=== PATIENT | female | born 1960 | race Caucasian/White ===

== ENCOUNTER 2023-07-18 10:29 | Outpatient (OUT) | payer OTHER, SELFPAY ==
[2023-07-18 11:09] LABS: Basophils Absolute Auto 0.1 10^3/uL (0.0-0.1); Basophils Percent Auto 0.7 % (0.2-2.0); Eosinophils Absolute Auto 0.3 10^3/uL (0.0-0.7); Eosinophils Percent Auto 3.3 % (0.9-7.0); Hematocrit 35.3 % (36.0-48.0); Hemoglobin 11.2 g/dL (12.0-16.0); Immature Granulocytes Abs Auto 0.03 10^3/uL (0.00-0.03); Immature Granulocytes Pct Auto 0.4 % (0.0-0.5); Lymphocytes Absolute Auto 1.5 10^3/uL (1.2-3.8); Lymphocytes Percent Auto 19.7 % (20.5-60.0); Mean Corpuscular HGB Conc 31.7 g/dL (29.9-35.2); Mean Corpuscular Hemoglobin 25.6 pg (26.7-34.0); Mean Corpuscular Volume 80.8 fL (81.0-99.0); Monocytes Absolute Auto 0.5 10^3/uL (0.3-0.8); Monocytes Percent Auto 6.3 % (1.7-12.0); Neutrophils Absolute Auto 5.2 10^3/uL (1.4-6.5); Neutrophils Percent Auto 69.6 % (43.0-75.0); Platelet Count 290 10^3/uL (150-450); Red Blood Count 4.37 10^6/uL (4.20-5.40); Red Cell Distribution Width 14.9 % (11.0-15.0); White Blood Count 7.5 10^3/uL (4.0-11.0)
[2023-07-18 12:08] LABS: Estimated Average Glucose 120 mg/dL; Glycohemoglobin A1C 5.8 % (4.5-6.2)
[2023-07-18 12:16] LABS: Alanine Aminotransferase 21 U/L (14-59); Albumin Globulin Ratio 0.9; Albumin Level 3.8 g/dL (3.4-5.0); Alkaline Phosphatase 93 U/L (46-116); Aspartate Amino Transferase 13 U/L (15-37); Bilirubin Direct 0.1 mg/dL (0.0-0.2); Bilirubin Total 0.2 mg/dL (0.2-1.0); Cholesterol 131 mg/dL (<=200); Globulin 4.3 g/dL; Glucose Fasting 110 mg/dL (74-106); HDL Cholesterol 66 mg/dL (40-60); Thyroid Stimulating Hormone 2.202 uIU/mL (0.358-3.740); Total Protein 8.1 g/dL (6.4-8.2); Triglycerides 62 mg/dL (<=150); VLDL CHOLESTEROL 12.4 mg/dL
[2023-07-19 06:08] LABS: Carbamazepine(Tegretol),S 10.7 ug/mL (4.0-12.0)
== END 2023-07-18 10:30 | disposition home or self-care (01) ==
PROVIDERS: PCP Nurse Practitioner; Visit Provider Psychiatry & Neurology Psychiatry
DX: Z79.899 Other long term (current) drug therapy (principal); F31.9 Bipolar disorder, unspecified
CPT/HCPCS: 36415; 80061; 80076; 80156; 82947; 83036; 84443; 85025

== ENCOUNTER 2023-07-21 09:01 | Emergency (ER) | payer OTHER, SELFPAY ==
[2023-07-21 09:08] VITALS: BP 138/84; PULSE 74; RESP 18; O2SAT 99; BMI 30.1
--- NOTE | 2023-07-21 09:23 | CT_ITS ---
The [address] [address] Patient Name: ALBERTA COURTNEY MRN: [id number] date: 1960 Sex: F Assigned Patient Location: ER Current Patient Location: [facility] Accession/Order Number: [id number] Exam Date: 07/21/2023 09:52 Report Date: 07/21/2023 10:16 At the request of: ELIS TEAGUE Procedure: CT head/brain wo con CT head/brain wo con, 07/21/2023 9:52 AM EDT, [place]001 INDICATION: dizziness COMPARISON: None. TECHNIQUE: CT images of the brain from skull base to vertex, including portions of the face and sinuses, were obtained without contrast. Supplemental 2D reformatted images were generated and reviewed as needed. Dose reduction techniques were achieved by using automated exposure control and/or adjustment of mA and/or kV according to patient size and/or use of iterative reconstruction technique. FINDINGS: The ventricles and sulci are within normal limits for the patient's age. No significant white matter disease or acute ischemia. No mass effect, acute hemorrhage, midline shift, hydrocephalus or exta-axial fluid collection. The basal cisterns are patent. The calvarium appears intact. The visualized paranasal sinuses are clear. The mastoids are clear. CT/CT head/brain wo con IMPRESSION: No CT evidence of acute intracranial abnormality. Electronically authenticated by: ELOISE RICO Date: 07/21/2023 10:16
--- NOTE | 2023-07-21 09:23 | ECG_ITS ---
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
[2023-07-21 09:25] VITALS: TEMP 37.1
--- NOTE | 2023-07-21 09:25 | ED.DIZZY1 ---
HPI - Dizziness General Chief Complaint: Dizziness Stated Complaint: DIZZINESS Time Seen by Provider: 07/21/23 09:09 Source: patient Mode of arrival: walk-in History of Present Illness HPI Narrative: sudden onset of dizziness one day ago without provocation - described as spinning or movement at rest, worse with standing, having difficulty walking due tot he symptom. no nausea or vomiting, No headache or ringing in the ears. Thought her vision was off yesterday but OK today. No fever, chills, recent illness, recent trauma, GI or symptoms. No prior history of vertigo. Related Data Home Medications Medication Instructions Recorded Confirmed alendronate 35 mg tablet 35 mg PO DAILY 07/21/23 07/21/23 alprazolam 1 mg tablet mg 07/21/23 aripiprazole 30 mg tablet (Abilify) 30 mg PO DAILY 07/21/23 07/21/23 aspirin 81 mg tablet,delayed 81 mg PO DAILY 07/21/23 07/21/23 release atorvastatin 40 mg tablet 40 mg PO DAILY 07/21/23 07/21/23 bupropion HCl 150 mg 24 hr tablet, 150 mg PO DAILY 07/21/23 07/21/23 extended release bupropion HCl 300 mg 24 hr tablet, 300 mg PO DAILY 07/21/23 07/21/23 extended release buspirone 30 mg tablet 30 mg PO BID 07/21/23 07/21/23 carbamazepine 200 mg tablet 200 mg PO BID 07/21/23 07/21/23 (Tegretol) carvedilol 6.25 mg tablet 6.25 mg PO BID 07/21/23 07/21/23 citalopram 40 mg tablet (Celexa) 40 mg PO DAILY 07/21/23 07/21/23 hydrochlorothiazide 12.5 mg tablet 12.5 mg PO DAILY 07/21/23 07/21/23 loratadine 10 mg tablet 10 mg PO DAILY 07/21/23 07/21/23 meloxicam 7.5 mg tablet 7.5 mg PO DAILY 07/21/23 07/21/23 Previous Rx's Medication Instructions Recorded meclizine 25 mg tablet 25 mg PO TID PRN dizziness #30 tabs 07/21/23 Allergies Allergy/AdvReac Type Severity Reaction Status Date / Time No Known Drug Allergies Allergy Verified 07/21/23 09:08 Exam Narrative Exam Narrative: Nurses notes and vital signs reviewed and patient is not hypoxic. afebrile General: Well-appearing and in no apparent distress. Skin: Warm, dry, no pallor noted. No rash. Head: Normocephalic, atraumatic. Neck: Supple, non-tender. Eye: Pupils are equal, round and EOMI. No scleral icterus. Ears, Nose, Mouth, and Throat: TM are clear, no nasal mucosal hypertrophy. Oral mucosa is moist, no posterior oropharynx erythema, uvula is mid-line Cardiovascular: Regular Rate and Rhythm without murmur, gallop or rub. Respiratory: No accessory muscle use or respiratory distress. Lungs are clear to auscultation, no wheezing, rales or rhonchi Chest Wall: no tenderness Back: No midline thoracic or lumbar vertebral tenderness. No CVA tenderness Musculoskeletal: normal ROM, no calf or popliteal tenderness, no lower extremity edema/swelling GI: Abdomen is soft, non-distended. Normal bowel sounds. No masses appreciated. No tenderness to palpation. No rebound, guarding, or rigidity noted. Neurological: A&O x4. No cranial nerve dysfunction observed. No truncal ataxia. Moves all extremities. Sensation intact. Psychiatric: Cooperative and interactive. Normal mood and affect. Constitutional Vital Signs, click to edit/add: Last Vital Signs Temp 98.7 F 07/21/23 09:25 Pulse 74 07/21/23 10:40 Resp 16 07/21/23 10:40 BP 128/84 07/21/23 10:40 Pulse Ox 97 07/21/23 10:40 O2 Del Method Room Air 07/21/23 10:40 Course Vital Signs Vital signs: Vital Signs Pulse Rate 74 07/21/23 09:08 Respiratory Rate 18 07/21/23 09:08 Blood Pressure 138/84 07/21/23 09:08 Pulse Oximetry 99 07/21/23 09:08 Temperature 98.7 F 07/21/23 09:25 Pulse Rate 74 07/21/23 10:40 Respiratory Rate 16 07/21/23 10:40 Blood Pressure 128/84 07/21/23 10:40 Pulse Oximetry 97 07/21/23 10:40 Oxygen Delivery Method Room Air 07/21/23 10:40 MDM - Dizziness MDM Narrative Medical decision making narrative: Patient was placed on property assessment monitor and EKG obtained. Blood drawn and sent for evaluation. orthostatics were negative. Patient was ordered to receive normal saline IV fluid bolus, IV Zofran, IV Solu-Medrol and oral meclizine. She was ordered to undergo noncontrast CT scanning of the brain. EKG normal. Head CT negative per radiologist. CBC normal. metabolic profile normal On recheck at 1030 the patient had almost complete resolution of her symptoms and is without exacerbation with movement of the head or change in body position. Patient informed of results and discharged home. Prescribed Meclizine. PCP follow up recommended. Lab Data Attestation: I reviewed the patient's lab results. Labs: Lab Results 07/21/23 Range/Units 09:34 WBC 7.1 (4.0-11.0) 10^3/uL RBC 4.38 (4.20-5.40) 10^6/uL Hgb 11.2 L (12.0-16.0) g/dL Hct 35.5 L (36.0-48.0) % MCV 81.1 (81.0-99.0) fL MCH 25.6 L (26.7-34.0) pg MCHC 31.5 (29.9-35.2) g/dL RDW 14.8 (11.0-15.0) % Plt Count 228 (150-450) 10^3/uL MPV 10.3 (9.5-13.5) fL Neut % (Auto) 70.7 (43.0-75.0) % Lymph % (Auto) 18.1 L (20.5-60.0) % [place] % (Auto) 6.9 (1.7-12.0) % Eos % (Auto) 3.3 (0.9-7.0) % Baso % (Auto) 0.7 (0.2-2.0) % Neut # (Auto) 5.0 (1.4-6.5) 10^3/uL Lymph # (Auto) 1.3 (1.2-3.8) 10^3/uL [place] # (Auto) 0.5 (0.3-0.8) 10^3/uL Eos # (Auto) 0.2 (0.0-0.7) 10^3/uL Baso # (Auto) 0.1 (0.0-0.1) 10^3/uL Abs Immat Gran (auto) 0.02 (0.00-0.03) 10^3/uL Imm/Tot Granulo (auto) 0.3 (0.0-0.5) % Sodium 135 L (136-145) mmol/L Potassium 3.9 (3.5-5.1) mmol/L Chloride 100 (98-107) mmol/L Carbon Dioxide 27.3 (21.0-32.0) mmol/L Anion Gap 11.6 BUN 10.0 (7.0-18.0) mg/dL Creatinine 0.78 (0.55-1.02) mg/dL Est GFR ( Amer) >60 (>=60) Est GFR (Non-Af Amer) >60 (>=60) BUN/Creatinine Ratio 12.8 Glucose 124 H (74-106) mg/dL Calcium 8.7 (8.5-10.1) mg/dL Total Bilirubin 0.2 (0.2-1.0) mg/dL AST 18 (15-37) U/L ALT 20 (14-59) U/L Alkaline Phosphatase 90 (46-116) U/L Total Protein 8.0 (6.4-8.2) g/dL Albumin 3.8 (3.4-5.0) g/dL Globulin 4.2 g/dL Albumin/Globulin Ratio 0.[address] scan - head: Radiologist's impression: Patient Name: ALBERTA COURTNEY MRN: [facility]:[id number] date: 1960 Sex: F Assigned Patient Location: ER Current Patient Location: ED.MAIN Accession/Order Number: [id number] Exam Date: 07/21/2023 09:52 Report Date: 07/21/2023 10:16 At the request of: ELIS TEAGUE Procedure: CT head/brain wo con CT head/brain wo con, 07/21/2023 9:52 AM EDT, [place]001 INDICATION: dizziness COMPARISON: None. TECHNIQUE: CT images of the brain from skull base to vertex, including portions of the face and sinuses, were obtained without contrast. Supplemental 2D reformatted images were generated and reviewed as needed. Dose reduction techniques were achieved by using automated exposure control and/or adjustment of mA and/or kV according to patient size and/or use of iterative reconstruction technique. FINDINGS: The ventricles and sulci are within normal limits for the patient's age. No significant white matter disease or acute ischemia. No mass effect, acute hemorrhage, midline shift, hydrocephalus or exta-axial fluid collection. The basal cisterns are patent. The calvarium appears intact. The visualized paranasal sinuses are clear. The mastoids are clear. IMPRESSION: No CT evidence of acute intracranial abnormality. Electronically authenticated by: ELOISE RICO Date: 07/21/2023 10:16 ECG Data Interpretation: EKG interpretation: Emergency Department physician interpretation. Normal sinus rhythm at 71bpm. Normal axis, normal intervals and no ST segment elevation or depression. Normal EKG. Discharge Plan Discharge Chief Complaint: Dizziness Clinical Impression: Benign paroxysmal positional vertigo Patient Disposition: Home, Self-Care Time of Disposition Decision: 10:34 Prescriptions / Home Meds: New meclizine 25 mg tablet 25 mg PO TID PRN (Reason: dizziness) Qty: 30 0RF No Action alendronate 35 mg tablet 35 mg PO DAILY aspirin 81 mg tablet,delayed release (DR/EC) 81 mg PO DAILY atorvastatin 40 mg tablet 40 mg PO DAILY buspirone 30 mg tablet 30 mg PO BID bupropion HCl 300 mg tablet extended release 24 hr 300 mg PO DAILY bupropion HCl 150 mg tablet extended release 24 hr 150 mg PO DAILY carvedilol 6.25 mg tablet 6.25 mg PO BID meloxicam 7.5 mg tablet 7.5 mg PO DAILY loratadine 10 mg tablet 10 mg PO DAILY hydrochlorothiazide 12.5 mg tablet 12.5 mg PO DAILY carbamazepine [Tegretol] 200 mg tablet 200 mg PO BID aripiprazole [Abilify] 30 mg tablet 30 mg PO DAILY citalopram [Celexa] 40 mg tablet 40 mg PO DAILY alprazolam 1 mg tablet Instructions: Benign Paroxysmal Positional Vertigo (ED) Stand Alone Forms: Portal Instructions Referrals: Julianne Lord [Primary Care Provider] - 1 week
[2023-07-21 09:26] VITALS: BP 130/82; BP 132/80; BP 138/84; PULSE 74; PULSE 79
[2023-07-21 09:37] VITALS: O2SAT 98
[2023-07-21] MEDS: METHYLPREDNISOLONE SOD SUCC PF 125 MG/2 ML VIAL IVP (09:44)
[2023-07-21] MEDS: ONDANSETRON PF 4 MG/2 ML VIAL IV (09:44)
[2023-07-21] MEDS: MECLIZINE HCL 12.5 MG TABLET 25 MG PO (09:44)
[2023-07-21] MEDS: 0.9 % SODIUM CHLORIDE 1,000 ML 999 ML IV (09:45)
[2023-07-21 10:13] LABS: Basophils Absolute Auto 0.1 10^3/uL (0.0-0.1); Basophils Percent Auto 0.7 % (0.2-2.0); Eosinophils Absolute Auto 0.2 10^3/uL (0.0-0.7); Eosinophils Percent Auto 3.3 % (0.9-7.0); Hematocrit 35.5 % (36.0-48.0); Hemoglobin 11.2 g/dL (12.0-16.0); Immature Granulocytes Abs Auto 0.02 10^3/uL (0.00-0.03); Immature Granulocytes Pct Auto 0.3 % (0.0-0.5); Lymphocytes Absolute Auto 1.3 10^3/uL (1.2-3.8); Lymphocytes Percent Auto 18.1 % (20.5-60.0); Mean Corpuscular HGB Conc 31.5 g/dL (29.9-35.2); Mean Corpuscular Hemoglobin 25.6 pg (26.7-34.0); Mean Corpuscular Volume 81.1 fL (81.0-99.0); Mean Platelet Volume 10.3 fL (9.5-13.5); Monocytes Absolute Auto 0.5 10^3/uL (0.3-0.8); Monocytes Percent Auto 6.9 % (1.7-12.0); Neutrophils Percent Auto 70.7 % (43.0-75.0); Platelet Count 228 10^3/uL (150-450); Red Blood Count 4.38 10^6/uL (4.20-5.40); Red Cell Distribution Width 14.8 % (11.0-15.0); White Blood Count 7.1 10^3/uL (4.0-11.0)
[2023-07-21 10:40] VITALS: BP 128/84; PULSE 74; RESP 16; O2SAT 97
[2023-07-21 10:46] LABS: Alanine Aminotransferase 20 U/L (14-59); Albumin Globulin Ratio 0.9; Albumin Level 3.8 g/dL (3.4-5.0); Alkaline Phosphatase 90 U/L (46-116); Anion Gap 11.6; Aspartate Amino Transferase 18 U/L (15-37); BUN Creatinine Ratio 12.8; Bilirubin Total 0.2 mg/dL (0.2-1.0); Calcium 8.7 mg/dL (8.5-10.1); Carbon Dioxide 27.3 mmol/L (21.0-32.0); Chloride 100 mmol/L (98-107); Estimated GFR (African America >60 (>=60); Estimated GFR (Non-African Ame >60 (>=60); Globulin 4.2 g/dL; Glucose 124 mg/dL (74-106); Potassium 3.9 mmol/L (3.5-5.1); Sodium 135 mmol/L (136-145)
== END 2023-07-21 11:13 | disposition home or self-care (01) ==
PROVIDERS: Emergency Provider Emergency Medicine; PCP Nurse Practitioner
DX: H81.10 Benign paroxysmal vertigo, unspecified ear (principal); Z79.82 Long term (current) use of aspirin; Z79.899 Other long term (current) drug therapy
CPT/HCPCS: 36415; 70450; 80053; 85025; 93005; 96374; 96375; 99285; J2930

== ENCOUNTER 2023-09-21 08:10 | Outpatient (OUT) | payer OTHER, SELFPAY | END 2023-09-21 08:11 | disposition home or self-care (01) | LOC: LAB 08:11 | PROVIDERS: PCP Nurse Practitioner; Visit Provider Nurse Practitioner | DX: R42 Dizziness and giddiness (principal) | CPT/HCPCS: 36415; 82607; 83735; 85652; 86140 ==

== ENCOUNTER 2023-09-21 08:29 | Outpatient (OUT) | payer OTHER, SELFPAY ==
[2023-09-21 08:36] LABS: Erythrocyte Sedimentation Rate 32 mm/hr (<=30)
[2023-09-21 08:59] LABS: C Reactive Protein <0.2 mg/dL (<=1.0)
--- NOTE | 2023-09-21 09:28 | CA_ITS ---
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1960 Requested By: YAKOV AGUIRRE Order Number: [id number] Reading MD: TAO ASHTON Interpretive Statements Predominant rhythm is sinus with average rate of 87 bpm Tachycardia - max rate of 109 bpm - longest episode of 23min 19sec with rates between 103-109 bpm Bradycardia - none Ventricular ectopy - 2 total - 2 PVC Patient triggered events: 1 - associated with dizziness w/ a rate of 98 bpm Impression: Predominant rhythm is sinus with average rate of 87 bpm Fastest rate of 109 and slowest rate of 69 bpm 2 PVC No atrial fib, blocks or pauses Electronically Signed On 10-06-2023 7:17:48 EST by TAO ASHTON
== END 2023-09-21 08:30 | disposition home or self-care (01) ==
LOC: MRI 08:30
PROVIDERS: PCP Nurse Practitioner; Visit Provider Nurse Practitioner
DX: R42 Dizziness and giddiness (principal)
CPT/HCPCS: 36415; 82607; 83735; 85652; 86140; 93242

== ENCOUNTER 2023-12-27 08:35 | Emergency (ER) | payer OTHER, SELFPAY ==
[2023-12-27] VITALS (15 sets, daily range): BP systolic 128–190; BP diastolic 75–112; PULSE 74–91; RESP 11–27; TEMP 36.7; O2SAT 96–98; BMI 30.5
--- OUTSIDE RECORDS SUMMARY | 2023-12-27 08:50 | XMS_ITS | CCD ---
Author Name Unknown Address [address] [place] [address] Organization [facility] Care Team Providers Care Supervisor Testing Name Role Phone PATRICK PEDRO Admitting Unavailable WILLIS, PATRICK Attending Unavailable AICHHOLZ, MATIAS YAKOV Primary Care Unavailable WILLIS, PATRICK Consulting Unavailable WILLIS, PATRICK Admitting Unavailable WILLIS, PATRICK Attending Unavailable AICHHOLZ, MATIAS YAKOV Primary Care Unavailable WILLIS, PATRICK Consulting Unavailable AICHHOLZ, MATIAS YAKOV Admitting Unavailable AICHHOLZ, MATIAS YAKOV Attending Unavailable AICHHOLZ, MATIAS YAKOV Primary Care Unavailable Chris Caruso Attending Unavailab le Chris Caruso Admitting Unavailab le NO FAMILY, PHYSICIAN Primary Care Unavailable Problems Problem Classification Problem Date Documented Da te Episodic/Chronic Mood disorders (4 sources) Bipolar disorder, unspecified; Translations: [BIPOLAR DISORDER UNSPECIFIED] Onset: 07-15-2022 Chronic Other aftercare (1 source) 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 Anish Johnson Basophils/100 WBC (Bld) 1.1 % Normal 0.2-2.0 [facility] Comment on above: Performed By: #### C BC #### [facility] [address], [place] [address] Dr. Anish Johnson EO # 0.3 103/ul Normal 0.0-0.7 [facility] Comment on above: Performed By: #### C BC #### [facility] [address] [place] [address] Dr. Anish Johnson Eosinophils/100 WBC (Bld) 4.1 % Normal 0.9-7.0 [facility] Comment on above: Performed By: #### C BC #### [facility] [address] [place] [address] Dr. Anish Johnson Erythrocyte distribution width (RBC) [Ratio] 15.1 % Critically high 11.0-15.0 [facility] Comment on above: Performed By: #### C BC #### [facility] [address] [place] [address] Dr. Anish Johnson Hematocrit (Bld) [Volume fraction] 40.6 % Normal 36.0-48.0 [facility] Comment on above: Performed By: #### C BC #### [facility] [address] [place] [address] Dr. Anish Johnson Hemoglobin (Bld) [Mass/Vol] 12.4 g/dL Normal 12.0-16.0 [facility] Comment on above: Performed By: #### C BC #### [facility] [address] [place] [address] Dr. Anish Johnson IG # 0.02 10e3/ul Normal 0.00-0.03 [facility] Comment on above: Performed By: #### C BC #### [facility] [address] [place] [address] Dr. Anish Johnson IG % 0.3 % Normal 0.0-0.5 [facility] Comment on above: Performed By: #### C BC #### [facility] [address] [place] [address] Dr. Anish Johnson LYMPH # 1.3 103/ul Normal 1.2-3.8 [facility] Comment on above: Performed By: #### C BC #### [facility] [address] [place] [address] Dr. Anish Johnson Lymphocytes/100 WBC (Bld) 19.7 % Critically low 20.5-60.0 [facility] Comment on above: Performed By: #### C BC #### [facility] [address] [place] [address] Dr. Anish Johnson MANUAL DIFF REQ NO Normal [facility] Comment on above: Performed By: #### C BC #### [facility] [address] [place] [address] Dr. Anish Johnson MCH (RBC) [Entitic mass] 25.5 pg Critically low 26.7-34.0 [facility] Comment on above: Performed By: #### C BC #### [facility] [address] [place] [address] Dr. Anish Johnson MCHC (RBC) [Mass/Vol] 30.5 g/dL Normal 29.9-35.2 [facility] Comment on above: Performed By: #### C BC #### [facility] [address] [place] [address] Dr. Anish Johnson MCV (RBC) [Entitic vol] 83.4 fL Normal 81.0-99.0 [facility] Comment on above: Performed By: #### C BC #### [facility] [address] [place] [address] Dr. Anish Johnson MONO # 0.5 103/ul Normal 0.3-0.8 [facility] Comment on above: Performed By: #### C BC #### [facility] [address] [place] [address] Dr. Anish Johnson Monocytes/100 WBC (Bld) 7.0 % Normal 1.7-12.0 [facility] Comment on above: Performed By: #### C BC #### [facility] [address] [place] [address] Dr. Anish Johnson NEUT # 4.5 103/ul Normal 1.4-6.5 [facility] Comment on above: Performed By: #### C BC #### [facility] [address] [place] [address] Dr. Anish Johnson Neutrophils/100 WBC (Bld) 67.8 % Normal 43.0-75.0 [facility] Comment on above: Performed By: #### C BC #### [facility] [address] [place] [address] Dr. Anish Johnson Platelet mean volume (Bld) [Entitic vol] 10.5 fL Normal 9.5-13.5 [facility] Comment on above: Performed By: #### C BC #### [facility] [address] [place] [address] Dr. Anish Johnson PLT 297 103/ul Normal 150-450 [facility] Comment on above: Performed By: #### C BC #### [facility] [address] [place] [address] Dr. Anish Johnson RBC 4.87 106/ul Normal 4.20-5.40 [facility] Comment on above: Performed By: #### C BC #### [facility] [address] [place] [address] Dr. Anish Johnson WBC 6.6 103/ul Normal 4.0-11.0 [facility] Comment on above: Performed By: #### C BC #### [facility] [address] [place] [address] Dr. Anish Johnson CARBAMAZEPINEon 07-16-2022 Carbamezapine 5.4 ug/mL Normal 4.0-12.0 [facility] [place] Comment on above: Result Comment: In c onjunction with other antiepileptic drugs Therapeutic 4.0 - 8.0 Toxicity 9.0 - 12.0 . Carbamazepine alone Therapeutic 8.0 - 12.0 . Detection Limit = 2.0 <2.0 indicated None Detected Performed By: #### C ARBLC #### [facility] [address] [place] [address] Dr. Anish Johnson CBC AUTO DIFFon 07-15-2022 BASO # 0.0 103/ul Normal 0.0-0.1 [facility] Comment on above: Performed By: #### C BC #### [facility] [address] [place] [address] Dr. Anish Johnson Basophils/100 WBC (Bld) 0.5 % Normal 0.2-2.0 [facility] Comment on above: Performed By: #### C BC #### [facility] [address] [place] [address] Dr. Anish Johnson EO # 0.2 103/ul Normal 0.0-0.7 [facility] Comment on above: Performed By: #### C BC #### [facility] [address] [place] [address] Dr. Anihs Johnson Eosinophils/100 WBC (Bld) 2.9 % Normal 0.9-7.0 [facility] Comment on above: Performed By: #### C BC #### [facility] [address] [place] [address] Dr. Anish Johnson Erythrocyte distribution width (RBC) [Ratio] 15.7 % Critically high 11.0-15.0 [facility] Comment on above: Performed By: #### C BC #### [facility] [address] [place] [address] Dr. Anish Johnson Hematocrit (Bld) [Volume fraction] 40.2 % Normal 36.0-48.0 [facility] Comment on above: Performed By: #### C BC #### [facility] [address] [place] [address] Dr. Anish Johnson Hemoglobin (Bld) [Mass/Vol] 12.5 g/dL Normal 12.0-16.0 [facility] Comment on above: Performed By: #### C BC #### [facility] [address] [place] [address] Dr. Anish Johnson IG # 0.02 10e3/ul Normal 0.00-0.03 [facility] Comment on above: Performed By: #### C BC #### [facility] [address] [place] [address] Dr. Anish Johnson IG % 0.3 % Normal 0.0-0.5 [facility] Comment on above: Performed By: #### C BC #### [facility] [address] [place] [address] Dr. Anish Johnson LYMPH # 1.5 103/ul Normal 1.2-3.8 [facility] Comment on above: Performed By: #### C BC #### [facility] [address] [place] [address] Dr. Anish Johnson Lymphocytes/100 WBC (Bld) 18.7 % Critically low 20.5-60.0 [facility] Comment on above: Performed By: #### C BC #### [facility] [address] [place] [address] Dr. Anish Johnson MANUAL DIFF REQ NO Normal [facility] Comment on above: Performed By: #### C BC #### [facility] [address] [place] [address] Dr. Anish Johnson MCH (RBC) [Entitic mass] 25.4 pg Critically low 26.7-34.0 [facility] Comment on above: Performed By: #### C BC #### [facility] [address] [place] [address] Dr. Anish Johnson MCHC (RBC) [Mass/Vol] 31.1 g/dL Normal 29.9-35.2 [facility] Comment on above: Performed By: #### C BC #### [facility] [address] [place] [address] Dr. Anish Johnson MCV (RBC) [Entitic vol] 81.7 fL Normal 81.0-99.0 [facility] Comment on above: Performed By: #### C BC #### [facility] [address] [place] [address] Dr. Anish Johnson MONO # 0.7 103/ul Normal 0.3-0.8 [facility] Comment on above: Performed By: #### C BC #### [facility] [address] [place] [address] Dr. Anish Johnson Monocytes/100 WBC (Bld) 8.3 % Normal 1.7-12.0 [facility] Comment on above: Performed By: #### C BC #### [facility] [address] [place] [address] Dr. Anish Johnson NEUT # 5.4 103/ul Normal 1.4-6.5 [facility] Comment on above: Performed By: #### C BC #### [facility] [address] [place] [address] Dr. Anish Johnson Neutrophils/100 WBC (Bld) 69.3 % Normal 43.0-75.0 [facility] Comment on above: Performed By: #### C BC #### [facility] [address] [place] [address] Dr. Anish Johnson Platelet mean volume (Bld) [Entitic vol] 10.6 fL Normal 9.5-13.5 [facility] Comment on above: Performed By: #### C BC #### [facility] [address] [place] [address] Dr. Anish Johnson PLT 297 103/ul Normal 150-450 [facility] Comment on above: Performed By: #### C BC #### [facility] [address] [place] [address] Dr. Anish Johnson RBC 4.92 106/ul Normal 4.20-5.40 [facility] Comment on above: Performed By: #### C BC #### [facility] [address] [place] [address] Dr. Anish Johnson WBC 7.8 103/ul Normal 4.0-11.0 [facility] Comment on above: Performed By: #### C BC #### [facility] [address] [place] [address] Dr. Anish Johnson GLUCOSE BLOODon 07-15-2022 Glucose [Mass/Vol] 133 mg/dL Critically high 74-106 [facility] Comment on above: Performed By: #### L IVER, GLUC, TSH, LIPID #### [facility] [address] [place] [address] Dr. Anish Johnson LIPID PROFILEon 07-15-2022 CHOL-HDL RATIO NORM SEE BELOW Normal [facility] Comment on above: Result Comment: 3.3 - 4.4 LOW RISK 4.4 - 7.1 AVERAGE RISK 7.1 - 11.0 MODERATE RISK >11.0 HIGH RISK Performed By: #### L IVER, GLUC, TSH, LIPID #### [facility] [address] [place] [address] Dr. Anish Johnson Cholesterol [Mass/Vol] 135 mg/dL Normal <=200 [facility] Comment on above: Performed By: #### L IVER, GLUC, TSH, LIPID #### [facility] [address] [address] [address] Anish Johnson Cholesterol in HDL [Mass/Vol] 58 mg/dL Normal 40-60 [facility] Comment on above: Performed By: #### L IVER, GLUC, TSH, LIPID #### [facility] [address] [address] [address] Anish Johnson Cholesterol in LDL [Mass/Vol] 54.2 mg/dL Normal [facility] Comment on above: Performed By: #### L IVER, GLUC, TSH, LIPID #### [facility] [address] [address] [address] Anish Johnson Cholesterol.total/Cho lesterol in HDL [Mass ratio] 2.3 {ratio} Normal [facility] Comment on above: Performed By: #### L IVER, GLUC, TSH, LIPID #### [facility] [address] [address] [address] Anish Johnson HDL NORMAL > or = 60 mg/dl - LOW CARDIOVASCULAR RISK <40 mg/dl - HIGH CARDIOVASCULAR RISK Normal [facility] Comment on above: Performed By: #### L IVER, GLUC, TSH, LIPID #### [facility] [address] [address] [address] Anish Johnson LDL CALC NORMAL SEE BELOW Normal [facility] Comment on above: Result Comment: <100 mg/dl OPTIMAL 100 - 129 mg/dl NEAR OR ABOVE OPTIMAL 130 - 159 mg/dl BORDERLINE HIGH 160 - 189 mg/dl HIGH >190 mg/dl VERY HIGH Performed By: #### L IVER, GLUC, TSH, LIPID #### [facility] [address] [address] [address] Anish Johnson Triglyceride [Mass/Vol] 114 mg/dL Normal <=150 [facility] Comment on above: Performed By: #### L IVER, GLUC, TSH, LIPID #### [facility] [address] [address] [address] Anish Johnson VLDL CALC 22.8 mg/dL Normal [facility] Comment on above: Performed By: #### L IVER, GLUC, TSH, LIPID #### [facility] [address] [place] [address] Dr. Anish Johnson LIVER PROFILEon 07-15-2022 Albumin [Mass/Vol] 4.3 g/dL Normal 3.4-5.0 [facility] Comment on above: Performed By: #### L IVER, GLUC, TSH, LIPID #### [facility] [address] [place] [address] Dr. Anish Johnson Albumin/Globulin [Mass ratio] 1.0 {ratio} Normal [facility] Comment on above: Performed By: #### L IVER, GLUC, TSH, LIPID #### [facility] [address] [place] [address] Dr. Anish Johnson ALP [Catalytic activity/Vol] 108 U/L Normal 46-116 [facility] Comment on above: Performed By: #### L IVER, GLUC, TSH, LIPID #### [facility] [address] [place] [address] Dr. Anish Johnson ALT [Catalytic activity/Vol] 26 U/L Normal 14-59 [facility] Comment on above: Performed By: #### L IVER, GLUC, TSH, LIPID #### [facility] [address] [place] [address] Dr. Anish Johnson AST [Catalytic activity/Vol] 21 U/L Normal 15-37 [facility] Comment on above: Performed By: #### L IVER, GLUC, TSH, LIPID #### [facility] [address] [place] [address] Dr. Anish Johnson BILI, CONJUGATED 0.1 mg/dL Normal 0.0-0.2 [facility] Comment on above: Performed By: #### L IVER, GLUC, TSH, LIPID #### [facility] [address] [place] [address] Dr. Anish Johnson Bilirubin [Mass/Vol] 0.5 mg/dL Normal 0.2-1.0 [facility] Comment on above: Performed By: #### L IVER, GLUC, TSH, LIPID #### [facility] [address], [place] [address] Dr. Anish Johnson Globulin (S) [Mass/Vol] 4.3 g/dL Normal [facility] Comment on above: Performed By: #### L IVER, GLUC, TSH, LIPID #### [facility] [address], [place] [address] Dr. Anish Johnson Protein [Mass/Vol] 8.6 g/dL Critically high 6.4-8.2 [facility] Comment on above: Performed By: #### L IVER, GLUC, TSH, LIPID #### [facility] [address], [place] [address] Dr. Anish Johnson TSHon 07-15-2022 TSH 1.692 uIU/mL Normal 0.358-3.740 [facility] [place] Comment on above: Performed By: #### L IVER, GLUC, TSH, LIPID #### [facility] [address], [place] [address] Dr. Anish Johnson Encounters Encounter Date Encounter Type Care Provider Facility Start: 10-11-2023 ambulatory Chris Chapa acility:[facility] Start: 09-08-2022 End: 09-09-2022 ambulatory PATRICK PEDRO Facility:[facility] Start: 07-15-2022 End: 07-16-2022 ambulatory PATRICK PEDRO Facility:[facility] Start: 09-09-2021 ambulatory MATIAS Marin ity:[facility] Payers Date Payer Category Payer Self-pay 1960 Unknown [id number] 1960 Unknown [id number] 1960 Unknown [id number] 1960 Unknown [id number] [id number] Summary Purpose Family History No Family History Records FoundNo Family History Records Found Advance Directives No Advanced Directives Records FoundNo Advanced Directives Records Found Additional Source Comments INFORMATION SOURCE (unrecogn ized section and content) DATE CREATED AUTHOR 09/09/2022 [facility] DATE CREATED AUTHOR AUTHOR'S EVIN GILBERTJUDE 12/26/2023 [facility] FOR RECORDS PERTAINING TO PATIENTS WHO ARE OR HAVE BEEN ENROLLED IN A CHEMICAL DEPENDENCY/SUBSTANCEABUSE PROGRAM, SOME INFORMATION MAY BE OMITTED. This clinical summary was aggregated from multiple sources. Caution should be exercised in using it in the provision of clinical care. This summary normalizes information from multiple sources, and as a consequence, information in this document may materially change the coding, format and clinical context of patient data. In addition, data may be omitted in some cases. CLINICAL DECISIONS SHOULD BE BASED ON THE PRIMARY CLINICAL RECORDS. [employer] provides no warranty or guarantee of the accuracy or completeness of information in this document.
--- NOTE | 2023-12-27 08:52 | ECG_ITS ---
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
[2023-12-27] MEDS: LABETALOL HCL 20 MG/4 ML SYRINGE IVP (09:07)
[2023-12-27] MEDS: ENALAPRILAT DIHYDRATE 1.25 MG/ML VIAL IV (09:08)
--- NOTE | 2023-12-27 09:19 | ED_ITS ---
HPI - General Adult General Chief complaint: Chest Pain Stated complaint: HIGH BLOOD PRESSURE Time Seen by Provider: 12/27/23 08:47 Source: patient Mode of arrival: walk-in Limitations: no limitations History of Present Illness HPI narrative: Patient sent over from her psychiatrist's office when they found her BP to be elevated. She told me that she has been taking her meds as prescribed and no recent change in her doses of BP meds. She is without any symptoms. no headache, dizziness or other complaints. Related Data Home Medications Medication Instructions Recorded Confirmed alendronate 35 mg tablet 35 mg PO DAILY 07/21/23 07/21/23 alprazolam 1 mg tablet mg 07/21/23 aripiprazole 30 mg tablet (Abilify) 30 mg PO DAILY 07/21/23 07/21/23 aspirin 81 mg tablet,delayed 81 mg PO DAILY 07/21/23 07/21/23 release atorvastatin 40 mg tablet 40 mg PO DAILY 07/21/23 07/21/23 bupropion HCl 150 mg 24 hr tablet, 150 mg PO DAILY 07/21/23 07/21/23 extended release bupropion HCl 300 mg 24 hr tablet, 300 mg PO DAILY 07/21/23 07/21/23 extended release buspirone 30 mg tablet 30 mg PO BID 07/21/23 07/21/23 carbamazepine 200 mg tablet 200 mg PO BID 07/21/23 07/21/23 (Tegretol) carvedilol 6.25 mg tablet 6.25 mg PO BID 07/21/23 07/21/23 citalopram 40 mg tablet (Celexa) 40 mg PO DAILY 07/21/23 07/21/23 hydrochlorothiazide 12.5 mg tablet 12.5 mg PO DAILY 07/21/23 07/21/23 loratadine 10 mg tablet 10 mg PO DAILY 07/21/23 07/21/23 meloxicam 7.5 mg tablet 7.5 mg PO DAILY 07/21/23 07/21/23 Previous Rx's Medication Instructions Recorded meclizine 25 mg tablet 25 mg PO TID PRN dizziness #30 tabs 07/21/23 Allergies Allergy/AdvReac Type Severity Reaction Status Date / Time No Known Drug Allergies Allergy Verified 07/21/23 09:08 PFSH PFSH Social History Smoking status: Former smoker Exam Narrative Exam Narrative: Nurses notes and vital signs reviewed and patient is not hypoxic. afebrile General: Well-appearing and in no apparent distress. Skin: Warm, dry, no pallor noted. Head: Normocephalic, atraumatic. Eye: Pupils are equal, round and EOMI. No scleral icterus. Cardiovascular: Regular Rate and Rhythm without murmur, gallop or rub. Respiratory: No accessory muscle use or respiratory distress. Lungs are clear to auscultation, no wheezing, rales or rhonchi Musculoskeletal: normal ROM, no calf or popliteal tenderness, no lower extremity edema/swelling Neurological: A&O x4. No cranial nerve dysfunction observed. No truncal ataxia. Moves all extremities. Sensation intact. Psychiatric: Cooperative and interactive. Normal mood and affect. Constitutional Vital Signs, click to edit/add: Last Vital Signs Temp 98.0 F 12/27/23 08:38 Pulse 76 12/27/23 09:24 Resp 17 12/27/23 09:24 BP 128/84 12/27/23 09:24 Pulse Ox 97 12/27/23 09:24 O2 Del Method Room Air 12/27/23 08:38 Course Vital Signs Vital signs: Vital Signs Temperature 98.0 F 12/27/23 08:38 Pulse Rate 88 12/27/23 08:38 Respiratory Rate 18 12/27/23 08:38 Blood Pressure 190/110 H 12/27/23 08:38 Pulse Oximetry 98 12/27/23 08:38 Oxygen Delivery Method Room Air 12/27/23 08:38 Temperature 98.0 F 12/27/23 08:38 Pulse Rate 76 12/27/23 09:24 Respiratory Rate 17 12/27/23 09:24 Blood Pressure 128/84 12/27/23 09:24 Pulse Oximetry 97 12/27/23 09:24 Oxygen Delivery Method Room Air 12/27/23 08:38 Medical Decision Making MDM Narrative Medical decision making narrative: Patient was placed on primary care sales representative and EKG obtained. Blood drawn and sent for evaluation. She was given IV Vasotec and IV Labetalol and her BP improved. Normal EKG. She was discharged home and instructed to see her PCP, Julianne Lord, in the office for follow up. Lab Data Lab results reviewed: Yes I reviewed the patient's lab results Labs: Lab Results 12/27/23 Range/Units 09:05 Sodium 137 (136-145) mmol/L Potassium 4.2 (3.5-5.1) mmol/L Chloride 103 (98-107) mmol/L Carbon Dioxide 26.2 (21.0-32.0) mmol/L Anion Gap 12.0 BUN 12.0 (7.0-18.0) mg/dL Creatinine 0.88 (0.55-1.02) mg/dL Est GFR ( Amer) >60 (>=60) Est GFR (Non-Af Amer) >60 (>=60) BUN/Creatinine Ratio 13.6 Glucose 116 H (74-106) mg/dL Calcium 8.9 (8.5-10.1) mg/dL ECG Data Attestation: I personally reviewed and interpreted this ECG as follows: Interpretation: EKG interpretation: Emergency Department physician interpretation. Normal sinus rhythm at 88bpm. Normal axis, normal intervals and no ST segment elevation or depression. Normal EKG. Discharge Plan Discharge Chief Complaint: Chest Pain Clinical Impression: Hypertension Patient Disposition: Home, Self-Care Time of Disposition Decision: 09:22 Prescriptions / Home Meds: No Action alendronate 35 mg tablet 35 mg PO DAILY aspirin 81 mg tablet,delayed release (DR/EC) 81 mg PO DAILY atorvastatin 40 mg tablet 40 mg PO DAILY buspirone 30 mg tablet 30 mg PO BID bupropion HCl 300 mg tablet extended release 24 hr 300 mg PO DAILY bupropion HCl 150 mg tablet extended release 24 hr 150 mg PO DAILY carvedilol 6.25 mg tablet 6.25 mg PO BID meloxicam 7.5 mg tablet 7.5 mg PO DAILY loratadine 10 mg tablet 10 mg PO DAILY hydrochlorothiazide 12.5 mg tablet 12.5 mg PO DAILY carbamazepine [Tegretol] 200 mg tablet 200 mg PO BID aripiprazole [Abilify] 30 mg tablet 30 mg PO DAILY citalopram [Celexa] 40 mg tablet 40 mg PO DAILY alprazolam 1 mg tablet meclizine 25 mg tablet 25 mg PO TID PRN (Reason: dizziness) Qty: 30 0RF Instructions: Hypertension (ED) Stand Alone Forms: Portal Instructions Referrals: Julianne Lord NP [Primary Care Provider] - 1 week
[2023-12-27 09:29] LABS: BUN Creatinine Ratio 13.6; Calcium 8.9 mg/dL (8.5-10.1); Carbon Dioxide 26.2 mmol/L (21.0-32.0); Chloride 103 mmol/L (98-107); Estimated GFR (African America >60 (>=60); Estimated GFR (Non-African Ame >60 (>=60); Glucose 116 mg/dL (74-106); Potassium 4.2 mmol/L (3.5-5.1); Sodium 137 mmol/L (136-145)
== END 2023-12-27 09:52 | disposition home or self-care (01) ==
PROVIDERS: Emergency Provider Emergency Medicine; PCP Nurse Practitioner
DX: I10 Essential (primary) hypertension (principal); Z79.899 Other long term (current) drug therapy; Z79.82 Long term (current) use of aspirin; Z87.891 Personal history of nicotine dependence
CPT/HCPCS: 36415; 80048; 93005; 96374; 96375; 99284; J1290

== ENCOUNTER 2024-01-20 07:48 | Emergency (ER) | payer OTHER, SELFPAY ==
[2024-01-20] VITALS (22 sets, daily range): BP systolic 105–194; BP diastolic 68–124; PULSE 73–94; RESP 11–19; TEMP 36.6; O2SAT 89–98; BMI 29.5
--- OUTSIDE RECORDS SUMMARY | 2024-01-20 07:56 | XMS_ITS | CCD ---
Author Name Unknown Address [address] [place] [address] Organization [facility] Care Team Providers Care Insole Rasper Name Role Phone PATRICK DAO Admitting Unavailable WILLIS, PATRICK Attending Unavailable AICHHOLZ, MATIAS JULIANNE Primary Care Unavailable KACIET, PATRICK Consulting Unavailable WILLIS, PATRICK Admitting Unavailable WILLIS, PATRICK Attending Unavailable JENNIFERHYESSY, MATIAS NAGY Primary Care Unavailable WILLIS, PATRICK Consulting Unavailable AICHHOLZ, MATIAS NAGY Admitting Unavailable AICHHOLTarsha, MATIAS NAGY Attending Unavailable POP, MATIAS NAGY Primary Care Unavailable Chris Caruso Attending Unavailab le Chris Caruso Admitting Unavailab le NO FAMILY, PHYSICIAN Primary Care Unavailable JULIANNE LORD Attending Unavailable Pop TAX TECHNICIAN, Julianne Unavailable Zhen Christiansen MD Primary Care Provider [phone] Medications Current Medications Medication Drug Class(es) Dates Sig (Normalized) Sig (Original) alendronic acid 35 mg oral tablet (3 sources) Bisphosphonate Start: 11-16-2023 alendronate (Fosamax) 35 MG tablet Take 1 tablet by mouth every 7 (seven) days 0 11/16/2023 Active ALPRAZolam 1 mg oral tablet (3 sources) Benzodiazepine Start: 11-19-2023 take 1 tablet by mouth twice daily as needed ALPRAZolam (Xanax) 1 MG tablet Take 1 tablet by mouth 2 (two) times a day as needed 0 11/19/2023 Active atorvastatin 40 mg oral tablet (3 sources) HMG-CoA Reductase Inhibitor Start: 11-16-2023 take 1 tablet by mouth in the morning atorvastatin (Lipitor) 40 MG tablet Take 1 tablet by mouth in the morning. 0 11/16/2023 Active 24 hr buPROPion hydrochloride 300 mg extended release oral tablet (8 sources) Aminoketone Start: 11-16-2023 take 1 tablet by mouth every twenty-four hours in the morning buPROPion XL (Wellbutrin XL) 300 MG 24 hr tablet Take 1 tablet by mouth in the morning. 0 11/16/2023 Active Start: 11-16-2023 End: 01-03-2024 take 1 tablet by mouth every twenty-four hours in the morning buPROPion XL (Wellbutrin XL) 150 MG 24 hr tablet Take 1 tablet by mouth in the morning and 1 tablet before bedtime. 0 11/16/2023 01/03/2024 Discontinued busPIRone hydrochloride 30 mg oral tablet (3 sources) Start: 11-16-2023 take 1 tablet by mouth in the morning busPIRone (Buspar) 30 MG tablet Take 1 tablet by mouth in the morning and 1 tablet before bedtime. 0 11/16/2023 Active carBAMazepine 200 mg oral tablet (3 sources) Mood Stabilizer Start: 11-16-2023 carBAMazepine (TEGretol) 200 MG tablet Take 1 tablet by mouth in the morning and 1 tablet before bedtime. 1 tablet in the am, and 2 tablets at night. 0 11/16/2023 Active carvedilol 6.25 mg oral tablet (3 sources) alpha-Adrenergic Howard, beta-Adrenergic Howard Start: 11-16-2023 take 1 tablet by mouth in the morning carvedilol (Coreg) 6.25 MG tablet Take 1 tablet by mouth in the morning and 1 tablet in the evening. Take with meals. 0 11/16/2023 Active hydroCHLOROthiazide 12.5 mg oral tablet (3 sources) Thiazide Diuretic Start: 11-19-2023 take 1 tablet by mouth in the morning hydroCHLOROthiazide (HYDRODiuril) 12.5 MG tablet Take 1 tablet by mouth in the morning. 0 11/19/2023 Active loratadine 10 mg oral tablet (3 sources) Start: 11-19-2023 take 1 tablet by mouth in the morning Allergy Relief 10 MG tablet Take 1 tablet by mouth in the morning. 0 11/19/2023 Active lumateperone 42 mg oral capsule (3 sources) take 1 capsule by mouth in the morning Lumateperone Tosylate (Caplyta) 42 MG capsule Indications: Depressive Phase Bipolar Mood Disorder Take 1 capsule by mouth in the morning. 0 Active meclizine hydrochloride 25 mg oral tablet (3 sources) Antiemetic Start: 10-18-2023 take 1 tablet by mouth three times daily as needed Travel-Ease 25 MG tablet Take 1 tablet by mouth 3 (three) times a day as needed 0 10/18/2023 Active meloxicam 7.5 mg oral tablet (3 sources) Nonsteroidal Anti-inflammator y Drug Start: 11-16-2023 take 1 tablet by mouth in the morning meloxicam (Mobic) 7.5 MG tablet Take 1 tablet by mouth in the morning. 0 11/16/2023 Active Completed/Discontinued Medications Medication Drug Class(es) Dates Sig (Normalized) Sig (Original) ARIPiprazole 30 mg oral tablet (5 sources) Atypical Antipsychotic Start: 05-21-2023 End: 01-03-2024 take 1 tablet by mouth in the morning ARIPiprazole (Abilify) 30 MG tablet Take 1 tablet by mouth in the morning. 0 05/21/2023 01/03/2024 Discontinued (Therapy completed) take 1 tablet by mouth in the mo rning ARIPiprazole (Abilify) 15 MG tablet Indications: Mixed Bipolar Affective Disorder Take 15 mg by mouth in the morning. 0 Active Problems Problem Classification Problem Date Documented Da te Episodic/Chronic Anxiety disorders (5 sources) Anxiety; Translations: [Anxiety disorder, unspecified] Onset: 01-03-2024 01-03-2024 Chronic Conditions associated with dizziness or vertigo (5 sources) Vertigo; Translations: [Dizziness and giddiness] Onset: 01-03-2024 01-03-2024 Episodic Essential hypertension (5 sources) Essential hypertension; Translations: [Essential (primary) hypertension] Onset: 11-16-2023 01-03-2024 Chronic Mood disorders (9 sources) Bipolar disorder, unspecified; Translations: [Bipolar disorder] Onset: 07-15-2022 Chronic Other aftercare (1 source) Other fdc (current) drug therapy; Translations: [OTH JAIL CURRENT DRUG THERAPY] Onset: 07-16-2022 Episodic Other nutritional; endocrine; and metabolic disorders (5 sources) Body mass index 30+ - obesity; Translations: [Body mass index (BMI) 34.0-34.9, adult] Onset: 01-03-2024 01-03-2024 Chronic Residual codes; unclassified (5 sources) Tobacco user; Translations: [Tobacco use] Onset: 01-03-2024 01-03-2024 Episodic Results Test Name Value Interpretation Reference Range Facil ity CBC AUTO DIFFon 09-08-2022 BASO # 0.1 103/ul Normal 0.0-0.1 [facility] Comment on above: Performed By: #### C BC #### [facility] [address] [address] [address] Anish Johnson Basophils/100 WBC (Bld) 1.1 % Normal 0.2-2.0 [facility] Comment on above: Performed By: #### C BC #### [facility] [address] [address] [address] Anish Johnson EO # 0.3 103/ul Normal 0.0-0.7 [facility] Comment on above: Performed By: #### C BC #### [facility] [address] [address] [address] Anish Johnson Eosinophils/100 WBC (Bld) 4.1 % Normal 0.9-7.0 [facility] Comment on above: Performed By: #### C BC #### [facility] [address] [address] [address] Anish Johnson Erythrocyte distribution width (RBC) [Ratio] 15.1 % Critically high 11.0-15.0 [facility] Comment on above: Performed By: #### C BC #### [facility] [address] [address] [address] Anish Johnson Hematocrit (Bld) [Volume fraction] 40.6 % Normal 36.0-48.0 [facility] Comment on above: Performed By: #### C BC #### [facility] [address] [address] [address] Anish Johnson Hemoglobin (Bld) [Mass/Vol] 12.4 g/dL Normal 12.0-16.0 [facility] Comment on above: Performed By: #### C BC #### [facility] [address] [place] [address] Dr. Anish Johnson IG # 0.02 10e3/ul Normal 0.00-0.03 [facility] Comment on above: Performed By: #### C BC #### [facility] [address] [place] [address] Dr. Anish Johnson IG % 0.3 % Normal 0.0-0.5 [facility] Comment on above: Performed By: #### C BC #### [facility] [address] [place] [address] Dr. Anish Johnson LYMPH # 1.3 103/ul Normal 1.2-3.8 [facility] Comment on above: Performed By: #### C BC #### [facility] [address] [place] [address] Dr. Anish Johnson Lymphocytes/100 WBC (Bld) 19.7 % Critically low 20.5-60.0 [facility] Comment on above: Performed By: #### C BC #### [facility] [address] [place] [address] Dr. Anish Johnson MANUAL DIFF REQ NO Normal [facility] Comment on above: Performed By: #### C BC #### [facility] [address] [place] [address] Dr. Anish Johnson MCH (RBC) [Entitic mass] 25.5 pg Critically low 26.7-34.0 [facility] Comment on above: Performed By: #### C BC #### [facility] [address] [place] [address] Dr. Anish Johnson MCHC (RBC) [Mass/Vol] 30.5 g/dL Normal 29.9-35.2 [facility] Comment on above: Performed By: #### C BC #### [facility] [address] [place] [address] Dr. Anish Johnson MCV (RBC) [Entitic vol] 83.4 fL Normal 81.0-99.0 [facility] Comment on above: Performed By: #### C BC #### [facility] [address] [place] [address] Dr. Anish Johnson MONO # 0.5 103/ul Normal 0.3-0.8 [facility] Comment on above: Performed By: #### C BC #### [facility] [address] [place] [address] Dr. Anish Johnson Monocytes/100 WBC (Bld) 7.0 % Normal 1.7-12.0 [facility] Comment on above: Performed By: #### C BC #### [facility] [address] [place] [address] Dr. Anish Johnson NEUT # 4.5 103/ul Normal 1.4-6.5 [facility] Comment on above: Performed By: #### C BC #### [facility] [address] [place] [address] Dr. Anish Johnson Neutrophils/100 WBC (Bld) 67.8 % Normal 43.0-75.0 [facility] Comment on above: Performed By: #### C BC #### [facility] [address] [place] [address] Dr. Anish Johnson Platelet mean volume (Bld) [Entitic vol] 10.5 fL Normal 9.5-13.5 [facility] Comment on above: Performed By: #### C BC #### [facility] [address] [place] [address] Dr. Anish Johnson PLT 297 103/ul Normal 150-450 [facility] Comment on above: Performed By: #### C BC #### [facility] [address] [place] [address] Dr. Anish Johnson RBC 4.87 106/ul Normal 4.20-5.40 [facility] Comment on above: Performed By: #### C BC #### [facility] [address] [place] [address] Dr. Anish Johnson WBC 6.6 103/ul Normal 4.0-11.0 [facility] Comment on above: Performed By: #### C BC #### [facility] [address] [place] [address] Dr. Anish Johnson CARBAMAZEPINEon 07-16-2022 Carbamezapine 5.4 ug/mL Normal 4.0-12.0 [facility] Comment on above: Result Comment: In c onjunction with other antiepileptic drugs Therapeutic 4.0 - 8.0 Toxicity 9.0 - 12.0 . Carbamazepine alone Therapeutic 8.0 - 12.0 . Detection Limit = 2.0 <2.0 indicated None Detected Performed By: #### C ARBLC #### [facility] [address] [place] [address] Dr. Anish Johnson CBC AUTO DIFFon 07-15-2022 BASO # 0.0 103/ul Normal 0.0-0.1 [facility] Comment on above: Performed By: #### C BC #### [facility] [address] [place] [address] Dr. Anish Johnson Basophils/100 WBC (Bld) 0.5 % Normal 0.2-2.0 [facility] Comment on above: Performed By: #### C BC #### [facility] [address] [place] [address] Dr. Anish Johnson EO # 0.2 103/ul Normal 0.0-0.7 [facility] Comment on above: Performed By: #### C BC #### [facility] [address] [place] [address] Dr. Anish Johnson Eosinophils/100 WBC (Bld) 2.9 % Normal 0.9-7.0 [facility] Comment on above: Performed By: #### C BC #### [facility] [address] [place] [address] Dr. Anish Johnson Erythrocyte distribution width (RBC) [Ratio] 15.7 % Critically high 11.0-15.0 [facility] Comment on above: Performed By: #### C BC #### [facility] [address] [place] [address] Dr. Anish Johnson Hematocrit (Bld) [Volume fraction] 40.2 % Normal 36.0-48.0 [facility] Comment on above: Performed By: #### C BC #### [facility] [address] [place] [address] Dr. Anish Johnson Hemoglobin (Bld) [Mass/Vol] 12.5 g/dL Normal 12.0-16.0 [facility] Comment on above: Performed By: #### C BC #### [facility] [address] [place] [address] Dr. Anish Johnson IG # 0.02 10e3/ul Normal 0.00-0.03 [facility] Comment on above: Performed By: #### C BC #### [facility] [address] [place] [address] Dr. Anish Johnson IG % 0.3 % Normal 0.0-0.5 [facility] Comment on above: Performed By: #### C BC #### [facility] [address] [place] [address] Dr. Anish Johnson LYMPH # 1.5 103/ul Normal 1.2-3.8 [facility] Comment on above: Performed By: #### C BC #### [facility] [address] [place] [address] Dr. Anish Johnson Lymphocytes/100 WBC (Bld) 18.7 % Critically low 20.5-60.0 [facility] Comment on above: Performed By: #### C BC #### [facility] [address] [place] [address] Dr. Anish Johnson MANUAL DIFF REQ NO Normal [facility] Comment on above: Performed By: #### C BC #### [facility] [address] [place] [address] Dr. Anish Johnson MCH (RBC) [Entitic mass] 25.4 pg Critically low 26.7-34.0 [facility] Comment on above: Performed By: #### C BC #### [facility] [address] [place] [address] Dr. Anish Johnson MCHC (RBC) [Mass/Vol] 31.1 g/dL Normal 29.9-35.2 [facility] Comment on above: Performed By: #### C BC #### [facility] [address] [place] [address] Dr. Anish Johnson MCV (RBC) [Entitic vol] 81.7 fL Normal 81.0-99.0 [facility] Comment on above: Performed By: #### C BC #### [facility] [address] [address] [address] Anish Johnson MONO # 0.7 103/ul Normal 0.3-0.8 [facility] Comment on above: Performed By: #### C BC #### [facility] [address] [address] [address] Anish Johnson Monocytes/100 WBC (Bld) 8.3 % Normal 1.7-12.0 [facility] Comment on above: Performed By: #### C BC #### [facility] [address] [place] [address] Dr. Anish Johnson NEUT # 5.4 103/ul Normal 1.4-6.5 [facility] Comment on above: Performed By: #### C BC #### [facility] [address] [place] [address] Dr. Anish Johnson Neutrophils/100 WBC (Bld) 69.3 % Normal 43.0-75.0 [facility] Comment on above: Performed By: #### C BC #### [facility] [address] [place] [address] Dr. Anish Johnson Platelet mean volume (Bld) [Entitic vol] 10.6 fL Normal 9.5-13.5 [facility] Comment on above: Performed By: #### C BC #### [facility] [address] [place] [address] Dr. Anish Johnson PLT 297 103/ul Normal 150-450 [facility] Comment on above: Performed By: #### C BC #### [facility] [address] [place] [address] Dr. Anish Johnson RBC 4.92 106/ul Normal 4.20-5.40 [facility] Comment on above: Performed By: #### C BC #### [facility] [address] [place] [address] Dr. Anish Johnson WBC 7.8 103/ul Normal 4.0-11.0 [facility] Comment on above: Performed By: #### C BC #### [facility] [address] [address] [address] Anish Johnson GLUCOSE BLOODon 07-15-2022 Glucose [Mass/Vol] 133 mg/dL Critically high 74-106 T [facility] Comment on above: Performed By: #### L IVER, GLUC, TSH, LIPID #### [facility] [address] [address] [address] Anish Johnson LIPID PROFILEon 07-15-2022 CHOL-HDL RATIO NORM SEE BELOW Normal [facility] Comment on above: Result Comment: 3.3 - 4.4 LOW RISK 4.4 - 7.1 AVERAGE RISK 7.1 - 11.0 MODERATE RISK >11.0 HIGH RISK Performed By: #### L IVER, GLUC, TSH, LIPID #### [facility] [address] [address] [address] Anish Johnson Cholesterol [Mass/Vol] 135 mg/dL Normal <=200 [facility] Comment on above: Performed By: #### L IVER, GLUC, TSH, LIPID #### [facility] [address] [address] [address] Anish Johnson Cholesterol in HDL [Mass/Vol] 58 mg/dL Normal 40-60 [facility] Comment on above: Performed By: #### L IVER, GLUC, TSH, LIPID #### [facility] [address] [address] [address] Anish Johnson Cholesterol in LDL [Mass/Vol] 54.2 mg/dL Normal [facility] Comment on above: Performed By: #### L IVER, GLUC, TSH, LIPID #### [facility] [address] [address] [address] Anish Johnson Cholesterol.total/Cho lesterol in HDL [Mass ratio] 2.3 {ratio} Normal [facility] Comment on above: Performed By: #### L IVER, GLUC, TSH, LIPID #### [facility] [address] [address] [address] Anish Johnson HDL NORMAL > or = 60 mg/dl - LOW CARDIOVASCULAR RISK <40 mg/dl - HIGH CARDIOVASCULAR RISK Normal [facility] Comment on above: Performed By: #### L IVER, GLUC, TSH, LIPID #### [facility] [address] [address] [address] Anish Johnson LDL CALC NORMAL SEE BELOW Normal [facility] Comment on above: Result Comment: <100 mg/dl OPTIMAL 100 - 129 mg/dl NEAR OR ABOVE OPTIMAL 130 - 159 mg/dl BORDERLINE HIGH 160 - 189 mg/dl HIGH >190 mg/dl VERY HIGH Performed By: #### L IVER, GLUC, TSH, LIPID #### [facility] [address] [address] [address] Anish Johnson Triglyceride [Mass/Vol] 114 mg/dL Normal <=150 [facility] Comment on above: Performed By: #### L IVER, GLUC, TSH, LIPID #### [facility] [address] [address] [address] Anish Johnson VLDL CALC 22.8 mg/dL Normal [facility] Comment on above: Performed By: #### L IVER, GLUC, TSH, LIPID #### [facility] [address] [address] [address] Ainsh Johnson LIVER PROFILEon 07-15-2022 Albumin [Mass/Vol] 4.3 g/dL Normal 3.4-5.0 [facility] Comment on above: Performed By: #### L IVER, GLUC, TSH, LIPID #### [facility] [address] [address] [address] Anish Johnson Albumin/Globulin [Mass ratio] 1.0 {ratio} Normal [facility] Comment on above: Performed By: #### L IVER, GLUC, TSH, LIPID #### [facility] [address] [address] [address] Anish Johnson ALP [Catalytic activity/Vol] 108 U/L Normal 46-116 [facility] Comment on above: Performed By: #### L IVER, GLUC, TSH, LIPID #### [facility] [address] [address] [address] Anish Johnson ALT [Catalytic activity/Vol] 26 U/L Normal 14-59 [facility] Comment on above: Performed By: #### L IVER, GLUC, TSH, LIPID #### [facility] [address] [place] [address] Dr. Anish Johnson AST [Catalytic activity/Vol] 21 U/L Normal 15-37 [facility] Comment on above: Performed By: #### L IVER, GLUC, TSH, LIPID #### [facility] [address] [place] [address] Dr. Anish Johnson BILI, CONJUGATED 0.1 mg/dL Normal 0.0-0.2 [facility] Comment on above: Performed By: #### L IVER, GLUC, TSH, LIPID #### [facility] [address] [place] [address] Dr. Anish Johnson Bilirubin [Mass/Vol] 0.5 mg/dL Normal 0.2-1.0 [facility] Comment on above: Performed By: #### L IVER, GLUC, TSH, LIPID #### [facility] [address] [place] [address] Dr. Anish Johnson Globulin (S) [Mass/Vol] 4.3 g/dL Normal [facility] Comment on above: Performed By: #### L IVER, GLUC, TSH, LIPID #### [facility] [address] [place] [address] Dr. Anish Johnson Protein [Mass/Vol] 8.6 g/dL Critically high 6.4-8.2 [facility] Comment on above: Performed By: #### L IVER, GLUC, TSH, LIPID #### [facility] [address] [place] [address] Dr. Anish Johnson TSHon 07-15-2022 TSH 1.692 uIU/mL Normal 0.358-3.740 [facility] Comment on above: Performed By: #### L IVER, GLUC, TSH, LIPID #### [facility] [address] [place] [address] Dr. Anish Johnson Vital Signs Date Time Vital Sign Value Performing Clinician April cheng 01-03-2024 15:19-0500 Body height 157.5 cm Julianne Lord NP Work Phone: [facility] 01-03-2024 15:19-0500 Body mass index (BMI) [Ratio] 34.02 kg/m2 Ujliannejulio c Steinyessy TAX TECHNICIAN Work Phone: [facility] 01-03-2024 15:19-0500 Body temperature 97.5 [degF] Julianne Emilmanuelz TAX TECHNICIAN Work Phone: [facility] 01-03-2024 15:19-0500 Body weight 84.37 kg Julianne Emilmanuelz TAX TECHNICIAN Work Phone: [facility] 01-03-2024 15:19-0500 Diastolic blood pressure 82 mm[Hg] Julianne Jenniferjose juanmanuelz TAX TECHNICIAN Work Phone: [facility] 01-03-2024 15:19-0500 Heart rate 87 /min Julianne Katz TAX TECHNICIAN Work Phone: [facility] 01-03-2024 15:19-0500 Respiratory rate 17 /min Julianne Emilmanuelz TAX TECHNICIAN Work Phone: [facility] 01-03-2024 15:19-0500 SaO2% (BldA) [Mass fraction] 97 % Julianne Emilmanuelz TAX TECHNICIAN Work Phone: [facility] 01-03-2024 15:19-0500 Systolic blood pressure 128 mm[Hg] Julianne Emilmanuelz TAX TECHNICIAN Work Phone: [facility] Healthcare Encounters Encounter Date Encounter Type Care Provider Facility Start: 01-10-2024 Refill Julianne Katz TAX TECHNICIAN Work Phone: [facility] Start: 01-03-2024 End: 01-03-2024 ambulatory JULIANNE JENNIFERHHOLZ Not Available Start: 01-03-2024 End: 01-03-2024 Office outpatient visit 25 minutes Julianne Pop TAX TECHNICIAN Work Phone: [facility] Comment on above: Essential (primary) hypertension (CMS/HCC) (Primary Dx); BMI 34.0-34.9,adult; Bipolar affective disorder, remission status unspecified (CMS/HCC); Tobacco user; Vertigo; Anxiety Start: 10-11-2023 ambulatory Chris Shady Sammi acility:[facility] Start: 09-08-2022 End: 09-09-2022 ambulatory PATRICK DAO Facility:[facility] Start: 07-15-2022 End: 07-16-2022 ambulatory PATRICK DAO Facility:[facility] Start: 09-09-2021 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 Comment on above: Postponed from 10/05 (Patient Refused) Start: 01-24-2024 End: 01-24-2024 Patient encounter procedure 01/24/2024 9:00 AM EST Office Visit [facility] [address] [place] [address] Julianne Lord, JUANITA [address] [place] [id number] [facility] Start: 1989 Screening for malign ant neoplasm of cervix HPV/Cotest [facility] Start: 1980 Screening for malign ant neoplasm of cervix Pap Smear [facility] Start: 1960 Screening for malign ant neoplasm of colon [facility] Payers Date Payer Category Payer Medicaid [id number] 2023 Medicaid [facility] [employer] [place] [id number] 2023-Present [address] [place] [address] [id number] 2023 Self-pay 1960 Unknown [id number] 1960 Unknown [id number] 1959 Unknown [id number] 1959 Unknown [id number] 1959 Unknown [id number] Social History Date Type Detail Facility Start: 12-28-2023 Tobacco smoking status [facility] Smokes t obacco daily [facility] History of tobacco use Cigarette Smoker [facility] Start: 12-28-2023 End: 01-03-2024 Cigarettes smoked current (pack per day) - Reported 1 [facility] Start: 01-03-2024 Tobacco use panel [facility] Start: 1960 Sex Assigned At Not on file [facility] History of Present illness Narrative 01-03-2024 Julianne Lord NP - 01/03/2024 3:59 PM Emma Lord, JUANITA - 01/03/2024 3:59 PM Emma Lord, JUANITA - 01/03/2024 3:58 PM Emma Lord, JUANITA - 01/03/2024 3:57 PM EST Note Date & Type Note Facility 01-03-2024 History of Presen t illness Narrative Associated Problem(s): Bipolar disorder ([facility]) Continue with psych Associated Problem(s): Anxiety Continue with dr dao, recommend she talk with her about counseling As this may be part of her elevated blood pressure Associated Problem(s): Vertigo Has resolved No need for antivert Associated Problem(s): Essential (primary) hypertension (CMS/HCC) No changes in meds at this time Script for blood pressure cuff Fu in 3 weeks record BP twice a day Suppose to be on meclizine 25mg per hospital paper but does not have it and is not in our system pt is not sure if that is prescribed by you or dr dao Images from the original note were not included. Sahra Taveras is a 63 y.o. female presents with chief complaint of No chief complaint on file. HPI: Was sent from Psych office last week to ER for elevated blood pressure and here today for fu Is compliant with meds, cont to smoke, asymptomatic w elevation Also of stressors with son who is an alcoholic as well suicidal ideation and does not want to get help She is very stressed about this Hypertension This is a chronic problem. The current episode started more than 1 year ago. The problem has been waxing and waning since onset. The problem is uncontrolled. Pertinent negatives include no chest pain, headaches, palpitations, peripheral edema, PND or shortness of breath. There are no associated agents to hypertension. Risk factors for coronary artery disease include dyslipidemia, obesity, smoking/tobacco exposure and sedentary lifestyle. Past treatments include beta blockers. The current treatment provides moderate improvement. SUBJECTIVE: MEDICATIONS: Current Outpatient Medications Medication Instructions alendronate (Fosamax) 35 MG tablet 1 tablet, Oral, Every 7 days Allergy Relief 10 MG tablet 1 tablet, Oral, Daily ALPRAZolam (Xanax) 1 MG tablet 1 tablet, Oral, 2 times daily PRN ARIPiprazole (Abilify) 30 MG tablet 1 tablet, Oral, Daily atorvastatin (Lipitor) 40 MG tablet 1 tablet, Oral, Daily buPROPion XL (Wellbutrin XL) 150 MG 24 hr tablet 1 tablet, Oral, 2 times daily buPROPion XL (Wellbutrin XL) 300 MG 24 hr tablet 1 tablet, Oral, Every morning busPIRone (Buspar) 30 MG tablet 1 tablet, Oral, 2 times daily carBAMazepine (TEGretol) 200 MG tablet 1 tablet, Oral, 2 times daily carvedilol (Coreg) 6.25 MG tablet 1 tablet, Oral, 2 times daily with meals hydroCHLOROthiazide (HYDRODiuril) 12.5 MG tablet 1 tablet, Oral, Daily meloxicam (Mobic) 7.5 MG tablet 1 tablet, Oral, Daily Travel-Ease 25 MG tablet 1 tablet, Oral, 3 times daily PRN ALLERGIES: No Known Allergies REVIEW OF SYMPTOMS: Review of Systems Constitutional: Negative for appetite change, chills and fever. HENT: Negative for congestion, ear pain and sore throat. Eyes: Negative for pain, discharge, redness and visual disturbance. Respiratory: Negative for cough, shortness of breath and wheezing. Cardiovascular: Negative for chest pain, palpitations, leg swelling and PND. Gastrointestinal: Negative for abdominal pain, blood in stool, constipation, diarrhea, nausea and vomiting. Genitourinary: Negative for difficulty urinating, dysuria and frequency. Musculoskeletal: Negative for arthralgias, back pain, joint swelling and myalgias. Skin: Negative for rash and wound. Neurological: Negative for dizziness, tremors, seizures, syncope and headaches. Psychiatric/Behavioral: Positive for behavioral problems. Negative for self-injury and suicidal ideas. The patient is nervous/anxious. Hematological: Does not bruise/bleed easily. Endocrine: Negative for polydipsia, polyphagia and polyuria. Allergic/Immunologic: Negative for environmental allergies and food allergies. PAST MEDICAL HISTORY Past Medical History: Diagnosis Date Abdominal bloating Abnormal stress test Anemia At moderate risk for fall Bilateral knee pain Bipolar depression (CMS/HCC) Bipolar disorder (CMS/HCC) [place] hemangioma Chest pain Cholelithiasis without obstruction Depression (CMS/HCC) Elevated serum glucose Frequent falls History of nicotine dependence HLD (hyperlipidemia) (CMS/HCC) Hypertension, essential (CMS/HCC) Left groin pain Osteopenia Pedal edema Post-menopausal RUQ pain Seasonal allergies Tobacco user Tricuspid regurgitation mild Weakness Weight loss Past Surgical History: Procedure Laterality Date SECTION, LOW TRANSVERSE x 1 HYSTERECTOMY Partial - not due to cancer family history includes Alcohol abuse in her father; Breast cancer in an other family member. OBJECTIVE: Visit Vitals BP 128/82 (BP Location: Left arm, Patient Position: Sitting, BP Cuff Size: Large adult) Pulse 87 Temp 97.5 F (Temporal) Resp 17 Ht 5' 2 Wt 186 lb SpO2 97% BMI 34.02 kg/m Smoking Status Every Day BSA 1.92 m Physical Exam Vitals reviewed. Constitutional: General: She is not in acute distress. Appearance: Normal appearance. HENT: Head: Normocephalic and atraumatic. Right Ear: External ear normal. Left Ear: External ear normal. Nose: Nose normal. Mouth/Throat: Mouth: Mucous membranes are moist. Eyes: Extraocular Movements: Extraocular movements intact. Conjunctiva/sclera: Conjunctivae normal. Neck: Vascular: No carotid bruit. Cardiovascular: Rate and Rhythm: Normal rate and regular rhythm. Pulses: Normal pulses. Heart sounds: Normal heart sounds. Pulmonary: Effort: Pulmonary effort is normal. Breath sounds: Normal breath sounds. Abdominal: General: Bowel sounds are normal. There is no distension. Palpations: Abdomen is soft. There is no mass. Tenderness: There is no abdominal tenderness. Musculoskeletal: General: Normal range of motion. Cervical back: Normal range of motion and neck supple. Skin: General: Skin is warm and dry. Capillary Refill: Capillary refill takes 2 to 3 seconds. Findings: No rash. Neurological: General: No focal deficit present. Mental Status: She is alert and oriented to person, place, and time. Psychiatric: Mood and Affect: Mood normal. Behavior: Behavior normal. Thought Content: Thought content normal. Judgment: Judgment normal. ASSESSMENT AND PLAN: No follow-ups on file. Problem List Items Addressed This Visit Essential (primary) hypertension (CMS/HCC) - Primary No changes in meds at this time Script for blood pressure cuff Fu in 3 weeks record BP twice a day BMI 34.0-34.9,adult Bipolar disorder (CMS/HCC) Continue with psych Tobacco user Vertigo Has resolved No need for antivert Anxiety Continue with dr dao, recommend she talk with her about counseling As this may be part of her elevated blood pressure documented in this encounter [facility] Evaluation note Note Date & Type Note Facility Evaluation note Diagnosis Essential (primary) hypertension (CMS/HCC)- Primary Unspecified essential hypertension BMI 34.0-34.9,adult Bipolar affective disorder, remission status unspecified (CMS/HCC) Tobacco user Tobacco use disorder Vertigo Dizziness and giddiness Anxiety Anxiety state, unspecified documented in this encounter [facility] Summary Purpose Family History No Family History Records FoundNo Family History Records FoundNo Family History Records Found Advance Directives No Advanced Directives Records FoundNo Advanced Directives Records FoundNo Advanced Directives Records Found Additional Source Comments INFORMATION SOURCE (unrecogn ized section and content) DATE CREATED AUTHOR 09/09/2022 [facility] DATE CREATED AUTHOR AUTHOR'S ORGANIZ ATION 12/26/2023 [facility] DATE CREATED AUTHOR AUTHOR'S ORGANIZ ATION 01/04/2024 [facility] EPIC Care Teams (unrecognized sec tion and content) Insole Rasper Relationship Specialty Start Date End Date Zhen Christiansen MD [address] [place] [phone] PCP - General Family Medicine 12/27/23 Julianne Lord NP [address] [place] [phone] Nurse Practitioner Family Medicine 11/28/22 Insole Rasper Relationship Specialty Start Date End Date Zhen Christiansen MD [address] [place] [id number] PCP - General Family Medicine 12/27/23 Julianne Lord NP [address] [place] [phone] Nurse Practitioner Family Medicine 11/28/22 FOR RECORDS PERTAINING TO PATIENTS WHO ARE [...] BE BASED ON THE PRIMARY CLINICAL RECORDS. [facility] provides no warranty or guarantee of the accuracy or completeness of information in this document.
--- NOTE | 2024-01-20 08:12 | ECG_ITS ---
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
--- NOTE | 2024-01-20 08:13 | XR_ITS ---
The [address] [address] Patient Name: ALBERTA COURTNEY MRN: [id number] date: 1960 Sex: F Assigned Patient Location: ER Current Patient Location: ER Accession/Order Number: [id number] Exam Date: 01/20/2024 09:02 Report Date: 01/20/2024 09:21 At the request of: EVELIA HOLDER Procedure: XR chest 2V EXAMINATION: XR chest 2V HISTORY: cp , hypertension, dizziness COMPARISON: No relevant comparison available. FINDINGS: LUNGS: Mild opacity within left lung base suspected to be a prominent pericardial fat pad. No convincing infiltrates. VASCULATURE: No increased pulmonary vasculature. PLEURA: No pneumothorax, effusion, or pleural thickening. CARDIAC: No cardiomegaly or cardiac silhouette abnormality. MEDIASTINUM: No visible mass or adenopathy. BONES: No fracture or visible bone lesion. OTHER: Negative. XR/XR chest 2V IMPRESSION: 1. Slightly hyperexpanded lungs. 2. No convincing acute cardiopulmonary process. Electronically authenticated by: ALESIA EL Date: 01/20/2024 09:21
--- NOTE | 2024-01-20 08:16 | ED.GENADUL1 ---
HPI - General Adult General Chief complaint: Dizziness Stated complaint: DIZZINESS Time Seen by Provider: 01/20/24 08:01 Source: patient Mode of arrival: walk-in Limitations: no limitations History of Present Illness HPI narrative: Patient is a 63-year-old female who is presenting to the ER today with chief complaint lightheaded, dizziness, and hypertension. Patient has longstanding history of hypertension. Patient was seen here in the ER on December 27 for similar symptoms. Patient has no headache, no chest pain, no shortness of breath. Patient has a appointment at her nurse practitioner's office on Tuesday, Julianne Cole. Patient has had no blood pressure medication changes since her visit December 27. Patient had her landlord help her use her blood pressure cuff this morning, her blood pressure was elevated, her landlord told her that she was in the stroke range and she should go to the ER. Patient is admittedly anxious secondary to her landlord telling that her blood pressure is in stroke range. Otherwise she has no new symptoms. Patient does stay lightheaded and dizzy, no vertigo. All systems are negative except as noted/marked. All systems reviewed and otherwise negative. Nurses note and vital signs reviewed and patient is not hypoxic. General: The patient appears well and in no apparent distress. Patient is resting comfortably on cart. Patient is not toxic, lethargic, or listless Skin: Warm, dry, no pallor noted. There is no rash noted. No petechiae, purpura. Head: Normocephalic, atraumatic Eye: Normal conjunctiva, no drainage, EOMI. PERRL Ears, Nose, Mouth, and Throat: oral mucosa is moist. Nares patent. Mouth without vesicles. Cardiovascular: Regular Rate and Rhythm, no murmur, gallop, rub Respiratory: Patient is in no distress, no accessory muscle use, lungs are clear to auscultation, no wheezing, rales or rhonchi Back: non-tender, no CVA tenderness bilaterally to percussion. No CT LS midline pain GI: no tenderness to palpation, no masses appreciated. No rebound, guarding, or rigidity noted. No distention Musculoskeletal: Patient has full range of motion of all of the extremities, no motor, sensory, or focal neurological deficits Neurological: A&O x4, normal speech Psychiatric: Cooperative Related Data Home Medications Medication Instructions Recorded Confirmed alendronate 35 mg tablet 35 mg PO DAILY 07/21/23 07/21/23 alprazolam 1 mg tablet mg 07/21/23 aripiprazole 30 mg tablet (Abilify) 30 mg PO DAILY 07/21/23 07/21/23 aspirin 81 mg tablet,delayed 81 mg PO DAILY 07/21/23 07/21/23 release atorvastatin 40 mg tablet 40 mg PO DAILY 07/21/23 07/21/23 bupropion HCl 150 mg 24 hr tablet, 150 mg PO DAILY 07/21/23 07/21/23 extended release bupropion HCl 300 mg 24 hr tablet, 300 mg PO DAILY 07/21/23 07/21/23 extended release buspirone 30 mg tablet 30 mg PO BID 07/21/23 07/21/23 carbamazepine 200 mg tablet 200 mg PO BID 07/21/23 07/21/23 (Tegretol) carvedilol 6.25 mg tablet 6.25 mg PO BID 07/21/23 07/21/23 citalopram 40 mg tablet (Celexa) 40 mg PO DAILY 07/21/23 07/21/23 hydrochlorothiazide 12.5 mg tablet 12.5 mg PO DAILY 07/21/23 07/21/23 loratadine 10 mg tablet 10 mg PO DAILY 07/21/23 07/21/23 meloxicam 7.5 mg tablet 7.5 mg PO DAILY 07/21/23 07/21/23 Previous Rx's Medication Instructions Recorded meclizine 25 mg tablet 25 mg PO TID PRN dizziness #30 tabs 07/21/23 Allergies Allergy/AdvReac Type Severity Reaction Status Date / Time No Known Drug Allergies Allergy Verified 07/21/23 09:08 [facility] Social History Smoking status: Former smoker Exam Constitutional Vital Signs, click to edit/add: Last Vital Signs Temp 97.8 F 01/20/24 07:52 Pulse 80 01/20/24 10:10 Resp 13 01/20/24 10:10 BP 118/88 01/20/24 10:00 Pulse Ox 98 01/20/24 10:10 O2 Del Method Room Air 01/20/24 07:52 Course Vital Signs Vital signs: Vital Signs Temperature 97.8 F 01/20/24 07:52 Pulse Rate 94 H 01/20/24 07:52 Respiratory Rate 18 01/20/24 07:52 Blood Pressure 184/120 H 01/20/24 07:52 Pulse Oximetry 98 01/20/24 07:52 Oxygen Delivery Method Room Air 01/20/24 07:52 Temperature 97.8 F 01/20/24 07:52 Pulse Rate 80 01/20/24 10:10 Respiratory Rate 13 01/20/24 10:10 Blood Pressure 118/88 01/20/24 10:00 Pulse Oximetry 98 01/20/24 10:10 Oxygen Delivery Method Room Air 01/20/24 07:52 Medical Decision Making MDM Narrative Medical decision making narrative: Patient was given IV labetalol 20 mg, IV Vasotec 0.625 mg. Patient's blood pressure has improved slightly. Patient's chest x-ray, EKG, lab work showed no significant changes. 1010 I did speak to Julianne Cole about patient's ER visits on December 27, today, and the recommendation was to increase patient's Coreg from 6.25 mg twice a day to 12.5 mg twice a day. She will see the patient in the office on Tuesday. Patient was educated on taking her blood pressure cuff to the doctor's appointment next Tuesday, recording a blood pressure twice each day and recording them and show her blood pressure readings to Julianne. Patient feels better with her lightheaded and dizziness since her blood pressure has decreased, no questions at discharge Lab Data Labs: Lab Results 01/20/24 Range/Units 08:10 WBC 9.1 (4.0-11.0) 10^3/uL RBC 4.60 (4.20-5.40) 10^6/uL Hgb 12.2 (12.0-16.0) g/dL Hct 37.4 (36.0-48.0) % MCV 81.3 (81.0-99.0) fL MCH 26.5 L (26.7-34.0) pg MCHC 32.6 (29.9-35.2) g/dL RDW 14.9 (11.0-15.0) % Plt Count 255 (150-450) 10^3/uL MPV 9.8 (9.5-13.5) fL Neut % (Auto) 72.2 (43.0-75.0) % Lymph % (Auto) 17.6 L (20.5-60.0) % Cole % (Auto) 8.0 (1.7-12.0) % Eos % (Auto) 1.6 (0.9-7.0) % Baso % (Auto) 0.4 (0.2-2.0) % Neut # (Auto) 6.6 H (1.4-6.5) 10^3/uL Lymph # (Auto) 1.6 (1.2-3.8) 10^3/uL Cole # (Auto) 0.7 (0.3-0.8) 10^3/uL Eos # (Auto) 0.2 (0.0-0.7) 10^3/uL Baso # (Auto) 0.0 (0.0-0.1) 10^3/uL Abs Immat Gran (auto) 0.02 (0.00-0.03) 10^3/uL Imm/Tot Granulo (auto) 0.2 (0.0-0.5) % Sodium 135 L (136-145) mmol/L Potassium 3.6 (3.5-5.1) mmol/L Chloride 96 L (98-107) mmol/L Carbon Dioxide 26.3 (21.0-32.0) mmol/L Anion Gap 16.3 BUN 12.0 (7.0-18.0) mg/dL Creatinine 0.95 (0.55-1.02) mg/dL Est GFR ( Amer) >60 (>=60) Est GFR (Non-Af Amer) 59 L (>=60) BUN/Creatinine Ratio 12.6 Glucose 116 H (74-106) mg/dL Calcium 9.0 (8.5-10.1) mg/dL Magnesium 1.9 (1.8-2.4) mg/dL Total Bilirubin 0.5 (0.2-1.0) mg/dL AST 16 (15-37) U/L ALT 20 (14-59) U/L Alkaline Phosphatase 105 (46-116) U/L Troponin I High Sens 5.1 (4.0-51.3) pg/mL NT-Pro-B Natriuret Pep 124.0 (<=900.0) pg/mL Total Protein 8.3 H (6.4-8.2) g/dL Albumin 3.7 (3.4-5.0) g/dL Globulin 4.6 g/dL Albumin/Globulin Ratio 0.8 TSH 1.941 (0.358-3.740) uIU/mL ECG Data Attestation: I personally reviewed and interpreted this ECG as follows: (The interpretation. Normal sinus rhythm at 92 beats a minute. Normal axis deviation. No acute ST elevation, no acute ectopy. QTc 396. ) Discharge Plan Discharge Chief Complaint: Dizziness Clinical Impression: Hypertension Patient Disposition: Home, Self-Care Time of Disposition Decision: 10:08 Condition: Good Prescriptions / Home Meds: No Action alendronate 35 mg tablet 35 mg PO DAILY aspirin 81 mg tablet,delayed release (DR/EC) 81 mg PO DAILY atorvastatin 40 mg tablet 40 mg PO DAILY buspirone 30 mg tablet 30 mg PO BID bupropion HCl 300 mg tablet extended release 24 hr 300 mg PO DAILY bupropion HCl 150 mg tablet extended release 24 hr 150 mg PO DAILY carvedilol 6.25 mg tablet 6.25 mg PO BID meloxicam 7.5 mg tablet 7.5 mg PO DAILY loratadine 10 mg tablet 10 mg PO DAILY hydrochlorothiazide 12.5 mg tablet 12.5 mg PO DAILY carbamazepine [Tegretol] 200 mg tablet 200 mg PO BID aripiprazole [Abilify] 30 mg tablet 30 mg PO DAILY citalopram [Celexa] 40 mg tablet 40 mg PO DAILY alprazolam 1 mg tablet meclizine 25 mg tablet 25 mg PO TID PRN (Reason: dizziness) Qty: 30 0RF Instructions: Hypertension (ED) Additional Instructions: Increase your carvedilol to 12.5 mg twice a day; instead of 6.25 mg twice a day. See Julianne at your appointment on Tuesday. Record your blood pressure twice a day, record your blood pressures, and show your blood pressures to least on Tuesday. Take your blood pressure cuff to your appointment on Tuesday to check your blood pressure cuff, education on your blood pressure cuff, and make sure that your cuff is working appropriately compared to the office blood pressure readings. Stand Alone Forms: Portal Instructions Referrals: Julianne Lord NP [Primary Care Provider] - 1 week
[2024-01-20] MEDS: LABETALOL HCL 20 MG/4 ML SYRINGE IVP (08:26)
[2024-01-20] MEDS: ENALAPRILAT DIHYDRATE 1.25 MG/ML VIAL 0.625 MG IV (08:26)
[2024-01-20 08:37] LABS: Basophils Percent Auto 0.4 % (0.2-2.0); Eosinophils Absolute Auto 0.2 10^3/uL (0.0-0.7); Eosinophils Percent Auto 1.6 % (0.9-7.0); Hematocrit 37.4 % (36.0-48.0); Hemoglobin 12.2 g/dL (12.0-16.0); Immature Granulocytes Abs Auto 0.02 10^3/uL (0.00-0.03); Immature Granulocytes Pct Auto 0.2 % (0.0-0.5); Lymphocytes Absolute Auto 1.6 10^3/uL (1.2-3.8); Lymphocytes Percent Auto 17.6 % (20.5-60.0); Mean Corpuscular HGB Conc 32.6 g/dL (29.9-35.2); Mean Corpuscular Hemoglobin 26.5 pg (26.7-34.0); Mean Corpuscular Volume 81.3 fL (81.0-99.0); Mean Platelet Volume 9.8 fL (9.5-13.5); Monocytes Absolute Auto 0.7 10^3/uL (0.3-0.8); Neutrophils Absolute Auto 6.6 10^3/uL (1.4-6.5); Neutrophils Percent Auto 72.2 % (43.0-75.0); Platelet Count 255 10^3/uL (150-450); Red Cell Distribution Width 14.9 % (11.0-15.0); White Blood Count 9.1 10^3/uL (4.0-11.0)
[2024-01-20 08:43] LABS: Alanine Aminotransferase 20 U/L (14-59); Albumin Globulin Ratio 0.8; Albumin Level 3.7 g/dL (3.4-5.0); Alkaline Phosphatase 105 U/L (46-116); Anion Gap 16.3; Aspartate Amino Transferase 16 U/L (15-37); BUN Creatinine Ratio 12.6; Bilirubin Total 0.5 mg/dL (0.2-1.0); Carbon Dioxide 26.3 mmol/L (21.0-32.0); Chloride 96 mmol/L (98-107); Estimated GFR (African America >60 (>=60); Estimated GFR (Non-African Ame 59 (>=60); Globulin 4.6 g/dL; Glucose 116 mg/dL (74-106); Potassium 3.6 mmol/L (3.5-5.1); Sodium 135 mmol/L (136-145); Total Protein 8.3 g/dL (6.4-8.2)
[2024-01-20 08:52] LABS: Magnesium 1.9 mg/dL (1.8-2.4); Thyroid Stimulating Hormone 1.941 uIU/mL (0.358-3.740); Troponin I High Sensitivity 5.1 pg/mL (4.0-51.3)
== END 2024-01-20 10:19 | disposition home or self-care (01) ==
PROVIDERS: Emergency Provider Emergency Medicine; PCP Nurse Practitioner
DX: I10 Essential (primary) hypertension (principal); R42 Dizziness and giddiness; Z79.82 Long term (current) use of aspirin; Z79.899 Other long term (current) drug therapy; Z87.891 Personal history of nicotine dependence
CPT/HCPCS: 36415; 71046; 80053; 83735; 83880; 84443; 84484; 85025; 93005; 96374; 96375; 99285; J1290

== ENCOUNTER 2024-02-20 08:36 | Outpatient (OUT) | payer OTHER, SELFPAY ==
--- OUTSIDE RECORDS SUMMARY | 2024-02-20 08:57 | XMS_ITS | CCD ---
Author Organization [facility] Care Team Providers Care Oil Treater Name Role Phone PATRICK DAO Admitting Unavailable WILLIS, PATRICK Attending Unavailable AICHHOLZ, MATIAS JULIANNE Primary Care Unavailable WILLIS, PATRICK Consulting Unavailable WILLIS, PATRICK Admitting Unavailable WILLIS, PATRICK Attending Unavailable AICHHOLZ, FREELANCE DESIGNER JULIANNE Primary Care Unavailable WILLIS, PATRICK Consulting Unavailable AICHHOLZ, MATIAS JULIANNE Admitting Unavailable AICHHOLZ, FREELANCE DESIGNER JULIANNE Attending Unavailable AICHHOLZ, FREELANCE DESIGNER JULIANNE Primary Care Unavailable AICHHOLZ, JULIANNE Attending Unavailable Aichholz BOOK PACKER, Julianne Unavailable Zhen Christiansen MD Primary Care Provider [phone] Chris Caruso Admitting Unavailab Chris Felton Attending Unavailab dread [facility] FAMILY, PHYSICIAN Primary Care Unavailable Medications Current Medications Medication Drug Class(es) Dates [...] 07-15-2022 Chronic Other aftercare (1 source) 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 Anish Johnson Basophils/100 WBC (Bld) 1.1 % Normal 0.2-2.0 [facility] Comment on above: Performed By: #### C BC #### [facility] [address] [address] [address] Anish Johnson EO # 0.3 103/ul Normal 0.0-0.7 [facility] Comment on above: Performed By: #### C BC #### [facility] [address] [place] [address] Dr. Anish Johnson Eosinophils/100 WBC (Bld) 4.1 % Normal 0.9-7.0 [facility] Comment on above: Performed By: #### C BC #### [facility] [address] [place] [address] Dr. Anish Johnson Erythrocyte distribution width (RBC) [Ratio] 15.1 % Critically high 11.0-15.0 [facility] Comment on above: Performed By: #### C BC #### [facility] [address] [place] [address] Dr. Anish Johnson Hematocrit (Bld) [Volume fraction] 40.6 % Normal 36.0-48.0 [facility] Comment on above: Performed By: #### C BC #### [facility] [address] [address] [address] Anish Johnson Hemoglobin (Bld) [Mass/Vol] 12.4 g/dL Normal 12.0-16.0 [facility] Comment on above: Performed By: #### C BC #### [facility] [address] [place] [address] Dr. Anish Johnson IG # 0.02 10e3/ul Normal 0.00-0.03 [facility] Comment on above: Performed By: #### C BC #### [facility] [address] [place] [address] Dr. Anish Johnson IG % 0.3 % Normal 0.0-0.5 [facility] Comment on above: Performed By: #### C BC #### [facility] [address] [place] [address] Dr. Anish Johnson LYMPH # 1.3 103/ul Normal 1.2-3.8 [facility] Comment on above: Performed By: #### C BC #### [facility] [address] [place] [address] Dr. Anish Johnson Lymphocytes/100 WBC (Bld) 19.7 % Critically low 20.5-60.0 [facility] Comment on above: Performed By: #### C BC #### [facility] [address] [place] [address] Dr. Anish Johnson MANUAL DIFF REQ NO Normal [facility] Comment on above: Performed By: #### C BC #### [facility] [address] [place] [address] Dr. Anish Johnson MCH (RBC) [Entitic mass] 25.5 pg Critically low 26.7-34.0 [facility] Comment on above: Performed By: #### C BC #### [facility] [address] [place] [address] Dr. Anish Johnson MCHC (RBC) [Mass/Vol] 30.5 g/dL Normal 29.9-35.2 [facility] Comment on above: Performed By: #### C BC #### [facility] [address] [place] [address] Dr. Anish Johnson MCV (RBC) [Entitic vol] 83.4 fL Normal 81.0-99.0 [facility] Comment on above: Performed By: #### C BC #### [facility] [address] [place] [address] Dr. Anish Johnson MONO # 0.5 103/ul Normal 0.3-0.8 [facility] Comment on above: Performed By: #### C BC #### [facility] [address] [address] [address] Anish Johnson Monocytes/100 WBC (Bld) 7.0 % Normal 1.7-12.0 [facility] Comment on above: Performed By: #### C BC #### [facility] [address] [address] [address] Anish Johnson NEUT # 4.5 103/ul Normal 1.4-6.5 [facility] Comment on above: Performed By: #### C BC #### [facility] [address] [address] [address] Anish Johnson Neutrophils/100 WBC (Bld) 67.8 % Normal 43.0-75.0 [facility] Comment on above: Performed By: #### C BC #### [facility] [address] [place] [address] Dr. Anish Johnson Platelet mean volume (Bld) [Entitic vol] 10.5 fL Normal 9.5-13.5 [facility] Comment on above: Performed By: #### C BC #### [facility] [address] [place] [address] Dr. Anish Johnson PLT 297 103/ul Normal 150-450 [facility] Comment on above: Performed By: #### C BC #### [facility] [address] [place] [address] Dr. Anish Johnson RBC 4.87 106/ul Normal 4.20-5.40 [facility] Comment on above: Performed By: #### C BC #### [facility] [address] [place] [address] Dr. Anish Johnson WBC 6.6 103/ul Normal 4.0-11.0 [facility] Comment on above: Performed By: #### C BC #### [facility] [address] [place] [address] Dr. Anish Johnson CARBAMAZEPINEon 07-16-2022 Carbamezapine 5.4 ug/mL Normal 4.0-12.0 [facility] Comment on above: Result Comment: In c onjunction with other antiepileptic drugs Therapeutic 4.0 - 8.0 Toxicity 9.0 - 12.0 . Carbamazepine alone Therapeutic 8.0 - 12.0 . Detection Limit = 2.0 <2.0 indicated None Detected Performed By: #### C ARBLC #### [facility] [address] [place] [address] Dr. Anish Johnson CBC AUTO DIFFon 07-15-2022 BASO # 0.0 103/ul Normal 0.0-0.1 [facility] Comment on above: Performed By: #### C BC #### [facility] [address] [place] [address] Dr. Anish Johnson Basophils/100 WBC (Bld) 0.5 % Normal 0.2-2.0 [facility] Comment on above: Performed By: #### C BC #### [facility] [address] [place] [address] Dr. Anish Johnson EO # 0.2 103/ul Normal 0.0-0.7 [facility] Comment on above: Performed By: #### C BC #### [facility] [address] [place] [address] Dr. Anish Johnson Eosinophils/100 WBC (Bld) 2.9 % Normal 0.9-7.0 [facility] Comment on above: Performed By: #### C BC #### [facility] [address] [place] [address] Dr. Anish Johnson Erythrocyte distribution width (RBC) [Ratio] 15.7 % Critically high 11.0-15.0 [facility] Comment on above: Performed By: #### C BC #### [facility] [address] [place] [address] Dr. Anish Johnson Hematocrit (Bld) [Volume fraction] 40.2 % Normal 36.0-48.0 [facility] Comment on above: Performed By: #### C BC #### [facility] [address] [place] [address] Dr. Anish Johnson Hemoglobin (Bld) [Mass/Vol] 12.5 g/dL Normal 12.0-16.0 [facility] Comment on above: Performed By: #### C BC #### [facility] [address] [place] [address] Dr. Anish Johnson IG # 0.02 10e3/ul Normal 0.00-0.03 [facility] Comment on above: Performed By: #### C BC #### [facility] [address] [place] [address] Dr. Anish Johnson IG % 0.3 % Normal 0.0-0.5 [facility] Comment on above: Performed By: #### C BC #### [facility] [address] [place] [address] Dr. Anish Johnson LYMPH # 1.5 103/ul Normal 1.2-3.8 [facility] Comment on above: Performed By: #### C BC #### [facility] [address] [place] [address] Dr. Anish Johnson Lymphocytes/100 WBC (Bld) 18.7 % Critically low 20.5-60.0 [facility] Comment on above: Performed By: #### C BC #### [facility] [address] [place] [address] Dr. Anish Johnson MANUAL DIFF REQ NO Normal [facility] Comment on above: Performed By: #### C BC #### [facility] [address] [place] [address] Dr. Anish Johnson MCH (RBC) [Entitic mass] 25.4 pg Critically low 26.7-34.0 [facility] Comment on above: Performed By: #### C BC #### [facility] [address] [place] [address] Dr. Anish Johnson MCHC (RBC) [Mass/Vol] 31.1 g/dL Normal 29.9-35.2 [facility] Comment on above: Performed By: #### C BC #### [facility] [address] [place] [address] Dr. Anish Johnson MCV (RBC) [Entitic vol] 81.7 fL Normal 81.0-99.0 [facility] Comment on above: Performed By: #### C BC #### [facility] [address] [place] [address] Dr. Anish Johnson MONO # 0.7 103/ul Normal 0.3-0.8 [facility] Comment on above: Performed By: #### C BC #### [facility] [address] [place] [address] Dr. Anish Johnson Monocytes/100 WBC (Bld) 8.3 % Normal 1.7-12.0 [facility] Comment on above: Performed By: #### C BC #### [facility] [address] [place] [address] Dr. Anish Johnson NEUT # 5.4 103/ul Normal 1.4-6.5 [facility] Comment on above: Performed By: #### C BC #### [facility] [address] [place] [address] Dr. Anish Johnson Neutrophils/100 WBC (Bld) 69.3 % Normal 43.0-75.0 [facility] Comment on above: Performed By: #### C BC #### [facility] [address] [place] [address] Dr. Anish Johnson Platelet mean volume (Bld) [Entitic vol] 10.6 fL Normal 9.5-13.5 [facility] Comment on above: Performed By: #### C BC #### [facility] [address] [place] [address] Dr. Anish Johnson PLT 297 103/ul Normal 150-450 [facility] Comment on above: Performed By: #### C BC #### [facility] [address] [place] [address] Dr. Anish Johnson RBC 4.92 106/ul Normal 4.20-5.40 [facility] Comment on above: Performed By: #### C BC #### [facility] [address] [place] [address] Dr. Anish Johnson WBC 7.8 103/ul Normal 4.0-11.0 [facility] Comment on above: Performed By: #### C BC #### [facility] [address] [place] [address] Dr. Anish Johnson GLUCOSE BLOODon 07-15-2022 Glucose [Mass/Vol] 133 mg/dL Critically high 74-106 [facility] Comment on above: Performed By: #### L IVER, GLUC, TSH, LIPID #### [facility] [address] [place] [address] Dr. Anish Johnson LIPID PROFILEon 07-15-2022 CHOL-HDL RATIO NORM SEE BELOW Normal [facility] Comment on above: Result Comment: 3.3 - 4.4 LOW RISK 4.4 - 7.1 AVERAGE RISK 7.1 - 11.0 MODERATE RISK >11.0 HIGH RISK Performed By: #### L IVER, GLUC, TSH, LIPID #### [facility] [address] [address] [address] Anish Johnson Cholesterol [Mass/Vol] 135 mg/dL Normal <=200 [facility] Comment on above: Performed By: #### L IVER, GLUC, TSH, LIPID #### [facility] [address] [place] [address] Dr. Anish Johnson Cholesterol in HDL [Mass/Vol] 58 mg/dL Normal 40-60 [facility] Comment on above: Performed By: #### L IVER, GLUC, TSH, LIPID #### [facility] [address] [place] [address] Dr. Anish Johnson Cholesterol in LDL [Mass/Vol] 54.2 mg/dL Normal [facility] Comment on above: Performed By: #### L IVER, GLUC, TSH, LIPID #### [facility] [address] [address] [address] Anish Johnson Cholesterol.total/Cho lesterol in HDL [Mass ratio] 2.3 {ratio} Normal [facility] Comment on above: Performed By: #### L IVER, GLUC, TSH, LIPID #### [facility] [address] [place] [address] Dr. Anish Johnson HDL NORMAL > or = 60 mg/dl - LOW CARDIOVASCULAR RISK <40 mg/dl - HIGH CARDIOVASCULAR RISK Normal [facility] Comment on above: Performed By: #### L IVER, GLUC, TSH, LIPID #### [facility] [address] [address] [address] Anish Johnson LDL CALC NORMAL SEE BELOW Normal [facility] Comment on above: Result Comment: <100 mg/dl OPTIMAL 100 - 129 mg/dl NEAR OR ABOVE OPTIMAL 130 - 159 mg/dl BORDERLINE HIGH 160 - 189 mg/dl HIGH >190 mg/dl VERY HIGH Performed By: #### L IVER, GLUC, TSH, LIPID #### [facility] [address] [address] [address] Anish Johnson Triglyceride [Mass/Vol] 114 mg/dL Normal <=150 [facility] Comment on above: Performed By: #### L IVER, GLUC, TSH, LIPID #### [facility] [address] [address] [address] Anish Johnson VLDL CALC 22.8 mg/dL Normal [facility] Comment on above: Performed By: #### L IVER, GLUC, TSH, LIPID #### [facility] [address] [address] [address] Anish Johnson LIVER PROFILEon 07-15-2022 Albumin [Mass/Vol] 4.3 g/dL Normal 3.4-5.0 [facility] Comment on above: Performed By: #### L IVER, GLUC, TSH, LIPID #### [facility] [address] [address] [address] Anish Johnson Albumin/Globulin [Mass ratio] 1.0 {ratio} Normal [facility] Comment on above: Performed By: #### L IVER, GLUC, TSH, LIPID #### [facility] [address] [address] [address] Anish Johnson ALP [Catalytic activity/Vol] 108 U/L Normal 46-116 [facility] Comment on above: Performed By: #### L IVER, GLUC, TSH, LIPID #### [facility] [address] [address] [address] Anish Johnson ALT [Catalytic activity/Vol] 26 U/L Normal 14-59 [facility] Comment on above: Performed By: #### L IVER, GLUC, TSH, LIPID #### [facility] [address] [address] [address] Anish Johnson AST [Catalytic activity/Vol] 21 U/L Normal 15-37 [facility] Comment on above: Performed By: #### L IVER, GLUC, TSH, LIPID #### [facility] [address] [place] [address] Dr. Anish Johnson BILI, CONJUGATED 0.1 mg/dL Normal 0.0-0.2 [facility] Comment on above: Performed By: #### L IVER, GLUC, TSH, LIPID #### [facility] [address] [place] [address] Dr. Anish Johnson Bilirubin [Mass/Vol] 0.5 mg/dL Normal 0.2-1.0 [facility] Comment on above: Performed By: #### L IVER, GLUC, TSH, LIPID #### [facility] [address] [place] [address] Dr. Anish Johnson Globulin (S) [Mass/Vol] 4.3 g/dL Normal [facility] Comment on above: Performed By: #### L IVER, GLUC, TSH, LIPID #### [facility] [address] [place] [address] Dr. Anish Johnson Protein [Mass/Vol] 8.6 g/dL Critically high 6.4-8.2 [facility] Comment on above: Performed By: #### L IVER, GLUC, TSH, LIPID #### [facility] [address] [place] [address] Dr. Anish Johnson TSHon 07-15-2022 TSH 1.692 uIU/mL Normal 0.358-3.740 [facility] Comment on above: Performed By: #### L IVER, GLUC, TSH, LIPID #### [facility] [address] [place] [address] Dr. Anish Johnson Vital Signs Date Time Vital Sign Value Performing Clinician April cheng 01-03-2024 15:19-0500 Body height 157.5 cm Julianne Lord BOOK PACKER Work Phone: [facility] 01-03-2024 15:19-0500 Body mass index (BMI) [Ratio] 34.02 kg/m2 Julianne Aichholz BOOK PACKER Work Phone: [facility] 01-03-2024 15:19-0500 Body temperature 97.5 [degF] Julianne Aichholz BOOK PACKER Work Phone: [facility] 01-03-2024 15:19-0500 Body weight 84.37 kg Julianne Aichholz BOOK PACKER Work Phone: [facility] 01-03-2024 15:19-0500 Diastolic blood pressure 82 mm[Hg] Julianne Aichholz BOOK PACKER Work Phone: [facility] 01-03-2024 15:19-0500 Heart rate 87 /min Julianne Aichholz BOOK PACKER Work Phone: [facility] 01-03-2024 15:19-0500 Respiratory rate 17 /min Julianne Aichholz BOOK PACKER Work Phone: [facility] 01-03-2024 15:19-0500 SaO2% (BldA) [Mass fraction] 97 % Julianne Aichholz BOOK PACKER Work Phone: [facility] 01-03-2024 15:19-0500 Systolic blood pressure 128 mm[Hg] Julianne Aichholz BOOK PACKER Work Phone: [facility] Encounters Encounter Date Encounter Type Care Provider Facility Start: 01-10-2024 Refill Julianne Aichholz BOOK PACKER Work Phone: [facility] Start: 01-03-2024 End: 01-03-2024 ambulatory JULIANNE AICHHOLZ Not Available Start: 01-03-2024 End: 01-03-2024 Office outpatient visit 25 minutes Julianne Aichholz BOOK PACKER Work Phone: [facility] Comment on above: Essential (primary) hypertension (CMS/HCC) (Primary Dx); BMI 34.0-34.9,adult; Bipolar affective disorder, remission status unspecified (CMS/HCC); Tobacco user; Vertigo; Anxiety Start: 11-08-2023 ambulatory Chris stafford:[facility] Start: 09-08-2022 End: 09-09-2022 ambulatory PATRICK DAO Facility:[facility] Start: 07-15-2022 End: 07-16-2022 ambulatory PATRICK DAO Facility:[facility] Start: 09-09-2021 ambulatory FREELANCE DESIGNER JULIANNE TIMOTHY [place] ity:[facility] Procedures Date Procedure Procedure Detail Performing Clinician Start: 01-03-2024 Mammography Julianne quintana BOOK PACKER Work Phone: Plan of Treatment Date Care Activity Detail Author Start: 01-03-2025 Screening for malign ant neoplasm of breast Mammogram [facility] Start: 01-03-2025 Screening for malign ant neoplasm of colon Colorectal Cancer Screening [facility] Comment on above: Postponed from 10/05 (Patient Refused) Start: 01-24-2024 End: 01-24-2024 Patient encounter procedure 01/24/2024 9:00 AM EST Office Visit [facility] [address] [place] [id number] Julianne Lord, JUANITA [address] [place] [address] [facility] Start: 1989 Screening for malign ant neoplasm of cervix HPV/Cotest [facility] Start: 1980 Screening for malign ant neoplasm of cervix Pap Smear [facility] Start: 1959 Screening for malign ant neoplasm of colon [facility] Payers Date Payer Category Payer Medicaid [id number] 2023 Medicaid [employer] [place] [id number] 2023-Present [address] [place] [address] [id number] 2023 Self-pay 1959 Unknown [id number] 1959 Unknown [id number] 1959 Unknown [id number] 1959 Unknown [id number] 1959 Unknown [id number] Social History Date Type Detail Facility Start: [...] Lord NP - 01/03/2024 3:59 PM Emma Lord NP - 01/03/2024 3:59 PM Emma Lord, JUANITA - 01/03/2024 3:58 PM Emma Lord, JUANITA - 01/03/2024 3:57 PM EST Note Date & Type Note Facility 01-03-2024 History of Presen t illness Narrative Associated Problem(s): Bipolar disorder (CMS/HCC) Continue with psych Associated Problem(s): Anxiety Continue [...] content) DATE CREATED AUTHOR 09/09/2022 [facility] DATE CREATED AUTHOR AUTHOR'S ORGANIZ ATION 01/04/2024 [facility] EPIC DATE CREATED AUTHOR AUTHOR'S ORGANIZ ATION 02/11/2024 [facility] Care Teams (unrecognized sec tion and content) Oil Treater Relationship Specialty Start Date End Date Zhen Christiansen MD [address] [place] [phone] PCP - General Family Medicine 12/27/23 Julianne Lord NP [address] [place] [phone] Nurse Practitioner Family Medicine 11/28/22 Oil Treater Relationship Specialty Start Date End Date Zhen Christiansen MD [address] [place] [id number] PCP - General Family Medicine 12/27/23 Julianne Lord NP [address] [place] [id number] Nurse Practitioner Family Medicine 11/28/22 FOR RECORDS [...] BE BASED ON THE PRIMARY CLINICAL RECORDS. [facility]. provides no warranty or guarantee of the accuracy or completeness of information in this document.
[2024-02-20 09:05] LABS: Basophils Absolute Auto 0.1 10^3/uL (0.0-0.1); Basophils Percent Auto 0.7 % (0.2-2.0); Eosinophils Absolute Auto 0.2 10^3/uL (0.0-0.7); Eosinophils Percent Auto 3.1 % (0.9-7.0); Hematocrit 37.7 % (36.0-48.0); Hemoglobin 11.8 g/dL (12.0-16.0); Immature Granulocytes Abs Auto 0.01 10^3/uL (0.00-0.03); Immature Granulocytes Pct Auto 0.1 % (0.0-0.5); Lymphocytes Absolute Auto 1.4 10^3/uL (1.2-3.8); Lymphocytes Percent Auto 21.1 % (20.5-60.0); Mean Corpuscular HGB Conc 31.3 g/dL (29.9-35.2); Mean Corpuscular Volume 83.2 fL (81.0-99.0); Mean Platelet Volume 9.5 fL (9.5-13.5); Monocytes Absolute Auto 0.5 10^3/uL (0.3-0.8); Monocytes Percent Auto 7.4 % (1.7-12.0); Neutrophils Absolute Auto 4.6 10^3/uL (1.4-6.5); Neutrophils Percent Auto 67.6 % (43.0-75.0); Platelet Count 256 10^3/uL (150-450); Red Blood Count 4.53 10^6/uL (4.20-5.40); Red Cell Distribution Width 14.6 % (11.0-15.0); White Blood Count 6.8 10^3/uL (4.0-11.0)
[2024-02-20 10:22] LABS: Alanine Aminotransferase 19 U/L (14-59); Albumin Globulin Ratio 0.9; Albumin Level 3.6 g/dL (3.4-5.0); Alkaline Phosphatase 102 U/L (46-116); Aspartate Amino Transferase 10 U/L (15-37); Bilirubin Direct 0.1 mg/dL (0.0-0.2); Bilirubin Total 0.4 mg/dL (0.2-1.0); Chol HDL Ratio 2.1; Cholesterol 132 mg/dL (<=200); Globulin 4.2 g/dL; Glucose 124 mg/dL (74-106); HDL Cholesterol 63 mg/dL (40-60); Total Protein 7.8 g/dL (6.4-8.2); Triglycerides 103 mg/dL (<=150); VLDL CHOLESTEROL 20.6 mg/dL
== END 2024-02-20 08:37 | disposition home or self-care (01) ==
LOC: LAB 08:37
PROVIDERS: PCP Nurse Practitioner; Visit Provider Psychiatry & Neurology Psychiatry
DX: Z79.899 Other long term (current) drug therapy (principal); F31.9 Bipolar disorder, unspecified
CPT/HCPCS: 36415; 80061; 80076; 80156; 82947; 84443; 85025

== ENCOUNTER 2024-02-28 09:13 | Outpatient (OUT) | payer OTHER, SELFPAY ==
--- OUTSIDE RECORDS SUMMARY | 2024-02-28 09:39 | XMS_ITS | CCD ---
Author Organization [facility] Care Team Providers Care Dispatcher Bus And Trolley Name Role Phone PATRCIK DAO Admitting Unavailable WILLIS, PATRICK Attending Unavailable AICHHOLZ, MATIAS JULIANNE Primary Care Unavailable WILLIS, PATRICK Consulting Unavailable WILLIS, PATRICK Admitting Unavailable WILLIS, PATRICK Attending Unavailable AICHHOLZ, REMELT SUGAR BOILER JULIANNE Primary Care Unavailable WILLIS, PATRICK Consulting Unavailable AICHHOLZ, MATIAS JULIANNE Admitting Unavailable AICHHOLZ, MATIAS JULIANNE Attending Unavailable AICHHOLZ, MATIAS JULIANNE Primary Care Unavailable Aichholz DESIZING MACHINE OFFBEARER, Julianne Unavailable Zhen Christiansen MD Primary Care Provider Chris Caruso Attending Unavailab Chris Felton Admitting Unavailab dread [facility], PHYSICIAN Primary Care Unavailable AICHHOLTarsha JULIANNE Attending Unavailable AICHHOLZ, JULIANNE Attending Unavailable AICHANA JULIANNE Attending Unavailable Medications Current Medications Medication Drug Class(es) [...] 07-15-2022 Chronic Other aftercare (1 source) Other snf (current) drug therapy; Translations: [OTH [facility] CURRENT DRUG THERAPY] Onset: 07-16-2022 Episodic Other [...] 09-08-2022 BASO # 0.1 103/ul Normal 0.0-0.1 [facility] Comment on above: Performed By: #### C BC #### [facility] [address] [address] [address] Anish Johnson Basophils/100 WBC (Bld) 1.1 % Normal 0.2-2.0 [facility] Comment on above: Performed By: #### C BC #### [facility] [address] [place] [address] Dr. Anish Johnson EO # 0.3 103/ul Normal 0.0-0.7 [facility] Comment on above: Performed By: #### C BC #### [facility] [address] [address] [address] Anish Johnson Eosinophils/100 WBC (Bld) 4.1 % Normal 0.9-7.0 [facility] Comment on above: Performed By: #### C BC #### [facility] [address] [address] [address] Anish Johnson Erythrocyte distribution width (RBC) [Ratio] 15.1 % Critically high 11.0-15.0 [facility] Comment on above: Performed By: #### C BC #### [facility] [address] [place] [address] Dr. Anish Johnson Hematocrit (Bld) [Volume fraction] 40.6 % Normal 36.0-48.0 [facility] Comment on above: Performed By: #### C BC #### [facility] [address] [address] [address] Anish Johnson Hemoglobin (Bld) [Mass/Vol] 12.4 g/dL Normal 12.0-16.0 [facility] Comment on above: Performed By: #### C BC #### [facility] [address] [place] [address] Dr. Anish Johnson IG # 0.02 10e3/ul Normal 0.00-0.03 [facility] Comment on above: Performed By: #### C BC #### [facility] [address] [place] [address] Dr. Anish Johnson IG % 0.3 % Normal 0.0-0.5 [facility] Comment on above: Performed By: #### C BC #### [facility] [address] [place] [address] Dr. Anish Johnson LYMPH # 1.3 103/ul Normal 1.2-3.8 [facility] Comment on above: Performed By: #### C BC #### [facility] [address] [place] [address] Dr. Anish Johnson Lymphocytes/100 WBC (Bld) 19.7 % Critically low 20.5-60.0 [facility] Comment on above: Performed By: #### C BC #### [facility] [address] [place] [address] Dr. Anish Johnson MANUAL DIFF REQ NO Normal [facility] Comment on above: Performed By: #### C BC #### [facility] [address] [place] [address] Dr. Anish Johnson MCH (RBC) [Entitic mass] 25.5 pg Critically low 26.7-34.0 [facility] Comment on above: Performed By: #### C BC #### [facility] [address] [place] [address] Dr. Anish Johnson MCHC (RBC) [Mass/Vol] 30.5 g/dL Normal 29.9-35.2 [facility] Comment on above: Performed By: #### C BC #### [facility] [address] [place] [address] Dr. Anish Johnson MCV (RBC) [Entitic vol] 83.4 fL Normal 81.0-99.0 [facility] Comment on above: Performed By: #### C BC #### [facility] [address] [place] [address] Dr. Anish Johnson MONO # 0.5 103/ul Normal 0.3-0.8 [facility] Comment on above: Performed By: #### C BC #### [facility] [address] [place] [address] Dr. Anish Johnson Monocytes/100 WBC (Bld) 7.0 % Normal 1.7-12.0 [facility] Comment on above: Performed By: #### C BC #### [facility] [address] [place] [address] Dr. Anish Johnson NEUT # 4.5 103/ul Normal 1.4-6.5 [facility] Comment on above: Performed By: #### C BC #### [facility] [address] [place] [address] Dr. Anish Johnson Neutrophils/100 WBC (Bld) 67.8 % Normal 43.0-75.0 [facility] Comment on above: Performed By: #### C BC #### [facility] [address] [place] [address] Dr. Anish Johnson Platelet mean volume (Bld) [Entitic vol] 10.5 fL Normal 9.5-13.5 [facility] Comment on above: Performed By: #### C BC #### [facility] [address] [place] [address] Dr. Anish Johnson PLT 297 103/ul Normal 150-450 [facility] Comment on above: Performed By: #### C BC #### [facility] [address] [place] [address] Dr. Anish Johnson RBC 4.87 106/ul Normal 4.20-5.40 [facility] Comment on above: Performed By: #### C BC #### [facility] [address] [place] [address] Dr. Anish Johnson WBC 6.6 103/ul Normal 4.0-11.0 [facility] Comment on above: Performed By: #### C BC #### [facility] [address] [place] [address] Dr. Anish Johnson CARBAMAZEPINEon 07-16-2022 Carbamezapine 5.4 ug/mL Normal 4.0-12.0 [facility] Comment on above: Result Comment: In c onjunction with other antiepileptic drugs Therapeutic 4.0 - 8.0 Toxicity 9.0 - 12.0 . Carbamazepine alone Therapeutic 8.0 - 12.0 . Detection Limit = 2.0 <2.0 indicated None Detected Performed By: #### C ARBLC #### [facility] [address] [place] [address] Dr. Anish Johnson CBC AUTO DIFFon 07-15-2022 BASO # 0.0 103/ul Normal 0.0-0.1 [facility] Comment on above: Performed By: #### C BC #### [facility] [address] [place] [address] Dr. Anish Johnson Basophils/100 WBC (Bld) 0.5 % Normal 0.2-2.0 [facility] Comment on above: Performed By: #### C BC #### [facility] [address] [place] [address] Dr. Anish Johnson EO # 0.2 103/ul Normal 0.0-0.7 [facility] Comment on above: Performed By: #### C BC #### [facility] [address] [place] [address] Dr. Anish Johnson Eosinophils/100 WBC (Bld) 2.9 % Normal 0.9-7.0 [facility] Comment on above: Performed By: #### C BC #### [facility] [address] [place] [address] Dr. Anish Johnson Erythrocyte distribution width (RBC) [Ratio] 15.7 % Critically high 11.0-15.0 [facility] Comment on above: Performed By: #### C BC #### [facility] [address] [place] [address] Dr. Anish Johnson Hematocrit (Bld) [Volume fraction] 40.2 % Normal 36.0-48.0 [facility] Comment on above: Performed By: #### C BC #### [facility] [address] [place] [address] Dr. Anish Johnson Hemoglobin (Bld) [Mass/Vol] 12.5 g/dL Normal 12.0-16.0 [facility] Comment on above: Performed By: #### C BC #### [facility] [address] [place] [address] Dr. Anish Johnson IG # 0.02 10e3/ul Normal 0.00-0.03 [facility] Comment on above: Performed By: #### C BC #### [facility] [address] [place] [address] Dr. Anish Johnson IG % 0.3 % Normal 0.0-0.5 [facility] Comment on above: Performed By: #### C BC #### [facility] [address] [place] [address] Dr. Anish Johnson LYMPH # 1.5 103/ul Normal 1.2-3.8 [facility] Comment on above: Performed By: #### C BC #### [facility] [address] [place] [address] Dr. Anish Johnson Lymphocytes/100 WBC (Bld) 18.7 % Critically low 20.5-60.0 [facility] Comment on above: Performed By: #### C BC #### [facility] [address] [place] [address] Dr. Anish Johnson MANUAL DIFF REQ NO Normal [facility] Comment on above: Performed By: #### C BC #### [facility] [address] [place] [address] Dr. Anish Johnson MCH (RBC) [Entitic mass] 25.4 pg Critically low 26.7-34.0 [facility] Comment on above: Performed By: #### C BC #### [facility] [address] [place] [address] Dr. Anish Johnson MCHC (RBC) [Mass/Vol] 31.1 g/dL Normal 29.9-35.2 [facility] Comment on above: Performed By: #### C BC #### [facility] [address] [place] [address] Dr. Anish Johnson MCV (RBC) [Entitic vol] 81.7 fL Normal 81.0-99.0 [facility] Comment on above: Performed By: #### C BC #### [facility] [address] [address] [address] Anish Johnson MONO # 0.7 103/ul Normal 0.3-0.8 [facility] Comment on above: Performed By: #### C BC #### [facility] [address] [address] [address] Anish Johnson Monocytes/100 WBC (Bld) 8.3 % Normal 1.7-12.0 [facility] Comment on above: Performed By: #### C BC #### [facility] [address] [address] [address] Anish Johnson NEUT # 5.4 103/ul Normal 1.4-6.5 [facility] Comment on above: Performed By: #### C BC #### [facility] [address] [place] [address] Dr. Anish Johnson Neutrophils/100 WBC (Bld) 69.3 % Normal 43.0-75.0 [facility] Comment on above: Performed By: #### C BC #### [facility] [address] [address] [address] Anish Johnson Platelet mean volume (Bld) [Entitic vol] 10.6 fL Normal 9.5-13.5 [facility] Comment on above: Performed By: #### C BC #### [facility] [address] [address] [address] Anish Johnson PLT 297 103/ul Normal 150-450 [facility] Comment on above: Performed By: #### C BC #### [facility] [address] [address] [address] Anish Johnson RBC 4.92 106/ul Normal 4.20-5.40 [facility] Comment on above: Performed By: #### C BC #### [facility] [address] [address] [address] Anish Johnson WBC 7.8 103/ul Normal 4.0-11.0 [facility] Comment on above: Performed By: #### C BC #### [facility] [address] [address] [address] Anish Johnson GLUCOSE BLOODon 07-15-2022 Glucose [Mass/Vol] 133 mg/dL Critically high 74-106 T [facility] Comment on above: Performed By: #### L IVER, GLUC, TSH, LIPID #### [facility] [address] [address] [address] Anish Johnson LIPID PROFILEon 07-15-2022 CHOL-HDL RATIO NORM SEE BELOW Normal [facility] Comment on above: Result Comment: 3.3 - 4.4 LOW RISK 4.4 - 7.1 AVERAGE RISK 7.1 - 11.0 MODERATE RISK >11.0 HIGH RISK Performed By: #### L IVER, GLUC, TSH, LIPID #### [facility] [address] [address] [address] Anish Johnson Cholesterol [Mass/Vol] 135 mg/dL Normal <=200 [facility] Comment on above: Performed By: #### L IVER, GLUC, TSH, LIPID #### [facility] [address] [address] [address] Anish Johnson Cholesterol in HDL [Mass/Vol] 58 mg/dL Normal 40-60 [facility] Comment on above: Performed By: #### L IVER, GLUC, TSH, LIPID #### [facility] [address] [address] [address] Anish Johnson Cholesterol in LDL [Mass/Vol] 54.2 mg/dL Normal [facility] Comment on above: Performed By: #### L IVER, GLUC, TSH, LIPID #### [facility] [address] [address] [address] Anish Johnson Cholesterol.total/Cho lesterol in HDL [Mass ratio] 2.3 {ratio} Normal [facility] Comment on above: Performed By: #### L IVER, GLUC, TSH, LIPID #### [facility] [address] [address] [address] Anish Johnson HDL NORMAL > or = 60 mg/dl - LOW CARDIOVASCULAR RISK <40 mg/dl - HIGH CARDIOVASCULAR RISK Normal [facility] Comment on above: Performed By: #### L IVER, GLUC, TSH, LIPID #### [facility] [address] [address] [address] Anish Johnson LDL CALC NORMAL SEE BELOW Normal [facility] Comment on above: Result Comment: <100 mg/dl OPTIMAL 100 - 129 mg/dl NEAR OR ABOVE OPTIMAL 130 - 159 mg/dl BORDERLINE HIGH 160 - 189 mg/dl HIGH >190 mg/dl VERY HIGH Performed By: #### L IVER, GLUC, TSH, LIPID #### [facility] [address] [address] [address] Anish Johnson Triglyceride [Mass/Vol] 114 mg/dL Normal <=150 [facility] Comment on above: Performed By: #### L IVER, GLUC, TSH, LIPID #### [facility] [address] [address] [address] Anish Johnson VLDL CALC 22.8 mg/dL Normal [facility] Comment on above: Performed By: #### L IVER, GLUC, TSH, LIPID #### [facility] [address] [address] [address] Anish Johnson LIVER PROFILEon 07-15-2022 Albumin [Mass/Vol] 4.3 g/dL Normal 3.4-5.[address] [facility] Comment on above: Performed By: #### L IVER, GLUC, TSH, LIPID #### [facility] [address] [address] [address] Anish Jonhson Albumin/Globulin [Mass ratio] 1.0 {ratio} Normal [facility] Comment on above: Performed By: #### L IVER, GLUC, TSH, LIPID #### [facility] [address] [address] [address] Anish Johnson ALP [Catalytic activity/Vol] 108 U/L Normal 46-116 [facility] Comment on above: Performed By: #### L IVER, GLUC, TSH, LIPID #### [facility] [address] [address] [address] Anish Johnson ALT [Catalytic activity/Vol] 26 U/L Normal 14-59 [facility] Comment on above: Performed By: #### L IVER, GLUC, TSH, LIPID #### [facility] [address] [place] [address] Dr. Anish Johnson AST [Catalytic activity/Vol] 21 U/L Normal 15-37 [facility] Comment on above: Performed By: #### L IVER, GLUC, TSH, LIPID #### [facility] [address] [place] [address] Dr. Anish Johnson BILI, CONJUGATED 0.1 mg/dL Normal 0.0-0.2 [facility] Comment on above: Performed By: #### L IVER, GLUC, TSH, LIPID #### [facility] [address] [place] [address] Dr. Anish Johnson Bilirubin [Mass/Vol] 0.5 mg/dL Normal 0.2-1.0 [facility] Comment on above: Performed By: #### L IVER, GLUC, TSH, LIPID #### [facility] [address] [place] [address] Dr. Anish Johnson Globulin (S) [Mass/Vol] 4.3 g/dL Normal [facility] Comment on above: Performed By: #### L IVER, GLUC, TSH, LIPID #### [facility] [address] [place] [address] Dr. Anish Johnson Protein [Mass/Vol] 8.6 g/dL Critically high 6.4-8.2 [facility] Comment on above: Performed By: #### L IVER, GLUC, TSH, LIPID #### [facility] [address] [place] [address] Dr. Anish Johnson TSHon 07-15-2022 TSH 1.692 uIU/mL Normal 0.358-3.740 [facility] Comment on above: Performed By: #### L IVER, GLUC, TSH, LIPID #### [facility] [address] [place] [address] Dr. Anish Johnson Vital Signs Date Time Vital Sign Value Performing Clinician April cheng 01-03-2024 15:19-0500 Body height 157.5 cm Julianne Lord NP Work Phone: [facility] 01-03-2024 15:19-0500 Body mass index (BMI) [Ratio] 34.02 kg/m2 Julianne Emilholz DESIZING MACHINE OFFBEARER Work Phone: [facility] 01-03-2024 15:19-0500 Body temperature 97.5 [degF] Julianne Aichholz DESIZING MACHINE OFFBEARER Work Phone: [facility] 01-03-2024 15:19-0500 Body weight 84.37 kg Julianne Aichholz DESIZING MACHINE OFFBEARER Work Phone: [facility] 01-03-2024 15:19-0500 Diastolic blood pressure 82 mm[Hg] Julianne Aichholz DESIZING MACHINE OFFBEARER Work Phone: [facility] 01-03-2024 15:19-0500 Heart rate 87 /min Julianne Aichholz DESIZING MACHINE OFFBEARER Work Phone: [facility] 01-03-2024 15:19-0500 Respiratory rate 17 /min Julianne Aichholz DESIZING MACHINE OFFBEARER Work Phone: [facility] 01-03-2024 15:19-0500 SaO2% (BldA) [Mass fraction] 97 % Julianne Jenniferhholz DESIZING MACHINE OFFBEARER Work Phone: [facility] 01-03-2024 15:19-0500 Systolic blood pressure 128 mm[Hg] Julianne Aichholz DESIZING MACHINE OFFBEARER Work Phone: [facility] Healthcare Encounters Encounter Date Encounter Type Care Provider Facility Start: 02-22-2024 End: 02-22-2024 ambulatory JULIANNE AICHHOLZ Not Available Start: 01-24-2024 End: 01-24-2024 ambulatory JULIANNE AICHHOLZ Not Available Start: 01-10-2024 Refill Julianne Aichholz DESIZING MACHINE OFFBEARER Work Phone: [facility] Start: 01-03-2024 End: 01-03-2024 ambulatory JULIANNE AICHHOLZ Not Available Start: 01-03-2024 End: 01-03-2024 Office outpatient visit 25 minutes Julianne Emilholz DESIZING MACHINE OFFBEARER Work Phone: [facility] Comment on above: Essential (primary) hypertension (CMS/HCC) (Primary Dx); BMI 34.0-34.9,adult; Bipolar affective disorder, remission status unspecified (CMS/HCC); Tobacco user; Vertigo; Anxiety Start: 12-27-2023 ambulatory Chris Shady Sammi acility:[facility] Start: 09-08-2022 End: 09-09-2022 ambulatory PATRICK DAO Facility:[facility] Start: 07-15-2022 End: 07-16-2022 ambulatory PATRICK DAO Facility:[facility] Start: 09-09-2021 ambulatory REMELT SUGAR BOILER JULIANNE TIMOTHY Facil ity:[facility] Procedures Date Procedure Procedure Detail Performing Clinician Start: 01-03-2024 Mammography Julianne quintana NP Work Phone: Plan of Treatment Date Care Activity Detail Author Start: 01-03-2025 Screening for malign ant neoplasm of breast Mammogram [facility] Start: 01-03-2025 Screening for malign ant neoplasm of colon Colorectal Cancer Screening [facility] Comment on above: Postponed from 10/05 (Patient Refused) Start: 01-24-2024 End: 01-24-2024 Patient encounter procedure 01/24/2024 9:00 AM EST Office Visit [facility] [address] [place] [id number] Julianne Lord NP [address] [place] [id number] [facility] Start: 1989 Screening for malign ant neoplasm of cervix HPV/Cotest [facility] Start: 1980 Screening for malign ant neoplasm of cervix Pap Smear [facility] Start: 1959 Screening for malign ant neoplasm of colon [facility] Payers Date Payer Category Payer Medicaid [employer] [facility] [place] [id number] 2023-Present [address] [place] [address] [id number] 2023 Self-pay 2013 Medicaid [id number] 1959 Unknown [id number] 1959 Unknown [id number] 1959 Unknown [id number] 1959 Unknown [id number] 1959 Unknown [id number] 1959 Unknown [id number] 1959 Unknown [id number] Social History Date Type Detail Facility Start: 12-28-2023 Tobacco smoking status [facility] Smokes t obacco daily [facility] History [...] 3:59 PM Emma Lord NP - 01/03/2024 3:58 PM Emma Lord NP - 01/03/2024 3:57 PM EST Note Date & Type Note Facility 01-03-2024 History of Presen t illness Narrative Associated Problem(s): Bipolar disorder ([facility]) Continue with psych Associated Problem(s): Anxiety Continue [...] the original note were not included. Sahra Courtney is a 63 y.o. female presents with [...] pital DATE CREATED AUTHOR AUTHOR'S ORGANIZ ATION 02/23/2024 [facility] DATE CREATED AUTHOR AUTHOR'S ORGANIZ ATION 02/23/[address] [facility] Care Teams (unrecognized sec tion and content) Dispatcher Bus And Trol[employer] Relationship Specialty Start Date End Date Zhen Christiansen MD [address] [place] [address] PCP - General Family Medicine 12/27/23 Julianne Lord NP [address] [place] [address] Nurse Practitioner Family Medicine 11/28/22 Dispatcher Bus [employer]rol[employer] Relationship Specialty Start Date End Date Zhen Christiansen MD [address] [place] [address] PCP - General Family Medicine 12/27/23 Julianne Lord NP [address] [place] [id number] Nurse Practitioner Family Medicine 11/28/22 FOR RECORDS [...] BE BASED ON THE PRIMARY CLINICAL RECORDS. [employer] [facility]. provides no warranty or guarantee of the accuracy or completeness of information in this document.
[2024-02-28 11:43] LABS: Estimated Average Glucose 123 mg/dL; Glycohemoglobin A1C 5.9 % (4.5-6.2)
== END 2024-02-28 09:14 | disposition home or self-care (01) ==
LOC: LAB 09:15
PROVIDERS: PCP Nurse Practitioner; Visit Provider Nurse Practitioner
DX: R73.09 Other abnormal glucose (principal)
CPT/HCPCS: 36415; 83036

== ENCOUNTER 2024-04-05 10:11 | Emergency (ER) | payer OTHER, SELFPAY ==
--- NOTE | 2024-04-05 10:34 | PC.NURSE ---
Attempted to call patient to a room twice for triage without response. Patient told registration that patient needed to run to car and would come back in. Patient never returned.
--- OUTSIDE RECORDS SUMMARY | 2024-04-05 11:11 | XMS_ITS | CCD ---
Author Organization [facility] Care Team Providers Care Proof Technician Helper Name Role Phone PATRICK DAO Admitting Unavailable WILLIS, PATRICK Attending Unavailable AICHHOLZ, MATIAS JULIANNE Primary Care Unavailable WILLIS, PATRICK Consulting Unavailable SPROUT, PATRICK Admitting Unavailable WILLIS, PATRICK Attending Unavailable AICHHOLZ, MATIAS JULIANNE Primary Care Unavailable WILLIS, PATRICK Consulting Unavailable AICHHOLZ, MATIAS JULIANNE Admitting Unavailable AICHHOLZ, MATIAS JULIANNE Attending Unavailable AICHHOLZ, MATIAS JULIANNE Primary Care Unavailable Aichholz SENIOR CLINICAL RESEARCH SCIENTIST, Julianne Unavailable Zhen Christiansen MD Primary Care Provider [phone] JULIANNE LORD Attending Unavailable AICHHOLTarsha, JULIANNE Attending Unavailable TIMOTHY, JULIANNE Attending Unavailable Chris Caruso Attending Unavailab Chris Felton Admitting [...] 07-15-2022 Chronic Other aftercare (1 source) Other care home (current) drug therapy; Translations: [OTH SHELTER CURRENT DRUG THERAPY] Onset: 07-16-2022 Episodic Other [...] 09-08-2022 BASO # 0.1 103/ul Normal 0.0-0.1 [facility] Comment on above: Performed By: #### C BC #### [facility] [address] [address] [address] Anish Johnson Basophils/100 WBC (Bld) 1.1 % Normal 0.2-2.0 [facility] Comment on above: Performed By: #### C BC #### [facility] [address] [place] [address] Dr. Anish Johnson EO # 0.3 103/ul Normal 0.0-0.7 [facility] Comment on above: Performed By: #### C BC #### [facility] [address] [address] [address] Anish Johnson Eosinophils/100 WBC (Bld) 4.1 % Normal 0.9-7.0 [facility] Comment on above: Performed By: #### C BC #### [facility] [address] [address] [address] Anish Johnson Erythrocyte distribution width (RBC) [Ratio] 15.1 % Critically high 11.0-15.0 [facility] Comment on above: Performed By: #### C BC #### [facility] [address] [place] [address] Dr. Anish Johnson Hematocrit (Bld) [Volume fraction] 40.6 % Normal 36.0-48.0 [facility] Comment on above: Performed By: #### C BC #### [facility] [address] [address] [address] Anish Johnson Hemoglobin (Bld) [Mass/Vol] 12.4 g/dL Normal 12.0-16.0 [facility] Comment on above: Performed By: #### C BC #### [facility] [address] [place] [address] Dr. Anish Johnson IG # 0.02 10e3/ul Normal 0.00-0.03 [facility] Comment on above: Performed By: #### C BC #### [facility] [address] [place] [address] Dr. Anish Johnson IG % 0.3 % Normal 0.0-0.5 [facility] Comment on above: Performed By: #### C BC #### [facility] [address] [place] [address] Dr. Anish Johnson LYMPH # 1.3 103/ul Normal 1.2-3.8 [facility] Comment on above: Performed By: #### C BC #### [facility] [address] [place] [address] Dr. Anish Johnson Lymphocytes/100 WBC (Bld) 19.7 % Critically low 20.5-60.0 [facility] Comment on above: Performed By: #### C BC #### [facility] [address] [place] [address] Dr. Anish Johnson MANUAL DIFF REQ NO Normal [facility] Comment on above: Performed By: #### C BC #### [facility] [address] [place] [address] Dr. Anish Johnsno MCH (RBC) [Entitic mass] 25.5 pg Critically low 26.7-34.0 [facility] Comment on above: Performed By: #### C BC #### [facility] [address] [place] [address] Dr. Anish Johnson MCHC (RBC) [Mass/Vol] 30.5 g/dL Normal 29.9-35.2 [facility] Comment on above: Performed By: #### C BC #### [facility] [address] [place] [address] Dr. Anish Johnson MCV (RBC) [Entitic vol] 83.4 fL Normal 81.0-99.0 [facility] Comment on above: Performed By: #### C BC #### [facility] [address] [place] [address] Dr. Anish Johnson MONO # 0.5 103/ul Normal 0.3-0.8 [facility] Comment on above: Performed By: #### C BC #### [facility] [address] [place] [address] Dr. Anish Johnson Monocytes/100 WBC (Bld) 7.0 % Normal 1.7-12.0 [facility] Comment on above: Performed By: #### C BC #### [facility] [address] [place] [address] Dr. Anish Johnson NEUT # 4.5 103/ul Normal 1.4-6.5 [facility] Comment on above: Performed By: #### C BC #### [facility] [address] [place] [address] Dr. Anish Johnson Neutrophils/100 WBC (Bld) 67.8 % Normal 43.0-75.0 [facility] Comment on above: Performed By: #### C BC #### [facility] [address] [place] [address] Dr. Anish Johnson Platelet mean volume (Bld) [Entitic vol] 10.5 fL Normal 9.5-13.5 [facility] Comment on above: Performed By: #### C BC #### [facility] [address] [place] [address] Dr. Anish Johnson PLT 297 103/ul Normal 150-450 [facility] Comment on above: Performed By: #### C BC #### [facility] [address] [place] [address] Dr. Anish Johnson RBC 4.87 106/ul Normal 4.20-5.40 [facility] Comment on above: Performed By: #### C BC #### [facility] [address] [place] [address] Dr. Anish Johnson WBC 6.6 103/ul Normal 4.0-11.0 [facility] Comment on above: Performed By: #### C BC #### [facility] [address] [place] [address] Dr. Anish Johnson CARBAMAZEPINEon 07-16-2022 Carbamezapine 5.4 ug/mL Normal 4.0-12.0 [facility] Comment on above: Result Comment: In c onjunction with other antiepileptic drugs Therapeutic 4.0 - 8.0 Toxicity 9.0 - 12.0 . Carbamazepine alone Therapeutic 8.0 - 12.0 . Detection Limit = 2.0 <2.0 indicated None Detected Performed By: #### C ARBLC #### [facility] [address] [place] [address] Dr. Anish Johnson CBC AUTO DIFFon 07-15-2022 BASO # 0.0 103/ul Normal 0.0-0.1 [facility] Comment on above: Performed By: #### C BC #### [facility] [address] [place] [address] Dr. Anish Johnson Basophils/100 WBC (Bld) 0.5 % Normal 0.2-2.0 [facility] Comment on above: Performed By: #### C BC #### [facility] [address] [place] [address] Dr. Anish Johnson EO # 0.2 103/ul Normal 0.0-0.7 [facility] Comment on above: Performed By: #### C BC #### [facility] [address] [place] [address] Dr. Anish Johnson Eosinophils/100 WBC (Bld) 2.9 % Normal 0.9-7.0 [facility] Comment on above: Performed By: #### C BC #### [facility] [address] [place] [address] Dr. Anish Johnson Erythrocyte distribution width (RBC) [Ratio] 15.7 % Critically high 11.0-15.0 [facility] Comment on above: Performed By: #### C BC #### [facility] [address] [place] [address] Dr. Anish Johnson Hematocrit (Bld) [Volume fraction] 40.2 % Normal 36.0-48.0 [facility] Comment on above: Performed By: #### C BC #### [facility] [address] [place] [address] Dr. Anish Johnson Hemoglobin (Bld) [Mass/Vol] 12.5 g/dL Normal 12.0-16.0 [facility] Comment on above: Performed By: #### C BC #### [facility] [address] [place] [address] Dr. Anish Johnson IG # 0.02 10e3/ul Normal 0.00-0.03 [facility] Comment on above: Performed By: #### C BC #### [facility] [address] [place] [address] Dr. Anish Johnson IG % 0.3 % Normal 0.0-0.5 [facility] Comment on above: Performed By: #### C BC #### [facility] [address] [place] [address] Dr. Anish Johnson LYMPH # 1.5 103/ul Normal 1.2-3.8 [facility] Comment on above: Performed By: #### C BC #### [facility] [address] [place] [address] Dr. Anish Johnson Lymphocytes/100 WBC (Bld) 18.7 % Critically low 20.5-60.0 [facility] Comment on above: Performed By: #### C BC #### [facility] [address] [place] [address] Dr. Anish Johnson MANUAL DIFF REQ NO Normal [facility] Comment on above: Performed By: #### C BC #### [facility] [address] [place] [address] Dr. Anish Johnson MCH (RBC) [Entitic mass] 25.4 pg Critically low 26.7-34.0 [facility] Comment on above: Performed By: #### C BC #### [facility] [address] [place] [address] Dr. Anish Johnson MCHC (RBC) [Mass/Vol] 31.1 g/dL Normal 29.9-35.2 [facility] Comment on above: Performed By: #### C BC #### [facility] [address] [place] [address] Dr. Anish Johnson MCV (RBC) [Entitic vol] 81.7 fL Normal 81.0-99.0 [facility] Comment on above: Performed By: #### C BC #### [facility] [address] [address] [address] Anish Johnson MONO # 0.7 103/ul Normal 0.3-0.8 [facility] Comment on above: Performed By: #### C BC #### [facility] [address] [address] [address] Anish Johnson Monocytes/100 WBC (Bld) 8.3 % Normal 1.7-12.0 [facility] Comment on above: Performed By: #### C BC #### [facility] [address] [address] [address] Anish Johnson NEUT # 5.4 103/ul Normal 1.4-6.5 [facility] Comment on above: Performed By: #### C BC #### [facility] [address] [place] [address] Dr. Anish Johnson Neutrophils/100 WBC (Bld) 69.3 % Normal 43.0-75.0 [facility] Comment on above: Performed By: #### C BC #### [facility] [address] [address] [address] Anish Johnson Platelet mean volume (Bld) [Entitic vol] 10.6 fL Normal 9.5-13.5 [facility] Comment on above: Performed By: #### C BC #### [facility] [address] [address] [address] Anish Johnson PLT 297 103/ul Normal 150-450 [facility] Comment on above: Performed By: #### C BC #### [facility] [address] [address] [address] Anish Johnson RBC 4.92 106/ul Normal 4.20-5.40 [facility] Comment on above: Performed By: #### C BC #### [facility] [address] [address] [address] Anish Johnson WBC 7.8 103/ul Normal 4.0-11.0 [facility] Comment on above: Performed By: #### C BC #### [facility] [address] [address] [address] Anish Johnson GLUCOSE BLOODon 07-15-2022 Glucose [Mass/Vol] 133 mg/dL Critically high 74-106 [facility] Comment on above: Performed By: #### L IVER, GLUC, TSH, LIPID #### [facility] [address] [address] [address] Anish Johnson LIPID PROFILEon 07-15-2022 CHOL-HDL RATIO NORM SEE BELOW Normal [facility] Comment on above: Result Comment: 3.3 - 4.4 LOW RISK 4.4 - 7.1 AVERAGE RISK 7.1 - 11.0 MODERATE RISK >11.0 HIGH RISK Performed By: #### L IVER, GLUC, TSH, LIPID #### [facility] [address] [address] [address] Anish Johnson Cholesterol [Mass/Vol] 135 mg/dL Normal <=200 [facility] Comment on above: Performed By: #### L IVER, GLUC, TSH, LIPID #### [facility] [address] [address] [address] Anish Johnson Cholesterol in HDL [Mass/Vol] 58 mg/dL Normal 40-60 [facility] Comment on above: Performed By: #### L IVER, GLUC, TSH, LIPID #### [facility] [address] [address] [address] Anish Johnson Cholesterol in LDL [Mass/Vol] 54.2 mg/dL Normal [facility] Comment on above: Performed By: #### L IVER, GLUC, TSH, LIPID #### [facility] [address] [address] [address] Anish Johnson Cholesterol.total/Cho lesterol in HDL [Mass ratio] 2.3 {ratio} Normal [facility] Comment on above: Performed By: #### L IVER, GLUC, TSH, LIPID #### [facility] [address] [address] [address] Anish Johnson HDL NORMAL > or = 60 mg/dl - LOW CARDIOVASCULAR RISK <40 mg/dl - HIGH CARDIOVASCULAR RISK Normal [facility] Comment on above: Performed By: #### L IVER, GLUC, TSH, LIPID #### [facility] [address] [address] [address] Anish Johnson LDL CALC NORMAL SEE BELOW Normal [facility] Comment on above: Result Comment: <100 mg/dl OPTIMAL 100 - 129 mg/dl NEAR OR ABOVE OPTIMAL 130 - 159 mg/dl BORDERLINE HIGH 160 - 189 mg/dl HIGH >190 mg/dl VERY HIGH Performed By: #### L IVER, GLUC, TSH, LIPID #### [facility] [address] [address] [address] Anish Johnson Triglyceride [Mass/Vol] 114 mg/dL Normal <=150 [facility] Comment on above: Performed By: #### L IVER, GLUC, TSH, LIPID #### [facility] [address] [address] [address] Anish Johnson VLDL CALC 22.8 mg/dL Normal [facility] Comment on above: Performed By: #### L IVER, GLUC, TSH, LIPID #### [facility] [address] [address] [address] Anish Johnson LIVER PROFILEon 07-15-2022 Albumin [Mass/Vol] 4.3 g/dL Normal 3.4-5.0 [facility] Comment on above: Performed By: #### L IVER, GLUC, TSH, LIPID #### [facility] [address] [address] [address] Anish Johnson Albumin/Globulin [Mass ratio] 1.0 {ratio} Normal [facility] Comment on above: Performed By: #### L IVER, GLUC, TSH, LIPID #### [facility] [address] [address] [address] Anish Johnson ALP [Catalytic activity/Vol] 108 U/L Normal 46-116 [facility] Comment on above: Performed By: #### L IVER, GLUC, TSH, LIPID #### [facility] [address] [address] [address] Anish Johnson ALT [Catalytic activity/Vol] 26 U/L Normal 14-59 [facility] Comment on above: Performed By: #### L IVER, GLUC, TSH, LIPID #### [facility] [address] [place] [address] Dr. Anish Johnson AST [Catalytic activity/Vol] 21 U/L Normal 15-37 [facility] Comment on above: Performed By: #### L IVER, GLUC, TSH, LIPID #### [facility] [address] [place] [address] Dr. Anish Johnson BILI, CONJUGATED 0.1 mg/dL Normal 0.0-0.2 [facility] Comment on above: Performed By: #### L IVER, GLUC, TSH, LIPID #### [facility] [address] [place] [address] Dr. Anish Johnson Bilirubin [Mass/Vol] 0.5 mg/dL Normal 0.2-1.0 [facility] Comment on above: Performed By: #### L IVER, GLUC, TSH, LIPID #### [facility] [address] [place] [address] Dr. Anish Johnson Globulin (S) [Mass/Vol] 4.3 g/dL Normal [facility] Comment on above: Performed By: #### L IVER, GLUC, TSH, LIPID #### [facility] [address] [place] [address] Dr. Anish Johnson Protein [Mass/Vol] 8.6 g/dL Critically high 6.4-8.2 [facility] Comment on above: Performed By: #### L IVER, GLUC, TSH, LIPID #### [facility] [address] [place] [address] Dr. Anish Johnson TSHon 07-15-2022 TSH 1.692 uIU/mL Normal 0.358-3.740 [facility] Comment on above: Performed By: #### L IVER, GLUC, TSH, LIPID #### [facility] [address] [place] [address] Dr. Anish Johnson Vital Signs Date Time Vital Sign Value Performing Clinician April cheng 01-03-2024 15:19-0500 Body height 157.5 cm Julianne Lord NP Work Phone: [facility] 01-03-2024 15:19-0500 Body mass index (BMI) [Ratio] 34.02 kg/m2 Julianne Aichholz SENIOR CLINICAL RESEARCH SCIENTIST Work Phone: [facility] 01-03-2024 15:19-0500 Body temperature 97.5 [degF] Julianne Aichholz SENIOR CLINICAL RESEARCH SCIENTIST Work Phone: [facility] 01-03-2024 15:19-0500 Body weight 84.37 kg Julianne Aichholz SENIOR CLINICAL RESEARCH SCIENTIST Work Phone: [facility] 01-03-2024 15:19-0500 Diastolic blood pressure 82 mm[Hg] Julianne Aichholz SENIOR CLINICAL RESEARCH SCIENTIST Work Phone: [facility] 01-03-2024 15:19-0500 Heart rate 87 /min Julianne Aichholz SENIOR CLINICAL RESEARCH SCIENTIST Work Phone: [facility] 01-03-2024 15:19-0500 Respiratory rate 17 /min Julianne Aichholz SENIOR CLINICAL RESEARCH SCIENTIST Work Phone: [facility] 01-03-2024 15:19-0500 SaO2% (BldA) [Mass fraction] 97 % Julianne Aichholz SENIOR CLINICAL RESEARCH SCIENTIST Work Phone: [facility] 01-03-2024 15:19-0500 Systolic blood pressure 128 mm[Hg] Julianne Aichholz SENIOR CLINICAL RESEARCH SCIENTIST Work Phone: [facility] Encounters Encounter Date Encounter Type Care Provider Facility Start: 02-22-2024 End: 02-22-2024 ambulatory JULIANNE AICHHOLZ Not Available Start: 02-21-2024 ambulatory Chris Chapa acility:[facility] Start: 01-24-2024 End: 01-24-2024 ambulatory JULIANNE AICHHOLZ Not Available Start: 01-10-2024 Refill Julianne Aichholz SENIOR CLINICAL RESEARCH SCIENTIST Work Phone: [facility] Start: 01-03-2024 End: 01-03-2024 ambulatory JULIANNE AICHHOLZ Not Available Start: 01-03-2024 End: 01-03-2024 Office outpatient visit 25 minutes Julianne Lord NP Work Phone: [facility] Comment on above: Essential (primary) hypertension (CMS/HCC) (Primary Dx); BMI 34.0-34.9,adult; Bipolar affective disorder, remission status unspecified (CMS/HCC); Tobacco user; Vertigo; Anxiety Start: 09-08-2022 End: 09-09-2022 ambulatory PATRICK DAO Facility:[facility] Start: 07-15-2022 End: 07-16-2022 ambulatory PATRICK DAO Facility:[facility] Start: 09-09-2021 ambulatory [facility] JULIANNE LORD Facil ity:[facility] Procedures Date Procedure Procedure Detail Performing Clinician Start: 01-03-2024 Mammography Julianne quintana NP Work Phone: Plan of Treatment Date Care Activity Detail Author Start: 01-03-2025 Screening for malign ant neoplasm of breast Mammogram [facility] Start: 01-03-2025 Screening for malign ant neoplasm of colon Colorectal Cancer Screening [facility] Comment on above: Postponed from 10/05 (Patient Refused) Start: 01-24-2024 End: 01-24-2024 Patient encounter procedure 01/24/2024 9:00 AM EST Office Visit [facility] [address] [place] [id number] Julainne Lord NP [address] [place] [id number] [facility] Start: 1989 Screening for malign ant neoplasm of cervix HPV/Cotest [facility] Start: 1980 Screening for malign ant neoplasm of cervix Pap Smear [facility] Start: 1959 Screening for malign ant neoplasm of colon [facility] Payers Date Payer Category Payer Medicaid [facility] [employer] [place] [id number] 2023-Present [address] [place] [address] [id number] 2023 Self-pay 2013 Medicaid [id number] 1959 Unknown [id number] 1959 Unknown [id number] 1959 Unknown [id number] 1959 Unknown [id number] 1959 Unknown [id number] 1959 Unknown [id number] 1959 Unknown [id number] Social History Date Type Detail Facility Start: 12-28-2023 Tobacco smoking status WAIS Smokes t obacco daily [facility] History [...] t illness Narrative Associated Problem(s): Bipolar disorder ([facility]) Continue with psych Associated Problem(s): Anxiety [...] DATE CREATED AUTHOR AUTHOR'S ORGANIZ ATION 02/23/2024 [facility] EPIC DATE CREATED AUTHOR AUTHOR'S ORGANIZ ATION 04/04/2024 [facility] Care Teams (unrecognized sec tion and content) Proof Technician Helper Relationship Specialty Start Date End Date Zhen Christiansen MD [address] [place] [address] PCP - General Family Medicine 12/27/23 Julianne Lord NP [address] [place] [address] Nurse Practitioner Family Medicine 11/28/22 Proof Technician Helper Relationship Specialty Start Date End Date Zhen Christiansen MD [address] [place] [address] PCP - General Family Medicine 12/27/23 Julianne Lord NP [address] [place] [phone] Nurse Practitioner Family Medicine 11/28/22 FOR RECORDS [...] BE BASED ON THE PRIMARY CLINICAL RECORDS. [employer] [facility]. provides no warranty or guarantee of the accuracy or completeness of information in this document.
--- NOTE | 2024-04-05 12:09 | ED.GENADUL1 ---
HPI HPI - General Adult General Stated complaint: HIGH BLOOD PRESSURE READING, CLINIC REFERRAL Time Seen by Provider: 04/05/24 10:21 History of Present Illness HPI narrative: The patient had presented to the emergency department but left before she was triaged. I did not see the patient Related Data Home Medications ?Medication ?Instructions ?Recorded ?Confirmed alendronate 35 mg tablet 35 mg PO DAILY 07/21/23 07/21/23 alprazolam 1 mg tablet mg 07/21/23 aripiprazole 30 mg tablet (Abilify) 30 mg PO DAILY 07/21/23 07/21/23 aspirin 81 mg tablet,delayed 81 mg PO DAILY 07/21/23 07/21/23 release atorvastatin 40 mg tablet 40 mg PO DAILY 07/21/23 07/21/23 bupropion HCl 150 mg 24 hr tablet, 150 mg PO DAILY 07/21/23 07/21/23 extended release bupropion HCl 300 mg 24 hr tablet, 300 mg PO DAILY 07/21/23 07/21/23 extended release buspirone 30 mg tablet 30 mg PO BID 07/21/23 07/21/23 carbamazepine 200 mg tablet 200 mg PO BID 07/21/23 07/21/23 (Tegretol) carvedilol 6.25 mg tablet 6.25 mg PO BID 07/21/23 07/21/23 citalopram 40 mg tablet (Celexa) 40 mg PO DAILY 07/21/23 07/21/23 hydrochlorothiazide 12.5 mg tablet 12.5 mg PO DAILY 07/21/23 07/21/23 loratadine 10 mg tablet 10 mg PO DAILY 07/21/23 07/21/23 meloxicam 7.5 mg tablet 7.5 mg PO DAILY 07/21/23 07/21/23 Previous Rx's ?Medication ?Instructions ?Recorded meclizine 25 mg tablet 25 mg PO TID PRN dizziness #30 tabs 07/21/23 Allergies Allergy/AdvReac Type Severity Reaction Status Date / Time No Known Drug Allergies Allergy Verified 07/21/23 09:08 Opioid HPI Opioid Management Most Recent Opioid Data: No Data to Display PFSH PFSH Social History Smoking status: Former smoker Discharge Plan Discharge Patient Disposition: Left Without Being Seen Discharge Date/Time: 04/05/24 10:34
== END 2024-04-05 10:34 | disposition left against medical advice (07) ==
LOC: ER 10:47
PROVIDERS: Emergency Provider Emergency Medicine; PCP Nurse Practitioner
DX: Z53.21 Procedure and treatment not carried out due to patient leaving prior to being seen by health care provider (principal)

== ENCOUNTER 2024-04-26 08:43 | Outpatient (OUT) | payer OTHER, SELFPAY ==
--- OUTSIDE RECORDS SUMMARY | 2024-04-26 08:52 | XMS_ITS ---
Patient Summarization (C-CDA 2.1 CCD) Created on: April 26, 2024 SAHRA COURTNEY~ROZ SIM : 1960 Sex: Female Author Organization Sample organization Care Team Providers Care Hospital Mortician Name Role Phone PATRICK DAO Admitting Unavailable PATRICK DAO Attending Unavailable AICHHOLZ, MATIAS JULIANNE Primary Care Unavailable WILLIS, PATRICK Consulting Unavailable WILLIS, PATRICK Admitting Unavailable WILLIS, PATRICK Attending Unavailable AICHHOLZ, MATIAS JULIANNE Primary Care Unavailable WILLIS, PATRICK Consulting Unavailable AICHHOLZ, MATIAS JULIANNE Admitting Unavailable AICHHOLZ, MATIAS JULIANNE Attending Unavailable AICHHOLZ, MATIAS JULIANNE Primary Care Unavailable Aichholz SPINNER OPERATOR, Julianne Unavailable Zhen Christiansen MD Primary Care Provider Chris Caruso Attending Unavailab le Chris Caruso Admitting Unavailab le NO FAMILY, PHYSICIAN Primary Care Unavailable AICHHOLZ, JULIANNE Attending Unavailable AICHHOLZ, JULIANNE Attending Unavailable AICHHOLZ, JULIANNE Attending Unavailable AICHHOLZ, JULIANNE Attending Unavailable AICHHOLZ, JULIANNE Attending Unavailable Encounters Encounter Date Encounter Type Care Provider Facility Start: 04-19-2024 End: 04-19-2024 ambulatory JULIANNE AICHHOLZ Not Available Start: 04-10-2024 ambulatory Chris Chapa acility:[facility] Start: 04-05-2024 End: 04-05-2024 ambulatory JULIANNE AICHHOLZ Not Available Start: 02-22-2024 End: 02-22-2024 ambulatory JULIANNE AICHHOLZ Not Available Start: 01-24-2024 End: 01-24-2024 ambulatory JULIANNE AICHHOLZ Not Available Start: 01-10-2024 Refill Julianne Aichholz SPINNER OPERATOR Work Phone: [facility] Start: 01-03-2024 End: 01-03-2024 ambulatory JULIANNE LORD Not Available Start: 01-03-2024 End: 01-03-2024 Office outpatient visit 25 minutes Julianne Jenniferjose juanyessy SPINNER OPERATOR Work Phone: [facility] Comment on above: Essential (primary) hypertension (CMS/HCC) (Primary Dx); BMI 34.0-34.9,adult; Bipolar affective disorder, remission status unspecified (CMS/HCC); Tobacco user; Vertigo; Anxiety Start: 09-08-2022 End: 09-09-2022 ambulatory PATRICK DAO Facility:[facility] Start: 07-15-2022 End: 07-16-2022 ambulatory PATRICK DAO Facility: Start: 09-09-2021 ambulatory LUMBER CARRIER OPERATOR JULIANNE HUSTONBROOKETarsha Facil ity:[facility]1 Medications Current Medications Medication Drug Class(es) Dates [...] by mouth in the morning. 0 Active Payers Date Payer Category Payer Medicaid [employer] [place] [id number] 2023-Present [address] [place] [address] [id number] 2023 Self-pay 2013 Medicaid [id number] 1960 Unknown [id number] 1960 Unknown [id number] 1960 Unknown [id number] 1960 Unknown [id number] 1960 Unknown [id number] 1960 Unknown [id number] 1959 Unknown [id number] 1959 Unknown [id number] 1960 Unknown [id number] Plan of Treatment Date Care Activity Detail Author Start: 01-03-2025 Screening for malign ant neoplasm of breast Mammogram [facility] Start: 01-03-2025 Screening for malign ant neoplasm of colon Colorectal Cancer Screening [facility] Comment on above: Postponed from 10/05 (Patient Refused) Start: 01-24-2024 End: 01-24-2024 Patient encounter procedure 01/24/2024 9:00 AM EST Office Visit [facility] [address] [place] [address] Julianne Lord NP [address] [place] [address] [facility] Start: 1989 Screening for malign ant neoplasm of cervix HPV/Cotest [facility] Start: 1980 Screening for malign ant neoplasm of cervix Pap Smear [facility] Start: 1960 Screening for malign ant neoplasm of colon [facility] Problems Problem Classification Problem Date Documented Da [...] 07-15-2022 Chronic Other aftercare (1 source) 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; Translations: [OTH FOOT CUTTER CURRENT DRUG THERAPY] Onset: 07-16-2022 Episodic Other nutritional; endocrine; and metabolic disorders (5 sources) Body mass index 30+ - obesity; Translations: [Body mass index (BMI) 34.0-34.9, adult] Onset: 01-03-2024 01-03-2024 Chronic Residual codes; unclassified (5 sources) Tobacco user; Translations: [Tobacco use] Onset: 01-03-2024 01-03-2024 Episodic Procedures Date Procedure Procedure Detail Performing Clinician Start: 01-03-2024 Mammography Julianne quintana SPINNER OPERATOR Work Phone: Results Test Name Value Interpretation Reference Range Facil ity CBC AUTO DIFFon 09-08-2022 BASO # 0.1 103/ul Normal 0.0-0.1 [facility] Comment on above: Performed By: #### C BC #### [facility] [address] [place] [address] Dr. Anish Johnson Basophils/100 WBC (Bld) 1.1 % Normal 0.2-2.0 [facility] Comment on above: Performed By: #### C BC #### [facility] [address] [place] [address] Dr. Anish Johnson EO # 0.3 103/ul Normal 0.0-0.7 [facility] Comment on above: Performed By: #### C BC #### [facility] [address] [place] [address] Dr. Anish Johnson Eosinophils/100 WBC (Bld) 4.1 % Normal 0.9-7.0 [facility] Comment on above: Performed By: #### C BC #### [facility] [address] [place] [address] Dr. Anish Johnson Erythrocyte distribution width (RBC) [Ratio] 15.1 % Critically high 11.0-15.0 [facility] Comment on above: Performed By: #### C BC #### [facility] [address] [place] [address] Dr. Anish Johnson Hematocrit (Bld) [Volume fraction] 40.6 % Normal 36.0-48.0 [facility] Comment on above: Performed By: #### C BC #### [facility] [address] [place] [address] Dr. Anish Johnson Hemoglobin (Bld) [Mass/Vol] 12.4 g/dL Normal 12.0-16.0 [facility] Comment on above: Performed By: #### C BC #### [facility] [address] [place] [address] Dr. Anish Johnson IG # 0.02 10e3/ul Normal 0.00-0.03 [facility] Comment on above: Performed By: #### C BC #### [facility] [address] [place] [address] Dr. Anish Johnson IG % 0.3 % Normal 0.0-0.5 [facility] Comment on above: Performed By: #### C BC #### [facility] [address] [place] [address] Dr. Anish Johnson LYMPH # 1.3 103/ul Normal 1.2-3.8 [facility] Comment on above: Performed By: #### C BC #### [facility] [address] [place] [address] Dr. Anish Johnson Lymphocytes/100 WBC (Bld) 19.7 % Critically low 20.5-60.0 [facility] Comment on above: Performed By: #### C BC #### [facility] [address] [place] [address] Dr. Anish Johnson MANUAL DIFF REQ NO Normal [facility] Comment on above: Performed By: #### C BC #### [facility] [address] [place] [address] Dr. Anish Johnson MCH (RBC) [Entitic mass] 25.5 pg Critically low 26.7-34.0 [facility] Comment on above: Performed By: #### C BC #### [facility] [address] [place] [address] Dr. Anish Johnson MCHC (RBC) [Mass/Vol] 30.5 g/dL Normal 29.9-35.2 [facility] Comment on above: Performed By: #### C BC #### [facility] [address] [place] [address] Dr. Anish Johnson MCV (RBC) [Entitic vol] 83.4 fL Normal 81.0-99.0 [facility] Comment on above: Performed By: #### C BC #### [facility] [address] [place] [address] Dr. Anish Johnson MONO # 0.5 103/ul Normal 0.3-0.8 [facility] Comment on above: Performed By: #### C BC #### [facility] [address] [place] [address] Dr. Anish Johnson Monocytes/100 WBC (Bld) 7.0 % Normal 1.7-12.0 [facility] Comment on above: Performed By: #### C BC #### [facility] [address] [place] [address] Dr. Anish Johnson NEUT # 4.5 103/ul Normal 1.4-6.5 [facility] Comment on above: Performed By: #### C BC #### [facility] [address] [place] [address] Dr. Anish Johnson Neutrophils/100 WBC (Bld) 67.8 % Normal 43.0-75.0 [facility] Comment on above: Performed By: #### C BC #### [facility] [address] [place] [address] Dr. Anish Johnson Platelet mean volume (Bld) [Entitic vol] 10.5 fL Normal 9.5-13.5 [facility] Comment on above: Performed By: #### C BC #### [facility] [address] [place] [address] Dr. Anish Johnson PLT 297 103/ul Normal 150-450 [facility] Comment on above: Performed By: #### C BC #### [facility] [address] [place] [address] Dr. Anish Johnson RBC 4.87 106/ul Normal 4.20-5.40 [facility] Comment on above: Performed By: #### C BC #### [facility] [address] [place] [address] Dr. Anish Johnson WBC 6.6 103/ul Normal 4.0-11.0 [facility] Comment on above: Performed By: #### C BC #### [facility] [address] [place] [address] Dr. Anish Johnson CARBAMAZEPINEon 08-19-2022 Carbamezapine 5.4 ug/mL Normal 4.0-12.0 [facility] Comment on above: Result Comment: In c onjunction with other antiepileptic drugs Therapeutic 4.0 - 8.0 Toxicity 9.0 - 12.0 . Carbamazepine alone Therapeutic 8.0 - 12.0 . Detection Limit = 2.0 <2.0 indicated None Detected Performed By: #### C ARBLC #### [facility] [address] [place] [address] Dr. Anish Johnosn CBC AUTO DIFFon 07-15-2022 BASO # 0.0 103/ul Normal 0.0-0.1 [facility] Comment on above: Performed By: #### C BC #### [facility] [address] [place] [address] Dr. Anish Johnson Basophils/100 WBC (Bld) 0.5 % Normal 0.2-2.0 [facility] Comment on above: Performed By: #### C BC #### [facility] [address] [place] [address] Dr. Anish Johnson EO # 0.2 103/ul Normal 0.0-0.7 [facility] Comment on above: Performed By: #### C BC #### [facility] [address] [place] [address] Dr. Anish Johnson Eosinophils/100 WBC (Bld) 2.9 % Normal 0.9-7.0 [facility] Comment on above: Performed By: #### C BC #### [facility] [address] [place] [address] Dr. Anish Johnson Erythrocyte distribution width (RBC) [Ratio] 15.7 % Critically high 11.0-15.0 [facility] Comment on above: Performed By: #### C BC #### [facility] [address] [place] [address] Dr. Anish Johnson Hematocrit (Bld) [Volume fraction] 40.2 % Normal 36.0-48.0 [facility] Comment on above: Performed By: #### C BC #### [facility] [address] [place] [address] Dr. Anish Johnson Hemoglobin (Bld) [Mass/Vol] 12.5 g/dL Normal 12.0-16.0 [facility] Comment on above: Performed By: #### C BC #### [facility] [address] [place] [address] Dr. Anish Johnson IG # 0.02 10e3/ul Normal 0.00-0.03 [facility] Comment on above: Performed By: #### C BC #### [facility] [address] [place] [address] Dr. Anish Johnson IG % 0.3 % Normal 0.0-0.5 [facility] Comment on above: Performed By: #### C BC #### [facility] [address] [place] [address] Dr. Anish Johnson LYMPH # 1.5 103/ul Normal 1.2-3.8 [facility] Comment on above: Performed By: #### C BC #### [facility] [address] [place] [address] Dr. Anish Johnson Lymphocytes/100 WBC (Bld) 18.7 % Critically low 20.5-60.0 [facility] Comment on above: Performed By: #### C BC #### [facility] [address] [place] [address] Dr. Anish Johnson MANUAL DIFF REQ NO Normal [facility] Comment on above: Performed By: #### C BC #### [facility] [address] [place] [address] Dr. Anish Johnson MCH (RBC) [Entitic mass] 25.4 pg Critically low 26.7-34.0 [facility] Comment on above: Performed By: #### C BC #### [facility] [address] [place] [address] Dr. Anish Johnson MCHC (RBC) [Mass/Vol] 31.1 g/dL Normal 29.9-35.2 [facility] Comment on above: Performed By: #### C BC #### [facility] [address] [place] [address] Dr. Anish Johnson MCV (RBC) [Entitic vol] 81.7 fL Normal 81.0-99.0 [facility] Comment on above: Performed By: #### C BC #### [facility] [address] [place] [address] Dr. Anish Johnson MONO # 0.7 103/ul Normal 0.3-0.8 [facility] Comment on above: Performed By: #### C BC #### [facility] [address] [place] [address] Dr. Anish Johnson Monocytes/100 WBC (Bld) 8.3 % Normal 1.7-12.0 [facility] Comment on above: Performed By: #### C BC #### [facility] [address] [place] [address] Dr. Anish Johnson NEUT # 5.4 103/ul Normal 1.4-6.5 [facility] Comment on above: Performed By: #### C BC #### [facility] [address] [place] [address] Dr. Anish Johnson Neutrophils/100 WBC (Bld) 69.3 % Normal 43.0-75.0 [facility] Comment on above: Performed By: #### C BC #### [facility] [address] [place] [address] Dr. Anish Johnson Platelet mean volume (Bld) [Entitic vol] 10.6 fL Normal 9.5-13.5 [facility] Comment on above: Performed By: #### C BC #### [facility] [address] [place] [address] Dr. Anish Johnson PLT 297 103/ul Normal 150-450 [facility] Comment on above: Performed By: #### C BC #### [facility] [address] [place] [address] Dr. Anish Johnson RBC 4.92 106/ul Normal 4.20-5.40 [facility] Comment on above: Performed By: #### C BC #### [facility] [address] [place] [address] Dr. Anish Johnson WBC 7.8 103/ul Normal 4.0-11.0 [facility] Comment on above: Performed By: #### C BC #### [facility] [address] [address] [address] Anish Johnson GLUCOSE BLOODon 07-15-2022 Glucose [Mass/Vol] 133 mg/dL Critically high 74-106 [facility] Comment on above: Performed By: #### L IVER, GLUC, TSH, LIPID #### [facility] [address] [address] [address] Anish Johnson LIPID PROFILEon 07-15-2022 CHOL-HDL RATIO NORM SEE BELOW Normal [facility] Comment on above: Result Comment: 3.3 - 4.4 LOW RISK 4.4 - 7.1 AVERAGE RISK 7.1 - 11.0 MODERATE RISK >11.0 HIGH RISK Performed By: #### L IVER, GLUC, TSH, LIPID #### [facility] [address] [address] [address] Anish Johnson Cholesterol [Mass/Vol] 135 mg/dL Normal <=200 [facility] Comment on above: Performed By: #### L IVER, GLUC, TSH, LIPID #### [facility] [address] [address] [address] Anish Johnson Cholesterol in HDL [Mass/Vol] 58 mg/dL Normal 40-60 [facility] Comment on above: Performed By: #### L IVER, GLUC, TSH, LIPID #### [facility] [address] [address] [address] Anish Johnson Cholesterol in LDL [Mass/Vol] 54.2 mg/dL Normal [facility] Comment on above: Performed By: #### L IVER, GLUC, TSH, LIPID #### [facility] [address] [address] [address] Anish Johnson Cholesterol.total/Cho lesterol in HDL [Mass ratio] 2.3 {ratio} Normal [facility] Comment on above: Performed By: #### L IVER, GLUC, TSH, LIPID #### [facility] [address] [address] [address] Anish Johnson HDL NORMAL > or = 60 mg/dl - LOW CARDIOVASCULAR RISK <40 mg/dl - HIGH CARDIOVASCULAR RISK Normal [facility] Comment on above: Performed By: #### L IVER, GLUC, TSH, LIPID #### [facility] [address] [address] [address] Anish Johnson LDL CALC NORMAL SEE BELOW Normal [facility] Comment on above: Result Comment: <100 mg/dl OPTIMAL 100 - 129 mg/dl NEAR OR ABOVE OPTIMAL 130 - 159 mg/dl BORDERLINE HIGH 160 - 189 mg/dl HIGH >190 mg/dl VERY HIGH Performed By: #### L IVER, GLUC, TSH, LIPID #### [facility] [address] [address] [address] Anish Johnson Triglyceride [Mass/Vol] 114 mg/dL Normal <=150 [facility] Comment on above: Performed By: #### L IVER, GLUC, TSH, LIPID #### [facility] [address] [address] [address] Anish Johnson VLDL CALC 22.8 mg/dL Normal [facility] Comment on above: Performed By: #### L IVER, GLUC, TSH, LIPID #### [facility] [address] [address] [address] Anish Johnson LIVER PROFILEon 07-15-2022 Albumin [Mass/Vol] 4.3 g/dL Normal 3.4-5.0 [facility] Comment on above: Performed By: #### L IVER, GLUC, TSH, LIPID #### [facility] [address] [address] [address] Anish Johnson Albumin/Globulin [Mass ratio] 1.0 {ratio} Normal [facility] Comment on above: Performed By: #### L IVER, GLUC, TSH, LIPID #### [facility] [address] [address] [address] Anish Johnson ALP [Catalytic activity/Vol] 108 U/L Normal 46-116 [facility] Comment on above: Performed By: #### L IVER, GLUC, TSH, LIPID #### [facility] [address] [address] [address] Anish Johnson ALT [Catalytic activity/Vol] 26 U/L Normal 14-59 [facility] Comment on above: Performed By: #### L IVER, GLUC, TSH, LIPID #### [facility] [address] [address] [address] Anish Johnson AST [Catalytic activity/Vol] 21 U/L Normal 15-37 [facility] Comment on above: Performed By: #### L IVER, GLUC, TSH, LIPID #### [facility] [address] [place] [address] Dr. Anish Johnson BILI, CONJUGATED 0.1 mg/dL Normal 0.0-0.2 [facility] Comment on above: Performed By: #### L IVER, GLUC, TSH, LIPID #### [facility] [address] [place] [address] Dr. Anish Johnson Bilirubin [Mass/Vol] 0.5 mg/dL Normal 0.2-1.0 [facility] Comment on above: Performed By: #### L IVER, GLUC, TSH, LIPID #### [facility] [address] [place] [address] Dr. Anish Johnson Globulin (S) [Mass/Vol] 4.3 g/dL Normal [facility] Comment on above: Performed By: #### L IVER, GLUC, TSH, LIPID #### [facility] [address] [place] [address] Dr. Anish Johnson Protein [Mass/Vol] 8.6 g/dL Critically high 6.4-8.2 [facility] Comment on above: Performed By: #### L IVER, GLUC, TSH, LIPID #### [facility] [address] [place] [address] Dr. Anish Johnson TSHon 07-15-2022 TSH 1.692 uIU/mL Normal 0.358-3.740 [facility] Comment on above: Performed By: #### L IVER, GLUC, TSH, LIPID #### [facility] [address] [place] [address] Dr. Anish Johnson Social History Date Type Detail Facility Start: 01-03-2024 Tobacco use panel [facility] Start: 12-28-2023 Tobacco smoking status NHIS Smokes t obacco daily [facility] Start: 12-28-2023 End: 01-03-2024 Cigarettes smoked current (pack per day) - Reported 1 [facility] Start: 1960 Sex Assigned At Not on file [facility] History of tobacco use Cigarette Smoker [facility] Vital Signs Date Time Vital Sign Value Performing Clinician Faci lity 01-03-2024 15:19-0500 Body height 157.5 cm Julianne Lord SPINNER OPERATOR Work Phone: [facility] 01-03-2024 15:19-0500 Body mass index (BMI) [Ratio] 34.02 kg/m2 Julianne Lord SPINNER OPERATOR Work Phone: [facility] 01-03-2024 15:19-0500 Body temperature 97.5 [degF] Julianne Lord SPINNER OPERATOR Work Phone: [facility] 01-03-2024 15:19-0500 Body weight 84.37 kg Julianne Lord SPINNER OPERATOR Work Phone: [facility] 01-03-2024 15:19-0500 Diastolic blood pressure 82 mm[Hg] Julianne Lord SPINNER OPERATOR Work Phone: [facility] 01-03-2024 15:19-0500 Heart rate 87 /min Julianne Lord SPINNER OPERATOR Work Phone: [facility] 01-03-2024 15:19-0500 Respiratory rate 17 /min Julianne Lord SPINNER OPERATOR Work Phone: [facility] 01-03-2024 15:19-0500 SaO2% (BldA) [Mass fraction] 97 % Julianne Lord SPINNER OPERATOR Work Phone: [facility] 01-03-2024 15:19-0500 Systolic blood pressure 128 mm[Hg] Julianne Lord SPINNER OPERATOR Work Phone: [facility] History of Present illness Narrative 01-03-2024 Julianne [...] and content) DATE CREATED AUTHOR [facility]09/2022 [facility] DATE CREATED AUTHOR AUTHOR'S ORGANIZ ATION 04/12/2024 [facility] DATE CREATED AUTHOR AUTHOR'S ORGANIZ ATION 04/21/2024 [facility] EPIC Care Teams (unrecognized sec tion and content) Hospital Mortician Relationship Specialty Start Date End Date Zhen Christiansen MD [address] [place] [id number] PCP - General Family Medicine 12/27/23 Julianne Lord NP [address] [place] [address] Nurse Practitioner Family Medicine 11/28/22 Hospital Mortician Relationship Specialty Start Date End Date Zhen Christiansen MD [address] [place] [address] PCP - General Family Medicine 12/27/23 Julianne Lord NP [address] [place] [address] [facility] 11/28/22 FOR RECORDS PERTAINING TO PATIENTS WHO [...] BE BASED ON THE PRIMARY CLINICAL RECORDS. [facility]. provides no warranty or guarantee of the accuracy or completeness of information in this document.
[2024-04-26 09:39] LABS: Anion Gap 11.1; BUN Creatinine Ratio 8.9; Calcium 8.5 mg/dL (8.5-10.1); Carbon Dioxide 28.6 mmol/L (21.0-32.0); Chloride 103 mmol/L (98-107); Estimated GFR (African America >60 (>=60); Estimated GFR (Non-African Ame >60 (>=60); Glucose 119 mg/dL (74-106); Potassium 3.7 mmol/L (3.5-5.1); Sodium 139 mmol/L (136-145)
== END 2024-04-26 08:44 | disposition home or self-care (01) ==
PROVIDERS: PCP Nurse Practitioner; Visit Provider Nurse Practitioner
DX: I10 Essential (primary) hypertension (principal)
CPT/HCPCS: 36415; 80048

== ENCOUNTER 2024-06-13 12:13 | Inpatient (IN) | payer OTHER, SELFPAY ==
[2024-06-13] VITALS (44 sets, daily range): BP systolic 93–110; BP diastolic 54–77; PULSE 63–98; TEMP 36.6; O2SAT 91–100; BMI 28.3; BMI 29.1
[2024-06-13 12:24] LABS: Glucometer 134 mg/dL (74-106)
--- NOTE | 2024-06-13 12:25 | XR_ITS ---
The [address] [address] Patient Name: ALBERTA COURTNEY MRN: [id number] date: 1960 Sex: F Assigned Patient Location: ER Current Patient Location: ER Accession/Order Number: [id number] Exam Date: 06/13/2024 13:18 Report Date: 06/13/2024 13:53 At the request of: JENNIFER VENEGAS Procedure: XR chest 1V EXAMINATION: XR chest 1V HISTORY: ams , confusion COMPARISON: XR chest 01/20/2024 FINDINGS: LUNGS: Mild haziness within left lung base. VASCULATURE: No increased pulmonary vasculature. PLEURA: No pneumothorax, effusion, or pleural thickening. CARDIAC: No cardiomegaly or cardiac silhouette abnormality. MEDIASTINUM: No visible mass or adenopathy. BONES: No fracture or visible bone lesion. OTHER: Negative. XR/XR chest 1V IMPRESSION: 1. Trace amount of left basilar atelectasis or possibly infiltrates. Electronically authenticated by: ALESIA EL Date: 06/13/2024 13:53
--- NOTE | 2024-06-13 12:25 | ECG_ITS ---
The [facility] Test Date: 2024-06-13 Pat Name: ALBERTA COURTNEY Department: Room: - Gender: Female Insurance Counsel: : 1960 Requested By: YAKOV AGUIRRE Order Number: [id number] Reading MD: SEVERO RAY Measurements Intervals [place] Rate: 94 P: 90 NE: 152 QRS: 57 QRSD: 102 T: 36 QT: 376 QTc: 427 Interpretive Statements 1100 Sinus rhythm 4664 Twave abnormality, possible inferior ischemia 9150 abnormal ECG Compared to ECG 01/20/2024 07:58:26 Possible ischemia now present Electronically Signed On 06-14-2024 5:24:43 EDT by SEVERO RAY
--- NOTE | 2024-06-13 12:25 | CT_ITS ---
The [address] [address] Patient Name: ALBERTA COURTNEY MRN: [id number] date: 1960 Sex: F Assigned Patient Location: ER Current Patient Location: ER Accession/Order Number: [id number] Exam Date: 06/13/2024 13:18 Report Date: 06/13/2024 13:36 At the request of: JENNIFER VENEGAS Procedure: CT head/brain wo con EXAM: CT head/brain wo con HISTORY: confusion COMPARISON: CT head 07/21/2023. TECHNIQUE: Axial soft tissue and bone windows through the calvarium with coronal and sagittal reformats. CT dose reduction technique was used including Automated Exposure Control. Findings: There is mild mucosal thickening within the right sphenoid sinus. Otherwise, the remainder of the paranasal sinuses and mastoid air cells are well aerated. No air-fluid levels. No extra-axial fluid collection. No intra-axial or extra-axial bleed. No mass effect or midline shift. The eaton-white matter differentiation is preserved. There are white matter low attenuation lesions which are nonspecific but commonly attributed to chronic small vessel ischemic disease. The brain parenchymal volume is reduced, yet likely age-appropriate. The ventricles are nondilated. The basal cisterns are patent. The craniovertebral junction is unremarkable. CT/CT head/brain wo con IMPRESSION: 1. No acute intracranial abnormality. 2. Senescent changes. Electronically authenticated by: ALBINA CARDENAS Date: 06/13/2024 13:36
--- OUTSIDE RECORDS SUMMARY | 2024-06-13 12:26 | XMS_ITS | CCD ---
Author Organization [facility] Care Team Providers Care Plate Furnace Operator Name Role Phone PATRICK DAO Admitting Unavailable WILLIS, PATRICK Attending Unavailable AICHHOLZ, ADOPTION SERVICES MANAGER JULIANNE Primary Care Unavailable SPROUT, PATRICK Consulting Unavailable SPROUT, PATRICK Admitting Unavailable SPROUT, PATRICK Attending Unavailable AICHHOLZ, ADOPTION SERVICES MANAGER JULIANNE Primary Care Unavailable SPROUT, PATRICK Consulting Unavailable AICHHOLZ, ADOPTION SERVICES MANAGER JULIANNE Admitting Unavailable AICHHOLZ, ADOPTION SERVICES MANAGER JULIANNE Attending Unavailable AICHHOLZ, ADOPTION SERVICES MANAGER JULIANNE Primary Care Unavailable Aichholz FOOD SERVICE MANAGER, Julianne Unavailable Zhen Christiansen MD Primary Care Provider [phone] AICHHOLZ, JULIANNE Attending Unavailable AICHHOLZ, JULIANNE Attending Unavailable AICHHOLZ, JULIANNE Attending Unavailable AICHHOLZ, JULIANNE Attending Unavailable AICHHOLZ, JULIANNE Attending Unavailable AICHHOLZ, JULIANNE Attending Unavailable Chris Caruso Attending Unavailab le Chris Caruso Admitting Unavailab le NO FAMILY, PHYSICIAN Primary Care Unavailable Medications Current [...] 07-15-2022 Chronic Other aftercare (1 source) 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 Anish Johnson Basophils/100 WBC (Bld) 1.1 % Normal 0.2-2.0 [facility] Comment on above: Performed By: #### C BC #### [facility] [address] [address] [address] Anish Johnson EO # 0.3 103/ul Normal 0.0-0.7 [facility] Comment on above: Performed By: #### C BC #### [facility] [address] [address] [address] Anish Johnson Eosinophils/100 WBC (Bld) 4.1 % Normal 0.9-7.0 The [facility] Comment on above: Performed By: #### C BC #### [facility] [address] [address] [address] Anish Johnson Erythrocyte distribution width (RBC) [Ratio] 15.1 % Critically high 11.0-15.0 The [facility] Comment on above: Performed By: #### C BC #### [facility] [address] [place] [address] Dr. Anish Johnson Hematocrit (Bld) [Volume fraction] 40.6 % Normal 36.0-48.0 The [facility] Comment on above: Performed By: #### C BC #### [facility] [address] [place] [address] Dr. Anish Johnson Hemoglobin (Bld) [Mass/Vol] 12.4 g/dL Normal 12.0-16.0 [facility] Comment on above: Performed By: #### C BC #### [facility] [address] [address] [address] Anish Johnson IG # 0.02 10e3/ul Normal 0.00-0.03 [facility] Comment on above: Performed By: #### C BC #### [facility] [address] [place] [address] Dr. Anish Johnson IG % 0.3 % Normal 0.0-0.5 [facility] Comment on above: Performed By: #### C BC #### [facility] [address] [place] [address] Dr. Anish Johnson LYMPH # 1.3 103/ul Normal 1.2-3.8 [facility] Comment on above: Performed By: #### C BC #### [facility] [address] [place] [address] Dr. Anish Johnson Lymphocytes/100 WBC (Bld) 19.7 % Critically low 20.5-60.0 [facility] Comment on above: Performed By: #### C BC #### [facility] [address] [place] [address] Dr. Anish Johnson MANUAL DIFF REQ NO Normal [facility] Comment on above: Performed By: #### C BC #### [facility] [address] [place] [address] Dr. Anish Johnson MCH (RBC) [Entitic mass] 25.5 pg Critically low 26.7-34.0 [facility] Comment on above: Performed By: #### C BC #### [facility] [address] [place] [address] Dr. Anish Johnson MCHC (RBC) [Mass/Vol] 30.5 g/dL Normal 29.9-35.2 The [facility] Comment on above: Performed By: #### C BC #### [facility] [address] [place] [address] Dr. Anish Johnson MCV (RBC) [Entitic vol] 83.4 fL Normal 81.0-99.0 [facility] Comment on above: Performed By: #### C BC #### [facility] [address] [place] [address] Dr. Anish Johnson MONO # 0.5 103/ul Normal 0.3-0.8 [facility] Comment on above: Performed By: #### C BC #### [facility] [address] [place] [address] Dr. Anish Johnson Monocytes/100 WBC (Bld) 7.0 % Normal 1.7-12.0 [facility] Comment on above: Performed By: #### C BC #### [facility] [address] [place] [address] Dr. Anish Johnson NEUT # 4.5 103/ul Normal 1.4-6.5 [facility] Comment on above: Performed By: #### C BC #### [facility] [address] [place] [address] Dr. Anish Johnson Neutrophils/100 WBC (Bld) 67.8 % Normal 43.0-75.0 [facility] Comment on above: Performed By: #### C BC #### [facility] [address] [place] [address] Dr. Anish Johnson Platelet mean volume (Bld) [Entitic vol] 10.5 fL Normal 9.5-13.5 The [facility] Comment on above: Performed By: #### C BC #### [facility] [address] [place] [address] Dr. Anish Johnson PLT 297 103/ul Normal 150-450 The [facility] Comment on above: Performed By: #### C BC #### [facility] [address] [place] [address] Dr. Anish Johnson RBC 4.87 106/ul Normal 4.20-5.40 The [facility] Comment on above: Performed By: #### C BC #### [facility] [address] [place] [address] Dr. Anish Johnson WBC 6.6 103/ul Normal 4.0-11.0 The [facility] Comment on above: Performed By: #### C BC #### [facility] [address] [place] [address] Dr. Anish Johnson CARBAMAZEPINEon 07-16-2022 Carbamezapine 5.4 ug/mL Normal 4.0-12.0 [facility] Comment on above: Result Comment: In c onjunction with other antiepileptic drugs Therapeutic 4.0 - 8.0 Toxicity 9.0 - 12.0 . Carbamazepine alone Therapeutic 8.0 - 12.0 . Detection Limit = 2.0 <2.0 indicated None Detected Performed By: #### C ARBLC #### [facility] [address] [place] [address] Dr. Anish Johnson CBC AUTO DIFFon 07-15-2022 BASO # 0.0 103/ul Normal 0.0-0.1 [facility] Comment on above: Performed By: #### C BC #### [facility] [address] [place] [address] Dr. Anish Johnson Basophils/100 WBC (Bld) 0.5 % Normal 0.2-2.0 [facility] Comment on above: Performed By: #### C BC #### [facility] [address] [place] [address] Dr. Anish Johnson EO # 0.2 103/ul Normal 0.0-0.7 [facility] Comment on above: Performed By: #### C BC #### [facility] [address] [place] [address] Dr. Anish Johnson Eosinophils/100 WBC (Bld) 2.9 % Normal 0.9-7.0 [facility] Comment on above: Performed By: #### C BC #### [facility] [address] [place] [address] Dr. Anish Johnson Erythrocyte distribution width (RBC) [Ratio] 15.7 % Critically high 11.0-15.0 [facility] Comment on above: Performed By: #### C BC #### [facility] [address] [place] [address] Dr. Anish Johnson Hematocrit (Bld) [Volume fraction] 40.2 % Normal 36.0-48.0 [facility] Comment on above: Performed By: #### C BC #### [facility] [address] [place] [address] Dr. Anish Johnson Hemoglobin (Bld) [Mass/Vol] 12.5 g/dL Normal 12.0-16.0 [facility] Comment on above: Performed By: #### C BC #### [facility] [address] [place] [address] Dr. Anish Johnson IG # 0.02 10e3/ul Normal 0.00-0.03 [facility] Comment on above: Performed By: #### C BC #### [facility] [address] [place] [address] Dr. Anish Johnson IG % 0.3 % Normal 0.0-0.5 [facility] Comment on above: Performed By: #### C BC #### [facility] [address] [place] [address] Dr. Anish Johnson LYMPH # 1.5 103/ul Normal 1.2-3.8 [facility] Comment on above: Performed By: #### C BC #### [facility] [address] [place] [address] Dr. Anish Johnson Lymphocytes/100 WBC (Bld) 18.7 % Critically low 20.5-60.0 [facility] Comment on above: Performed By: #### C BC #### [facility] [address] [place] [address] Dr. Anish Johnson MANUAL DIFF REQ NO Normal [facility] Comment on above: Performed By: #### C BC #### [facility] [address] [place] [address] Dr. Anish Johnson MCH (RBC) [Entitic mass] 25.4 pg Critically low 26.7-34.0 [facility] Comment on above: Performed By: #### C BC #### [facility] [address] [place] [address] Dr. Anish Johnson MCHC (RBC) [Mass/Vol] 31.1 g/dL Normal 29.9-35.2 [facility] Comment on above: Performed By: #### C BC #### [facility] [address] [place] [address] Dr. Anish Johnson MCV (RBC) [Entitic vol] 81.7 fL Normal 81.0-99.0 [facility] Comment on above: Performed By: #### C BC #### [facility] [address] [place] [address] Dr. Anish Johnson MONO # 0.7 103/ul Normal 0.3-0.8 [facility] Comment on above: Performed By: #### C BC #### [facility] [address] [place] [address] Dr. Anish Johnson Monocytes/100 WBC (Bld) 8.3 % Normal 1.7-12.0 [facility] Comment on above: Performed By: #### C BC #### [facility] [address] [place] [address] Dr. Anish Johnson NEUT # 5.4 103/ul Normal 1.4-6.5 [facility] Comment on above: Performed By: #### C BC #### [facility] [address] [place] [address] Dr. Anish Johnson Neutrophils/100 WBC (Bld) 69.3 % Normal 43.0-75.0 [facility] Comment on above: Performed By: #### C BC #### [facility] [address] [place] [address] Dr. Anish Johnson Platelet mean volume (Bld) [Entitic vol] 10.6 fL Normal 9.5-13.5 [facility] Comment on above: Performed By: #### C BC #### [facility] [address] [place] [address] Dr. Anish Johnson PLT 297 103/ul Normal 150-450 The [facility] Comment on above: Performed By: #### C BC #### [facility] [address] [place] [address] Dr. Anish Johnson RBC 4.92 106/ul Normal 4.20-5.40 The [facility] Comment on above: Performed By: #### C BC #### [facility] [address] [place] [address] Dr. Anish Johnson WBC 7.8 103/ul Normal 4.0-11.0 The [facility] Comment on above: Performed By: #### C BC #### [facility] [address] [address] [address] Anish Johnson GLUCOSE BLOODon 07-15-2022 Glucose [Mass/Vol] 133 mg/dL Critically high 74-106 T [facility] Comment on above: Performed By: #### L IVER, GLUC, TSH, LIPID #### [facility] [address] [address] [address] Anish Johnson LIPID PROFILEon 07-15-2022 CHOL-HDL RATIO NORM SEE BELOW Normal [facility] Comment on above: Result Comment: 3.3 - 4.4 LOW RISK 4.4 - 7.1 AVERAGE RISK 7.1 - 11.0 MODERATE RISK >11.0 HIGH RISK Performed By: #### L IVER, GLUC, TSH, LIPID #### [facility] [address] [address] [address] Anish Johnson Cholesterol [Mass/Vol] 135 mg/dL Normal <=200 [facility] Comment on above: Performed By: #### L IVER, GLUC, TSH, LIPID #### [facility] [address] [address] [address] Anish Johnson Cholesterol in HDL [Mass/Vol] 58 mg/dL Normal 40-60 [facility] Comment on above: Performed By: #### L IVER, GLUC, TSH, LIPID #### [facility] [address] [address] [address] Anish Johnson Cholesterol in LDL [Mass/Vol] 54.2 mg/dL Normal [facility] Comment on above: Performed By: #### L IVER, GLUC, TSH, LIPID #### [facility] [address] [address] [address] Anish Johnson Cholesterol.total/Cho lesterol in HDL [Mass ratio] 2.3 {ratio} Normal [facility] Comment on above: Performed By: #### L IVER, GLUC, TSH, LIPID #### [facility] [address] [address] [address] Anish Johnson HDL NORMAL > or = 60 mg/dl - LOW CARDIOVASCULAR RISK <40 mg/dl - HIGH CARDIOVASCULAR RISK Normal [facility] Comment on above: Performed By: #### L IVER, GLUC, TSH, LIPID #### [facility] [address] [address] [address] Anish Johnson LDL CALC NORMAL SEE BELOW Normal [facility] Comment on above: Result Comment: <100 mg/dl OPTIMAL 100 - 129 mg/dl NEAR OR ABOVE OPTIMAL 130 - 159 mg/dl BORDERLINE HIGH 160 - 189 mg/dl HIGH >190 mg/dl VERY HIGH Performed By: #### L IVER, GLUC, TSH, LIPID #### [facility] [address] [address] [address] Anish Johnson Triglyceride [Mass/Vol] 114 mg/dL Normal <=150 [facility] Comment on above: Performed By: #### L IVER, GLUC, TSH, LIPID #### [facility] [address] [address] [address] Anish Johnson VLDL CALC 22.8 mg/dL Normal [facility] Comment on above: Performed By: #### L IVER, GLUC, TSH, LIPID #### [facility] [address] [address] [address] Anish Johnson LIVER PROFILEon 07-15-2022 Albumin [Mass/Vol] 4.3 g/dL Normal 3.4-5.0 [facility] Comment on above: Performed By: #### L IVER, GLUC, TSH, LIPID #### [facility] [address] [address] [address] Anish Johnson Albumin/Globulin [Mass ratio] 1.0 {ratio} Normal [facility] Comment on above: Performed By: #### L IVER, GLUC, TSH, LIPID #### [facility] [address] [address] [address] Anish Johnson ALP [Catalytic activity/Vol] 108 U/L Normal 46-116 [facility] Comment on above: Performed By: #### L IVER, GLUC, TSH, LIPID #### [facility] [address] [address] [address] Anish Johnson ALT [Catalytic activity/Vol] 26 U/L Normal 14-59 [facility] Comment on above: Performed By: #### L IVER, GLUC, TSH, LIPID #### [facility] [address] [address] [address] Anish Johnson AST [Catalytic activity/Vol] 21 U/L Normal 15-37 [facility] Comment on above: Performed By: #### L IVER, GLUC, TSH, LIPID #### [facility] [address] [place] [address] Dr. Anish Johnson BILI, CONJUGATED 0.1 mg/dL Normal 0.0-0.2 [facility] Comment on above: Performed By: #### L IVER, GLUC, TSH, LIPID #### [facility] [address] [place] [address] Dr. Anish Johnson Bilirubin [Mass/Vol] 0.5 mg/dL Normal 0.2-1.0 [facility] Comment on above: Performed By: #### L IVER, GLUC, TSH, LIPID #### [facility] [address] [place] [address] Dr. Anish Johnson Globulin (S) [Mass/Vol] 4.3 g/dL Normal [facility] Comment on above: Performed By: #### L IVER, GLUC, TSH, LIPID #### [facility] [address] [place] [address] Dr. Anish Johnson Protein [Mass/Vol] 8.6 g/dL Critically high 6.4-8.2 [facility] Comment on above: Performed By: #### L IVER, GLUC, TSH, LIPID #### [facility] [address] [place] [address] Dr. Anish Johnson TSHon 07-15-2022 TSH 1.692 uIU/mL Normal 0.358-3.740 [facility] Comment on above: Performed By: #### L IVER, GLUC, TSH, LIPID #### [facility] [address] [place] [address] Dr. Anish Johnson Vital Signs Date Time Vital Sign Value Performing Clinician April cheng 01-03-2024 15:19-0500 Body height 157.5 cm Julianne Aichholz FOOD SERVICE MANAGER Work Phone: [facility] 01-03-2024 15:19-0500 Body mass index (BMI) [Ratio] 34.02 kg/m2 Juliannejulio c Steinholz FOOD SERVICE MANAGER Work Phone: [facility] 01-03-2024 15:19-0500 Body temperature 97.5 [degF] Juliannejulio c Rodriguezjose juanholz FOOD SERVICE MANAGER Work Phone: [facility] 01-03-2024 15:19-0500 Body weight 84.37 kg Julianne Jenniferhholz FOOD SERVICE MANAGER Work Phone: [facility] 01-03-2024 15:19-0500 Diastolic blood pressure 82 mm[Hg] Julianne Jenniferhholz FOOD SERVICE MANAGER Work Phone: [facility] 01-03-2024 15:19-0500 Heart rate 87 /min Julianne Jenniferhholz FOOD SERVICE MANAGER Work Phone: [facility] 01-03-2024 15:19-0500 Respiratory rate 17 /min Julianne Emilholz FOOD SERVICE MANAGER Work Phone: [facility] 01-03-2024 15:19-0500 SaO2% (BldA) [Mass fraction] 97 % Julianne Jenniferhholz FOOD SERVICE MANAGER Work Phone: [facility] 01-03-2024 15:19-0500 Systolic blood pressure 128 mm[Hg] Julianne Jenniferhholz FOOD SERVICE MANAGER Work Phone: [facility] Healthcare Encounters Encounter Date Encounter Type Care Provider Facility Start: 05-22-2024 ambulatory Chris Chapa acility:[facility] Start: 05-14-2024 End: 05-14-2024 ambulatory JULIANNE AICHHOLZ Not Available Start: 04-19-2024 End: 04-19-2024 ambulatory JULIANNE AICHHOLZ Not Available Start: 04-05-2024 End: 04-05-2024 ambulatory JULIANNE AICHHOLZ Not Available Start: 02-22-2024 End: 02-22-2024 ambulatory JULIANNE AICHHOLZ Not Available Start: 01-24-2024 End: 01-24-2024 ambulatory JULIANNE TIMOTHY Not Available Start: 01-10-2024 Refill Julianne Lord FOOD SERVICE MANAGER Work Phone: [facility] Start: 01-03-2024 End: 01-03-2024 Office outpatient visit 25 minutes Julianne Lord FOOD SERVICE MANAGER Work Phone: [facility] Comment on above: Essential (primary) hypertension (CMS/HCC) (Primary Dx); BMI 34.0-34.9,adult; Bipolar affective disorder, remission status unspecified (CMS/HCC); Tobacco user; Vertigo; Anxiety Start: 01-03-2024 End: 01-03-2024 ambulatory JULIANNE JENNIFERJose JuanANA Not Available Start: 09-08-2022 End: 09-09-2022 ambulatory PATRICK DAO Facility:[facility] Start: 07-15-2022 End: 07-16-2022 ambulatory PATRICK DAO Facility:[facility] Start: 09-09-2021 ambulatory ADOPTION SERVICES MANAGER JULIANNE LORD Facil ity:[facility] Procedures Date Procedure Procedure Detail Performing Clinician Start: 01-03-2024 Mammography Julianne Mick quintana FOOD SERVICE MANAGER Work Phone: Plan of Treatment Date Care Activity Detail Author Start: 01-03-2025 Screening for malign ant neoplasm of breast Mammogram [facility] Start: 01-03-2025 Screening for malign ant neoplasm of colon Colorectal Cancer Screening [facility] Comment on above: Postponed from 10/05 (Patient Refused) Start: 01-24-2024 End: 01-24-2024 Patient encounter procedure 01/24/2024 9:00 AM EST Office Visit [facility] [address] [place] [address] Julianne Lord NP [address] [place] [id number] [facility] Start: 1989 Screening for malign ant neoplasm of cervix HPV/Cotest [facility] Healthcare Start: 1980 Screening for malign ant neoplasm of cervix Pap Smear [facility] Start: 1959 Screening for malign ant neoplasm of colon [facility] Payers Date Payer Category Payer Medicaid [facility] [employer] [place] [id number] 2023-Present [address] [place] [address] [id number] 2023 Self-pay 2013 Medicaid [id number] 1959 Unknown [id number] 1959 Unknown [id number] 1959 Unknown [id number] 1959 Unknown [id number] 1959 Unknown [id number] 1959 Unknown [id number] 1959 Unknown [id number] 1959 Unknown [id number] 1959 Unknown [id number] 1959 Unknown [id number] Social History Date Type Detail Facility Start: [...] pital DATE CREATED AUTHOR AUTHOR'S ORGANIZ ATION 05/14/2024 [facility] EPIC DATE CREATED AUTHOR AUTHOR'S ORGANIZ ATION 05/23/2024 [facility] Care Teams (unrecognized sec tion and content) Plate Furnace Operator Relationship Specialty Start Date End Date Zhen Christiansen MD [address] [place] [address] PCP - General Family Medicine 12/27/23 Julianne Lord NP [address] [place] [id number] Nurse Practitioner Family Medicine 11/28/22 Plate Furnace Operator Relationship Specialty Start Date End Date Zhen Christiansen MD [address] [place] [address] PCP - General Family Medicine 12/27/23 Julianne Lord NP [address] [place] [address] Nurse Practitioner Family Medicine 11/28/22 FOR RECORDS [...] BE BASED ON THE PRIMARY CLINICAL RECORDS. [employer] [facility]. provides no warranty or guarantee of the accuracy or completeness of information in this document.
[2024-06-13] MEDS: 0.9 % SODIUM CHLORIDE 1,000 ML 1000 ML IV (12:40)
[2024-06-13 12:49] LABS: Hematocrit 30.2 % (36.0-48.0); Hemoglobin 10.2 g/dL (12.0-16.0); Mean Corpuscular HGB Conc 33.8 g/dL (29.9-35.2); Mean Corpuscular Hemoglobin 27.5 pg (26.7-34.0); Mean Corpuscular Volume 81.4 fL (81.0-99.0); Mean Platelet Volume 11.1 fL (9.5-13.5); Platelet Count 282 10^3/uL (150-450); Red Blood Count 3.71 10^6/uL (4.20-5.40); Red Cell Distribution Width 16.5 % (11.0-15.0); White Blood Count 17.3 10^3/uL (4.0-11.0)
[2024-06-13 12:51] LABS: Bilirubin Urine NEGATIVE (NEGATIVE); Blood Urine SMALL (NEGATIVE); Clarity Urine SL CLOUDY (CLEAR); Color Urine LT. YELLOW (YELLOW); Glucose Urine UA NEGATIVE (NEGATIVE); Ketones Urine NEGATIVE (NEGATIVE); Leukocyte Esterase Urine MODERATE (NEGATIVE); Nitrite Urine NEGATIVE (NEGATIVE); Protein Urine TRACE mg/dL (NEG/TRACE); Specific Gravity Urine 1.015 (1.005-1.025)
[2024-06-13 12:51] LABS: Anion Gap 18.7
[2024-06-13 12:52] LABS: Urine Microscopic Indicated YES
[2024-06-13 12:54] LABS: Alanine Aminotransferase 21 U/L (14-59); Albumin Globulin Ratio 0.3; Albumin Level 1.9 g/dL (3.4-5.0); Alkaline Phosphatase 134 U/L (46-116); Aspartate Amino Transferase 32 U/L (15-37); BUN Creatinine Ratio 47.1; Bilirubin Total 1.2 mg/dL (0.2-1.0); Calcium 8.2 mg/dL (8.5-10.1); Carbon Dioxide 20.4 mmol/L (21.0-32.0); Chloride 92 mmol/L (98-107); Estimated GFR (African America 18 (>=60); Estimated GFR (Non-African Ame 15 (>=60); Globulin 6.5 g/dL; Glucose 122 mg/dL (74-106); Potassium 3.1 mmol/L (3.5-5.1); Sodium 128 mmol/L (136-145); Total Protein 8.4 g/dL (6.4-8.2); Troponin I High Sensitivity 14.6 pg/mL (4.0-51.3)
[2024-06-13 12:58] LABS: Lactate/Lactic Acid 1.3 mmol/L (0.4-2.0)
[2024-06-13 13:06] LABS: Creatine Kinase 96 U/L (26-192)
[2024-06-13 13:10] LABS: Amphetamine Screen Urine NEGATIVE (NEGATIVE); Barbiturates Screen Urine NEGATIVE (NEGATIVE); Benzodiazepines Screen Urine POSITIVE (NEGATIVE); Buprenorphine Screen Urine NEGATIVE (NEGATIVE); Cannabinoid Screen Urine NEGATIVE (NEGATIVE); Cocaine Screen Urine NEGATIVE (NEGATIVE); Methadone Screen Urine NEGATIVE (NEGATIVE); Methamphetamines Screen Urine NEGATIVE (NEGATIVE); Opiate Screen Urine NEGATIVE (NEGATIVE); Oxycodone Screen Urine NEGATIVE (NEGATIVE); Phencyclidine Screen Urine NEGATIVE (NEGATIVE); Tricyclic Antidepressant Urine NEGATIVE (NEGATIVE)
--- NOTE | 2024-06-13 13:16 | ED_ITS ---
HPI - Altered Mental Status General Chief Complaint: Altered Mental Status Stated Complaint: CONFUSION Time Seen by Provider: 06/13/24 12:24 Source: patient Mode of arrival: ambulance Limitations: no limitations History of Present Illness HPI narrative: Patient presents to ED for altered mental status. Apparently the landlord went and checked on her and she seemed very confused so they called EMS and she was brought in. She lives at an apartment by herself. She does say that she has a history of bipolar. She takes a lot of medications but states she has not been taking her medications for the past 2 weeks. She did say about a week ago that she fell. She reports being very thirsty but otherwise has no real complaints at this time. On arrival her vital signs are stable but she does seem a little confused at times or slow to respond. She appears dehydrated on exam. She has excoriated skin and ulcerated skin in her pannus on exam. She states she has not been able to shower in the past couple of weeks. She was covered in urine that was malodorous. She denies abdominal pain or vomiting. She said when she fell about a week ago she did not hit her head but does have an abrasion to the right elbow but denies any pain from the fall. She denies history of schizophrenia. She states she lives alone in the apartment. Related Data Home Medications ?Medication ?Instructions ?Recorded ?Confirmed alprazolam 1 mg tablet 0.5 mg PO PRN 07/21/23 06/13/24 aripiprazole 30 mg tablet (Abilify) 15 mg PO DAILY 07/21/23 06/13/24 aspirin 81 mg tablet,delayed 81 mg PO DAILY 07/21/23 06/13/24 release atorvastatin 40 mg tablet 40 mg PO DAILY 07/21/23 06/13/24 bupropion HCl 150 mg 24 hr tablet, 150 mg PO DAILY 07/21/23 06/13/24 extended release bupropion HCl 300 mg 24 hr tablet, 300 mg PO DAILY 07/21/23 06/13/24 extended release buspirone 30 mg tablet 30 mg PO BID 07/21/23 06/13/24 carbamazepine 200 mg tablet 200 mg PO BID 07/21/23 06/13/24 (Tegretol) carvedilol 6.25 mg tablet 25 mg PO BID 07/21/23 06/13/24 hydrochlorothiazide 12.5 mg tablet 25 mg PO DAILY 07/21/23 06/13/24 loratadine 10 mg tablet 10 mg PO DAILY 07/21/23 06/13/24 meloxicam 7.5 mg tablet 7.5 mg PO DAILY 07/21/23 06/13/24 lumateperone 42 mg capsule 42 mg PO DAILY 06/13/24 06/13/24 (Caplyta) Previous Rx's ?Medication ?Instructions ?Recorded meclizine 25 mg tablet 25 mg PO TID PRN dizziness #30 tabs 07/21/23 Allergies Allergy/AdvReac Type Severity Reaction Status Date / Time No Known Drug Allergies Allergy Verified 07/21/23 09:08 Review of Systems ROS Status of ROS 10 or more systems reviewed and unremark able except as noted in history and below [facility] Social History Smoking status: Former smoker Exam Narrative Exam Narrative: Time Seen: [] Vital Signs: [Per nurse's notes.] General: [Alert]But slow to respond Skin: [Warm, Excoriated skin and ulcers in the pannus Head: [Normocephalic, atraumatic.] Neck: [Supple, trachea midline.] Eye: [Pupils are equal, round and reactive to light, extraocular movements are intact, normal conjunctiva.] Ears, nose, mouth and throat: oral mucosa Dry Cardiovascular: [Regular rate and rhythm, no murmur.] Respiratory: [Lungs are clear to auscultation, respirations are non-labored, breath sounds are equal.] Chest wall: [No tenderness, no deformity.] Gastrointestinal: [Soft, nontender, non distended, normal bowel sounds.] MSK: 4 out of 5 muscle strength x 4 extremities no calf pain or edema Lymphatics: [No lymphadenopathy.] Psychiatric: [Cooperative, Sluggish, confused at times Neurological: [Alert and oriented to person, place, time, and situation, no focal neurological deficit observed.] Constitutional Vital Signs, click to edit/add: Last Vital Signs Pulse 91 H 06/13/24 14:10 Resp 18 06/13/24 14:10 BP 108/74 06/13/24 12:14 Pulse Ox 98 06/13/24 14:10 O2 Del Method Room Air 06/13/24 12:14 Course Vital Signs Vital signs: Vital Signs Pulse Rate 63 06/13/24 12:14 Respiratory Rate 18 06/13/24 12:14 Blood Pressure 108/74 06/13/24 12:14 Pulse Oximetry 99 06/13/24 12:14 Oxygen Delivery Method Room Air 06/13/24 12:14 Pulse Rate 91 H 06/13/24 14:10 Respiratory Rate 18 06/13/24 14:10 Blood Pressure 108/74 06/13/24 12:14 Pulse Oximetry 98 06/13/24 14:10 Oxygen Delivery Method Room Air 06/13/24 12:14 MDM - Altered Mental Status MDM Narrative Medical decision making narrative: Patient's labs reveal hyponatremia, hypokalemia. She also has a UTI and dehydration with acute renal failure. Creatinine is 3 and BUN is 145. I spoke to Dr. Orourke who agrees with admission to ICU for further management. Patient was given IV fluids here in ED, she was also given antibiotics for the UTI as well as the cellulitis in her pannus fold. She was given oral potassium replacement as well. Patient is comfortable care plan for admit Differential Diagnosis Differential diagnosis: Likely alcoholic intoxication, altered mental status, delirium, dementia, hypoglycemia, hyponatremia, subarachnoid hemorrhage and sepsis Medical Records Attestation: I reviewed the patient's medical records. Lab Data Attestation: I reviewed the patient's lab results. Labs: Lab Results 06/13/24 06/13/24 Range/Units 12:23 12:38 WBC 17.3 H (4.0-11.0) 10^3/uL RBC 3.71 L (4.20-5.40) 10^6/uL Hgb 10.2 L (12.0-16.0) g/dL Hct 30.2 L (36.0-48.0) % MCV 81.4 (81.0-99.0) fL MCH 27.5 (26.7-34.0) pg MCHC 33.8 (29.9-35.2) g/dL RDW 16.5 H (11.0-15.0) % Plt Count 282 (150-450) 10^3/uL MPV 11.1 (9.5-13.5) fL Seg Neuts % (Manual) 94.0 Lymphocytes % (Manual) 1.0 L (20.5-60.0) % Monocytes % (Manual) 5.0 (1.7-12.0) % Eosinophils % (Manual) 0.0 L (0.9-7.0) % Basophils % (Manual) 0.0 L (0.2-2.0) % Neutrophils # (Manual) 16.26 H (1.4-6.5) 10^3/uL Lymphocytes # (Manual) 0.17 L (1.20-3.80) 10^3/uL Monocytes # (Manual) 0.86 H (0.30-0.80) 10^3/uL Eosinophils # (Manual) 0.00 (0.00-0.70) 10^3/uL Basophils # (Manual) 0.00 (0.00-0.10) 10^3/uL Sodium 128 L (136-145) mmol/L Potassium 3.1 L (3.5-5.1) mmol/L Chloride 92 L (98-107) mmol/L Carbon Dioxide 20.4 L (21.0-32.0) mmol/L Anion Gap 18.7 BUN 145.0 H* (7.0-18.0) mg/dL Creatinine 3.08 H (0.55-1.02) mg/dL Est GFR ( Amer) 18 L (>=60) Est GFR (Non-Af Amer) 15 L (>=60) BUN/Creatinine Ratio 47.1 Glucose 122 H (74-106) mg/dL Lactate 1.3 (0.4-2.0) mmol/L Calcium 8.2 L (8.5-10.1) mg/dL Magnesium 2.0 (1.8-2.4) mg/dL Total Bilirubin 1.2 H (0.2-1.0) mg/dL AST 32 (15-37) U/L ALT 21 (14-59) U/L Alkaline Phosphatase 134 H (46-116) U/L Total Creatine Kinase 96 (26-192) U/L Troponin I High Sens 14.6 (4.0-51.3) pg/mL Total Protein 8.4 H (6.4-8.2) g/dL Albumin 1.9 L (3.4-5.0) g/dL Globulin 6.5 g/dL Albumin/Globulin Ratio 0.3 Urine Color Lt. yellow (YELLOW) Urine Clarity Sl cloudy (CLEAR) Urine pH 6.0 (5.0-9.0) Ur Specific [place] 1.015 (1.005-1.025) Urine Protein Trace (NEG/TRACE) mg/dL Urine Glucose (UA) Negative (NEGATIVE) mg/dL Urine Ketones Negative (NEGATIVE) mg/dL Urine Occult Blood Small A (NEGATIVE) Urine Nitrite Negative (NEGATIVE) Urine Bilirubin Negative (NEGATIVE) Urine Urobilinogen 1.0 (0.2-1.0) EU/dL Ur Leukocyte Esterase Moderate A (NEGATIVE) Urine RBC 2-5 A (0-2) #/HPF Urine WBC 75-100 A (NONE SEEN) #/HPF Ur Squamous Epith Cells Few A (NONE/RARE) #/LPF Urine Crystals Seen A (None Seen) #/HPF Amorphous Sediment Few Urine Bacteria Large A (NONE SEEN) #/HPF Urine Casts None seen (NONE SEEN) #/LPF Urine Mucus None seen (NONE SEEN) Ur Culture Indicated? Yes Urine Opiates Screen Negative (NEGATIVE) Ur Buprenorphine Scrn Negative (NEGATIVE) Ur Oxycodone Screen Negative (NEGATIVE) Urine Methadone Screen Negative (NEGATIVE) Ur Barbiturates Screen Negative (NEGATIVE) U Tricyclic Antidepress Negative (NEGATIVE) Ur Phencyclidine Scrn Negative (NEGATIVE) Ur Amphetamines Screen Negative (NEGATIVE) U Methamphetamines Scrn Negative (NEGATIVE) U Benzodiazepines Scrn Positive A (NEGATIVE) Urine Cocaine Screen Negative (NEGATIVE) U Cannabinoids Screen Negative (NEGATIVE) Ethanol Quant <3 mg/dL POC Glucose 134 H (74-106) mg/dL Imaging Data Chest x-ray: Radiologist's impression: ITS Impressions Chest X-Ray 06/13/24 12:25 IMPRESSION: 1. Trace amount of left basilar atelectasis or possibly infiltrates. Electronically authenticated by: ALESIA EL Date: 06/13/2024 13:[address] 06/13/24 12:25 IMPRESSION: 1. No acute intracranial abnormality. 2. Senescent changes. Electronically authenticated by: ALBINA CARDENAS Date: 06/13/2024 13:36 ECG Data Attestation: I personally reviewed and interpreted this ECG as follows: Interpretation: EKG INTERPRETATION Time: []1220 Rate: []94 Rhythm: _ []Normal sinus rhythm ST segments: _ []No acute ST elevation or depression T waves: _ [] Ectopy: _ [] P wave/VA interval: _ [] QRS interval: _ [] QT interval: _ [] Comparison: _ [] Comparison EKG date: [] Performed by: [self] Critical Care Time Critical Care Time Critical Care Time: Yes Total Critical Care Time: 58 Attestation: Altered mental status acute renal failure electrolyte abnormality requiring replacement in ED Discharge Plan Discharge Chief Complaint: Altered Mental Status Clinical Impression: Acute hyponatremia, AMS (altered mental status), Hypokalemia, YAMILET (acute kidney injury), UTI (urinary tract infection) Patient Disposition: Admitted As Inpatient Time of Disposition Decision: 14:46 Condition: Serious Prescriptions / Home Meds: No Action aspirin 81 mg tablet,delayed release (DR/EC) 81 mg PO DAILY atorvastatin 40 mg tablet 40 mg PO DAILY buspirone 30 mg tablet 30 mg PO BID bupropion HCl 300 mg tablet extended release 24 hr 300 mg PO DAILY bupropion HCl 150 mg tablet extended release 24 hr 150 mg PO DAILY carvedilol 6.25 mg tablet 25 mg PO BID meloxicam 7.5 mg tablet 7.5 mg PO DAILY loratadine 10 mg tablet 10 mg PO DAILY hydrochlorothiazide 12.5 mg tablet 25 mg PO DAILY carbamazepine [Tegretol] 200 mg tablet 200 mg PO BID aripiprazole [Abilify] 30 mg tablet 15 mg PO DAILY alprazolam 1 mg tablet 0.5 mg PO PRN meclizine 25 mg tablet 25 mg PO TID PRN (Reason: dizziness) Qty: 30 0RF Caplyta 42 mg capsule 42 mg PO DAILY Print Language: Persian Referrals: Julianne Lord [facility] [Primary Care Provider] - 1 week
[2024-06-13 13:24] LABS: Ethanol <3 mg/dL
[2024-06-13] MEDS: POTASSIUM CHLORIDE 10 MEQ ER TABLET 40 MEQ PO (13:31)
[2024-06-13 13:35] LABS: Bacteria Urine LARGE #/HPF (NONE SEEN); Mucus Urine NONE SEEN (NONE SEEN); WBC Urine 75-100 #/HPF (NONE SEEN)
[2024-06-13 13:36] LABS: Amorphous Sediment Urine FEW; Cast Seen? NONE SEEN #/LPF (NONE SEEN); Crystals Seen? Seen #/HPF (None Seen); Squamous Epithelial Cell Urine FEW #/LPF (NONE/RARE); Urine Culture Indicated YES
[2024-06-13] MEDS: PIPERACILLIN SODIUM/TAZOBACTAM 3.375 GM in 0.9 % SODIUM CHLORIDE 50 ML IV ×2 (13:41→20:27)
[2024-06-13 13:51] LABS: Lymphocytes Absolute Manual 0.17 10^3/uL (1.20-3.80); Monocytes Absolute Manual 0.86 10^3/uL (0.30-0.80); Segmented Neut Absolute Manual 16.26 10^3/uL (1.4-6.5)
[2024-06-13] MEDS: VANCOMYCIN HCL 1,000 MG in 0.9 % SODIUM CHLORIDE 250 ML 250 MG IV (14:10)
[2024-06-13 16:10] LABS: Magnesium 1.9 mg/dL (1.8-2.4)
[2024-06-13] MEDS: 0.9 % SODIUM CHLORIDE 1,000 ML 125 ML IV (17:01)
[2024-06-13] MEDS: LEVOFLOXACIN IN DEXTROSE 5 % 750 MG/150 ML IV.SOLN 100 MG IV (17:01)
--- NOTE | 2024-06-13 18:07 | P.HP_ITS ---
HPI H&P: HPI History of Present Illness Chief complaint: CONFUSION/AMS/YAMILET/UTI/HYPONATREMIA/DEHYDRATION Narrative: Patient had not been seen or heard from him in several days, landlord went into the house, found patient to have altered mental status, EMS was called and brought patient to the emergency room. Patient states she has not ate or drank anything for the last week. She has significant altered mental status in the emergency room. Still not sure what her baseline is. In ER found to have cellulitis of her lower abdominal wall and UTI, acute renal failure. Patient admitted to the ICU. When I saw patient up in the intensive care unit, patient is somewhat uncomfortable in bed, seems to be confused. Slow to answer questions but does answer. She has lower abdominal wall pain. Just feels generally weak like she is just ran a marathon Opioid HPI Opioid Management Most Recent Pain and Opioid Data: Last Pain Assessment 06/13/24 16:00 Last ORT Total Score 3 06/13/24 15:06 Last ORT Risk Category Low Risk 06/13/24 15:06 Ur Phencyclidine Scrn Negative (NEGATIVE) 06/13/24 12:38 Review of Systems ROS Status of ROS 10 or more systems reviewed and unremark able except as noted in history and below Constitutional Denies: fever PFSH PFSH Social History Smoking status: Former smoker Highest level of school completed/degree received: 10th grade Meds Home Medications and Allergies Home Medications ?Medication ?Instructions ?Recorded ?Confirmed ?Type alprazolam 1 mg tablet 0.5 mg PO BID PRN anxiety 07/21/23 06/13/24 History aripiprazole 30 mg tablet (Abilify) 15 mg PO DAILY 07/21/23 06/13/24 History aspirin 81 mg tablet,delayed 81 mg PO DAILY 07/21/23 06/13/24 History release atorvastatin 40 mg tablet 40 mg PO DAILY 07/21/23 06/13/24 History bupropion HCl 150 mg 24 hr tablet, 150 mg PO DAILY 07/21/23 06/13/24 History extended release bupropion HCl 300 mg 24 hr tablet, 300 mg PO DAILY 07/21/23 06/13/24 History extended release buspirone 30 mg tablet 30 mg PO BID 07/21/23 06/13/24 History carbamazepine 200 mg tablet 200 mg PO .COMPLEX 07/21/23 06/13/24 History (Tegretol) carvedilol 6.25 mg tablet 25 mg PO BID 07/21/23 06/13/24 History hydrochlorothiazide 12.5 mg tablet 25 mg PO DAILY 07/21/23 06/13/24 History loratadine 10 mg tablet 10 mg PO DAILY 07/21/23 06/13/24 History meloxicam 7.5 mg tablet 7.5 mg PO DAILY 07/21/23 06/13/24 History lumateperone 42 mg capsule 42 mg PO DAILY 06/13/24 06/13/24 History (Caplyta) Allergies Allergy/AdvReac Type Severity Reaction Status Date / Time No Known Drug Allergies Allergy Verified 07/21/23 09:08 Exam Constitutional Vital Signs, click to edit/add: Last Vital Signs Temp 97.8 F 06/13/24 15:06 Pulse 90 06/13/24 15:06 Resp 16 06/13/24 15:06 BP 104/77 06/13/24 15:06 Pulse Ox 99 06/13/24 15:06 O2 Del Method Room Air 06/13/24 15:06 Documenting provider has reviewed patient's vital signs: yes Common normals: apparent distress (She is very uncomfortable) Chest Common normals: inspection of chest normal and palpation of chest normal Respiratory Common normals: normal respiratory effort, no retractions and clear to auscultation bilaterally Cardio Common normals: regular rate and regular rhythm GI Common normals: negative for Normal to inspection, nondistended, normoactive bowel sounds present (Lower abdominal wall with yeast dermatitis in the skin folds, more erythema) Palpation: tender (Tender in the lower skin folds consistent with cellulitis) Results Labs Labs: Short CBC 06/13/24 Range/Units 12:23 WBC 17.3 H (4.0-11.0) 10^3/uL Hgb 10.2 L (12.0-16.0) g/dL Hct 30.2 L (36.0-48.0) % Plt Count 282 (150-450) 10^3/uL BMP 06/13/24 12:23 Sodium 128 L Potassium 3.1 L Chloride 92 L Carbon Dioxide 20.4 L BUN 145.0 H* Creatinine 3.08 H Glucose 122 H Calcium 8.2 L Cardiac Enzymes 06/13/24 Range/Units 12:23 Total Creatine Kinase 96 (26-192) U/L Liver Function 06/13/24 Range/Units 12:23 Total Bilirubin 1.2 H (0.2-1.0) mg/dL AST 32 (15-37) U/L ALT 21 (14-59) U/L Alkaline Phosphatase 134 H (46-116) U/L Albumin 1.9 L (3.4-5.0) g/dL Urine 06/13/24 Range/Units 12:38 Urine Color Lt. yellow (YELLOW) Urine Clarity Sl cloudy (CLEAR) Urine pH 6.0 (5.0-9.0) Ur Specific [place] 1.015 (1.005-1.025) Urine Protein Trace (NEG/TRACE) mg/dL Urine Glucose (UA) Negative (NEGATIVE) mg/dL Assessment and Plan Assessment and Plan (1) UTI (urinary tract infection): (2) YAMILET (acute kidney injury): (3) Hypokalemia: (4) AMS (altered mental status): Plan Admission findings: Sinus tachycardia, respiratory distress, uncontrolled hypertension, severe hyponatremia, leukocytosis, acute renal failure (baseline creatinine 0.9-currently 3.08 which is 342% above baseline), this is resulted in sepsis. Patient given fluid resuscitation in the emergency room, will maintain slightly elevated fluid resuscitation currently. Try to avoid fluid overload. Acute UTI a secondary to the above or the cause of the above-culture pending, on 2 different antibiotics repeat culture if spikes a fever Abdominal wall cellulitis-likely yeast related as well as cellulitis. Antibiotics for the above should cover that. Nystatin powder also applied Acute renal failure as outlined above-IV fluids gently. Hyponatremia-secondary to the dehydration-monitor daily Hypokalemia-supplement Altered mental status secondary to the dehydration-continue to monitor likely to improve his dehydration improves Severe protein calorie malnutrition-diet supplementation with Ensure Plus and Pro-Stat Iron deficiency anemia-monitor daily Admission status: Patient with acute renal failure, cellulitis, likely sepsis from acute UTI-cultures pending, medically necessary treatment will span 2 midnights. Inpatient status.
[2024-06-13] MEDS: MECLIZINE HCL 12.5 MG TABLET 25 MG PO (18:21)
[2024-06-13] MEDS: ONDANSETRON PF 4 MG/2 ML VIAL IV (18:25)
[2024-06-13] MEDS: PANTOPRAZOLE SODIUM 40 MG VIAL IV (20:23)
[2024-06-13] MEDS: ALPRAZOLAM 1 MG TABLET 0.5 MG PO (20:32)
[2024-06-13] MEDS: CARBAMAZEPINE 200 MG TABLET 400 MG PO (22:50)
[2024-06-13] MEDS: BUSPIRONE HCL 15 MG TABLET 30 MG PO (22:51)
[2024-06-13] MEDS: NYSTATIN 15 GM POWDER 1 APPLIC TOPICAL (22:51)
[2024-06-13] MEDS: CARVEDILOL 25 MG TABLET PO (22:51)
[2024-06-13] MEDS: PROSTAT 15 GM PROTEIN/100 CAL 30 ML LIQUID PACKET PO (22:53)
[2024-06-14] VITALS (39 sets, daily range): BP systolic 77–103; BP diastolic 39–81; PULSE 67–98; TEMP 36.6–36.8; O2SAT 95–100
[2024-06-14] MEDS: MECLIZINE HCL 12.5 MG TABLET 25 MG PO ×2 (00:41→23:20)
[2024-06-14] MEDS: ONDANSETRON PF 4 MG/2 ML VIAL IV (00:44)
[2024-06-14] MEDS: 0.9 % SODIUM CHLORIDE 1,000 ML 125 ML IV ×3 (03:00→19:12)
[2024-06-14] MEDS: PIPERACILLIN SODIUM/TAZOBACTAM 3.375 GM in 0.9 % SODIUM CHLORIDE 50 ML IV ×3 (03:54→19:18)
[2024-06-14 04:43] LABS: A. calcoaceticus-baumannii Cpx NOT DETECTED (NOT DETECTE); Bacteroides fragilis NOT DETECTED (NOT DETECTE); Candida albicans NOT DETECTED (NOT DETECTE); Candida auris NOT DETECTED (NOT DETECTE); Candida glabrata NOT DETECTED (NOT DETECTE); Candida krusei NOT DETECTED (NOT DETECTE); Candida parapsilosis NOT DETECTED (NOT DETECTE); Candida tropicalis NOT DETECTED (NOT DETECTE); Cryptococcus neoformans/gattii NOT DETECTED (NOT DETECTE); Enterobacter cloacae complex NOT DETECTED (NOT DETECTE); Enterobacterales NOT DETECTED (NOT DETECTE); Enterococcus faecalis NOT DETECTED (NOT DETECTE); Enterococcus faecium NOT DETECTED (NOT DETECTE); Haemophilus influenzae NOT DETECTED (NOT DETECTE); Klebsiella aerogenes NOT DETECTED (NOT DETECTE); Klebsiella pneumoniae group NOT DETECTED (NOT DETECTE); Listeria monocytogenes NOT DETECTED (NOT DETECTE); Neisseria meningitidis NOT DETECTED (NOT DETECTE); Proteus spp. NOT DETECTED (NOT DETECTE); Pseudomonas aeruginosa NOT DETECTED (NOT DETECTE); Salmonella spp. NOT DETECTED (NOT DETECTE); Serratia marcescens NOT DETECTED (NOT DETECTE); Staphylococcus epidermidis NOT DETECTED (NOT DETECTE); Staphylococcus lugdunensis NOT DETECTED (NOT DETECTE); Stenotrophomonas maltophilia NOT DETECTED (NOT DETECTE); Streptococcus agalactiae NOT DETECTED (NOT DETECTE); Streptococcus pneumoniae NOT DETECTED (NOT DETECTE); Streptococcus pyogenes NOT DETECTED (NOT DETECTE); Streptococcus spp. NOT DETECTED (NOT DETECTE)
[2024-06-14 05:50] LABS: Basophils Absolute Auto 0.1 10^3/uL (0.0-0.1); Basophils Percent Auto 0.5 % (0.2-2.0); Eosinophils Percent Auto 0.2 % (0.9-7.0); Hematocrit 28.5 % (36.0-48.0); Immature Granulocytes Abs Auto 0.11 10^3/uL (0.00-0.03); Immature Granulocytes Pct Auto 0.9 % (0.0-0.5); Lymphocytes Absolute Auto 0.6 10^3/uL (1.2-3.8); Lymphocytes Percent Auto 4.4 % (20.5-60.0); Mean Corpuscular HGB Conc 31.6 g/dL (29.9-35.2); Mean Corpuscular Hemoglobin 26.6 pg (26.7-34.0); Mean Corpuscular Volume 84.3 fL (81.0-99.0); Mean Platelet Volume 10.2 fL (9.5-13.5); Monocytes Absolute Auto 0.8 10^3/uL (0.3-0.8); Monocytes Percent Auto 6.4 % (1.7-12.0); Neutrophils Absolute Auto 10.9 10^3/uL (1.4-6.5); Neutrophils Percent Auto 87.6 % (43.0-75.0); Platelet Count 283 10^3/uL (150-450); Red Blood Count 3.38 10^6/uL (4.20-5.40); Red Cell Distribution Width 16.5 % (11.0-15.0); White Blood Count 12.4 10^3/uL (4.0-11.0)
[2024-06-14 06:13] LABS: Source Blood
[2024-06-14 06:15] LABS: Staphylococcus spp. DETECTED (NOT DETECTE)
[2024-06-14 06:16] LABS: Alanine Aminotransferase 24 U/L (14-59); Albumin Globulin Ratio 0.3; Albumin Level 1.8 g/dL (3.4-5.0); Alkaline Phosphatase 123 U/L (46-116); Anion Gap 17.8; Aspartate Amino Transferase 33 U/L (15-37); BUN Creatinine Ratio 49.5; Bilirubin Total 1.1 mg/dL (0.2-1.0); Calcium 8.4 mg/dL (8.5-10.1); Carbon Dioxide 21.5 mmol/L (21.0-32.0); Chloride 101 mmol/L (98-107); Estimated GFR (African America 28 (>=60); Estimated GFR (Non-African Ame 23 (>=60); Globulin 5.8 g/dL; Glucose 119 mg/dL (74-106); Potassium 3.3 mmol/L (3.5-5.1); Sodium 137 mmol/L (136-145); Total Protein 7.6 g/dL (6.4-8.2)
--- NOTE | 2024-06-14 06:24 | P.PN_ITS ---
Progress Note: Subjective Subjective Interval history: Patient more awake and alert this week. Seems more comfortable as well. Still feels like she was run over by a [employer] truck Exam Constitutional Vital Signs, click to edit/add: Last Vital Signs Temp 97.8 F 06/13/24 16:00 Pulse 77 06/14/24 04:00 Resp 14 06/14/24 04:00 BP 92/54 06/14/24 02:00 Pulse Ox 97 06/14/24 04:10 O2 Del Method Room Air 06/14/24 04:10 Documenting provider has reviewed patient's vital signs: yes Common normals: apparent distress (Mild distress secondary to myalgias) Respiratory Common normals: normal respiratory effort and no retractions Cardio Common normals: regular rate and regular rhythm GI Common normals: Normal to inspection, nondistended, normoactive bowel sounds present (Skin fold still with significant infection but no progression of erythema), soft to palpation, non-tender and no hepatosplenomegaly Progress Note: Objective Labs Labs: Short CBC 06/13/24 06/14/24 Range/Units 12:23 04:46 WBC 17.3 H 12.4 H (4.0-11.0) 10^3/uL Hgb 10.2 L 9.0 L (12.0-16.0) g/dL Hct 30.2 L 28.5 L (36.0-48.0) % Plt Count 282 283 (150-450) 10^3/uL BMP 06/13/24 12:23 Sodium 128 L Potassium 3.1 L Chloride 92 L Carbon Dioxide 20.4 L BUN 145.0 H* Creatinine 3.08 H Glucose 122 H Calcium 8.2 L Cardiac Enzymes 06/13/24 Range/Units 12:23 Total Creatine Kinase 96 (26-192) U/L Liver Function 06/13/24 Range/Units 12:23 Total Bilirubin 1.2 H (0.2-1.0) mg/dL AST 32 (15-37) U/L ALT 21 (14-59) U/L Alkaline Phosphatase 134 H (46-116) U/L Albumin 1.9 L (3.4-5.0) g/dL Urine 06/13/24 Range/Units 12:38 Urine Color Lt. yellow (YELLOW) Urine Clarity Sl cloudy (CLEAR) Urine pH 6.0 (5.0-9.0) Ur Specific [place] 1.015 (1.005-1.025) Urine Protein Trace (NEG/TRACE) mg/dL Urine Glucose (UA) Negative (NEGATIVE) mg/dL Progress Note: A&P Assessment and Plan (1) UTI (urinary tract infection): (2) YAMILET (acute kidney injury): (3) Hypokalemia: (4) AMS (altered mental status): Plan Admission findings: Sinus tachycardia, respiratory distress, uncontrolled hypertension, severe hyponatremia, leukocytosis, acute renal failure (baseline creatinine 0.9-currently 3.08 which is 342% above baseline), this is resulted in sepsis. Fluid resuscitation yesterday, creatinine improved down to 2 today. Still over 200% above baseline. But overall improved Acute UTI a secondary to the above or the cause of the above-culture pending, on 2 different antibiotics repeat culture if spikes a fever-culture pending, blood culture positive for staph Abdominal wall cellulitis-likely yeast related as well as cellulitis. Antibiotics for the above should cover that. Will try combination of Silvadene cream and nystatin powder Acute renal failure as outlined above-improving with current fluid resuscitation, maintain that for today Hyponatremia-secondary to the dehydration-improving Hypokalemia-continue supplementation and improving Altered mental status secondary to the dehydration-alert and oriented this morning. Severe protein calorie malnutrition-diet supplementation with Ensure Plus and Pro-Stat Iron deficiency anemia-monitor daily Elevated liver function test on admission-improved today, likely secondary to passive congestion from the sepsis and acute renal failure Admission status: Patient with acute renal failure, cellulitis, likely sepsis from acute UTI-cultures pending, medically necessary treatment will span 2 midnights. Inpatient status. ?
[2024-06-14] MEDS: CARBAMAZEPINE 200 MG TABLET PO (08:05)
[2024-06-14] MEDS: CETIRIZINE HCL 10 MG TABLET PO (08:05)
[2024-06-14] MEDS: CARVEDILOL 25 MG TABLET 12.5 MG PO (08:05)
[2024-06-14] MEDS: ARIPIPRAZOLE 5 MG TABLET 15 MG PO (08:05)
[2024-06-14] MEDS: BUPROPION HCL 150 MG XL TABLET 24H 300 MG PO (08:06)
[2024-06-14] MEDS: ASPIRIN 81 MG TABLET.DR PO (08:06)
[2024-06-14] MEDS: BUPROPION HCL 150 MG XL TABLET 24H PO (08:06)
[2024-06-14] MEDS: BUSPIRONE HCL 15 MG TABLET 30 MG PO ×2 (08:06→19:13)
[2024-06-14] MEDS: PROSTAT 15 GM PROTEIN/100 CAL 30 ML LIQUID PACKET PO (08:07)
--- NOTE | 2024-06-14 08:52 | CM.NOTE ---
06:[address] Orourke[address]. Orourke discussed lab results and treatment plan of IV antibiotics. Sahra verbalized understanding. No discharge planned today.
[2024-06-14] MEDS: POTASSIUM CHLORIDE 10 MEQ ER TABLET 20 MEQ PO ×2 (11:22→19:14)
--- NOTE | 2024-06-14 12:01 | SWNOTE1 ---
MELITON met with pt to discuss dc needs. SW had to wake pt up to complete assessment. Pt lives at home alone at an apartment complex. She voiced she does not have anyone as a support system. She had a fall at home at 3am, per patient. Pt does not use any DME at home and does still drive to get her food. She stated if her car works. MELITON advised pt that it is recommended that she goes to a [facility] facility for rehab to get stronger. Initially pt refused and stated she does not want to go. She stated she will be here for a few days anyway. SW let pt know that she is a precert to go to a facility and that it may be a good idea to have a back up plan in case she is not strong enough to return home. MELITON advised pt that she may get better medically in another day or 2 and just need rehab to get stronger. For her safety, SW let her know that it is recommended she go SNF for a short time. Pt voiced she will think about it. MELITON to check back after lunch.
--- NOTE | 2024-06-14 13:30 | SWNOTE1 ---
SW went back and spoke with pt in regards to discharge plans. SW expressed to pt that there is a chance she may not be able to safely get around and will need rehab for a short time before discharge. SW asked if pt was open to rehab if needed. Pt stated yes. Pt does live in [place] and voiced she would want to stay in [place]. SW let her know there is only once facility in [place] and that is [facility]. Pt is alright with this. SW to make sure they take [facility]. SW also asked about her son as a contact. She stated she does not want him as a contact. She voiced she does not want anyone on contact and she does not want information released if someone calls about her. SW informed special education secretary of this and nursing and they will make her a no information patient. SW to reach out to [facility].
--- NOTE | 2024-06-14 13:49 | SWNOTE1 ---
[facility] accept [facility]. Referral sent to [facility]. Referral included face sheet, ED note, H&P, provider notes, case management report, nursing notes, diagnostic imaging, med list, and PT/OT notes.
[2024-06-14] MEDS: ATORVASTATIN CALCIUM 40 MG TABLET PO (19:13)
[2024-06-14] MEDS: PANTOPRAZOLE SODIUM 40 MG VIAL IV (19:13)
[2024-06-14] MEDS: CARBAMAZEPINE 200 MG TABLET 400 MG PO (19:13)
[2024-06-15] VITALS (22 sets, daily range): BP systolic 108–152; BP diastolic 65–80; PULSE 68–78; TEMP 36.5–37.1; O2SAT 95–100
[2024-06-15] MEDS: PIPERACILLIN SODIUM/TAZOBACTAM 3.375 GM in 0.9 % SODIUM CHLORIDE 50 ML IV ×3 (03:10→21:20)
[2024-06-15] MEDS: 0.9 % SODIUM CHLORIDE 1,000 ML 125 ML IV ×3 (03:11→18:17)
[2024-06-15] MEDS: ALPRAZOLAM 1 MG TABLET 0.5 MG PO (04:15)
[2024-06-15 05:45] LABS: Basophils Absolute Auto 0.1 10^3/uL (0.0-0.1); Basophils Percent Auto 0.7 % (0.2-2.0); Eosinophils Absolute Auto 0.1 10^3/uL (0.0-0.7); Eosinophils Percent Auto 1.5 % (0.9-7.0); Hematocrit 26.2 % (36.0-48.0); Hemoglobin 7.9 g/dL (12.0-16.0); Immature Granulocytes Abs Auto 0.07 10^3/uL (0.00-0.03); Immature Granulocytes Pct Auto 0.9 % (0.0-0.5); Lymphocytes Absolute Auto 0.7 10^3/uL (1.2-3.8); Lymphocytes Percent Auto 8.5 % (20.5-60.0); Mean Corpuscular HGB Conc 30.2 g/dL (29.9-35.2); Mean Corpuscular Hemoglobin 27.1 pg (26.7-34.0); Mean Corpuscular Volume 89.7 fL (81.0-99.0); Mean Platelet Volume 10.4 fL (9.5-13.5); Monocytes Absolute Auto 0.6 10^3/uL (0.3-0.8); Monocytes Percent Auto 7.1 % (1.7-12.0); Neutrophils Absolute Auto 6.5 10^3/uL (1.4-6.5); Neutrophils Percent Auto 81.3 % (43.0-75.0); Platelet Count 263 10^3/uL (150-450); Red Blood Count 2.92 10^6/uL (4.20-5.40); Red Cell Distribution Width 16.9 % (11.0-15.0)
[2024-06-15 06:12] LABS: Alanine Aminotransferase 26 U/L (14-59); Albumin Globulin Ratio 0.3; Albumin Level 1.7 g/dL (3.4-5.0); Alkaline Phosphatase 99 U/L (46-116); Anion Gap 15.1; Aspartate Amino Transferase 29 U/L (15-37); BUN Creatinine Ratio 33.3; Bilirubin Total 0.8 mg/dL (0.2-1.0); Calcium 8.1 mg/dL (8.5-10.1); Carbon Dioxide 20.4 mmol/L (21.0-32.0); Chloride 109 mmol/L (98-107); Estimated GFR (African America 44 (>=60); Estimated GFR (Non-African Ame 37 (>=60); Globulin 5.4 g/dL; Glucose 107 mg/dL (74-106); Potassium 3.5 mmol/L (3.5-5.1); Sodium 141 mmol/L (136-145); Total Protein 7.1 g/dL (6.4-8.2)
[2024-06-15] MEDS: BUSPIRONE HCL 15 MG TABLET 30 MG PO ×2 (08:00→21:23)
[2024-06-15] MEDS: BUPROPION HCL 150 MG XL TABLET 24H PO (08:00)
[2024-06-15] MEDS: CARBAMAZEPINE 200 MG TABLET PO (08:00)
[2024-06-15] MEDS: CARVEDILOL 25 MG TABLET 12.5 MG PO ×2 (08:00→21:22)
[2024-06-15] MEDS: POTASSIUM CHLORIDE 10 MEQ ER TABLET 20 MEQ PO ×2 (08:01→21:23)
[2024-06-15] MEDS: CETIRIZINE HCL 10 MG TABLET PO (08:01)
[2024-06-15] MEDS: ASPIRIN 81 MG TABLET.DR PO (08:01)
[2024-06-15] MEDS: ARIPIPRAZOLE 5 MG TABLET 15 MG PO (08:01)
[2024-06-15] MEDS: SILVER SULFADIAZINE 1% CREAM 25 GM TUBE 1 APPLIC TOPICAL (08:02)
[2024-06-15] MEDS: BUPROPION HCL 150 MG XL TABLET 24H 300 MG PO (08:04)
--- NOTE | 2024-06-15 08:51 | CM.NOTE ---
Rounds made with Dr. Orourke. Continue with current plan of care. Discharge to [facility] once precert obtained.
--- NOTE | 2024-06-15 09:00 | P.PN_ITS ---
Progress Note: Subjective Subjective Interval history: Pt still very fatigued this am, still with some myalgias, denies dyspnea. Exam Constitutional Vital Signs, click to edit/add: Last Vital Signs Temp 98.2 F 06/15/24 08:00 Pulse 74 06/15/24 08:00 Resp 16 06/15/24 08:00 BP 110/74 06/15/24 08:00 Pulse Ox 95 06/15/24 08:00 O2 Del Method Room Air 06/15/24 08:00 Documenting provider has reviewed patient's vital signs: yes Common normals: apparent distress (Mild distress due to myalgias) Respiratory Common normals: normal respiratory effort and no retractions Cardio Common normals: regular rate and regular rhythm GI Common normals: Normal to inspection, nondistended, normoactive bowel sounds present (Skin fold still with significant infection but no progression of erythema), soft to palpation, non-tender and no hepatosplenomegaly Progress Note: Objective Labs Labs: Short CBC 06/15/24 Range/Units 05:00 WBC 8.0 (4.0-11.0) 10^3/uL Hgb 7.9 L (12.0-16.0) g/dL Hct 26.2 L (36.0-48.0) % Plt Count 263 (150-450) 10^3/uL BMP 06/15/24 05:00 Sodium 141 Potassium 3.5 Chloride 109 H Carbon Dioxide 20.4 L BUN 48.0 H Creatinine 1.44 H Glucose 107 H Calcium 8.1 L Liver Function 06/15/24 Range/Units 05:00 Total Bilirubin 0.8 (0.2-1.0) mg/dL AST 29 (15-37) U/L ALT 26 (14-59) U/L Alkaline Phosphatase 99 (46-116) U/L Albumin 1.7 L (3.4-5.0) g/dL Progress Note: A&P Assessment and Plan (1) UTI (urinary tract infection): (2) YAMILET (acute kidney injury): (3) Hypokalemia: (4) AMS (altered mental status): Plan Admission findings: Sinus tachycardia, respiratory distress, uncontrolled hypertension, severe hyponatremia, leukocytosis, acute renal failure (baseline creatinine 0.9-currently 3.08 which is 342% above baseline), this is resulted in sepsis. Fluid resuscitation yesterday, creatinine improved down again today, continue IV fluids Acute UTI a secondary to the above or the cause of the above-culture pending, on 2 different antibiotics repeat culture if spikes a fever-culture pending, blood culture positive for staph Acute blood loss anemia secondary acute upper gastrointestinal bleeding-adjusted PPI, add Carafate, hemoglobin is down somewhat today which may be delusional but positive Hemoccult. Depending on progress of hemoglobin can scope as an outpatient Abdominal wall cellulitis-likely yeast related as well as cellulitis. Antibiotics for the above should cover that. Will try combination of Silvadene cream and nystatin powder-improving Acute renal failure as outlined above-improving with current fluid resuscitation, maintain again that for today Hyponatremia-secondary to the dehydration-improving Hypokalemia-continue supplementation and improving Altered mental status secondary to the dehydration-alert and oriented this morning. Severe protein calorie malnutrition-diet supplementation with Ensure Plus and Pro-Stat Iron deficiency anemia-monitor daily Elevated liver function test on admission-improved today, likely secondary to passive congestion from the sepsis and acute renal failure Admission status: Patient with acute renal failure, cellulitis, likely sepsis from acute UTI-cultures pending, medically necessary treatment will span 2 midnights. Inpatient status. Needs placement for rehab. ?
[2024-06-15 10:14] LABS: Internal Control Within Normal Limits; Occult Blood Positive
--- NOTE | 2024-06-15 12:13 | PT.DAILY ---
Physical Therapy Daily Note PT Daily Note/Assess Start: 06/15/24 12:00 Freq: Status: Active Protocol: Document 06/15/24 11:40 LAURY (Rec: 06/15/24 12:13 [email or web address] [id number]) Physical Therapy Daily Note/Assessment Time In/Time Out Time In 11:40 Time Out 11:58 Subjective Subjective Patient had refused in earlier in the morning, but then on 2nd attempt agrees with encouragement. Denies pain. Main complaint is severe fatigue, doesn't want to move. Nausea severe as well. Therapeutic Activity Time Therapeutic Activity Minutes (minutes) 18 Therapeutic Activity Units 1 Therapeutic Activity Treatment Bed Mobility Ability Minimum Assist,Moderate Assist Chair Transfer Ability Contact Guard Assist Therapeutic Activity Comments Supine to sit min assist. Once sitting EOB patient is able to maintain balance but if very jittery. Verbal cues to focus on tasks at hand. Sit to stand at RW CGA. Gait 15' with RW CGA. Patient impulsive with movements. Exchanged out RW as patient had bariatric one in room, does do better with walker that is more appropriate for her weight and height. Sit to supine, patient is impulsive and just goes straight back then requiring min to mod assist to get B LE's up into bed. Verbal education on safe bed transfers, patient verbalizes understanding. Total Physical Therapy Time Total Therapy Minutes 18 Total Physical Therapy Units 1 Summary Daily Note Summary Improved ability with sit to stand transfers, and gait. Patient is impulsive and jittery though out RX requiring verbal cues to stay on task and for safety. Patient does show improvements but would likely still benefit from SNF stay to re- gain strength as patient's PLOF was completely Ind. Patient in bed with rails up, call light in reach and all needs met post RX.
[2024-06-15] MEDS: SUCRALFATE 1 GM TABLET PO ×3 (12:57→21:22)
[2024-06-15] MEDS: PANTOPRAZOLE SODIUM 40 MG VIAL IV ×2 (12:58→21:22)
--- NOTE | 2024-06-15 13:20 | SWNOTE1 ---
MELITON went on to HENS system to complete, but it was down due to the internet issues. MELITON informed Rachel at [facility], she voiced it was down today.
--- NOTE | 2024-06-15 14:58 | SWNOTE1 ---
SW completed a manual HENS 7000 and sent to [facility] on Aging and sent to Rachel at [place].
[2024-06-15] MEDS: LEVOFLOXACIN IN DEXTROSE 5 % 750 MG/150 ML IV.SOLN 100 MG IV (17:03)
[2024-06-15] MEDS: MECLIZINE HCL 12.5 MG TABLET 25 MG PO (19:28)
[2024-06-15] MEDS: ATORVASTATIN CALCIUM 40 MG TABLET PO (19:28)
[2024-06-15] MEDS: ONDANSETRON PF 4 MG/2 ML VIAL IV (19:28)
[2024-06-15] MEDS: CARBAMAZEPINE 200 MG TABLET 400 MG PO (21:20)
[2024-06-16] VITALS (19 sets, daily range): BP systolic 131–144; BP diastolic 62–89; PULSE 66–92; TEMP 35.8–36.3; O2SAT 94–98
[2024-06-16] MEDS: 0.9 % SODIUM CHLORIDE 1,000 ML 125 ML IV ×3 (03:08→19:15)
[2024-06-16] MEDS: PIPERACILLIN SODIUM/TAZOBACTAM 3.375 GM in 0.9 % SODIUM CHLORIDE 50 ML IV ×3 (03:29→21:46)
[2024-06-16 07:16] LABS: Basophils Absolute Auto 0.1 10^3/uL (0.0-0.1); Basophils Percent Auto 0.7 % (0.2-2.0); Eosinophils Absolute Auto 0.1 10^3/uL (0.0-0.7); Eosinophils Percent Auto 0.8 % (0.9-7.0); Hematocrit 25.5 % (36.0-48.0); Hemoglobin 8.1 g/dL (12.0-16.0); Immature Granulocytes Abs Auto 0.03 10^3/uL (0.00-0.03); Immature Granulocytes Pct Auto 0.4 % (0.0-0.5); Lymphocytes Absolute Auto 0.9 10^3/uL (1.2-3.8); Lymphocytes Percent Auto 11.2 % (20.5-60.0); Mean Corpuscular HGB Conc 31.8 g/dL (29.9-35.2); Mean Corpuscular Hemoglobin 26.8 pg (26.7-34.0); Mean Corpuscular Volume 84.4 fL (81.0-99.0); Mean Platelet Volume 10.3 fL (9.5-13.5); Monocytes Absolute Auto 0.6 10^3/uL (0.3-0.8); Monocytes Percent Auto 7.5 % (1.7-12.0); Neutrophils Percent Auto 79.4 % (43.0-75.0); Platelet Count 191 10^3/uL (150-450); Red Blood Count 3.02 10^6/uL (4.20-5.40); Red Cell Distribution Width 16.6 % (11.0-15.0); White Blood Count 7.6 10^3/uL (4.0-11.0)
[2024-06-16 07:39] LABS: Alanine Aminotransferase 21 U/L (14-59); Albumin Globulin Ratio 0.3; Albumin Level 1.5 g/dL (3.4-5.0); Alkaline Phosphatase 77 U/L (46-116); Anion Gap 13.5; Aspartate Amino Transferase 30 U/L (15-37); BUN Creatinine Ratio 13.8; Bilirubin Total 0.7 mg/dL (0.2-1.0); Calcium 7.2 mg/dL (8.5-10.1); Carbon Dioxide 22.6 mmol/L (21.0-32.0); Chloride 109 mmol/L (98-107); Estimated GFR (African America 57 (>=60); Estimated GFR (Non-African Ame 47 (>=60); Glucose 94 mg/dL (74-106); Potassium 4.1 mmol/L (3.5-5.1); Sodium 141 mmol/L (136-145); Total Protein 6.5 g/dL (6.4-8.2)
--- NOTE | 2024-06-16 08:44 | PM.HP ---
HPI H&P: HPI History of Present Illness Chief complaint: CONFUSION/AMS/YAMILET/UTI/HYPONATREMIA/DEHYDRATION Opioid HPI Opioid Management Most Recent Pain and Opioid Data: Last Pain Scale 0 06/16/24 08:33 Last Pain Intensity 0 06/16/24 08:33 Last Pain Assessment 06/16/24 07:00 Last ORT Total Score 3 06/13/24 15:06 Last ORT Risk Category Low Risk 06/13/24 15:06 Ur Phencyclidine Scrn Negative (NEGATIVE) 06/13/24 12:38 PFSH PFSH Social History Smoking status: Former smoker Highest level of school completed/degree received: 10th grade Meds Home Medications and Allergies Home Medications ?Medication ?Instructions ?Recorded ?Confirmed ?Type alprazolam 1 mg tablet 0.5 mg PO BID PRN anxiety 07/21/23 06/13/24 History aspirin 81 mg tablet,delayed 81 mg PO DAILY 07/21/23 06/13/24 History release atorvastatin 40 mg tablet 40 mg PO DAILY 07/21/23 06/13/24 History bupropion HCl 150 mg 24 hr tablet, 150 mg PO DAILY 07/21/23 06/13/24 History extended release bupropion HCl 300 mg 24 hr tablet, 300 mg PO DAILY 07/21/23 06/13/24 History extended release buspirone 30 mg tablet 30 mg PO BID 07/21/23 06/13/24 History carbamazepine 200 mg tablet 200 mg PO .COMPLEX 07/21/23 06/13/24 History (Tegretol) loratadine 10 mg tablet 10 mg PO DAILY 07/21/23 06/13/24 History meloxicam 7.5 mg tablet 7.5 mg PO DAILY 07/21/23 06/13/24 History lumateperone 42 mg capsule 42 mg PO DAILY 06/13/24 06/13/24 History (Caplyta) aripiprazole 15 mg tablet 15 mg PO DAILY 06/15/24 06/15/24 History carvedilol 25 mg tablet 25 mg PO BID 06/15/24 06/15/24 History hydrochlorothiazide 25 mg tablet 25 mg PO DAILY 06/15/24 06/15/24 History losartan 50 mg tablet 50 mg PO DAILY 06/15/24 06/15/24 History Allergies Allergy/AdvReac Type Severity Reaction Status Date / Time No Known Drug Allergies Allergy Verified 07/21/23 09:08 Exam Constitutional Vital Signs, click to edit/add: Last Vital Signs Temp 97.3 F L 06/16/24 03:57 Pulse 66 06/16/24 08:00 Resp 15 06/16/24 03:57 BP 132/62 06/16/24 03:57 Pulse Ox 94 L 06/16/24 05:20 O2 Del Method Room Air 06/16/24 05:20 Results Labs Labs: Short CBC 06/16/24 Range/Units 06:45 WBC 7.6 (4.0-11.0) 10^3/uL Hgb 8.1 L (12.0-16.0) g/dL Hct 25.5 L (36.0-48.0) % Plt Count 191 (150-450) 10^3/uL BMP 06/16/24 06:45 Sodium 141 Potassium 4.1 Chloride 109 H Carbon Dioxide 22.6 BUN 16.0 Creatinine 1.16 H Glucose 94 Calcium 7.2 L Liver Function 06/16/24 Range/Units 06:45 Total Bilirubin 0.7 (0.2-1.0) mg/dL AST 30 (15-37) U/L ALT 21 (14-59) U/L Alkaline Phosphatase 77 (46-116) U/L Albumin 1.5 L (3.4-5.0) g/dL Assessment and Plan Assessment and Plan (1) UTI (urinary tract infection): (2) YAMILET (acute kidney injury): (3) Hypokalemia: (4) AMS (altered mental status):
--- NOTE | 2024-06-16 08:44 | PT.DAILY ---
Physical Therapy Daily Note PT Daily Note/Assess Start: 06/15/24 12:00 Freq: Status: Active Protocol: Document 06/16/24 08:33 [id number] (Rec: 06/16/24 08:44 [id number]) Physical Therapy Daily Note/Assessment Time In/Time Out Time In 08:12 Time Out 08:29 Pain In Pain Level 0 Pain Out Pain Level 0 Subjective Subjective Patient received in bed and agreeable to participating with PT. States she has not slept most of the night. Therapeutic Exercise Time Therapeutic Exercise Minutes (minutes) 7 Therapeutic Exercise Units 1 Therapeutic Exercise Treatment Therapeutic Exercise Treatment Supine TANIA LE: ankle pumps, heel slides x 10 reps. Seated TANIA LE: SAQ, marching, resisted hip ABD, ankle pumps. Requires constant verbal and tactile cues for each ther ex . Therapeutic Activity Time Therapeutic Activity Minutes (minutes) 10 Therapeutic Activity Units 1 Therapeutic Activity Treatment Bed Mobility Ability Contact Guard Assist,Minimum Assist Chair Transfer Ability Contact Guard Assist Therapeutic Activity Comments Bed mobility: supine to R SL with use of handrail is MIN A +1. Patient sat EOB and performed TANIA LE ther ex without LOB. Transfer: sit to stand to RW CGA +1, VC's for safe hand placement vs pulling on RW. Ambulated ~26' x 1 w/ RW w/ CGA +1. Requires MIN A several times to navigate RW due to decreased motor planning in use of RW running into wall. Patient returned to EOB and then requested to use bathroom. STS CGA +1 to RW, ambulated ~12' to bathroom, required tactile and verbal cues to navigate RW. Patient is independent in toileting. Able to stand at sink and wash hands without LOB. Patient ambulated ~12' to bed with CGA +1 and cues for walker management. Patient seated EOB and perform sit to supine transfer independently. [facility] and [facility] nursing staff notified of patient use of toilet and return to bed. Information acknowledge. Total Physical Therapy Time Total Therapy Minutes 17 Total Physical Therapy Units 2 Summary Daily Note Summary Patient demonstrates decreased motor planning and safety awareness with functional movements. Patient able to perform bed mobility with less assist. Patient would benefit from SNF @ discharge to address functional deficits and safety awareness issues.
--- NOTE | 2024-06-16 08:44 | PM.PN ---
Progress Note: Subjective Subjective Interval history: Patient is sitting up in the chair this morning. Denies any pain or discomfort. Says she does not like to sit in a chair and says she hates it. She is alert and oriented x 3. Exam Narrative Exam Narrative: General: Patient is alert, and oriented to person, place and time with normal affect, proper hygiene Skin: right knee abrasion Head: atraumatic, acephalic Eyes: PERRLA, no nystagmus present, conjunctiva clear, no scleral icterus Ears: normal gross auditory acuity Heart: Normal rate and rhythm, no murmurs/rubs/gallops Lungs: no audible wheezes, crackles and normal breath sounds all lung alvarez Abdomen: Normal audible bowel sounds, no distension, No palpable masses, no organomegaly, no rebound/guarding/ or rigidity Musculoskeletal: no swelling bilateral lower extremities Neuro: CN II-X grossly intact Constitutional Vital Signs, click to edit/add: Last Vital Signs Temp 97.3 F L 06/16/24 03:57 Pulse 66 06/16/24 08:00 Resp 15 06/16/24 03:57 BP 132/62 06/16/24 03:57 Pulse Ox 94 L 06/16/24 05:20 O2 Del Method Room Air 06/16/24 05:20 Progress Note: Objective Labs Labs: Short CBC 06/16/24 Range/Units 06:45 WBC 7.6 (4.0-11.0) 10^3/uL Hgb 8.1 L (12.0-16.0) g/dL Hct 25.5 L (36.0-48.0) % Plt Count 191 (150-450) 10^3/uL BMP 06/16/24 06:45 Sodium 141 Potassium 4.1 Chloride 109 H Carbon Dioxide 22.6 BUN 16.0 Creatinine 1.16 H Glucose 94 Calcium 7.2 L Liver Function 06/16/24 Range/Units 06:45 Total Bilirubin 0.7 (0.2-1.0) mg/dL AST 30 (15-37) U/L ALT 21 (14-59) U/L Alkaline Phosphatase 77 (46-116) U/L Albumin 1.5 L (3.4-5.0) g/dL Progress Note: A&P Assessment and Plan (1) UTI (urinary tract infection): Assessment and Plan: continue to treat with IV Levaquin. Still awaiting blood and urine cultures. WBC's are normal range of 7.6 Qualifiers: Urinary tract infection type: acute cystitis Hematuria presence: without hematuria Qualified Code(s): N30.00 - Acute cystitis without hematuria (2) Bacteremia due to Staphylococcus aureus without sepsis: Assessment and Plan: most likely urine as source awaiting C&S, continue IV antibiotics. Levaquin and Zosyn (3) YAMILET (acute kidney injury): Assessment and Plan: Cr. 1.16 today and continues to improve with UTI treatment (4) Hypokalemia: Assessment and Plan: replacing with IV and oral potassium. (5) Hypertension: Assessment and Plan: continue home meds: coreg Qualifiers: Hypertension type: primary hypertension Qualified Code(s): I10 - Essential (primary) hypertension (6) Bipolar disorder: Assessment and Plan: continue buspar, Tegretol, wellbutrin, abilify, xanax Qualifiers: Active/Remission status: in remission of unspecified degree Qualified Code(s): F31.70 - Bipolar disorder, currently in remission, most recent episode unspecified Plan patient is a full code Patient's mentation is improving, awaiting C&S results, continue broad spectrum antibiotics. Monitor H&H, not on lovenox
[2024-06-16] MEDS: CARVEDILOL 25 MG TABLET 12.5 MG PO (08:49)
[2024-06-16] MEDS: POTASSIUM CHLORIDE 10 MEQ ER TABLET 20 MEQ PO (08:49)
[2024-06-16] MEDS: SUCRALFATE 1 GM TABLET PO (08:50)
[2024-06-16] MEDS: BUPROPION HCL 150 MG XL TABLET 24H PO (08:51)
[2024-06-16] MEDS: BUPROPION HCL 150 MG XL TABLET 24H 300 MG PO (08:51)
[2024-06-16] MEDS: BUSPIRONE HCL 15 MG TABLET 30 MG PO (08:52)
[2024-06-16] MEDS: CETIRIZINE HCL 10 MG TABLET PO (08:53)
[2024-06-16] MEDS: ARIPIPRAZOLE 5 MG TABLET 15 MG PO (08:53)
[2024-06-16] MEDS: CARBAMAZEPINE 200 MG TABLET PO (08:57)
[2024-06-16] MEDS: MECLIZINE HCL 12.5 MG TABLET 25 MG PO (08:57)
[2024-06-16] MEDS: NYSTATIN 100,000 UNITS/GRAM CREAM 15 GM TUBE 1 APPLIC TOPICAL (08:59)
[2024-06-16] MEDS: PANTOPRAZOLE SODIUM 40 MG VIAL IV ×2 (08:59→21:46)
[2024-06-16] MEDS: SILVER SULFADIAZINE 1% CREAM 25 GM TUBE 1 APPLIC TOPICAL (09:00)
[2024-06-16] MEDS: ONDANSETRON PF 4 MG/2 ML VIAL IV (19:28)
--- NOTE | 2024-06-16 20:37 | PC.NURSE ---
voided missed hat
[2024-06-16] MEDS: HYOSCYAMINE SULFATE 0.125 MG TAB.SUBL SL (23:24)
[2024-06-16] MEDS: PROMETHAZINE HCL 25 MG TABLET PO (23:24)
[2024-06-16] MEDS: ALPRAZOLAM 1 MG TABLET 0.5 MG PO (23:24)
[2024-06-17] VITALS (14 sets, daily range): BP systolic 132–151; BP diastolic 77–88; PULSE 67–90; TEMP 36.3–36.9; O2SAT 95–98
[2024-06-17] MEDS: 0.9 % SODIUM CHLORIDE 1,000 ML 125 ML IV ×3 (03:15→20:40)
[2024-06-17] MEDS: PIPERACILLIN SODIUM/TAZOBACTAM 3.375 GM in 0.9 % SODIUM CHLORIDE 50 ML IV ×3 (04:31→23:31)
[2024-06-17 06:32] LABS: Hemoglobin 7.6 g/dL (12.0-16.0); Mean Corpuscular HGB Conc 29.2 g/dL (29.9-35.2); Mean Corpuscular Volume 92.2 fL (81.0-99.0); Red Blood Count 2.82 10^6/uL (4.20-5.40)
[2024-06-17 06:33] LABS: Basophils Percent Auto 0.5 % (0.2-2.0); Eosinophils Absolute Auto 0.1 10^3/uL (0.0-0.7); Eosinophils Percent Auto 0.6 % (0.9-7.0); Immature Granulocytes Abs Auto 0.04 10^3/uL (0.00-0.03); Immature Granulocytes Pct Auto 0.5 % (0.0-0.5); Lymphocytes Absolute Auto 0.8 10^3/uL (1.2-3.8); Lymphocytes Percent Auto 10.6 % (20.5-60.0); Monocytes Absolute Auto 0.5 10^3/uL (0.3-0.8); Monocytes Percent Auto 6.5 % (1.7-12.0); Neutrophils Absolute Auto 6.5 10^3/uL (1.4-6.5); Neutrophils Percent Auto 81.3 % (43.0-75.0); Platelet Count 210 10^3/uL (150-450); Red Cell Distribution Width 16.4 % (11.0-15.0)
[2024-06-17 06:46] LABS: Alanine Aminotransferase 18 U/L (14-59); Albumin Globulin Ratio 0.3; Albumin Level 1.3 g/dL (3.4-5.0); Alkaline Phosphatase 62 U/L (46-116); Anion Gap 15.6; Aspartate Amino Transferase 22 U/L (15-37); BUN Creatinine Ratio 6.3; Bilirubin Total 0.5 mg/dL (0.2-1.0); Calcium 6.3 mg/dL (8.5-10.1); Carbon Dioxide 17.5 mmol/L (21.0-32.0); Chloride 108 mmol/L (98-107); Estimated GFR (African America >60 (>=60); Estimated GFR (Non-African Ame 59 (>=60); Globulin 4.5 g/dL; Glucose 156 mg/dL (74-106); Potassium 3.1 mmol/L (3.5-5.1); Sodium 138 mmol/L (136-145); Total Protein 5.8 g/dL (6.4-8.2)
--- NOTE | 2024-06-17 07:42 | P.PN_ITS ---
Progress Note: Subjective Subjective Interval history: Patient is sitting up in bed this morning eating breakfast. She complains of vaginal itching, thinks she has yeast infection. She is alert and oriented x 3. We discussed options of long-term facilities for physical therapy. She said she will think about it. Exam Narrative Exam Narrative: General: Patient is alert, and oriented to person, place and time with normal affect, proper hygiene Skin: right knee abrasion Head: atraumatic, acephalic Eyes: PERRLA, no nystagmus present, conjunctiva clear, no scleral icterus Ears: normal gross auditory acuity Heart: Normal rate and rhythm, no murmurs/rubs/gallops Lungs: no audible wheezes, crackles and normal breath sounds all lung alvarez Abdomen: Normal audible bowel sounds, no distension, No palpable masses, no organomegaly, no rebound/guarding/ or rigidity Musculoskeletal: no swelling bilateral lower extremities Neuro: CN II-X grossly intact Constitutional Vital Signs, click to edit/add: Last Vital Signs Temp 97.8 F 06/17/24 03:31 Pulse 82 06/17/24 06:00 Resp 18 06/17/24 03:31 BP 151/88 H 06/17/24 03:31 Pulse Ox 95 06/17/24 03:31 O2 Del Method Room Air 06/17/24 03:31 Progress Note: Objective Labs Labs: Short CBC 06/17/24 Range/Units 06:05 WBC 8.0 (4.0-11.0) 10^3/uL Hgb 7.6 L (12.0-16.0) g/dL Hct 26.0 L (36.0-48.0) % Plt Count 210 (150-450) 10^3/uL BMP 06/16/24 06/17/24 06:45 06:05 Sodium 141 138 Potassium 4.1 3.1 L Chloride 109 H 108 H Carbon Dioxide 22.6 17.5 L BUN 16.0 6.0 L Creatinine 1.16 H 0.96 Glucose 94 156 H Calcium 7.2 L 6.3 L Liver Function 06/16/24 06/17/24 Range/Units 06:45 06:05 Total Bilirubin 0.7 0.5 (0.2-1.0) mg/dL AST 30 22 (15-37) U/L ALT 21 18 (14-59) U/L Alkaline Phosphatase 77 62 (46-116) U/L Albumin 1.5 L 1.3 L (3.4-5.0) g/dL Progress Note: A&P Assessment and Plan (1) UTI (urinary tract infection): Assessment and Plan: continue to treat with IV Levaquin. Still awaiting blood and urine cultures. WBC's are normal range Qualifiers: Hematuria presence: without hematuria Urinary tract infection type: acute cystitis Qualified Code(s): N30.00 - Acute cystitis without hematuria (2) Bacteremia due to Staphylococcus aureus without sepsis: Assessment and Plan: most likely urine as source awaiting C&S, continue IV antibiotics. Levaquin and Zosyn (3) YAMILET (acute kidney injury): Assessment and Plan: continues to improve with UTI treatment (4) Hypokalemia: Assessment and Plan: replacing with IV and oral potassium (5) Hypertension: Assessment and Plan: continue home meds: coreg but due to elevation, will increase coreg to 25mg PO BID Qualifiers: Hypertension type: primary hypertension Qualified Code(s): I10 - Essential (primary) hypertension (6) Bipolar disorder: Assessment and Plan: continue buspar, Tegretol, wellbutrin, abilify, xanax Qualifiers: Active/Remission status: in remission of unspecified degree Qualified Code(s): F31.70 - Bipolar disorder, currently in remission, most recent episode unspecified (7) Vaginal yeast infection: Assessment and Plan: treat with diflucan 150mg x 1 Plan patient is a full code Patient's mentation is improving, awaiting C&S results, continue broad spectrum antibiotics, possible rehab placement. Monitor H&H, not on lovenox
--- NOTE | 2024-06-17 09:28 | PC.NURSE ---
Patient removing tele, causing increased anxiety. She continues to express that she doesn't want that on her. Doctor notified. New order to discontinue Tele.
[2024-06-17] MEDS: BUSPIRONE HCL 15 MG TABLET 30 MG PO ×2 (09:56→20:39)
[2024-06-17] MEDS: ARIPIPRAZOLE 5 MG TABLET 15 MG PO (09:56)
[2024-06-17] MEDS: CARVEDILOL 25 MG TABLET PO ×2 (09:57→20:40)
[2024-06-17] MEDS: PANTOPRAZOLE SODIUM 40 MG VIAL IV ×2 (09:57→20:35)
[2024-06-17] MEDS: BUPROPION HCL 150 MG XL TABLET 24H 300 MG PO (09:57)
[2024-06-17] MEDS: BUPROPION HCL 150 MG XL TABLET 24H PO (09:57)
[2024-06-17] MEDS: NYSTATIN 100,000 UNITS/GRAM CREAM 15 GM TUBE 1 APPLIC TOPICAL ×2 (09:58→23:33)
[2024-06-17] MEDS: SILVER SULFADIAZINE 1% CREAM 25 GM TUBE 1 APPLIC TOPICAL ×2 (09:59→23:32)
[2024-06-17] MEDS: FLUCONAZOLE 150 MG TABLET PO (10:02)
[2024-06-17] MEDS: CARBAMAZEPINE 200 MG TABLET PO (10:03)
[2024-06-17] MEDS: PROMETHAZINE HCL 25 MG TABLET PO (10:04)
[2024-06-17] MEDS: POTASSIUM CHLORIDE 40 MEQ in 0.9 % SODIUM CHLORIDE 250 ML 67.5 MEQ IV (14:28)
[2024-06-17] MEDS: ALPRAZOLAM 1 MG TABLET 0.5 MG PO (18:28)
[2024-06-17] MEDS: LEVOFLOXACIN IN DEXTROSE 5 % 750 MG/150 ML IV.SOLN 100 MG IV (18:30)
[2024-06-17] MEDS: ATORVASTATIN CALCIUM 40 MG TABLET PO (20:39)
[2024-06-17] MEDS: CARBAMAZEPINE 200 MG TABLET 400 MG PO (20:39)
[2024-06-17] MEDS: ENSURE HP 237 ML LIQUID PO (20:52)
[2024-06-18 05:00] VITALS: O2SAT 98
[2024-06-18 07:01] LABS: Basophils Percent Auto 0.4 % (0.2-2.0); Eosinophils Absolute Auto 0.1 10^3/uL (0.0-0.7); Eosinophils Percent Auto 1.2 % (0.9-7.0); Hematocrit 24.5 % (36.0-48.0); Hemoglobin 7.6 g/dL (12.0-16.0); Immature Granulocytes Abs Auto 0.03 10^3/uL (0.00-0.03); Immature Granulocytes Pct Auto 0.4 % (0.0-0.5); Lymphocytes Percent Auto 12.4 % (20.5-60.0); Mean Corpuscular Hemoglobin 26.5 pg (26.7-34.0); Mean Corpuscular Volume 85.4 fL (81.0-99.0); Monocytes Absolute Auto 0.5 10^3/uL (0.3-0.8); Monocytes Percent Auto 6.3 % (1.7-12.0); Neutrophils Absolute Auto 6.1 10^3/uL (1.4-6.5); Neutrophils Percent Auto 79.3 % (43.0-75.0); Platelet Count 195 10^3/uL (150-450); Red Blood Count 2.87 10^6/uL (4.20-5.40); Red Cell Distribution Width 16.2 % (11.0-15.0); White Blood Count 7.6 10^3/uL (4.0-11.0)
[2024-06-18 07:21] LABS: Alanine Aminotransferase 27 U/L (14-59); Albumin Globulin Ratio 0.3; Albumin Level 1.4 g/dL (3.4-5.0); Alkaline Phosphatase 64 U/L (46-116); Anion Gap 12.8; Aspartate Amino Transferase 32 U/L (15-37); BUN Creatinine Ratio 3.2; Bilirubin Total 0.5 mg/dL (0.2-1.0); Calcium 6.3 mg/dL (8.5-10.1); Carbon Dioxide 23.4 mmol/L (21.0-32.0); Chloride 109 mmol/L (98-107); Estimated GFR (African America >60 (>=60); Estimated GFR (Non-African Ame 60 (>=60); Globulin 4.5 g/dL; Glucose 106 mg/dL (74-106); Potassium 3.2 mmol/L (3.5-5.1); Sodium 142 mmol/L (136-145); Total Protein 5.9 g/dL (6.4-8.2)
[2024-06-18] MEDS: PIPERACILLIN SODIUM/TAZOBACTAM 3.375 GM in 0.9 % SODIUM CHLORIDE 50 ML IV (08:24)
[2024-06-18] MEDS: PANTOPRAZOLE SODIUM 40 MG VIAL IV (08:24)
[2024-06-18] MEDS: ARIPIPRAZOLE 5 MG TABLET 15 MG PO (08:25)
[2024-06-18] MEDS: SUCRALFATE 1 GM TABLET PO ×2 (08:25→11:56)
[2024-06-18] MEDS: CARVEDILOL 25 MG TABLET PO (08:26)
[2024-06-18] MEDS: CETIRIZINE HCL 10 MG TABLET PO (08:26)
[2024-06-18] MEDS: BUPROPION HCL 150 MG XL TABLET 24H PO (08:26)
[2024-06-18] MEDS: BUPROPION HCL 150 MG XL TABLET 24H 300 MG PO (08:26)
[2024-06-18] MEDS: BUSPIRONE HCL 15 MG TABLET 30 MG PO (08:26)
[2024-06-18] MEDS: SILVER SULFADIAZINE 1% CREAM 25 GM TUBE 1 APPLIC TOPICAL (08:27)
[2024-06-18] MEDS: NYSTATIN 100,000 UNITS/GRAM CREAM 15 GM TUBE 1 APPLIC TOPICAL (08:27)
[2024-06-18] MEDS: CARBAMAZEPINE 200 MG TABLET PO (08:31)
[2024-06-18] MEDS: ONDANSETRON PF 4 MG/2 ML VIAL IV (08:31)
--- NOTE | 2024-06-18 08:41 | PM.DS1 ---
DS: Providers Provider Date of admission: 06/13/24 14:47 Primary care physician: Julianne Lord NP Admitting clinician: Lucio Orourke Consults: 06/13/24 Consult to [employer] Routine Reason for consult:: Food/Nutrition 06/13/24 15:38 Occupational Therapy Eval and Treat Routine Reason for consultation: Only if needed for Rehab Has provider been notified: No Physical Therapy Eval and Treat Routine Reason for consultation: Eval and Treat Has provider been notified: No Discharging clinician: Dena Roman DS: Diagnosis Discharge Diagnosis (1) Bacteremia due to Staphylococcus aureus without sepsis: (2) E-coli UTI: (3) YAMILET (acute kidney injury): (4) Hypokalemia: (5) Hypertension: Qualifiers: Hypertension type: primary hypertension Qualified Code(s): I10 - Essential (primary) hypertension (6) Bipolar disorder: Qualifiers: Active/Remission status: in remission of unspecified degree Qualified Code(s): F31.70 - Bipolar disorder, currently in remission, most recent episode unspecified (7) Vaginal yeast infection: DS: Summary Hospital Course Hospital Course: Patient admitted on 06/13/24 for Patient had not been seen or heard from him in several days, landlord went into the house, found patient to have altered mental status, EMS was called and brought patient to the emergency room. Patient states she has not ate or drank anything for the last week. She has significant altered mental status in the emergency room. Still not sure what her baseline is. In ER found to have cellulitis of her lower abdominal wall and UTI, acute renal failure. Patient admitted to the ICU. Patient presented with sepsis from UTI and Bacteremia. She was given fluid resuscitation, IV Levaquin and Zosyn. Also had fever, tachycardia, and multiple electrolyte abnormalities, ARF. Electrolyte abnormalities corrected. Mentation improved. Patient grew Staph Haemolyticus from her blood culture that is sensitive to Levaquin and also Ecoli that is also sensitive to levaquin. She will complete a 14 days of Levaquin 500mg Daily. Her potassium continued to be low and was replaced IV, she will be discharged on oral potassium. She also has yeast Vaginitis that was treated with oral Diflucan 150mg once and topical Monistat for 7 more days. Her kidney function is normal range at the time of discharge. WBC's also normal range. She is very weak and needs assistance to stand. She will be transferred to [facility] nursing [facility] for rehab services. Patient will need cbc and bmp checked within 1 week to assess further need for supplements and to monitor anemia. She may return to the ER with any worsening signs or symptoms. Status at Discharge Functional status at discharge: uses cane/walker Overall status at discharge: patient is progressing back to baseline Time Spent with Patient Time attestation: Total time spent providing and/or coordinating discharge services: Time spent: greater than 30 minutes Exam Narrative Exam Narrative: General: Patient is alert, and oriented to person, place and time with normal affect, proper hygiene Skin: right knee abrasion Head: atraumatic, acephalic Eyes: PERRLA, no nystagmus present, conjunctiva clear, no scleral icterus Ears: normal gross auditory acuity Heart: Normal rate and rhythm, no murmurs/rubs/gallops Lungs: no audible wheezes, crackles and normal breath sounds all lung alvarez Abdomen: Normal audible bowel sounds, no distension, No palpable masses, no organomegaly, no rebound/guarding/ or rigidity Musculoskeletal: no swelling bilateral lower extremities Neuro: CN II-X grossly intact Constitutional Vital Signs, click to edit/add: Last Vital Signs Temp 97.6 F 06/17/24 23:17 Pulse 77 06/17/24 23:17 Resp 18 06/17/24 23:17 BP 136/85 06/17/24 23:17 Pulse Ox 98 06/18/24 05:00 O2 Del Method Room Air 06/18/24 05:00 DS: Data Data Completed and Pending Labs on day of discharge: Labs from last 24 hours 06/18/24 06:45 WBC 7.6 RBC 2.87 L Hgb 7.6 L Hct 24.5 L MCV 85.4 MCH 26.5 L MCHC 31.0 RDW 16.2 H Plt Count 195 MPV 9.0 L Neut % (Auto) 79.3 H Lymph % (Auto) 12.4 L Gregg % (Auto) 6.3 Eos % (Auto) 1.2 Baso % (Auto) 0.4 Neut # (Auto) 6.1 Lymph # (Auto) 1.0 L Gregg # (Auto) 0.5 Eos # (Auto) 0.1 Baso # (Auto) 0.0 Abs Immat Gran (auto) 0.03 Imm/Tot Granulo (auto) 0.4 Sodium 142 Potassium 3.2 L Chloride 109 H Carbon Dioxide 23.4 Anion Gap 12.8 BUN 3.0 L Creatinine 0.94 Est GFR ( Amer) >60 Est GFR (Non-Af Amer) 60 BUN/Creatinine Ratio 3.2 Glucose 106 Calcium 6.3 L Total Bilirubin 0.5 AST 32 ALT 27 Alkaline Phosphatase 64 Total Protein 5.9 L Albumin 1.4 L Globulin 4.5 Albumin/Globulin Ratio 0.3 Preliminary micro results at discharge 06/13/24 12:38 Urine Culture - Preliminary Urine,Clean Catch Gram negative marisela 06/13/24 13:03 - Preliminary Blood - Left Antecubital 06/13/24 12:55 Blood Culture Result 1 - Preliminary Blood - Right Antecubital Discharge Plan Discharge Disposition: Xfer SNF Condition: Fair Discharge Medications: New miconazole nitrate [Miconazole-7] 2 % Cream 1 applic vaginal QD 7 Days Qty: 1 0RF meclizine 12.5 mg Tablet 25 mg PO Q6H PRN (Reason: Vertigo) 7 Days Qty: 28 0RF Ensure Active Protein-Muscle Liquid 1 ea PO BID 30 Days Qty: 30 0RF potassium chloride 10 mEq Tablet,Er Particles/Crystals 20 meq PO TID 7 Days Qty: 42 0RF levofloxacin 500 mg tablet 500 mg PO DAILY 14 Days Qty: 14 0RF Continued aspirin 81 mg tablet,delayed release (DR/EC) 81 mg PO DAILY atorvastatin 40 mg tablet 40 mg PO DAILY buspirone 30 mg tablet 30 mg PO BID bupropion HCl 300 mg tablet extended release 24 hr 300 mg PO DAILY bupropion HCl 150 mg tablet extended release 24 hr 150 mg PO DAILY meloxicam 7.5 mg tablet 7.5 mg PO DAILY loratadine 10 mg tablet 10 mg PO DAILY carbamazepine [Tegretol] 200 mg tablet 200 mg PO .COMPLEX Rx Instructions: 200 mg orally PO QAM AND 400 MG POQPM; Caplyta 42 mg capsule 42 mg PO DAILY aripiprazole 15 mg tablet 15 mg PO DAILY carvedilol 25 mg tablet 25 mg PO BID hydrochlorothiazide 25 mg tablet 25 mg PO DAILY losartan 50 mg tablet 50 mg PO DAILY alprazolam 1 mg tablet 0.5 mg PO BID PRN (Reason: anxiety) 2 Days Qty: 4 0RF Print Language: Tamazight 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
--- NOTE | 2024-06-18 09:04 | SWNOTE1 ---
No precert approval yet. SW will need to send PT/OT and other updates from last 24 hours to Rachel at [facility].
--- NOTE | 2024-06-18 10:13 | SWNOTE1 ---
SW sent updated OT note from today, PT from 06/16, physician notes from the weekend, labs, vitals, nursing notes, and med list from today to [place].
[2024-06-18 10:15] VITALS: BP 95/64; PULSE 79; O2SAT 95
--- NOTE | 2024-06-18 10:43 | SWNOTE1 ---
SW stopped in to speak with pt and update her on insurance/precert. Pt voiced she is feeling a little better. SW let her know we are waiting on her insurance to approve her to go skilled at [facility] in [place]. Pt asked which facility? SW let her know that there is only one in [place] and it is on [address] and pt agreed to go on /Tuesday. SW encouraged pt that she will benefit from short term rehab stay to build up strength and stated it would only be a like a week or two. Pt did voice she has to pay her rent on the first of the month. SW voiced it would be good timing as she will likely only need that week and a half to build herself up to go home. Pt is in agreement at this time. SW to update her once we get the approval.
--- NOTE | 2024-06-18 10:59 | CM.NOTE ---
Rounds made with Dr. Roman. Deni requires much encouragement to participate in any therapy and treatment plan. Dr. Rmoan to order additional medications.
--- NOTE | 2024-06-18 11:41 | SWNOTE1 ---
SW received message from [employer] and pt is approved. SW let nursing and doctor know. SW to work on transport.
[2024-06-18] MEDS: MICONAZOLE NITRATE 2% 1 APPLIC VAGINAL (11:56)
--- NOTE | 2024-06-18 12:17 | SWNOTE1 ---
Discharge med rec sent to [facility].
--- NOTE | 2024-06-18 12:18 | SWNOTE1 ---
Pt is approved to go to [facility]. SW set up trips for 1-1:30.
== END 2024-06-18 13:35 | DRG 720 ==
LOC: ER 14:46 → ICU 14:54 → MS 06-15 17:26
PROVIDERS: Family Medicine; Admitting Provider Family Medicine; Emergency Provider Emergency Medicine; PCP Nurse Practitioner; Visit Provider Family Medicine
DX: A41.1 Sepsis due to other specified staphylococcus (principal); N30.00 Acute cystitis without hematuria; N17.9 Acute kidney failure, unspecified; E87.6 Hypokalemia; I10 Essential (primary) hypertension; F31.9 Bipolar disorder, unspecified; B37.31 Acute candidiasis of vulva and vagina; E87.1 Hypo-osmolality and hyponatremia; D62 Acute posthemorrhagic anemia; A41.51 Sepsis due to Escherichia coli [E. coli]; K92.2 Gastrointestinal hemorrhage, unspecified; L03.311 Cellulitis of abdominal wall; E86.0 Dehydration; D50.9 Iron deficiency anemia, unspecified; R79.89 Other specified abnormal findings of blood chemistry; E43 Unspecified severe protein-calorie malnutrition; Z68.29 Body mass index [BMI] 29.0-29.9, adult; Z87.891 Personal history of nicotine dependence; Z79.82 Long term (current) use of aspirin; Z79.899 Other long term (current) drug therapy
CPT/HCPCS: 36415; 70450; 71045; 80053; 80307; 80320; 81001; 82550; 83605; 83735; 84484; 85007; 85025; 85027; 87040; 87077; 87086; 87150; 87186; 93005; 94667; 94668; 94761; 96361; 96365; 96366; 96367; 96368; 96375; 96376; 97110; 97161; 97165; 97530; 97535; 99285; G0328; J2405; J2543; J3370; J3480; Q0169

== ENCOUNTER 2024-07-12 13:30 | Outpatient (OUT) | payer OTHER, SELFPAY ==
--- OUTSIDE RECORDS SUMMARY | 2024-07-12 13:48 | XMS_ITS | CCD ---
Author Organization [facility] Care Team Providers Care Senior Java Web Application Developer Name Role Phone PATRICK DAO Admitting Unavailable WILLIS, PATRICK Attending Unavailable AICHHOLZ, AIRCRAFT RESTORER JULIANNE Primary Care Unavailable SPROUT, PATRICK Consulting Unavailable SPROUT, PATRICK Admitting Unavailable SPROUT, PATRICK Attending Unavailable AICHHOLZ, AIRCRAFT RESTORER JULIANNE Primary Care Unavailable SPROUT, PATRICK Consulting Unavailable AICHHOLZ, AIRCRAFT RESTORER JULIANNE Admitting Unavailable AICHHOLZ, AIRCRAFT RESTORER JULIANNE Attending Unavailable AICHHOLZ, AIRCRAFT RESTORER JULIANNE Primary Care Unavailable Aichholz OPEN CUT EXAMINER, Julianne Unavailable Zhen Christiansen MD Primary Care Provider AICHHOLZ, JULIANNE Attending Unavailable AICHHOLZ, JULIANNE Attending [...] 6.25 mg oral tablet (3 sources) alpha-Adrenergic Hwoard, beta-Adrenergic Howard Start: 11-16-2023 take 1 tablet [...] 07-15-2022 Chronic Other aftercare (1 source) Other alf (current) drug therapy; Translations: [OTH SHELTER CURRENT [...] 09-08-2022 BASO # 0.1 103/ul Normal 0.0-0.1 [facility] Comment on above: Performed By: #### C BC #### [facility] [address] [address] [address] Anish Johnson Basophils/100 WBC (Bld) 1.1 % Normal 0.2-2.0 [facility] Comment on above: Performed By: #### C BC #### [facility] [address] [address] [address] Anish Johnson EO # 0.3 103/ul Normal 0.0-0.7 [facility] Comment on above: Performed By: #### C BC #### [facility] [address] [address] [address] Anish Johnson Eosinophils/100 WBC (Bld) 4.1 % Normal 0.9-7.0 [facility] Comment on above: Performed By: #### C BC #### [facility] [address] [address] [address] Anish Johnson Erythrocyte distribution width (RBC) [Ratio] 15.1 % Critically high 11.0-15.0 [facility] Comment on above: Performed By: #### C BC #### [facility] [address] [place] [address] Dr. Anish Johnson Hematocrit (Bld) [Volume fraction] 40.6 % Normal 36.0-48.0 [facility] Comment on above: Performed By: #### C BC #### [facility] [address] [place] [address] Dr. Anish Johnson Hemoglobin (Bld) [Mass/Vol] 12.4 g/dL Normal 12.0-16.0 [facility] Comment on above: Performed By: #### C BC #### [facility] [address] [address] [address] Anish Johnson IG # 0.02 10e3/ul Normal 0.00-0.03 [facility] Comment on above: Performed By: #### C BC #### [facility] [address] [place] [address] Dr. Anish Johnson IG % 0.3 % Normal 0.0-0.5 [facility] Comment on above: Performed By: #### C BC #### [facility] [address] [place] [address] Dr. Anish Johnson LYMPH # 1.3 103/ul Normal 1.2-3.8 [facility] Comment on above: Performed By: #### C BC #### [facility] [address] [place] [address] Dr. Anish Johnson Lymphocytes/100 WBC (Bld) 19.7 % Critically low 20.5-60.0 [facility] Comment on above: Performed By: #### C BC #### [facility] [address] [place] [address] Dr. Anish Johnson MANUAL DIFF REQ NO Normal [facility] Comment on above: Performed By: #### C BC #### [facility] [address] [place] [address] Dr. Anish Johnson MCH (RBC) [Entitic mass] 25.5 pg Critically low 26.7-34.0 [facility] Comment on above: Performed By: #### C BC #### [facility] [address] [place] [address] Dr. Anish Johnson MCHC (RBC) [Mass/Vol] 30.5 g/dL Normal 29.9-35.2 [facility] Comment on above: Performed By: #### C BC #### [facility] [address] [place] [address] Dr. Anish Johnson MCV (RBC) [Entitic vol] 83.4 fL Normal 81.0-99.0 [facility] Comment on above: Performed By: #### C BC #### [facility] [address] [place] [address] Dr. Anish Johnson MONO # 0.5 103/ul Normal 0.3-0.8 [facility] Comment on above: Performed By: #### C BC #### [facility] [address] [place] [address] Dr. Anish Johnson Monocytes/100 WBC (Bld) 7.0 % Normal 1.7-12.0 [facility] Comment on above: Performed By: #### C BC #### [facility] [address] [place] [address] Dr. Anish Johnson NEUT # 4.5 103/ul Normal 1.4-6.5 [facility] Comment on above: Performed By: #### C BC #### [facility] [address] [place] [address] Dr. Anish Johnosn Neutrophils/100 WBC (Bld) 67.8 % Normal 43.0-75.0 [facility] Comment on above: Performed By: #### C BC #### [facility] [address] [place] [address] Dr. Anish Johnson Platelet mean volume (Bld) [Entitic vol] 10.5 fL Normal 9.5-13.5 [facility] Comment on above: Performed By: #### C BC #### [facility] [address] [place] [address] Dr. Anish Johnson PLT 297 103/ul Normal 150-450 [facility] Comment on above: Performed By: #### C BC #### [facility] [address] [place] [address] Dr. Anish Johnson RBC 4.87 106/ul Normal 4.20-5.40 [facility] Comment on above: Performed By: #### C BC #### [facility] [address] [place] [address] Dr. Anish Johnson WBC 6.6 103/ul Normal 4.0-11.0 [facility] Comment on above: Performed By: #### C BC #### [facility] [address] [place] [address] Dr. Anish Johnson CARBAMAZEPINEon 07-16-2022 Carbamezapine 5.4 ug/mL Normal 4.0-12.0 [facility] Comment on above: Result Comment: In c onjunction with other antiepileptic drugs Therapeutic 4.0 - 8.0 Toxicity 9.0 - 12.0 . Carbamazepine alone Therapeutic 8.0 - 12.0 . Detection Limit = 2.0 <2.0 indicated None Detected Performed By: #### C ARBLC #### [facility] [address] [place] [address] Dr. Anish Johnson CBC AUTO DIFFon 07-15-2022 BASO # 0.0 103/ul Normal 0.0-0.1 [facility] Comment on above: Performed By: #### C BC #### [facility] [address] [place] [address] Dr. Anish Johnson Basophils/100 WBC (Bld) 0.5 % Normal 0.2-2.0 [facility] Comment on above: Performed By: #### C BC #### [facility] [address] [place] [address] Dr. Anish Johnson EO # 0.2 103/ul Normal 0.0-0.7 [facility] Comment on above: Performed By: #### C BC #### [facility] [address] [place] [address] Dr. Anish Johnson Eosinophils/100 WBC (Bld) 2.9 % Normal 0.9-7.0 [facility] Comment on above: Performed By: #### C BC #### [facility] [address] [place] [address] Dr. Anish Johnson Erythrocyte distribution width (RBC) [Ratio] 15.7 % Critically high 11.0-15.0 [facility] Comment on above: Performed By: #### C BC #### [facility] [address] [place] [address] Dr. Anish Johnson Hematocrit (Bld) [Volume fraction] 40.2 % Normal 36.0-48.0 [facility] Comment on above: Performed By: #### C BC #### [facility] [address] [place] [address] Dr. Anish Johnson Hemoglobin (Bld) [Mass/Vol] 12.5 g/dL Normal 12.0-16.0 [facility] Comment on above: Performed By: #### C BC #### [facility] [address] [place] [address] Dr. Anish Johnson IG # 0.02 10e3/ul Normal 0.00-0.03 [facility] Comment on above: Performed By: #### C BC #### [facility] [address] [place] [address] Dr. Anish Johnson IG % 0.3 % Normal 0.0-0.5 [facility] Comment on above: Performed By: #### C BC #### [facility] [address] [place] [address] Dr. Anish Johnson LYMPH # 1.5 103/ul Normal 1.2-3.8 [facility] Comment on above: Performed By: #### C BC #### [facility] [address] [place] [address] Dr. Anish Johnson Lymphocytes/100 WBC (Bld) 18.7 % Critically low 20.5-60.0 [facility] Comment on above: Performed By: #### C BC #### [facility] [address] [place] [address] Dr. Anish Johnson MANUAL DIFF REQ NO Normal [facility] Comment on above: Performed By: #### C BC #### [facility] [address] [place] [address] Dr. Anish Johnson MCH (RBC) [Entitic mass] 25.4 pg Critically low 26.7-34.0 [facility] Comment on above: Performed By: #### C BC #### [facility] [address] [place] [address] Dr. Anish Johnson MCHC (RBC) [Mass/Vol] 31.1 g/dL Normal 29.9-35.2 [facility] Comment on above: Performed By: #### C BC #### [facility] [address] [place] [address] Dr. Anish Johnson MCV (RBC) [Entitic vol] 81.7 fL Normal 81.0-99.0 [facility] Comment on above: Performed By: #### C BC #### [facility] [address] [place] [address] Dr. Anish Johnson MONO # 0.7 103/ul Normal 0.3-0.8 [facility] Comment on above: Performed By: #### C BC #### [facility] [address] [place] [address] Dr. Anish Johnson Monocytes/100 WBC (Bld) 8.3 % Normal 1.7-12.0 [facility] Comment on above: Performed By: #### C BC #### [facility] [address] [place] [address] Dr. Anish Johnson NEUT # 5.4 103/ul Normal 1.4-6.5 [facility] Comment on above: Performed By: #### C BC #### [facility] [address] [place] [address] Dr. Anish Johnson Neutrophils/100 WBC (Bld) 69.3 % Normal 43.0-75.0 [facility] Comment on above: Performed By: #### C BC #### [facility] [address] [place] [address] Dr. Anish Johnson Platelet mean volume (Bld) [Entitic vol] 10.6 fL Normal 9.5-13.5 [facility] Comment on above: Performed By: #### C BC #### [facility] [address] [place] [address] Dr. Anish Johnson PLT 297 103/ul Normal 150-450 [facility] Comment on above: Performed By: #### C BC #### [facility] [address] [place] [address] Dr. Anish Johnson RBC 4.92 106/ul Normal 4.20-5.40 [facility] Comment on above: Performed By: #### C BC #### [facility] [address] [place] [address] Dr. Anish Johnson WBC 7.8 103/ul Normal 4.0-11.0 [facility] Comment on above: Performed By: #### C BC #### [facility] [address] [address] [address] Anish Johnson GLUCOSE BLOODon 07-15-2022 Glucose [Mass/Vol] 133 mg/dL Critically high 74-106 [facility] Comment on above: Performed By: #### L IVER, GLUC, TSH, LIPID #### [facility] [address] [address] [address] Anish Johnson LIPID PROFILEon 07-15-2022 CHOL-HDL RATIO NORM SEE BELOW Normal [facility] Comment on above: Result Comment: 3.3 - 4.4 LOW RISK 4.4 - 7.1 AVERAGE RISK 7.1 - 11.0 MODERATE RISK >11.0 HIGH RISK Performed By: #### L IVER, GLUC, TSH, LIPID #### [facility] [address] [address] [address] Anish Johnson Cholesterol [Mass/Vol] 135 mg/dL Normal <=200 [facility] Comment on above: Performed By: #### L IVER, GLUC, TSH, LIPID #### [facility] [address] [address] [address] Anish Johnson Cholesterol in HDL [Mass/Vol] 58 mg/dL Normal 40-60 [facility] Comment on above: Performed By: #### L IVER, GLUC, TSH, LIPID #### [facility] [address] [address] [address] Anish Johnson Cholesterol in LDL [Mass/Vol] 54.2 mg/dL Normal [facility] Comment on above: Performed By: #### L IVER, GLUC, TSH, LIPID #### [facility] [address] [address] [address] Anish Johnson Cholesterol.total/Cho lesterol in HDL [Mass ratio] 2.3 {ratio} Normal [facility] Comment on above: Performed By: #### L IVER, GLUC, TSH, LIPID #### [facility] [address] [address] [address] Anish Johnson HDL NORMAL > or = 60 mg/dl - LOW CARDIOVASCULAR RISK <40 mg/dl - HIGH CARDIOVASCULAR RISK Normal [facility] Comment on above: Performed By: #### L IVER, GLUC, TSH, LIPID #### [facility] [address] [address] [address] Anish Johnson LDL CALC NORMAL SEE BELOW Normal [facility] Comment on above: Result Comment: <100 mg/dl OPTIMAL 100 - 129 mg/dl NEAR OR ABOVE OPTIMAL 130 - 159 mg/dl BORDERLINE HIGH 160 - 189 mg/dl HIGH >190 mg/dl VERY HIGH Performed By: #### L IVER, GLUC, TSH, LIPID #### [facility] [address] [address] [address] Anish Johnson Triglyceride [Mass/Vol] 114 mg/dL Normal <=150 [facility] Comment on above: Performed By: #### L IVER, GLUC, TSH, LIPID #### [facility] [address] [address] [address] Anish Johnson VLDL CALC 22.8 mg/dL Normal [facility] Comment on above: Performed By: #### L IVER, GLUC, TSH, LIPID #### [facility] [address] [address] [address] Anish Johnson LIVER PROFILEon 07-15-2022 Albumin [Mass/Vol] 4.3 g/dL Normal 3.4-5.[address] [facility] Comment on above: Performed By: #### L IVER, GLUC, TSH, LIPID #### [facility] [address] [address] [address] Anish Johnson Albumin/Globulin [Mass ratio] 1.0 {ratio} Normal [facility] Comment on above: Performed By: #### L IVER, GLUC, TSH, LIPID #### [facility] [address] [address] [address] Anish Johnson ALP [Catalytic activity/Vol] 108 U/L Normal 46-116 [facility] Comment on above: Performed By: #### L IVER, GLUC, TSH, LIPID #### [facility] [address] [address] [address] Anish Johnson ALT [Catalytic activity/Vol] 26 U/L Normal 14-59 [facility] Comment on above: Performed By: #### L IVER, GLUC, TSH, LIPID #### [facility] [address] [address] [address] Anish Johnson AST [Catalytic activity/Vol] 21 U/L Normal 15-37 [facility] Comment on above: Performed By: #### L IVER, GLUC, TSH, LIPID #### [facility] [address] [place] [address] Dr. Anish Johnson BILI, CONJUGATED 0.1 mg/dL Normal 0.0-0.2 [facility] Comment on above: Performed By: #### L IVER, GLUC, TSH, LIPID #### [facility] [address] [place] [address] Dr. Anish Johnson Bilirubin [Mass/Vol] 0.5 mg/dL Normal 0.2-1.0 [facility] Comment on above: Performed By: #### L IVER, GLUC, TSH, LIPID #### [facility] [address] [place] [address] Dr. Anish Johnson Globulin (S) [Mass/Vol] 4.3 g/dL Normal [facility] Comment on above: Performed By: #### L IVER, GLUC, TSH, LIPID #### [facility] [address] [place] [address] Dr. Anish Johnson Protein [Mass/Vol] 8.6 g/dL Critically high 6.4-8.2 [facility] Comment on above: Performed By: #### L IVER, GLUC, TSH, LIPID #### [facility] [address] [place] [address] Dr. Anish Johnson TSHon 07-15-2022 TSH 1.692 uIU/mL Normal 0.358-3.740 [facility] Comment on above: Performed By: #### L IVER, GLUC, TSH, LIPID #### [facility] [address] [place] [address] Dr. Anish Johnson Vital Signs Date Time Vital Sign Value Performing Clinician April cheng 01-03-2024 15:19-0500 Body height 157.5 cm Julianne Aichholz OPEN CUT EXAMINER Work Phone: [facility] 01-03-2024 15:19-0500 Body mass index (BMI) [Ratio] 34.02 kg/m2 Juliannejulio c Steinholz OPEN CUT EXAMINER Work Phone: [facility] 01-03-2024 15:19-0500 Body temperature 97.5 [degF] Juliannejulio c Rodriguezjose juanholz OPEN CUT EXAMINER Work Phone: [facility] 01-03-2024 15:19-0500 Body weight 84.37 kg Julianne Jenniferhholz OPEN CUT EXAMINER Work Phone: [facility] 01-03-2024 15:19-0500 Diastolic blood pressure 82 mm[Hg] Julianne Jenniferhholz OPEN CUT EXAMINER Work Phone: [facility] 01-03-2024 15:19-0500 Heart rate 87 /min Julianne Jenniferhholz OPEN CUT EXAMINER Work Phone: [facility] 01-03-2024 15:19-0500 Respiratory rate 17 /min Julianne Emilholz OPEN CUT EXAMINER Work Phone: [facility] 01-03-2024 15:19-0500 SaO2% (BldA) [Mass fraction] 97 % Julianne Jenniferhholz OPEN CUT EXAMINER Work Phone: [facility] 01-03-2024 15:19-0500 Systolic blood pressure 128 mm[Hg] Julianne Jenniferhholz OPEN CUT EXAMINER Work Phone: [facility] Healthcare Encounters Encounter Date Encounter Type Care Provider Facility Start: 05-22-2024 ambulatory Chris Chapa acility:[facility] Start: 05-14-2024 End: 05-14-2024 ambulatory JULIANNE AICHHOLZ Not Available Start: 04-19-2024 End: 04-19-2024 ambulatory JULIANNE AICHHOLZ Not Available Start: 04-05-2024 End: 04-05-2024 ambulatory JULIANNE AICHHOLZ Not Available Start: 02-22-2024 End: 02-22-2024 ambulatory JULIANNE AICHHOLZ Not Available Start: 01-24-2024 End: 01-24-2024 ambulatory JULIANNE TIMOTHY Not Available Start: 01-10-2024 Refill Julianne Lord OPEN CUT EXAMINER Work Phone: [facility] Start: 01-03-2024 End: 01-03-2024 Office outpatient visit 25 minutes Julianne Lord OPEN CUT EXAMINER Work Phone: [facility] Comment on above: Essential (primary) hypertension (CMS/HCC) (Primary Dx); BMI 34.0-34.9,adult; Bipolar affective disorder, remission status unspecified (CMS/HCC); Tobacco user; Vertigo; Anxiety Start: 01-03-2024 End: 01-03-2024 ambulatory JULIANNE JENNIFERJose JuanANA Not Available Start: 09-08-2022 End: 09-09-2022 ambulatory PATRICK DAO Facility:[facility] Start: 07-15-2022 End: 07-16-2022 ambulatory PATRICK DAO Facility:[facility] Start: 09-09-2021 ambulatory AIRCRAFT RESTORER JULIANNE LORD Facil ity:[facility] Procedures Date Procedure Procedure Detail Performing Clinician Start: 01-03-2024 Mammography Julianne Mick quintana OPEN CUT EXAMINER Work Phone: Plan of Treatment Date Care Activity Detail Author Start: 01-03-2025 Screening for malign ant neoplasm of breast Mammogram [facility] Start: 01-03-2025 Screening for malign ant neoplasm of colon Colorectal Cancer Screening [facility] Comment on above: Postponed from 10/05 (Patient Refused) Start: 01-24-2024 End: 01-24-2024 Patient encounter procedure 01/24/2024 9:00 AM EST Office Visit [facility] [address] [place] [address] Julianne Lord NP [address] [place] [id number] [facility] Start: 1989 Screening for malign ant neoplasm of cervix HPV/Cotest [facility] Healthcare Start: 1980 Screening for malign ant neoplasm of cervix Pap Smear [facility] Start: 1959 Screening for malign ant neoplasm of colon [facility] Payers Date Payer Category Payer Medicaid [facility] [employer] [place] [id number] 2023-Present [address] [place] [address] [id number] 2023 Self-pay 2013 Medicaid [id number] 1959 Unknown [id number] 1959 Unknown [id number] 1959 Unknown [id number] 1959 Unknown [id number] 1959 Unknown [id number] 1959 Unknown [id number] 1959 Unknown [id number] 1959 Unknown [id number] 1959 Unknown [id number] 1959 Unknown [id number] Social History Date Type Detail Facility Start: [...] DATE CREATED AUTHOR AUTHOR'S ORGANIZ ATION 05/14/2024 [facility] EPIC DATE CREATED AUTHOR AUTHOR'S ORGANIZ ATION 05/23/2024 [facility] Care Teams (unrecognized sec tion and content) Senior Java Web Application Developer Relationship Specialty Start Date End Date Zhen Christiansen MD [address] [place] [address] PCP - General Family Medicine 12/27/23 Julianne Lord NP [address] [place] [id number] Nurse Practitioner Family Medicine 11/28/22 Senior Java Web Application Developer Relationship Specialty Start Date End Date Zhen Christiansen MD [address] [place] [address] PCP - General Family Medicine 12/27/23 Julianne Lord NP [address] [place] [address] Nurse Practitioner Family Medicine 11/28/22 FOR [...] BE BASED ON THE PRIMARY CLINICAL RECORDS. [facility] [facility]. provides no warranty or guarantee of the accuracy or completeness of information in this document.
[2024-07-12 13:50] LABS: Basophils Percent Auto 0.4 % (0.2-2.0); Eosinophils Absolute Auto 0.2 10^3/uL (0.0-0.7); Eosinophils Percent Auto 2.9 % (0.9-7.0); Hematocrit 25.2 % (36.0-48.0); Hemoglobin 7.7 g/dL (12.0-16.0); Immature Granulocytes Abs Auto 0.05 10^3/uL (0.00-0.03); Immature Granulocytes Pct Auto 0.7 % (0.0-0.5); Lymphocytes Absolute Auto 1.7 10^3/uL (1.2-3.8); Lymphocytes Percent Auto 22.6 % (20.5-60.0); Mean Corpuscular HGB Conc 30.6 g/dL (29.9-35.2); Mean Corpuscular Hemoglobin 26.9 pg (26.7-34.0); Mean Corpuscular Volume 88.1 fL (81.0-99.0); Monocytes Absolute Auto 0.5 10^3/uL (0.3-0.8); Monocytes Percent Auto 6.8 % (1.7-12.0); Neutrophils Absolute Auto 5.1 10^3/uL (1.4-6.5); Neutrophils Percent Auto 66.6 % (43.0-75.0); Platelet Count 225 10^3/uL (150-450); Red Blood Count 2.86 10^6/uL (4.20-5.40); Red Cell Distribution Width 20.5 % (11.0-15.0); White Blood Count 7.6 10^3/uL (4.0-11.0)
[2024-07-12 13:56] LABS: Erythrocyte Sedimentation Rate >130 mm/hr (<=30)
[2024-07-12 15:03] LABS: Bilirubin Urine NEGATIVE (NEGATIVE); Blood Urine NEGATIVE (NEGATIVE); Clarity Urine SL CLOUDY (CLEAR); Color Urine LT. YELLOW (YELLOW); Glucose Urine UA NEGATIVE (NEGATIVE); Ketones Urine NEGATIVE (NEGATIVE); Leukocyte Esterase Urine LARGE (NEGATIVE); Nitrite Urine NEGATIVE (NEGATIVE); Protein Urine NEGATIVE (NEG/TRACE); Urobilinogen Urine 0.2 EU/dL (0.2-1.0)
[2024-07-12 15:06] LABS: Urine Microscopic Indicated YES
[2024-07-12 15:11] LABS: Bacteria Urine MODERATE #/HPF (NONE SEEN); WBC Urine 20-50 #/HPF (NONE SEEN)
[2024-07-12 15:12] LABS: Cast Seen? NONE SEEN #/LPF (NONE SEEN); Crystals Seen? None Seen #/HPF (None Seen); Mucus Urine NONE SEEN (NONE SEEN); Squamous Epithelial Cell Urine MANY #/LPF (NONE/RARE); Transitional Epi Cells Urine MODERATE #/LPF (NONE SEEN)
[2024-07-12 15:18] LABS: Percent Iron Saturation 27.9 %
[2024-07-12 15:34] LABS: Creatinine Urine Random 55.79 mg/dL (20.00-300.00); Microalbum Creatinine Ratio Ur 91.4 mg/g (0.0-29.9); Microalbumin Urine Random 5.1 mg/dL (<=30.0)
[2024-07-12 15:35] LABS: Free T4 0.78 ng/dL (0.76-1.46)
[2024-07-12 15:45] LABS: Alanine Aminotransferase 16 U/L (14-59); Albumin Globulin Ratio 0.8; Albumin Level 2.9 g/dL (3.4-5.0); Alkaline Phosphatase 105 U/L (46-116); Anion Gap 12.6; Aspartate Amino Transferase 14 U/L (15-37); BUN Creatinine Ratio 7.5; Bilirubin Total 0.3 mg/dL (0.2-1.0); Calcium 8.8 mg/dL (8.5-10.1); Carbon Dioxide 25.7 mmol/L (21.0-32.0); Chloride 105 mmol/L (98-107); Estimated GFR (African America >60 (>=60); Estimated GFR (Non-African Ame 52 (>=60); Free T3 2.43 pg/mL (2.18-3.98); Globulin 3.7 g/dL; Glucose 101 mg/dL (74-106); Potassium 4.3 mmol/L (3.5-5.1); Sodium 139 mmol/L (136-145); Thyroid Stimulating Hormone 3.213 uIU/mL (0.358-3.740); Total Protein 6.6 g/dL (6.4-8.2)
[2024-07-13 08:12] LABS: Transferrin 181 mg/dL (192-364)
== END 2024-07-12 13:31 | disposition home or self-care (01) ==
LOC: LAB 13:31
PROVIDERS: PCP Nurse Practitioner; Visit Provider Nurse Practitioner
DX: D50.9 Iron deficiency anemia, unspecified (principal); R42 Dizziness and giddiness; M62.81 Muscle weakness (generalized); R53.82 Chronic fatigue, unspecified
CPT/HCPCS: 36415; 80053; 81001; 82043; 82570; 82728; 83540; 83550; 84439; 84443; 84466; 84481; 85025; 85652

== ENCOUNTER 2024-07-13 09:07 | Observation (INO) | payer OTHER, SELFPAY ==
[2024-07-13] VITALS (29 sets, daily range): BP systolic 127–166; BP diastolic 70–115; PULSE 76–87; TEMP 36.5–36.8; O2SAT 93–100; BMI 28.3; BMI 30.6
--- NOTE | 2024-07-13 09:18 | ECG_ITS ---
[facility] Test Date: 2024-07-13 Pat Name: ALBERTA COURTNEY Department: Room: [facility] Gender: Female Soccer Referee: : 1960 Requested By: YAKOV AGUIRRE Order Number: [id number] Reading MD: TAO ASHTON Measurements Intervals [place] Rate: 86 P: 34 DE: 148 QRS: 36 QRSD: 78 T: 44 QT: 334 QTc: 377 Interpretive Statements 1100 Sinus rhythm 8102 Low QRS voltage in chest leads 9120 atypical ECG Compared to ECG 06/13/2024 12:20:00 Low QRS voltage now present Possible ischemia no longer present Electronically Signed On 07-13-2024 18:33:46 EDT by TAO ASHTON
--- NOTE | 2024-07-13 09:50 | ED.GENADUL1 ---
HPI HPI - General Adult General Chief complaint: Dizziness Stated complaint: DIZZINESS/ LOW BLOOD PRESSURE Time Seen by Provider: 07/13/24 09:50 Source: patient and family Mode of arrival: Wheelchair History of Present Illness HPI narrative: This patient is here with her son who is the primary historian. She does have some dementia but actually was able to provide pretty decent accounting of her symptoms. She says she just been feeling weak. She fell at home. Recently she was placed in a [facility] but because she did not work it she wanted to get out to her house her son took her home is now living with her at her house and he can continue to provide care for her at home. She just saw her primary care doctor yesterday and had a battery of tests done I reviewed those tests and the abnormalities show a markedly elevated sedimentation rate she has anemia with a hemoglobin 7.7 and she also has a urinary tract infection. She does not have any chest pain or shortness of breath today. She has a number of mental health issues. She seems very stable maintains good eye contact and is not agitated here in the ER. She has no knowledge of previous GI bleed but when we review her lab test, as noted below her hemoglobin a year ago was 11. Related Data Home Medications ?Medication ?Instructions ?Recorded ?Confirmed aspirin 81 mg tablet,delayed 81 mg PO DAILY 07/21/23 07/13/24 release atorvastatin 40 mg tablet 40 mg PO DAILY 07/21/23 07/13/24 bupropion HCl 150 mg 24 hr tablet, 300 mg PO DAILY 07/21/23 07/13/24 extended release bupropion HCl 300 mg 24 hr tablet, 300 mg PO DAILY 07/21/23 07/13/24 extended release buspirone 30 mg tablet 30 mg PO BID 07/21/23 07/13/24 carbamazepine 200 mg tablet 200 mg PO .COMPLEX 07/21/23 07/13/24 (Tegretol) loratadine 10 mg tablet 10 mg PO DAILY 07/21/23 07/13/24 meloxicam 7.5 mg tablet 7.5 mg PO DAILY 07/21/23 07/13/24 lumateperone 42 mg capsule 42 mg PO DAILY 06/13/24 07/13/24 (Caplyta) aripiprazole 15 mg tablet 15 mg PO DAILY 06/15/24 07/13/24 carvedilol 25 mg tablet 25 mg PO BID 06/15/24 07/13/24 hydrochlorothiazide 25 mg tablet 25 mg PO DAILY 06/15/24 07/13/24 losartan 50 mg tablet 50 mg PO DAILY 06/15/24 07/13/24 alendronate 35 mg tablet 35 mg PO DAILY 07/13/24 07/13/24 alprazolam 1 mg tablet 1 mg PO BID PRN anxiety 07/13/24 07/13/24 dimenhydrinate 50 mg tablet 50 mg PO Q8H 07/13/24 07/13/24 Previous Rx's ?Medication ?Instructions ?Recorded food supplemt, lactose-reduced 1 ea PO BID 30 days #30 ea 06/18/24 (Ensure Active Protein-Muscle oral liquid) levofloxacin 500 mg tablet 500 mg PO DAILY 14 days #14 tabs 06/18/24 meclizine 12.5 mg tablet 25 mg (2 x 12.5 mg) PO Q6H PRN 06/18/24 Vertigo 7 days #28 tabs miconazole nitrate 2 % vaginal 1 applic vaginal QD 7 days #1 g 06/18/24 cream (Miconazole-7) potassium chloride 10 mEq 20 meq (2 x 10 mEq) PO TID 7 days 06/18/24 tablet,extended release(part/cryst) #42 tabs Allergies Allergy/AdvReac Type Severity Reaction Status Date / Time No Known Drug Allergies Allergy Verified 07/21/23 09:08 Opioid HPI Opioid Management Most Recent Opioid Data: Last Pain Scale 8 06/17/24 00:00 Last Pain Intensity 0 06/16/24 08:33 Last ORT Total Score 3 06/13/24 15:06 Last ORT Risk Category Low Risk 06/13/24 15:06 Ur Phencyclidine Scrn Negative (NEGATIVE) 06/13/24 12:38 [facility] Medical History (Updated 07/13/24 @ 11:03 by Mello Carrasquillo MD) Hypertension ?I10 - Essential (primary) hypertension (ICD-10) Bipolar disorder ?F31.9 - Bipolar disorder, unspecified (ICD-10) Social History Smoking status: Former smoker Highest level of school completed/degree received: 10th grade Exam Narrative Exam Narrative: Patient is awake alert fairly reasonable historian no obvious dementia at this time. She is not uncomfortable. Her vital signs are stable. She is not tachycardic. Skin is warm and dry there is no diaphoresis pallor or scleral icterus. ENT examination shows no focus of infection. Her lungs are clear bilaterally with no wheeze rales or rhonchi no respiratory distress with normal pulse oximetry. Heart rate and rhythm are normal with no S3-S4 or murmur. Abdomen is obese. There are good bowel sounds. There is no peritoneal findings there is no guarding rebound or rigidity. Rectal examination shows no masses rectal tone is normal. Small amount of mucus was noted with no obvious blood. Extremities are normal with no edema evidence of phlebitis or cellulitis. Constitutional Vital Signs, click to edit/add: Last Vital Signs Temp 97.8 F 07/13/24 09:14 Pulse 83 07/13/24 10:10 Resp 19 07/13/24 10:10 BP 150/107 H 07/13/24 10:00 Pulse Ox 98 07/13/24 10:10 O2 Del Method Room Air 07/13/24 09:14 Course Vital Signs Vital signs: Vital Signs Temperature 97.8 F 07/13/24 09:14 Pulse Rate 85 07/13/24 09:14 Respiratory Rate 16 07/13/24 09:14 Blood Pressure 154/92 H 07/13/24 09:14 Pulse Oximetry 99 07/13/24 09:14 Oxygen Delivery Method Room Air 07/13/24 09:14 Temperature 97.8 F 07/13/24 09:14 Pulse Rate 83 07/13/24 10:10 Respiratory Rate 19 07/13/24 10:10 Blood Pressure 150/107 H 07/13/24 10:00 Pulse Oximetry 98 07/13/24 10:10 Oxygen Delivery Method Room Air 07/13/24 09:14 Medical Decision Making MDM Narrative Medical decision making narrative: This patient presents to the emergency room with recent falls and weakness. Outpatient laboratory testing disclosed hemoglobin 7.7 elevation of her sedimentation rate and findings suggestive of urinary tract infection. We have reviewed her urine culture from May and it was positive for 100,000 colony E. coli susceptible to levofloxacin which she did take. Today her hemoglobin is 8. Her lactate levels are normal and there is no indication of clinical sepsis. Stool occult blood is not returned yet. This patient is at extreme risk of more falls. I will contact the primary care doctor to discuss admission. She will be started on Cipro here in the ER. This patient's hemoglobin was eleven 1 year ago and she did have a positive Hemoccult previously as well. Today her Hemoccult is positive once more. I did speak with her primary care doctor and he will admit her. Will repeat the chemistry panel per his request. Lab Data Labs: Lab Results 07/13/24 07/13/24 Range/Units 10:12 10:20 WBC 7.6 (4.0-11.0) 10^3/uL RBC 2.93 L (4.20-5.40) 10^6/uL Hgb 8.0 L (12.0-16.0) g/dL Hct 26.3 L (36.0-48.0) % MCV 89.8 (81.0-99.0) fL MCH 27.3 (26.7-34.0) pg MCHC 30.4 (29.9-35.2) g/dL RDW 20.3 H (11.0-15.0) % Plt Count 188 (150-450) 10^3/uL MPV 9.8 (9.5-13.5) fL Neut % (Auto) 66.5 (43.0-75.0) % Lymph % (Auto) 19.5 L (20.5-60.0) % Chase % (Auto) 10.5 (1.7-12.0) % Eos % (Auto) 2.6 (0.9-7.0) % Baso % (Auto) 0.4 (0.2-2.0) % Neut # (Auto) 5.0 (1.4-6.5) 10^3/uL Lymph # (Auto) 1.5 (1.2-3.8) 10^3/uL Chase # (Auto) 0.8 (0.3-0.8) 10^3/uL Eos # (Auto) 0.2 (0.0-0.7) 10^3/uL Baso # (Auto) 0.0 (0.0-0.1) 10^3/uL Abs Immat Gran (auto) 0.04 H (0.00-0.03) 10^3/uL Imm/Tot Granulo (auto) 0.5 (0.0-0.5) % Lactate 1.5 (0.4-2.0) mmol/L Troponin I High Sens <4.0 L (4.0-51.3) pg/mL Stool Occult Blood Positive A Discharge Plan Discharge Chief Complaint: Dizziness Clinical Impression: UTI (urinary tract infection), Anemia, Recurrent falls Patient Disposition: Admitted as Observation Time of Disposition Decision: 11:33 Prescriptions / Home Meds: No Action alendronate 35 mg tablet 35 mg PO DAILY dimenhydrinate 50 mg tablet 50 mg PO Q8H alprazolam 1 mg tablet 1 mg PO BID PRN (Reason: anxiety) aspirin 81 mg tablet,delayed release (DR/EC) 81 mg PO DAILY atorvastatin 40 mg tablet 40 mg PO DAILY buspirone 30 mg tablet 30 mg PO BID bupropion HCl 300 mg tablet extended release 24 hr 300 mg PO DAILY bupropion HCl 150 mg tablet extended release 24 hr 300 mg PO DAILY meloxicam 7.5 mg tablet 7.5 mg PO DAILY loratadine 10 mg tablet 10 mg PO DAILY carbamazepine [Tegretol] 200 mg tablet 200 mg PO .COMPLEX Rx Instructions: 200 mg orally PO QAM AND 400 MG POQPM; Caplyta 42 mg capsule 42 mg PO DAILY aripiprazole 15 mg tablet 15 mg PO DAILY carvedilol 25 mg tablet 25 mg PO BID hydrochlorothiazide 25 mg tablet 25 mg PO DAILY losartan 50 mg tablet 50 mg PO DAILY miconazole nitrate [Miconazole-7] 2 % Cream 1 applic vaginal QD 7 Days Qty: 1 0RF meclizine 12.5 mg Tablet 25 mg PO Q6H PRN (Reason: Vertigo) 7 Days Qty: 28 0RF Ensure Active Protein-Muscle Liquid 1 ea PO BID 30 Days Qty: 30 0RF potassium chloride 10 mEq Tablet,Er Particles/Crystals 20 meq PO TID 7 Days Qty: 42 0RF levofloxacin 500 mg tablet 500 mg PO DAILY 14 Days Qty: 14 0RF Print Language: Citizen Of [place] Referrals: Julianne Lord NP [Primary Care Provider] - 1 week
--- NOTE | 2024-07-13 09:52 | XR_ITS ---
The [address] [address] Patient Name: ALBERTA COURTNEY MRN: [id number] date: 1960 Sex: F Assigned Patient Location: ER Current Patient Location: ED.MAIN Accession/Order Number: [id number] Exam Date: 07/13/2024 10:09 Report Date: 07/13/2024 10:39 At the request of: MARIVEL AMOR Procedure: XR chest 1V EXAMINATION: XR chest 1V HISTORY: Weakness COMPARISON: XR chest 06/13/2024 FINDINGS: LUNGS: No significant pulmonary parenchymal abnormalities. VASCULATURE: No increased pulmonary vasculature. PLEURA: No pneumothorax, effusion, or pleural thickening. CARDIAC: No cardiomegaly or cardiac silhouette abnormality. MEDIASTINUM: No visible mass or adenopathy. BONES: No fracture or visible bone lesion. OTHER: Negative. XR/XR chest 1V IMPRESSION: 1. No acute cardiopulmonary process. Electronically authenticated by: ALESIA EL Date: 07/13/2024 10:39
--- OUTSIDE RECORDS SUMMARY | 2024-07-13 09:55 | XMS_ITS | CCD ---
Author Organization [facility] Care Team Providers Care Residential Remodeling Subcontractor Name Role Phone PATRICK DAO Admitting Unavailable WILLIS, PATRICK Attending Unavailable AICHHOLZ, MANAGER CORPORATE RESPONSIBILITY JULIANNE Primary Care Unavailable SPROUT, PATRICK Consulting Unavailable SPROUT, PATRICK Admitting Unavailable SPROUT, PATRICK Attending Unavailable AICHHOLZ, MANAGER CORPORATE RESPONSIBILITY JULIANNE Primary Care Unavailable SPROUT, PATRICK Consulting Unavailable AICHHOLZ, MANAGER CORPORATE RESPONSIBILITY JULIANNE Admitting Unavailable AICHHOLZ, MANAGER CORPORATE RESPONSIBILITY JULIANNE Attending Unavailable AICHHOLZ, MANAGER CORPORATE RESPONSIBILITY JULIANNE Primary Care Unavailable Aichholz COMMERCIAL ILLUSTRATOR, Julianne Unavailable Zhen Christiansen MD Primary Care [...] 07-15-2022 Chronic Other aftercare (1 source) Other fci (current) drug therapy; Translations: [OTH CORRECTION CURRENT DRUG THERAPY] Onset: 07-16-2022 Episodic Other [...] # 0.1 103/ul Normal 0.0-0.1 [facility] Comment on above: Performed By: #### C BC #### [facility] [address] [address] [address] Anish Johnson Basophils/100 WBC (Bld) 1.1 % Normal 0.2-2.0 [facility] Comment on above: Performed By: #### C BC #### [facility] [address] [address] [address] Anish Johnson EO # 0.3 103/ul Normal 0.0-0.7 [facility] Comment on above: Performed By: #### C BC #### [facility] [address] [address] [address] Anish Johnson Eosinophils/100 WBC (Bld) 4.1 % Normal 0.9-7.[address] [facility] Comment on above: Performed By: #### C BC #### [facility] [address] [address] [address] Anish Johnson Erythrocyte distribution width (RBC) [Ratio] 15.1 % Critically high 11.0-15.[address] [facility] Comment on above: Performed By: #### C BC #### [facility] [address] [place] [address] Dr. Anish Johnson Hematocrit (Bld) [Volume fraction] 40.6 % Normal 36.0-48.[address] [facility] Comment on above: Performed By: #### C BC #### [facility] [address] [place] [address] Dr. Anish Johnson Hemoglobin (Bld) [Mass/Vol] 12.4 g/dL Normal 12.0-16.0 [facility] Comment on above: Performed By: #### C BC #### [facility] [address] [address] [address] Anish Johnson IG # 0.02 10e3/ul Normal 0.00-0.03 [facility] Comment on above: Performed By: #### C BC #### [facility] [address] [place] [address] Dr. Anish Johnson IG % 0.3 % Normal 0.0-0.5 [facility] Comment on above: Performed By: #### C BC #### [facility] [address] [place] [address] Dr. Anish Johnson LYMPH # 1.3 103/ul Normal 1.2-3.8 [facility] Comment on above: Performed By: #### C BC #### [facility] [address] [place] [address] Dr. Anish Johnson Lymphocytes/100 WBC (Bld) 19.7 % Critically low 20.5-60.0 [facility] Comment on above: Performed By: #### C BC #### [facility] [address] [place] [address] Dr. Anish Johnson MANUAL DIFF REQ NO Normal [facility] Comment on above: Performed By: #### C BC #### [facility] [address] [place] [address] Dr. Anish Johnson MCH (RBC) [Entitic mass] 25.5 pg Critically low 26.7-34.0 [facility] Comment on above: Performed By: #### C BC #### [facility] [address] [place] [address] Dr. Anish Johnson MCHC (RBC) [Mass/Vol] 30.5 g/dL Normal 29.9-35.[address] [facility] Comment on above: Performed By: #### C BC #### [facility] [address] [place] [address] Dr. Anish Johnson MCV (RBC) [Entitic vol] 83.4 fL Normal 81.0-99.0 [facility] Comment on above: Performed By: #### C BC #### [facility] [address] [place] [address] Dr. Anish Johnson MONO # 0.5 103/ul Normal 0.3-0.8 [facility] Comment on above: Performed By: #### C BC #### [facility] [address] [place] [address] Dr. Anish Johnson Monocytes/100 WBC (Bld) 7.0 % Normal 1.7-12.0 [facility] Comment on above: Performed By: #### C BC #### [facility] [address] [place] [address] Dr. Anish Johnson NEUT # 4.5 103/ul Normal 1.4-6.5 [facility] Comment on above: Performed By: #### C BC #### [facility] [address] [place] [address] Dr. Anish Johnson Neutrophils/100 WBC (Bld) 67.8 % Normal 43.0-75.0 [facility] Comment on above: Performed By: #### C BC #### [facility] [address] [place] [address] Dr. Anish Johnson Platelet mean volume (Bld) [Entitic vol] 10.5 fL Normal 9.5-13.[address] [facility] Comment on above: Performed By: #### C BC #### [facility] [address] [place] [address] Dr. Anish Johnson PLT 297 103/ul Normal 150-[address] [facility] Comment on above: Performed By: #### C BC #### [facility] [address] [place] [address] Dr. Anish Johnson RBC 4.87 106/ul Normal 4.20-5.[address] [facility] Comment on above: Performed By: #### C BC #### [facility] [address] [place] [address] Dr. Anish Johnson WBC 6.6 103/ul Normal 4.0-11.[address] [facility] Comment on above: Performed By: #### C BC #### [facility] [address] [place] [address] Dr. Anish Johnson CARBAMAZEPINEon 07-16-2022 Carbamezapine 5.4 ug/mL Normal 4.0-12.0 [facility] Comment on above: Result Comment: In c onjunction with other antiepileptic drugs Therapeutic 4.0 - 8.0 Toxicity 9.0 - 12.0 . Carbamazepine alone Therapeutic 8.0 - 12.0 . Detection Limit = 2.0 <2.0 indicated None Detected Performed By: #### C ARBLC #### [facility] [address] [place] [address] Dr. Anish Johnson CBC AUTO DIFFon 07-15-2022 BASO # 0.0 103/ul Normal 0.0-0.1 [facility] Comment on above: Performed By: #### C BC #### [facility] [address] [place] [address] Dr. Anish Johnson Basophils/100 WBC (Bld) 0.5 % Normal 0.2-2.0 [facility] Comment on above: Performed By: #### C BC #### [facility] [address] [place] [address] Dr. Anish Johnson EO # 0.2 103/ul Normal 0.0-0.7 [facility] Comment on above: Performed By: #### C BC #### [facility] [address] [place] [address] Dr. Anish Johnson Eosinophils/100 WBC (Bld) 2.9 % Normal 0.9-7.0 [facility] Comment on above: Performed By: #### C BC #### [facility] [address] [place] [address] Dr. Anish Johnson Erythrocyte distribution width (RBC) [Ratio] 15.7 % Critically high 11.0-15.0 [facility] Comment on above: Performed By: #### C BC #### [facility] [address] [place] [address] Dr. Anish Johnson Hematocrit (Bld) [Volume fraction] 40.2 % Normal 36.0-48.0 [facility] Comment on above: Performed By: #### C BC #### [facility] [address] [place] [address] Dr. Anish Johnson Hemoglobin (Bld) [Mass/Vol] 12.5 g/dL Normal 12.0-16.0 [facility] Comment on above: Performed By: #### C BC #### [facility] [address] [place] [address] Dr. Anish Johnson IG # 0.02 10e3/ul Normal 0.00-0.03 [facility] Comment on above: Performed By: #### C BC #### [facility] [address] [place] [address] Dr. Anish Johnson IG % 0.3 % Normal 0.0-0.5 [facility] Comment on above: Performed By: #### C BC #### [facility] [address] [place] [address] Dr. Anish Johnson LYMPH # 1.5 103/ul Normal 1.2-3.8 [facility] Comment on above: Performed By: #### C BC #### [facility] [address] [place] [address] Dr. Anish Johnson Lymphocytes/100 WBC (Bld) 18.7 % Critically low 20.5-60.0 [facility] Comment on above: Performed By: #### C BC #### [facility] [address] [place] [address] Dr. Anish Johnson MANUAL DIFF REQ NO Normal [facility] Comment on above: Performed By: #### C BC #### [facility] [address] [place] [address] Dr. Anish Johnson MCH (RBC) [Entitic mass] 25.4 pg Critically low 26.7-34.0 [facility] Comment on above: Performed By: #### C BC #### [facility] [address] [place] [address] Dr. Anish Johnson MCHC (RBC) [Mass/Vol] 31.1 g/dL Normal 29.9-35.2 [facility] Comment on above: Performed By: #### C BC #### [facility] [address] [place] [address] Dr. Anish Johnson MCV (RBC) [Entitic vol] 81.7 fL Normal 81.0-99.0 [facility] Comment on above: Performed By: #### C BC #### [facility] [address] [place] [address] Dr. Anish Johnson MONO # 0.7 103/ul Normal 0.3-0.8 [facility] Comment on above: Performed By: #### C BC #### [facility] [address] [place] [address] Dr. Anish Johnson Monocytes/100 WBC (Bld) 8.3 % Normal 1.7-12.0 [facility] Comment on above: Performed By: #### C BC #### [facility] [address] [place] [address] Dr. Anish Johnson NEUT # 5.4 103/ul Normal 1.4-6.5 [facility] Comment on above: Performed By: #### C BC #### [facility] [address] [place] [address] Dr. Anish Johnson Neutrophils/100 WBC (Bld) 69.3 % Normal 43.0-75.0 [facility] Comment on above: Performed By: #### C BC #### [facility] [address] [place] [address] Dr. Anish Johnson Platelet mean volume (Bld) [Entitic vol] 10.6 fL Normal 9.5-13.5 [facility] Comment on above: Performed By: #### C BC #### [facility] [address] [place] [address] Dr. Anish Johnson PLT 297 103/ul Normal 150-[address] [facility] Comment on above: Performed By: #### C BC #### [facility] [address] [place] [address] Dr. Anish Johnson RBC 4.92 106/ul Normal 4.20-5.[address] [facility] Comment on above: Performed By: #### C BC #### [facility] [address] [place] [address] Dr. Anish Johnson WBC 7.8 103/ul Normal 4.0-11.[address] [facility] Comment on above: Performed By: #### C BC #### [facility] [address] [address] [address] Anish Johnson GLUCOSE BLOODon 07-15-2022 Glucose [Mass/Vol] 133 mg/dL Critically high 74-106 [facility] Comment on above: Performed By: #### L IVER, GLUC, TSH, LIPID #### [facility] [address] [address] [address] Anish Johnson LIPID PROFILEon 07-15-2022 CHOL-HDL RATIO NORM SEE BELOW Normal [facility] Comment on above: Result Comment: 3.3 - 4.4 LOW RISK 4.4 - 7.1 AVERAGE RISK 7.1 - 11.0 MODERATE RISK >11.0 HIGH RISK Performed By: #### L IVER, GLUC, TSH, LIPID #### [facility] [address] [address] [address] Anish Johnson Cholesterol [Mass/Vol] 135 mg/dL Normal <=200 [facility] Comment on above: Performed By: #### L IVER, GLUC, TSH, LIPID #### [facility] [address] [address] [address] Anish Johnson Cholesterol in HDL [Mass/Vol] 58 mg/dL Normal 40-60 [facility] Comment on above: Performed By: #### L IVER, GLUC, TSH, LIPID #### [facility] [address] [address] [address] Anish Johnson Cholesterol in LDL [Mass/Vol] 54.2 mg/dL Normal [facility] Comment on above: Performed By: #### L IVER, GLUC, TSH, LIPID #### [facility] [address] [address] [address] Anish Johnson Cholesterol.total/Cho lesterol in HDL [Mass ratio] 2.3 {ratio} Normal [facility] Comment on above: Performed By: #### L IVER, GLUC, TSH, LIPID #### [facility] [address] [address] [address] Anish Johnson HDL NORMAL > or = 60 mg/dl - LOW CARDIOVASCULAR RISK <40 mg/dl - HIGH CARDIOVASCULAR RISK Normal [facility] Comment on above: Performed By: #### L IVER, GLUC, TSH, LIPID #### [facility] [address] [address] [address] Anish Johnson LDL CALC NORMAL SEE BELOW Normal [facility] Comment on above: Result Comment: <100 mg/dl OPTIMAL 100 - 129 mg/dl NEAR OR ABOVE OPTIMAL 130 - 159 mg/dl BORDERLINE HIGH 160 - 189 mg/dl HIGH >190 mg/dl VERY HIGH Performed By: #### L IVER, GLUC, TSH, LIPID #### [facility] [address] [address] [address] Anish Johnson Triglyceride [Mass/Vol] 114 mg/dL Normal <=150 [facility] Comment on above: Performed By: #### L IVER, GLUC, TSH, LIPID #### [facility] [address] [address] [address] Anish Johnson VLDL CALC 22.8 mg/dL Normal [facility] Comment on above: Performed By: #### L IVER, GLUC, TSH, LIPID #### [facility] [address] [address] [address] Anish Johnson LIVER PROFILEon 07-15-2022 Albumin [Mass/Vol] 4.3 g/dL Normal 3.4-5.0 [facility] Comment on above: Performed By: #### L IVER, GLUC, TSH, LIPID #### [facility] [address] [address] [address] Anish Johnson Albumin/Globulin [Mass ratio] 1.0 {ratio} Normal [facility] Comment on above: Performed By: #### L IVER, GLUC, TSH, LIPID #### [facility] [address] [address] [address] Anish Johnson ALP [Catalytic activity/Vol] 108 U/L Normal 46-116 [facility] Comment on above: Performed By: #### L IVER, GLUC, TSH, LIPID #### [facility] [address] [address] [address] Anish Johnson ALT [Catalytic activity/Vol] 26 U/L Normal 14-59 [facility] Comment on above: Performed By: #### L IVER, GLUC, TSH, LIPID #### [facility] [address] [address] [address] Anish Johnson AST [Catalytic activity/Vol] 21 U/L Normal 15-37 [facility] Comment on above: Performed By: #### L IVER, GLUC, TSH, LIPID #### [facility] [address] [place] [address] Dr. Anish Johnson BILI, CONJUGATED 0.1 mg/dL Normal 0.0-0.2 [facility] Comment on above: Performed By: #### L IVER, GLUC, TSH, LIPID #### [facility] [address] [place] [address] Dr. Anish Johnson Bilirubin [Mass/Vol] 0.5 mg/dL Normal 0.2-1.0 [facility] Comment on above: Performed By: #### L IVER, GLUC, TSH, LIPID #### [facility] [address] [place] [address] Dr. Anish Johnson Globulin (S) [Mass/Vol] 4.3 g/dL Normal [facility] Comment on above: Performed By: #### L IVER, GLUC, TSH, LIPID #### [facility] [address] [place] [address] Dr. Anish Johnson Protein [Mass/Vol] 8.6 g/dL Critically high 6.4-8.2 [facility] Comment on above: Performed By: #### L IVER, GLUC, TSH, LIPID #### [facility] [address] [place] [address] Dr. Anish Johnson TSHon 07-15-2022 TSH 1.692 uIU/mL Normal 0.358-3.740 [facility] Comment on above: Performed By: #### L IVER, GLUC, TSH, LIPID #### [facility] [address] [place] [address] Dr. Anish Johnson Vital Signs Date Time Vital Sign Value Performing Clinician April cheng 01-03-2024 15:19-0500 Body height 157.5 cm Julianne Aichholz COMMERCIAL ILLUSTRATOR Work Phone: [facility] 01-03-2024 15:19-0500 Body mass index (BMI) [Ratio] 34.02 kg/m2 Juliannejulio c Steinholz COMMERCIAL ILLUSTRATOR Work Phone: [facility] 01-03-2024 15:19-0500 Body temperature 97.5 [degF] Juliannejulio c Rodriguezjose juanholz COMMERCIAL ILLUSTRATOR Work Phone: [facility] 01-03-2024 15:19-0500 Body weight 84.37 kg Julianne Jenniferhholz COMMERCIAL ILLUSTRATOR Work Phone: [facility] 01-03-2024 15:19-0500 Diastolic blood pressure 82 mm[Hg] Julianne Jenniferhholz COMMERCIAL ILLUSTRATOR Work Phone: [facility] 01-03-2024 15:19-0500 Heart rate 87 /min Julianne Jenniferhholz COMMERCIAL ILLUSTRATOR Work Phone: [facility] 01-03-2024 15:19-0500 Respiratory rate 17 /min Julianne Emilholz COMMERCIAL ILLUSTRATOR Work Phone: [facility] 01-03-2024 15:19-0500 SaO2% (BldA) [Mass fraction] 97 % Julianne Jenniferhholz COMMERCIAL ILLUSTRATOR Work Phone: [facility] 01-03-2024 15:19-0500 Systolic blood pressure 128 mm[Hg] Julianne Jenniferhholz COMMERCIAL ILLUSTRATOR Work Phone: [facility] Healthcare Encounters Encounter Date Encounter Type Care Provider Facility Start: 05-22-2024 ambulatory Chris Chpaa acility:[facility] Start: 05-14-2024 End: 05-14-2024 ambulatory JULIANNE AICHHOLZ Not Available Start: 04-19-2024 End: 04-19-2024 ambulatory JULIANNE AICHHOLZ Not Available Start: 04-05-2024 End: 04-05-2024 ambulatory JULIANNE AICHHOLZ Not Available Start: 02-22-2024 End: 02-22-2024 ambulatory JULIANNE AICHHOLZ Not Available Start: 01-24-2024 End: 01-24-2024 ambulatory JULIANNE TIMOTHY Not Available Start: 01-10-2024 Refill Julianne Lord COMMERCIAL ILLUSTRATOR Work Phone: [facility] Start: 01-03-2024 End: 01-03-2024 Office outpatient visit 25 minutes Julianne Lord COMMERCIAL ILLUSTRATOR Work Phone: [facility] Comment on above: Essential (primary) hypertension (CMS/HCC) (Primary Dx); BMI 34.0-34.9,adult; Bipolar affective disorder, remission status unspecified (CMS/HCC); Tobacco user; Vertigo; Anxiety Start: 01-03-2024 End: 01-03-2024 ambulatory JULIANNE JENNIFERJose JuanANA Not Available Start: 09-08-2022 End: 09-09-2022 ambulatory PATRICK DAO Facility:[facility] Start: 07-15-2022 End: 07-16-2022 ambulatory PATRICK DAO Facility:[facility] Start: 09-09-2021 ambulatory MANAGER CORPORATE RESPONSIBILITY JULIANNE LORD Facil ity:[facility] Procedures Date Procedure Procedure Detail Performing Clinician Start: 01-03-2024 Mammography Julianne Mick quintana COMMERCIAL ILLUSTRATOR Work Phone: Plan of Treatment Date Care Activity Detail Author Start: 01-03-2025 Screening for malign ant neoplasm of breast Mammogram [facility] Start: 01-03-2025 Screening for malign ant neoplasm of colon Colorectal Cancer Screening [facility] Comment on above: Postponed from 10/05 (Patient Refused) Start: 01-24-2024 End: 01-24-2024 Patient encounter procedure 01/24/2024 9:00 AM EST Office Visit [facility] [address] [place] [address] Julianne Lord NP [address] [place] [id number] [facility] Start: 1989 Screening for malign ant neoplasm of cervix HPV/Cotest [facility] Healthcare Start: 1980 Screening for malign ant neoplasm of cervix Pap Smear [facility] Start: 1959 Screening for malign ant neoplasm of colon [facility] Payers Date Payer Category Payer Medicaid [facility] [employer] [place] [id number] 2023-Present [address] [place] [address] [id number] 2023 Self-pay 2013 Medicaid [id number] 1959 Unknown [id number] 1959 Unknown [id number] 1959 Unknown [id number] 1959 Unknown [id number] 1959 Unknown [id number] 1959 Unknown [id number] 1959 Unknown [id number] 1959 Unknown [id number] 1959 Unknown [id number] 1959 Unknown [id number] Social History Date Type Detail Facility Start: [...] DATE CREATED AUTHOR AUTHOR'S ORGANIZ ATION 05/14/2024 [facility] EPIC DATE CREATED AUTHOR AUTHOR'S ORGANIZ ATION 05/23/2024 [facility] Care Teams (unrecognized sec tion and content) Residential Remodeling Subcontractor Relationship Specialty Start Date End Date Zhen Christiansen MD [address] [place] [address] PCP - General Family Medicine 12/27/23 Julianne Lord NP [address] [place] [phone] Nurse Practitioner Family Medicine 11/28/22 Residential Remodeling Subcontractor Relationship Specialty Start Date End Date Zhen Christiansen MD [address] [place] [address] PCP - General Family Medicine 12/27/23 Julianne Lord NP [address] [place] [address] Nurse Practitioner Family Medicine 11/28/22 FOR [...] BE BASED ON THE PRIMARY CLINICAL RECORDS. [employer] [facility]. provides no warranty or guarantee of the accuracy or completeness of information in this document.
[2024-07-13] MEDS: 0.9 % SODIUM CHLORIDE 1,000 ML 999 ML IV (09:59)
[2024-07-13] MEDS: CIPROFLOXACIN IN 5 % DEXTROSE 400 MG/200 ML PREMIX 200 MG IV ×2 (10:11→21:42)
[2024-07-13 10:22] LABS: Basophils Percent Auto 0.4 % (0.2-2.0); Eosinophils Absolute Auto 0.2 10^3/uL (0.0-0.7); Eosinophils Percent Auto 2.6 % (0.9-7.0); Hematocrit 26.3 % (36.0-48.0); Immature Granulocytes Abs Auto 0.04 10^3/uL (0.00-0.03); Immature Granulocytes Pct Auto 0.5 % (0.0-0.5); Lymphocytes Absolute Auto 1.5 10^3/uL (1.2-3.8); Lymphocytes Percent Auto 19.5 % (20.5-60.0); Mean Corpuscular HGB Conc 30.4 g/dL (29.9-35.2); Mean Corpuscular Hemoglobin 27.3 pg (26.7-34.0); Mean Corpuscular Volume 89.8 fL (81.0-99.0); Mean Platelet Volume 9.8 fL (9.5-13.5); Monocytes Absolute Auto 0.8 10^3/uL (0.3-0.8); Monocytes Percent Auto 10.5 % (1.7-12.0); Neutrophils Percent Auto 66.5 % (43.0-75.0); Platelet Count 188 10^3/uL (150-450); Red Blood Count 2.93 10^6/uL (4.20-5.40); Red Cell Distribution Width 20.3 % (11.0-15.0); White Blood Count 7.6 10^3/uL (4.0-11.0)
[2024-07-13 10:42] LABS: Troponin I High Sensitivity <4.0 pg/mL (4.0-51.3)
[2024-07-13 10:43] LABS: Lactate/Lactic Acid 1.5 mmol/L (0.4-2.0)
[2024-07-13 11:09] LABS: Internal Control Within Normal Limits; Occult Blood Positive
[2024-07-13 11:54] LABS: Alanine Aminotransferase 14 U/L (14-59); Albumin Globulin Ratio 0.6; Albumin Level 2.4 g/dL (3.4-5.0); Alkaline Phosphatase 101 U/L (46-116); Aspartate Amino Transferase 12 U/L (15-37); BUN Creatinine Ratio 11.5; Bilirubin Total 0.2 mg/dL (0.2-1.0); Calcium 8.5 mg/dL (8.5-10.1); Carbon Dioxide 18.4 mmol/L (21.0-32.0); Chloride 106 mmol/L (98-107); Estimated GFR (African America >60 (>=60); Estimated GFR (Non-African Ame 59 (>=60); Globulin 4.1 g/dL; Glucose 95 mg/dL (74-106); Potassium 4.4 mmol/L (3.5-5.1); Sodium 137 mmol/L (136-145); Total Protein 6.5 g/dL (6.4-8.2)
--- OUTSIDE RECORDS SUMMARY | 2024-07-13 12:18 | XMS_ITS | CCD ---
Author Organization [facility] Care Team Providers Care Tamale Machine Feeder Name Role Phone PATRICK DAO Admitting Unavailable WILLIS, PATRICK Attending Unavailable AICHHOLZ, CARDIOLOGY MANAGER JULIANNE Primary Care Unavailable SPROUT, PATRICK Consulting Unavailable SPROUT, PATRICK Admitting Unavailable SPROUT, PATRICK Attending Unavailable AICHHOLZ, CARDIOLOGY MANAGER JULIANNE Primary Care Unavailable SPROUT, PATRICK Consulting Unavailable AICHHOLZ, CARDIOLOGY MANAGER JULIANNE Admitting Unavailable AICHHOLZ, CARDIOLOGY MANAGER JULIANNE Attending Unavailable AICHHOLZ, CARDIOLOGY MANAGER JULIANNE Primary Care Unavailable Aichholz BACK TENDER, Julianne Unavailable Zhen Christiansen MD Primary Care [...] 07-15-2022 Chronic Other aftercare (1 source) Other longterm (current) drug therapy; Translations: [OTH CORRECTION CURRENT [...] 09-08-2022 BASO # 0.1 103/ul Normal 0.0-0.1 [facility] Comment on above: Performed By: #### C BC #### [facility] [address] [address] [address] Anish Johnson Basophils/100 WBC (Bld) 1.1 % Normal 0.2-2.0 [facility] Comment on above: Performed By: #### C BC #### [facility] [address] [address] [address] Anish Johnson EO # 0.3 103/ul Normal 0.0-0.7 [facility] Comment on above: Performed By: #### C BC #### [facility] [address] [address] [address] Anish Johnson Eosinophils/100 WBC (Bld) 4.1 % Normal 0.9-7.0 [facility] Comment on above: Performed By: #### C BC #### [facility] [address] [address] [address] Anish Johnson Erythrocyte distribution width (RBC) [Ratio] 15.1 % Critically high 11.0-15.0 [facility] Comment on above: Performed By: #### C BC #### [facility] [address] [place] [address] Dr. Anish Johnson Hematocrit (Bld) [Volume fraction] 40.6 % Normal 36.0-48.0 [facility] Comment on above: Performed By: #### C BC #### [facility] [address] [place] [address] Dr. Anish Johnson Hemoglobin (Bld) [Mass/Vol] 12.4 g/dL Normal 12.0-16.0 [facility] Comment on above: Performed By: #### C BC #### [facility] [address] [address] [address] Anish Johnson IG # 0.02 10e3/ul Normal 0.00-0.03 [facility] Comment on above: Performed By: #### C BC #### [facility] [address] [place] [address] Dr. Anish Johnson IG % 0.3 % Normal 0.0-0.5 [facility] Comment on above: Performed By: #### C BC #### [facility] [address] [place] [address] Dr. Anish Johnson LYMPH # 1.3 103/ul Normal 1.2-3.8 [facility] Comment on above: Performed By: #### C BC #### [facility] [address] [place] [address] Dr. Anish Johnson Lymphocytes/100 WBC (Bld) 19.7 % Critically low 20.5-60.0 [facility] Comment on above: Performed By: #### C BC #### [facility] [address] [place] [address] Dr. Anish Johnson MANUAL DIFF REQ NO Normal [facility] Comment on above: Performed By: #### C BC #### [facility] [address] [place] [address] Dr. Anish Johnson MCH (RBC) [Entitic mass] 25.5 pg Critically low 26.7-34.0 [facility] Comment on above: Performed By: #### C BC #### [facility] [address] [place] [address] Dr. Anish Johnson MCHC (RBC) [Mass/Vol] 30.5 g/dL Normal 29.9-35.2 [facility] Comment on above: Performed By: #### C BC #### [facility] [address] [place] [address] Dr. Anish Johnson MCV (RBC) [Entitic vol] 83.4 fL Normal 81.0-99.0 [facility] Comment on above: Performed By: #### C BC #### [facility] [address] [place] [address] Dr. Anish Johnson MONO # 0.5 103/ul Normal 0.3-0.8 [facility] Comment on above: Performed By: #### C BC #### [facility] [address] [place] [address] Dr. Anish Johnson Monocytes/100 WBC (Bld) 7.0 % Normal 1.7-12.0 [facility] Comment on above: Performed By: #### C BC #### [facility] [address] [place] [address] Dr. Anish Johnson NEUT # 4.5 103/ul Normal 1.4-6.5 [facility] Comment on above: Performed By: #### C BC #### [facility] [address] [place] [address] Dr. Anish Johnson Neutrophils/100 WBC (Bld) 67.8 % Normal 43.0-75.0 [facility] Comment on above: Performed By: #### C BC #### [facility] [address] [place] [address] Dr. Anish Johnson Platelet mean volume (Bld) [Entitic vol] 10.5 fL Normal 9.5-13.5 [facility] Comment on above: Performed By: #### C BC #### [facility] [address] [place] [address] Dr. Anish Johnson PLT 297 103/ul Normal 150-450 [facility] Comment on above: Performed By: #### C BC #### [facility] [address] [place] [address] Dr. Anish Johnson RBC 4.87 106/ul Normal 4.20-5.40 [facility] Comment on above: Performed By: #### C BC #### [facility] [address] [place] [address] Dr. Anish Johnson WBC 6.6 103/ul Normal 4.0-11.0 [facility] Comment on above: Performed By: #### C BC #### [facility] [address] [place] [address] Dr. Anish Johnson CARBAMAZEPINEon 07-16-2022 Carbamezapine 5.4 ug/mL Normal 4.0-12.0 [facility] Comment on above: Result Comment: In c onjunction with other antiepileptic drugs Therapeutic 4.0 - 8.0 Toxicity 9.0 - 12.0 . Carbamazepine alone Therapeutic 8.0 - 12.0 . Detection Limit = 2.0 <2.0 indicated None Detected Performed By: #### C ARBLC #### [facility] [address] [place] [address] Dr. Anish Johnson CBC AUTO DIFFon 07-15-2022 BASO # 0.0 103/ul Normal 0.0-0.1 [facility] Comment on above: Performed By: #### C BC #### [facility] [address] [place] [address] Dr. Anish Johnson Basophils/100 WBC (Bld) 0.5 % Normal 0.2-2.0 [facility] Comment on above: Performed By: #### C BC #### [facility] [address] [place] [address] Dr. Anish Johnson EO # 0.2 103/ul Normal 0.0-0.7 [facility] Comment on above: Performed By: #### C BC #### [facility] [address] [place] [address] Dr. Anish Johnson Eosinophils/100 WBC (Bld) 2.9 % Normal 0.9-7.0 [facility] Comment on above: Performed By: #### C BC #### [facility] [address] [place] [address] Dr. Anish Johnson Erythrocyte distribution width (RBC) [Ratio] 15.7 % Critically high 11.0-15.0 [facility] Comment on above: Performed By: #### C BC #### [facility] [address] [place] [address] Dr. Anish Johnson Hematocrit (Bld) [Volume fraction] 40.2 % Normal 36.0-48.0 [facility] Comment on above: Performed By: #### C BC #### [facility] [address] [place] [address] Dr. Anish Johnson Hemoglobin (Bld) [Mass/Vol] 12.5 g/dL Normal 12.0-16.0 [facility] Comment on above: Performed By: #### C BC #### [facility] [address] [place] [address] Dr. Anish Johnson IG # 0.02 10e3/ul Normal 0.00-0.03 [facility] Comment on above: Performed By: #### C BC #### [facility] [address] [place] [address] Dr. Anish Johnson IG % 0.3 % Normal 0.0-0.5 [facility] Comment on above: Performed By: #### C BC #### [facility] [address] [place] [address] Dr. Anish Johnson LYMPH # 1.5 103/ul Normal 1.2-3.8 [facility] Comment on above: Performed By: #### C BC #### [facility] [address] [place] [address] Dr. Anish Johnson Lymphocytes/100 WBC (Bld) 18.7 % Critically low 20.5-60.0 [facility] Comment on above: Performed By: #### C BC #### [facility] [address] [place] [address] Dr. Anish Johnson MANUAL DIFF REQ NO Normal [facility] Comment on above: Performed By: #### C BC #### [facility] [address] [place] [address] Dr. Anish Johnson MCH (RBC) [Entitic mass] 25.4 pg Critically low 26.7-34.0 [facility] Comment on above: Performed By: #### C BC #### [facility] [address] [place] [address] Dr. Anish Johnson MCHC (RBC) [Mass/Vol] 31.1 g/dL Normal 29.9-35.2 [facility] Comment on above: Performed By: #### C BC #### [facility] [address] [place] [address] Dr. Anish Johnson MCV (RBC) [Entitic vol] 81.7 fL Normal 81.0-99.0 [facility] Comment on above: Performed By: #### C BC #### [facility] [address] [place] [address] Dr. Anish Johnson MONO # 0.7 103/ul Normal 0.3-0.8 [facility] Comment on above: Performed By: #### C BC #### [facility] [address] [place] [address] Dr. Anish Johnson Monocytes/100 WBC (Bld) 8.3 % Normal 1.7-12.0 [facility] Comment on above: Performed By: #### C BC #### [facility] [address] [place] [address] Dr. Anish Johnson NEUT # 5.4 103/ul Normal 1.4-6.5 [facility] Comment on above: Performed By: #### C BC #### [facility] [address] [place] [address] Dr. Anish Johnson Neutrophils/100 WBC (Bld) 69.3 % Normal 43.0-75.0 [facility] Comment on above: Performed By: #### C BC #### [facility] [address] [place] [address] Dr. Anish Johnson Platelet mean volume (Bld) [Entitic vol] 10.6 fL Normal 9.5-13.5 [facility] Comment on above: Performed By: #### C BC #### [facility] [address] [place] [address] Dr. Anish Johnson PLT 297 103/ul Normal 150-450 [facility] Comment on above: Performed By: #### C BC #### [facility] [address] [place] [address] Dr. Anish Johnson RBC 4.92 106/ul Normal 4.20-5.40 [facility] Comment on above: Performed By: #### C BC #### [facility] [address] [place] [address] Dr. Anish Johnson WBC 7.8 103/ul Normal 4.0-11.0 [facility] Comment on above: Performed By: #### C BC #### [facility] [address] [address] [address] Anish Johnson GLUCOSE BLOODon 07-15-2022 Glucose [Mass/Vol] 133 mg/dL Critically high 74-106 [facility] Comment on above: Performed By: #### L IVER, GLUC, TSH, LIPID #### [facility] [address] [address] [address] Anish Johnson LIPID PROFILEon 07-15-2022 CHOL-HDL RATIO NORM SEE BELOW Normal [facility] Comment on above: Result Comment: 3.3 - 4.4 LOW RISK 4.4 - 7.1 AVERAGE RISK 7.1 - 11.0 MODERATE RISK >11.0 HIGH RISK Performed By: #### L IVER, GLUC, TSH, LIPID #### [facility] [address] [address] [address] Anish Johnson Cholesterol [Mass/Vol] 135 mg/dL Normal <=200 [facility] Comment on above: Performed By: #### L IVER, GLUC, TSH, LIPID #### [facility] [address] [address] [address] Anish Johnson Cholesterol in HDL [Mass/Vol] 58 mg/dL Normal 40-60 [facility] Comment on above: Performed By: #### L IVER, GLUC, TSH, LIPID #### [facility] [address] [address] [address] Anish Johnson Cholesterol in LDL [Mass/Vol] 54.2 mg/dL Normal [facility] Comment on above: Performed By: #### L IVER, GLUC, TSH, LIPID #### [facility] [address] [address] [address] Anish Johnson Cholesterol.total/Cho lesterol in HDL [Mass ratio] 2.3 {ratio} Normal [facility] Comment on above: Performed By: #### L IVER, GLUC, TSH, LIPID #### [facility] [address] [address] [address] Anish Johnson HDL NORMAL > or = 60 mg/dl - LOW CARDIOVASCULAR RISK <40 mg/dl - HIGH CARDIOVASCULAR RISK Normal [facility] Comment on above: Performed By: #### L IVER, GLUC, TSH, LIPID #### [facility] [address] [address] [address] Anish Johnson LDL CALC NORMAL SEE BELOW Normal [facility] Comment on above: Result Comment: <100 mg/dl OPTIMAL 100 - 129 mg/dl NEAR OR ABOVE OPTIMAL 130 - 159 mg/dl BORDERLINE HIGH 160 - 189 mg/dl HIGH >190 mg/dl VERY HIGH Performed By: #### L IVER, GLUC, TSH, LIPID #### [facility] [address] [address] [address] Anish Johnson Triglyceride [Mass/Vol] 114 mg/dL Normal <=150 [facility] Comment on above: Performed By: #### L IVER, GLUC, TSH, LIPID #### [facility] [address] [address] [address] Anish Johnson VLDL CALC 22.8 mg/dL Normal [facility] Comment on above: Performed By: #### L IVER, GLUC, TSH, LIPID #### [facility] [address] [address] [address] Anish Johnson LIVER PROFILEon 07-15-2022 Albumin [Mass/Vol] 4.3 g/dL Normal 3.4-5.0 [facility] Comment on above: Performed By: #### L IVER, GLUC, TSH, LIPID #### [facility] [address] [address] [address] Anish Johnson Albumin/Globulin [Mass ratio] 1.0 {ratio} Normal [facility] Comment on above: Performed By: #### L IVER, GLUC, TSH, LIPID #### [facility] [address] [address] [address] Anish Johnson ALP [Catalytic activity/Vol] 108 U/L Normal 46-116 [facility] Comment on above: Performed By: #### L IVER, GLUC, TSH, LIPID #### [facility] [address] [address] [address] Anish Johnson ALT [Catalytic activity/Vol] 26 U/L Normal 14-59 [facility] Comment on above: Performed By: #### L IVER, GLUC, TSH, LIPID #### [facility] [address] [address] [address] Anish Johnson AST [Catalytic activity/Vol] 21 U/L Normal 15-37 [facility] Comment on above: Performed By: #### L IVER, GLUC, TSH, LIPID #### [facility] [address] [place] [address] Dr. Anish Johnson BILI, CONJUGATED 0.1 mg/dL Normal 0.0-0.2 [facility] Comment on above: Performed By: #### L IVER, GLUC, TSH, LIPID #### [facility] [address] [place] [address] Dr. Anish Johnson Bilirubin [Mass/Vol] 0.5 mg/dL Normal 0.2-1.0 [facility] Comment on above: Performed By: #### L IVER, GLUC, TSH, LIPID #### [facility] [address] [place] [address] Dr. Anish Johnson Globulin (S) [Mass/Vol] 4.3 g/dL Normal [facility] Comment on above: Performed By: #### L IVER, GLUC, TSH, LIPID #### [facility] [address] [place] [address] Dr. Anish Johnson Protein [Mass/Vol] 8.6 g/dL Critically high 6.4-8.2 [facility] Comment on above: Performed By: #### L IVER, GLUC, TSH, LIPID #### [facility] [address] [place] [address] Dr. Anish Johnson TSHon 07-15-2022 TSH 1.692 uIU/mL Normal 0.358-3.740 [facility] Comment on above: Performed By: #### L IVER, GLUC, TSH, LIPID #### [facility] [address] [place] [address] Dr. Anish Johnson Vital Signs Date Time Vital Sign Value Performing Clinician April cheng 01-03-2024 15:19-0500 Body height 157.5 cm Julianne Aichholz BACK TENDER Work Phone: [facility] 01-03-2024 15:19-0500 Body mass index (BMI) [Ratio] 34.02 kg/m2 Juliannejulio c Steinholz BACK TENDER Work Phone: [facility] 01-03-2024 15:19-0500 Body temperature 97.5 [degF] Juliannejulio c Rodriguezjose juanholz BACK TENDER Work Phone: [facility] 01-03-2024 15:19-0500 Body weight 84.37 kg Julianne Jenniferhholz BACK TENDER Work Phone: [facility] 01-03-2024 15:19-0500 Diastolic blood pressure 82 mm[Hg] Julianne Jenniferhholz BACK TENDER Work Phone: [facility] 01-03-2024 15:19-0500 Heart rate 87 /min Julianne Jenniferhholz BACK TENDER Work Phone: [facility] 01-03-2024 15:19-0500 Respiratory rate 17 /min Julianne Emilholz BACK TENDER Work Phone: [facility] 01-03-2024 15:19-0500 SaO2% (BldA) [Mass fraction] 97 % Julianne Jenniferhholz BACK TENDER Work Phone: [facility] 01-03-2024 15:19-0500 Systolic blood pressure 128 mm[Hg] Julianne Jenniferhholz BACK TENDER Work Phone: [facility] Encounters Encounter Date Encounter Type Care Provider Facility Start: 05-22-2024 ambulatory Chris Chapa acility:[facility] Start: 05-14-2024 End: 05-14-2024 ambulatory JULIANNE AICHHOLZ Not Available Start: 04-19-2024 End: 04-19-2024 ambulatory JULIANNE AICHHOLZ Not Available Start: 04-05-2024 End: 04-05-2024 ambulatory JULIANNE AICHHOLZ Not Available Start: 02-22-2024 End: 02-22-2024 ambulatory JULIANNE AICHHOLZ Not Available Start: 01-24-2024 End: 01-24-2024 ambulatory JULIANNE TIMOTHY Not Available Start: 01-10-2024 Refill Julianne Lord BACK TENDER Work Phone: [facility] Start: 01-03-2024 End: 01-03-2024 Office outpatient visit 25 minutes Julianne Lord BACK TENDER Work Phone: [facility] Comment on above: Essential (primary) hypertension (CMS/HCC) (Primary Dx); BMI 34.0-34.9,adult; Bipolar affective disorder, remission status unspecified (CMS/HCC); Tobacco user; Vertigo; Anxiety Start: 01-03-2024 End: 01-03-2024 ambulatory JULIANNE JENNIFERJose JuanANA Not Available Start: 09-08-2022 End: 09-09-2022 ambulatory PATRICK DAO Facility:[facility] Start: 07-15-2022 End: 07-16-2022 ambulatory PATRICK DAO Facility:[facility] Start: 09-09-2021 ambulatory CARDIOLOGY MANAGER JULIANNE LORD Facil ity:[facility] Procedures Date Procedure Procedure Detail Performing Clinician Start: 01-03-2024 Mammography Julianne Mick quintana BACK TENDER Work Phone: Plan of Treatment Date Care Activity Detail Author Start: 01-03-2025 Screening for malign ant neoplasm of breast Mammogram [facility] Start: 01-03-2025 Screening for malign ant neoplasm of colon Colorectal Cancer Screening [facility] Comment on above: Postponed from 10/05 (Patient Refused) Start: 01-24-2024 End: 01-24-2024 Patient encounter procedure 01/24/2024 9:00 AM EST Office Visit [facility] [address] [place] [address] Julianne Lord NP [address] [place] [id number] [facility] Start: 1989 Screening for malign ant neoplasm of cervix HPV/Cotest [facility] Start: 1980 Screening for malign ant neoplasm of cervix Pap Smear [facility] Start: 1959 Screening for malign ant neoplasm of colon [facility] Payers Date Payer Category Payer Medicaid [facility] [employer] [place] [id number] 2023-Present [address] [place] [address] [id number] 2023 Self-pay 2013 Medicaid [id number] 1959 Unknown [id number] 1959 Unknown [id number] 1959 Unknown [id number] 1959 Unknown [id number] 1959 Unknown [id number] 1959 Unknown [id number] 1959 Unknown [id number] 1959 Unknown [id number] 1959 Unknown [id number] 1959 Unknown [id number] Social History Date Type Detail Facility Start: [...] DATE CREATED AUTHOR AUTHOR'S ORGANIZ ATION 05/14/2024 [facility] EPIC DATE CREATED AUTHOR AUTHOR'S ORGANIZ ATION 05/23/2024 [facility] y[facility] Care Teams (unrecognized sec tion and content) Tamale Machine Feeder Relationship Specialty Start Date End Date Zhen Christiansen MD [address] [place] [address] PCP - General Family Medicine 12/27/23 Julianne Lord NP [address] [place] [phone] Nurse Practitioner Family Medicine 11/28/22 Tamale Machine Feeder Relationship Specialty Start Date End Date Zhen Christiansen MD [address] [place] [address] PCP - General Family Medicine 12/27/23 Julianne Lord NP [address] [place] [address] Nurse Practitioner Family Medicine 11/28/22 FOR [...] BE BASED ON THE PRIMARY CLINICAL RECORDS. [facility]. provides no warranty or guarantee of the accuracy or completeness of information in this document.
[2024-07-13] MEDS: LACTATED RINGER'S SOLUTION 1,000 ML 100 ML IV ×2 (13:44→23:35)
[2024-07-13] MEDS: CEFTRIAXONE 1,000 MG in 0.9 % SODIUM CHLORIDE 50 ML 100 MG IV (14:46)
[2024-07-13] MEDS: CARVEDILOL 25 MG TABLET PO ×2 (14:46→21:46)
[2024-07-13] MEDS: LOSARTAN POTASSIUM 50 MG TABLET PO (14:46)
[2024-07-13 15:58] LABS: Basophils Percent Auto 0.3 % (0.2-2.0); Eosinophils Absolute Auto 0.2 10^3/uL (0.0-0.7); Eosinophils Percent Auto 2.9 % (0.9-7.0); Hematocrit 25.4 % (36.0-48.0); Hemoglobin 7.8 g/dL (12.0-16.0); Immature Granulocytes Abs Auto 0.05 10^3/uL (0.00-0.03); Immature Granulocytes Pct Auto 0.7 % (0.0-0.5); Lymphocytes Absolute Auto 1.4 10^3/uL (1.2-3.8); Lymphocytes Percent Auto 19.5 % (20.5-60.0); Mean Corpuscular HGB Conc 30.7 g/dL (29.9-35.2); Mean Corpuscular Hemoglobin 27.1 pg (26.7-34.0); Mean Corpuscular Volume 88.2 fL (81.0-99.0); Mean Platelet Volume 10.1 fL (9.5-13.5); Monocytes Absolute Auto 0.6 10^3/uL (0.3-0.8); Monocytes Percent Auto 8.8 % (1.7-12.0); Neutrophils Absolute Auto 4.7 10^3/uL (1.4-6.5); Neutrophils Percent Auto 67.8 % (43.0-75.0); Platelet Count 189 10^3/uL (150-450); Red Blood Count 2.88 10^6/uL (4.20-5.40); Red Cell Distribution Width 20.2 % (11.0-15.0); White Blood Count 6.9 10^3/uL (4.0-11.0)
[2024-07-13] MEDS: PANTOPRAZOLE SODIUM 40 MG VIAL IV (16:04)
--- NOTE | 2024-07-13 17:22 | P.HP_ITS ---
HPI H&P: HPI History of Present Illness Chief complaint: DIZZINESS/ LOW BLOOD PRESSURE, UTI, ANEMIA Narrative: Patient presented to emergency room with increasing lightheadedness. Increasing weakness. Recent diagnosis of acute UTI. She was started on oral antibiotics 2 days ago without any improvement. Evaluation in the emergency room found patient to have significant anemia with a positive occult blood, and the acute UTI. Patient is admitted for workup and treatment of same When I saw patient up on the medical surgical floor, she was in bed resting comfortably, no specific complaint other than just feeling very fatigued. Opioid HPI Opioid Management Most Recent Pain and Opioid Data: Last Pain Scale 8 06/17/24 00:00 Last Pain Intensity 0 06/16/24 08:33 Last Pain Assessment 07/13/24 17:39 Last ORT Total Score 6 07/13/24 12:27 Last ORT Risk Category Moderate Risk 07/13/24 12:27 Ur Phencyclidine Scrn Negative (NEGATIVE) 06/13/24 12:38 Review of Systems ROS Status of ROS 10 or more systems reviewed and unremark able except as noted in history and below PFSH PFSH Medical History (Updated 07/13/24 @ 18:16 by Lucio Orourke MD) Osteoporosis ?M81.0 - Age-related osteoporosis without current pathological fracture (ICD- 10) Anxiety ?F41.9 - Anxiety disorder, unspecified (ICD-10) Anemia ?D64.9 - Anemia, unspecified (ICD-10) Kidney failure ?N19 - Unspecified kidney failure (ICD-10) High blood cholesterol ?E78.00 - Pure hypercholesterolemia, unspecified (ICD-10) Hypertension ?I10 - Essential (primary) hypertension (ICD-10) Bipolar disorder ?F31.9 - Bipolar disorder, unspecified (ICD-10) Surgical History (Updated 07/13/24 @ 13:17 by Yamel Javier) delivery delivered ?O82 - Encounter for delivery without indication (ICD-10) H/O: hysterectomy ?Z90.710 - Acquired absence of both cervix and uterus (ICD-10) Family History (Updated 07/13/24 @ 13:20 by Yamel Javier) Grandfather Family history of cancer Family history of myocardial infarction Grandmother Family history of diabetes mellitus Mother Family history of diabetes mellitus Family history of hypertension Father Family history of hypertension Social History (Updated 07/13/24 @ 13:24 by Yamel Javier) Within the past year, how often did you have a drink containing alcohol: never Score interpretation: A score less than 3 is consistent with normal alcohol consumption. Smoking status: Former smoker Non-prescribed substance use: cannabis (any form) Non-prescribed substance use details: marijuana pen Previous occupational history: retired Highest level of school completed/degree received: 10th grade Are you now , , , , never or living with a partner: Little interest or pleasure in doing things: not at all Feeling down, depressed, or hopeless: not at all Feel stressed/tense/nervous/anxious/difficulty sleeping: only a little Meds Home Medications and Allergies Home Medications ?Medication ?Instructions ?Recorded ?Confirmed ?Type aspirin 81 mg tablet,delayed 81 mg PO DAILY 07/21/23 07/13/24 History release atorvastatin 40 mg tablet 40 mg PO DAILY 07/21/23 07/13/24 History bupropion HCl 150 mg 24 hr tablet, 150 mg PO DAILY 07/21/23 07/13/24 History extended release bupropion HCl 300 mg 24 hr tablet, 300 mg PO DAILY 07/21/23 07/13/24 History extended release buspirone 30 mg tablet 30 mg PO BID 07/21/23 07/13/24 History carbamazepine 200 mg tablet 200 mg PO .COMPLEX 07/21/23 07/13/24 History (Tegretol) loratadine 10 mg tablet 10 mg PO DAILY 07/21/23 07/13/24 History meloxicam 7.5 mg tablet 7.5 mg PO DAILY 07/21/23 07/13/24 History lumateperone 42 mg capsule 42 mg PO DAILY 06/13/24 07/13/24 History (Caplyta) aripiprazole 15 mg tablet 15 mg PO DAILY 06/15/24 07/13/24 History carvedilol 25 mg tablet 25 mg PO BID 06/15/24 07/13/24 History hydrochlorothiazide 25 mg tablet 25 mg PO DAILY 06/15/24 07/13/24 History losartan 50 mg tablet 50 mg PO DAILY 06/15/24 07/13/24 History alendronate 35 mg tablet 35 mg PO DAILY 07/13/24 07/13/24 History alprazolam 1 mg tablet 1 mg PO BID PRN anxiety 07/13/24 07/13/24 History dimenhydrinate 50 mg tablet 50 mg PO Q8H 07/13/24 07/13/24 History meclizine 12.5 mg tablet 12.5 mg PO TID PRN Vertigo 07/13/24 07/13/24 History potassium chloride 20 mEq 20 meq PO TID 07/13/24 07/13/24 History tablet,extended release(part/cryst) (Klor-Con M) Allergies Allergy/AdvReac Type Severity Reaction Status Date / Time No Known Drug Allergies Allergy Verified 07/21/23 09:08 Exam Constitutional Vital Signs, click to edit/add: Last Vital Signs Temp 98.3 F 07/13/24 15:51 Pulse 82 07/13/24 15:51 Resp 20 07/13/24 15:51 BP 145/89 H 07/13/24 15:51 Pulse Ox 97 07/13/24 15:51 O2 Del Method Room Air 07/13/24 15:51 Documenting provider has reviewed patient's vital signs: yes Common normals: no apparent distress Chest Common normals: inspection of chest normal Respiratory Common normals: normal respiratory effort and no retractions Cardio Common normals: regular rate and regular rhythm GI Common normals: Normal to inspection, nondistended, normoactive bowel sounds present, soft to palpation and non-tender Extremity Common normals: normal to inspection, full ROM and no clubbing, cyanosis or edema Neuro Common normals: oriented x3 and CN's II-XII intact bilaterally Results Labs Labs: Short CBC 07/13/24 07/13/24 Range/Units 10:12 15:14 WBC 7.6 6.9 (4.0-11.0) 10^3/uL Hgb 8.0 L 7.8 L (12.0-16.0) g/dL Hct 26.3 L 25.4 L (36.0-48.0) % Plt Count 188 189 (150-450) 10^3/uL BMP 07/13/24 10:12 Sodium 137 Potassium 4.4 Chloride 106 Carbon Dioxide 18.4 L BUN 11.0 Creatinine 0.96 Glucose 95 Calcium 8.5 Liver Function 07/13/24 Range/Units 10:12 Total Bilirubin 0.2 (0.2-1.0) mg/dL AST 12 L (15-37) U/L ALT 14 (14-59) U/L Alkaline Phosphatase 101 (46-116) U/L Albumin 2.4 L (3.4-5.0) g/dL Assessment and Plan Assessment and Plan (1) Recurrent falls: (2) Anemia: (3) UTI (urinary tract infection): (4) Anxiety: (5) Acute blood loss anemia: Plan Admission findings: Uncontrolled hypertension, significant anemia with hemoglobin at 8 secondary to positive Hemoccult also acute upper gastrointestinal blood loss anemia due to acute upper gastrointestinal bleeding, complicated by acute UTI resulting in significant weakness Acute upper gastrointestinal blood loss anemia secondary to acute upper gastrointestinal bleeding-repeated CBC did not show significant change in hemoglobin. Will repeat in a.m. Hold off on transfusion at this time. Start patient on IV Protonix Acute UTI-she has been treated with a subha quinolone, will continue that but with the addition of Rocephin. Reevaluate symptoms in AM. Culture will not be back for 3 days. Bipolar disorder-continue with any home medications Hypertension-uncontrolled in the emergency room. Will use as needed hydralazine. Continue with home medications as well. Generalized arthritis-held off on meloxicam Admission status: Patient mated with increasing weakness. This is felt to be related to failure of outpatient treatment of her acute UTI and possible acute blood loss anemia. Her hemoglobin is not significant to the point that she needs transfused today. Or emergently endoscopy. Repeated CBC showed only minimal change. Will repeat CBC in AM. Start patient on IV Protonix. Medical ly necessary treatment may span only 1 midnight. Observation status.
[2024-07-13] MEDS: BUPROPION HCL 150 MG XL TABLET 24H 300 MG PO (21:42)
[2024-07-13] MEDS: MECLIZINE HCL 12.5 MG TABLET PO (21:42)
[2024-07-13] MEDS: BUSPIRONE HCL 15 MG TABLET 30 MG PO (21:42)
[2024-07-13] MEDS: CARBAMAZEPINE 200 MG TABLET 400 MG PO (21:46)
[2024-07-14 03:42] VITALS: BP 154/93; PULSE 82; TEMP 36.5; O2SAT 97
[2024-07-14 07:30] LABS: Alanine Aminotransferase 14 U/L (14-59); Albumin Globulin Ratio 0.7; Albumin Level 2.7 g/dL (3.4-5.0); Alkaline Phosphatase 103 U/L (46-116); Anion Gap 13.9; Aspartate Amino Transferase 15 U/L (15-37); BUN Creatinine Ratio 4.2; Bilirubin Total 0.3 mg/dL (0.2-1.0); Calcium 8.9 mg/dL (8.5-10.1); Carbon Dioxide 24.2 mmol/L (21.0-32.0); Chloride 106 mmol/L (98-107); Estimated GFR (African America >60 (>=60); Estimated GFR (Non-African Ame 59 (>=60); Globulin 3.7 g/dL; Glucose 93 mg/dL (74-106); Potassium 4.1 mmol/L (3.5-5.1); Sodium 140 mmol/L (136-145); Total Protein 6.4 g/dL (6.4-8.2)
[2024-07-14 07:45] VITALS: BP 167/100; PULSE 80; TEMP 36.9; O2SAT 97
[2024-07-14 07:47] LABS: Basophils Percent Auto 0.4 % (0.2-2.0); Eosinophils Absolute Auto 0.2 10^3/uL (0.0-0.7); Eosinophils Percent Auto 3.2 % (0.9-7.0); Hematocrit 28.8 % (36.0-48.0); Hemoglobin 8.9 g/dL (12.0-16.0); Immature Granulocytes Abs Auto 0.06 10^3/uL (0.00-0.03); Immature Granulocytes Pct Auto 0.9 % (0.0-0.5); Lymphocytes Absolute Auto 1.4 10^3/uL (1.2-3.8); Mean Corpuscular HGB Conc 30.9 g/dL (29.9-35.2); Mean Corpuscular Hemoglobin 27.1 pg (26.7-34.0); Mean Corpuscular Volume 87.5 fL (81.0-99.0); Mean Platelet Volume 8.9 fL (9.5-13.5); Monocytes Absolute Auto 0.5 10^3/uL (0.3-0.8); Monocytes Percent Auto 6.6 % (1.7-12.0); Neutrophils Absolute Auto 4.6 10^3/uL (1.4-6.5); Neutrophils Percent Auto 67.9 % (43.0-75.0); Platelet Count 236 10^3/uL (150-450); Red Blood Count 3.29 10^6/uL (4.20-5.40); White Blood Count 6.8 10^3/uL (4.0-11.0)
[2024-07-14] MEDS: BUSPIRONE HCL 15 MG TABLET 30 MG PO (08:26)
[2024-07-14] MEDS: BUPROPION HCL 150 MG XL TABLET 24H PO (08:26)
[2024-07-14] MEDS: ARIPIPRAZOLE 15 MG TABLET PO (08:26)
[2024-07-14] MEDS: CETIRIZINE HCL 10 MG TABLET PO (08:26)
[2024-07-14] MEDS: CARBAMAZEPINE 200 MG TABLET PO (08:26)
[2024-07-14] MEDS: CARVEDILOL 25 MG TABLET PO (08:27)
[2024-07-14] MEDS: LUMATEPERONE 42 MG 42 EACH PO (08:27)
[2024-07-14] MEDS: ATORVASTATIN CALCIUM 40 MG TABLET PO (08:27)
[2024-07-14] MEDS: LOSARTAN POTASSIUM 50 MG TABLET PO (08:27)
[2024-07-14] MEDS: CIPROFLOXACIN IN 5 % DEXTROSE 400 MG/200 ML PREMIX 200 MG IV (08:31)
[2024-07-14] MEDS: POTASSIUM CHLORIDE 10 MEQ ER TABLET 20 MEQ PO (09:37)
[2024-07-14] MEDS: MECLIZINE HCL 12.5 MG TABLET PO (09:37)
[2024-07-14] MEDS: ASPIRIN 81 MG TABLET.DR PO (09:37)
[2024-07-14] MEDS: HYDROCHLOROTHIAZIDE 25 MG TABLET PO (09:37)
--- NOTE | 2024-07-14 10:01 | PT.DAILY ---
Physical Therapy Daily Note PT Daily Note/Assess Start: 07/14/24 09:52 Freq: Status: Active Protocol: Document 07/14/24 09:52 [id number] (Rec: 07/14/24 10:01 [id number]) Physical Therapy Daily Note/Assessment Time In/Time Out Time In 08:36 Time Out 08:52 Pain In Pain Level 0 Pain Out Pain Level 0 Subjective Subjective Patient states she is doing okay and thinks she can participate with PT and try to walk. Patient received bed. Therapeutic Exercise Time Therapeutic Exercise Minutes (minutes) 8 Therapeutic Exercise Units 1 Therapeutic Exercise Treatment Therapeutic Exercise Treatment Patient performed standing ther ex at bedside with use of FWW for support. Heel raises , marching, hip ABD/flexion/ extension and HS curls x 10 reps with standing therapeutic rest break between each ther ex due to fatigue. No LOB noted during ther ex. Therapeutic Activity Time Therapeutic Activity Minutes (minutes) 8 Therapeutic Activity Units 1 Therapeutic Activity Treatment Bed Mobility Ability Modified Independent Chair Transfer Ability Modified Independent Therapeutic Activity Comments Patient uses R bedrail for A during bed mobility transfer into sitting. Able to sit EOB without UE support and no LOB . Sit to stand to FWW with safe hand placement on bed. After completing ther ex patient ambulated ~30 feet x 1 with FWW & SBA, Verbal cues to slow pace of ambulation for safety. Patient returned to bed per their request. Able to scoot self up in bed MOD I and use of R handrail. No LOB while ambulating or turning. [facility] and nursing notified of patient placement and acknowledges information. Total Physical Therapy Time Total Therapy Minutes 16 Total Physical Therapy Units 2 Summary Daily Note Summary Patient verbalizes after ambulating her dizziness is really bothering her. Advised patient to notify nursing. Patient demonstrates increased ambulation distance, but decreased safety awareness when ambulating requiring VC's for slowing down. Patient demonstrates no LOB while performing standing ther ex. Patient would benefit from PT to address functional deficits upon DC.
[2024-07-14 12:00] VITALS: BP 170/101; PULSE 80; TEMP 37.4; O2SAT 96
--- NOTE | 2024-07-14 12:15 | P.DS_ITS ---
DS: Providers Provider Date of admission: 07/13/24 12:11 Primary care physician: Julianne Lord NP Admitting clinician: Lucio Orourke Attending physician on admission: Lucio Orourke Consults: 07/13/24 13:12 Occupational Therapy Eval and Treat Routine Reason for consultation: Only if needed for Rehab Has provider been notified: No Physical Therapy Eval and Treat Routine Reason for consultation: Eval and Treat Has provider been notified: No Attending physician on discharge: Shaikh Bruna Discharging clinician: Shaikh Bruna Anticipated date of discharge: 07/14/24 DS: Diagnosis Discharge Diagnosis (1) UTI (urinary tract infection): Assessment and plan: Urine culture is pending. Will discharge her on oral Ceftin. Qualifiers: Urinary tract infection type: acute cystitis Hematuria presence: without hematuria Qualified Code(s): N30.00 - Acute cystitis without hematuria (2) Generalized weakness: Assessment and plan: Feeling better. Stable for discharge. (3) Hypertension: Assessment and plan: Continue with home medications. Follow-up with PCP and adjust medications as needed Qualifiers: Hypertension type: primary hypertension Qualified Code(s): I10 - Essential (primary) hypertension (4) Anemia: Assessment and plan: Chronic, unchanged. No evidence of overt/active GI bleed. Stool was positive for occult blood and she will need a colonoscopy as outpatient. She denies any prior history of colonoscopy Qualifiers: Anemia type: unspecified type Qualified Code(s): D64.9 - Anemia, unspecified (5) Anxiety: Assessment and plan: Well-controlled on current regimen. Continue with home medications (6) Bipolar disorder: Assessment and plan: Stable. Continue with home medications Qualifiers: Active/Remission status: in remission of unspecified degree Qualified Code(s): F31.70 - Bipolar disorder, currently in remission, most recent episode unspecified (7) High blood cholesterol: Assessment and plan: Continue with Lipitor (8) Occult blood in stools: Assessment and plan: Will need outpatient colonoscopy. DS: Summary Hospital Course Hospital Course: 63-year-old female presented with generalized weakness, fall at home. Her workup was consistent with UTI for which she was started on IV Rocephin and ciprofloxacin along with gentle IV hydration overnight. Feeling better today and is more or less at her baseline. She is medically stable for discharge. She will need oral antibiotic to finish the course of antibiotic for UTI. Of note, patient was noted to have anemia that is chronic and her stool was positive for occult blood. She never had colonoscopy. This was discussed with the patient and she was informed that she will need outpatient colonoscopy. Status at Discharge Functional status at discharge: independent ambulation Overall status at discharge: patient is back to baseline Time Spent with Patient Time attestation: Total time spent providing and/or coordinating discharge services: Time spent: greater than 30 minutes Exam Constitutional Vital Signs, click to edit/add: Last Vital Signs Temp 98.5 F 07/14/24 07:45 Pulse 80 07/14/24 07:45 Resp 18 07/14/24 07:45 BP 167/100 H 07/14/24 07:45 Pulse Ox 97 07/14/24 07:45 O2 Del Method Room Air 07/14/24 07:45 Documenting provider has reviewed patient's vital signs: yes Common normals: no apparent distress and oriented x3 General appearance: cooperative Respiratory Common normals: normal respiratory effort and clear to auscultation bilaterally Effort & inspection: able to speak in complete sentences Auscultation: clear to auscultation bilaterally Cardio Common normals: regular rate, S1 normal heart sound and S2 normal heart sound Rate: regular rate Heart sounds: S1 normal and S2 normal Extremity Common normals: no clubbing, cyanosis or edema Neuro Common normals: oriented x3, moves all extremities and no focal motor deficits Psych Common normals: mental status grossly normal, denies hallucinations, denies homicidal ideation and denies suicidal ideation DS: Data Data Completed and Pending Labs on day of discharge: Labs from last 24 hours 07/14/24 07/14/24 07/13/24 07:40 06:25 15:14 WBC 6.8 6.9 RBC 3.29 L 2.88 L Hgb 8.9 L 7.8 L Hct 28.8 L 25.4 L MCV 87.5 88.2 MCH 27.1 27.1 MCHC 30.9 30.7 RDW 20.0 H 20.2 H Plt Count 236 189 MPV 8.9 L 10.1 Neut % (Auto) 67.9 67.8 Lymph % (Auto) 21.0 19.5 L [place] % (Auto) 6.6 8.8 Eos % (Auto) 3.2 2.9 Baso % (Auto) 0.4 0.3 Neut # (Auto) 4.6 4.7 Lymph # (Auto) 1.4 1.4 [place] # (Auto) 0.5 0.6 Eos # (Auto) 0.2 0.2 Baso # (Auto) 0.0 0.0 Abs Immat Gran (auto) 0.06 H 0.05 H Imm/Tot Granulo (auto) 0.9 H 0.7 H Sodium 140 Potassium 4.1 Chloride 106 Carbon Dioxide 24.2 Anion Gap 13.9 BUN 4.0 L Creatinine 0.95 Est GFR ( Amer) >60 Est GFR (Non-Af Amer) 59 L BUN/Creatinine Ratio 4.2 Glucose 93 Calcium 8.9 Total Bilirubin 0.3 AST 15 ALT 14 Alkaline Phosphatase 103 Total Protein 6.4 Albumin 2.7 L Globulin 3.7 Albumin/Globulin Ratio 0.7 Discharge Plan Discharge Disposition: Home, Self-Care Discharge Medications: New cefuroxime axetil 500 mg tablet 500 mg PO BID 7 Days Qty: 14 0RF Continued alendronate 35 mg tablet 35 mg PO DAILY dimenhydrinate 50 mg tablet 50 mg PO Q8H alprazolam 1 mg tablet 1 mg PO BID PRN (Reason: anxiety) meclizine 12.5 mg Tablet 12.5 mg PO TID PRN (Reason: Vertigo) potassium chloride [Klor-Con M20] 20 mEq tablet,ER particles/crystals 20 meq PO TID aspirin 81 mg tablet,delayed release (DR/EC) 81 mg PO DAILY atorvastatin 40 mg tablet 40 mg PO DAILY buspirone 30 mg tablet 30 mg PO BID bupropion HCl 300 mg tablet extended release 24 hr 300 mg PO DAILY bupropion HCl 150 mg tablet extended release 24 hr 150 mg PO DAILY meloxicam 7.5 mg tablet 7.5 mg PO DAILY loratadine 10 mg tablet 10 mg PO DAILY carbamazepine [Tegretol] 200 mg tablet 200 mg PO .COMPLEX Rx Instructions: 200 mg orally PO QAM AND 400 MG POQPM; Caplyta 42 mg capsule 42 mg PO DAILY aripiprazole 15 mg tablet 15 mg PO DAILY carvedilol 25 mg tablet 25 mg PO BID hydrochlorothiazide 25 mg tablet 25 mg PO DAILY losartan 50 mg tablet 50 mg PO DAILY Activity: increase activity as tolerated Diet: advance to your usual diet Print Language: Spanish Forms: Portal Instructions Follow Up Appointments: f/u with PCP in one week
[2024-07-14] MEDS: HYDRALAZINE HCL 20 MG/ML VIAL 10 MG IVP (12:26)
[2024-07-14 13:30] VITALS: BP 144/91
--- NOTE | 2024-07-16 14:45 | CM.DCFOLLOWU ---
1st attempt 07/16/24, no answer
--- NOTE | 2024-07-17 15:08 | CM.DCFOLLOWU ---
Person spoke with: Deni How are you feeling? Better How is your pain? No pain Did you understand your discharge instructions? Yes Do you have any questions about your discharge instructions? No Were you given any prescriptions at discharge? Yes Were you able to get your prescriptions filled? Yes Do you understand how to take your medications as ordered? Yes Do you have any questions about your follow up appointment and do you plan to keep your follow up appointment? I scheduled appointment for 2 weeks and plan on going to appt. Is there anything else that you would like to discuss? No Questions/Comments/Concerns/Other:
== END 2024-07-14 13:45 | disposition home or self-care (01) ==
LOC: ER 12:13 → MS 12:16
PROVIDERS: Admitting Provider Family Medicine; Emergency Provider Emergency Medicine Emergency Medical Services; PCP Nurse Practitioner; Visit Provider Internal Medicine
DX: N30.00 Acute cystitis without hematuria (principal); R53.1 Weakness; I10 Essential (primary) hypertension; D64.9 Anemia, unspecified; R19.5 Other fecal abnormalities; F41.9 Anxiety disorder, unspecified; F31.70 Bipolar disorder, currently in remission, most recent episode unspecified; E78.00 Pure hypercholesterolemia, unspecified; M19.90 Unspecified osteoarthritis, unspecified site; Z87.891 Personal history of nicotine dependence; Z91.81 History of falling
CPT/HCPCS: 36415; 71045; 80053; 83605; 84484; 85025; 93005; 94667; 94668; 94761; 96361; 96365; 96366; 96367; 96375; 97110; 97161; 97165; 97530; 99285; G0328; G0378; J0360; J0696; J0744

== ENCOUNTER 2024-08-07 08:53 | Outpatient (OUT) | payer OTHER, SELFPAY ==
--- OUTSIDE RECORDS SUMMARY | 2024-08-07 09:18 | XMS_ITS | CCD ---
Author Organization [facility] Care Team Providers Care Gas Station Manager Name Role Phone PATRICK DAO Admitting Unavailable PATRICK DAO Attending Unavailable AICHHOLZ, MATIAS JULIANNE Primary Care Unavailable WILLIS, PATRICK Consulting Unavailable WILLIS, PATRICK Admitting Unavailable WILLIS, PATRICK Attending Unavailable AICHHOLZ, FORGING DIE FINISHER JULIANNE Primary Care Unavailable PATRICK DAO Consulting Unavailable AICHHOLZ, MATIAS JULIANNE Admitting Unavailable AICHHOLZ, FORGING DIE FINISHER JULIANNE Attending Unavailable AICHHOLZ, FORGING DIE FINISHER JULIANNE Primary Care Unavailable Aichholz TITLE ONE TEACHER, Julianne Unavailable Елена BENSON, Zhen Primary Care Provider AICHHOLZ, JULIANNE Attending Unavailable AICHHOLZ, JULIANNE Attending Unavailable AICHHOLZ, JULIANNE Attending Unavailable AICHHOLZ, JULIANNE Attending Unavailable AICHHOLZ, JULIANNE Attending Unavailable AICHHOLZ, JULIANNE Attending Unavailable AICHHOLZ, JULIANNE Attending Unavailable AICHHOLZ, JULIANNE Attending Unavailable SHANDA STANTON Attending Unavailable Chris Caruso Attending Unavailab Chris [...] 07-15-2022 Chronic Other aftercare (1 source) Other penitentiary (current) drug therapy; Translations: [OTH LONGTERM CURRENT DRUG THERAPY] Onset: 07-16-2022 Episodic Other [...] 09-08-2022 BASO # 0.1 103/ul Normal 0.0-0.1 [facility] [place] Comment on above: Performed By: #### C BC #### [facility] [address] [place] [address] Dr. Anish Johnson Basophils/100 WBC (Bld) 1.1 % Normal 0.2-2.0 [facility] [place] Comment on above: Performed By: #### C BC #### [facility] [address] [place] [address] Dr. Anish Johnson EO # 0.3 103/ul Normal 0.0-0.7 [facility] [place] Comment on above: Performed By: #### C BC #### [facility] [address] [place] [address] Dr. Anish Johnson Eosinophils/100 WBC (Bld) 4.1 % Normal 0.9-7.0 [facility] [place] Comment on above: Performed By: #### C BC #### [facility] [address] [place] [address] Dr. Anish Johnson Erythrocyte distribution width (RBC) [Ratio] 15.1 % Critically high 11.0-15.0 [facility] [place] Comment on above: Performed By: #### C BC #### [facility] [address] [place] [address] Dr. Anish Johnson Hematocrit (Bld) [Volume fraction] 40.6 % Normal 36.0-48.0 [facility] [place] Comment on above: Performed By: #### C BC #### [facility] [address] [place] [address] Dr. Anish Johnson Hemoglobin (Bld) [Mass/Vol] 12.4 g/dL Normal 12.0-16.0 [facility] [place] Comment on above: Performed By: #### C BC #### [facility] [address] [place] [address] Dr. Anish Johnson IG # 0.02 10e3/ul Normal 0.00-0.03 [facility] [place] Comment on above: Performed By: #### C BC #### [facility] [address] [place] [address] Dr. Anish Johnson IG % 0.3 % Normal 0.0-0.5 [facility] [place] Comment on above: Performed By: #### C BC #### [facility] [address] [place] [address] Dr. Anish Johnson LYMPH # 1.3 103/ul Normal 1.2-3.8 [facility] [place] Comment on above: Performed By: #### C BC #### [facility] [address] [place] [address] Dr. Anish Johnson Lymphocytes/100 WBC (Bld) 19.7 % Critically low 20.5-60.0 [facility] [place] Comment on above: Performed By: #### C BC #### [facility] [address] [place] [address] Dr. Anish Johnson MANUAL DIFF REQ NO Normal [facility] Comment on above: Performed By: #### C BC #### [facility] [address] [place] [address] Dr. Anish Johnson MCH (RBC) [Entitic mass] 25.5 pg Critically low 26.7-34.0 [facility] [place] Comment on above: Performed By: #### C BC #### [facility] [address] [place] [address] Dr. Anish Johnson MCHC (RBC) [Mass/Vol] 30.5 g/dL Normal 29.9-35.2 [facility] Comment on above: Performed By: #### C BC #### [facility] [address] [place] [address] Dr. Anish Johnson MCV (RBC) [Entitic vol] 83.4 fL Normal 81.0-99.0 [facility] [place] Comment on above: Performed By: #### C BC #### [facility] [address] [place] [address] Dr. Anish Johnson MONO # 0.5 103/ul Normal 0.3-0.8 [facility] [place] Comment on above: Performed By: #### C BC #### [facility] [address] [place] [address] Dr. Anish Johnson Monocytes/100 WBC (Bld) 7.0 % Normal 1.7-12.0 [facility] [place] Comment on above: Performed By: #### C BC #### [facility] [address] [place] [address] Dr. Anish Johnson NEUT # 4.5 103/ul Normal 1.4-6.5 [facility] [place] Comment on above: Performed By: #### C BC #### [facility] [address] [place] [address] Dr. Anish Johnson Neutrophils/100 WBC (Bld) 67.8 % Normal 43.0-75.0 [facility] [place] Comment on above: Performed By: #### C BC #### [facility] [address] [place] [address] Dr. Anish Johnson Platelet mean volume (Bld) [Entitic vol] 10.5 fL Normal 9.5-13.5 [facility] [place] Comment on above: Performed By: #### C BC #### [facility] [address] [place] [address] Dr. Anish Johnson PLT 297 103/ul Normal 150-450 [facility] Comment on above: Performed By: #### C BC #### [facility] [address] [place] [address] Dr. Anish Johnson RBC 4.87 106/ul Normal 4.20-5.40 [facility] Comment on above: Performed By: #### C BC #### [facility] [address] [place] [address] Dr. Anish Johnson WBC 6.6 103/ul Normal 4.0-11.0 [facility] Comment on above: Performed By: #### C BC #### [facility] [address] [place] [address] Dr. Anish Johnson CARBAMAZEPINEon 07-16-2022 Carbamezapine 5.4 ug/mL Normal 4.0-12.0 [facility] Comment on above: Result Comment: In c onjunction with other antiepileptic drugs Therapeutic 4.0 - 8.0 Toxicity 9.0 - 12.0 . Carbamazepine alone Therapeutic 8.0 - 12.0 . Detection Limit = 2.0 <2.0 indicated None Detected Performed By: #### C ARBLC #### [facility] [address] [place] [address] Dr. Anish Johnson CBC AUTO DIFFon 07-15-2022 BASO # 0.0 103/ul Normal 0.0-0.1 [facility] [place] Comment on above: Performed By: #### C BC #### [facility] [address] [place] [address] Dr. Anish Johnson Basophils/100 WBC (Bld) 0.5 % Normal 0.2-2.0 [facility] [place] Comment on above: Performed By: #### C BC #### [facility] [address] [place] [address] Dr. Anish Johnson EO # 0.2 103/ul Normal 0.0-0.7 [facility] [place] Comment on above: Performed By: #### C BC #### [facility] [address] [place] [address] Dr. Anish Johnson Eosinophils/100 WBC (Bld) 2.9 % Normal 0.9-7.0 [facility] [place] Comment on above: Performed By: #### C BC #### [facility] [address] [place] [address] Dr. Anish Johnson Erythrocyte distribution width (RBC) [Ratio] 15.7 % Critically high 11.0-15.0 [facility] [place] Comment on above: Performed By: #### C BC #### [facility] [address] [place] [address] Dr. Anish Johnson Hematocrit (Bld) [Volume fraction] 40.2 % Normal 36.0-48.0 [facility] [place] Comment on above: Performed By: #### C BC #### [facility] [address] [place] [address] Dr. Anish Johnson Hemoglobin (Bld) [Mass/Vol] 12.5 g/dL Normal 12.0-16.0 [facility] [place] Comment on above: Performed By: #### C BC #### [facility] [address] [place] [address] Dr. Anish Johnson IG # 0.02 10e3/ul Normal 0.00-0.03 [facility] [place] Comment on above: Performed By: #### C BC #### [facility] [address] [place] [address] Dr. Anish Johnson IG % 0.3 % Normal 0.0-0.5 [facility] [place] Comment on above: Performed By: #### C BC #### [facility] [address] [place] [address] Dr. Anish Johnson LYMPH # 1.5 103/ul Normal 1.2-3.8 [facility] Comment on above: Performed By: #### C BC #### [facility] [address] [place] [address] Dr. Anish Johnson Lymphocytes/100 WBC (Bld) 18.7 % Critically low 20.5-60.0 [facility] [place] Comment on above: Performed By: #### C BC #### [facility] [address] [place] [address] Dr. Anish Johnson MANUAL DIFF REQ NO Normal [facility] Comment on above: Performed By: #### C BC #### [facility] [address] [place] [address] Dr. Anish Johnson MCH (RBC) [Entitic mass] 25.4 pg Critically low 26.7-34.0 [facility] Comment on above: Performed By: #### C BC #### [facility] [address] [place] [address] Dr. Anish Johnson MCHC (RBC) [Mass/Vol] 31.1 g/dL Normal 29.9-35.2 [facility] Comment on above: Performed By: #### C BC #### [facility] [address] [address] [address] Anish Johnson MCV (RBC) [Entitic vol] 81.7 fL Normal 81.0-99.0 [facility] Comment on above: Performed By: #### C BC #### [facility] [address] [place] [address] Dr. Anish Johnson MONO # 0.7 103/ul Normal 0.3-0.8 [facility] Comment on above: Performed By: #### C BC #### [facility] [address] [place] [address] Dr. Anish Johnson Monocytes/100 WBC (Bld) 8.3 % Normal 1.7-12.0 [facility] Comment on above: Performed By: #### C BC #### [facility] [address] [place] [address] Dr. Anish Johnson NEUT # 5.4 103/ul Normal 1.4-6.5 [facility] Comment on above: Performed By: #### C BC #### [facility] [address] [place] [address] Dr. Anish Johnson Neutrophils/100 WBC (Bld) 69.3 % Normal 43.0-75.0 [facility] Comment on above: Performed By: #### C BC #### [facility] [address] [place] [address] Dr. Anish Johnson Platelet mean volume (Bld) [Entitic vol] 10.6 fL Normal 9.5-13.5 [facility] Comment on above: Performed By: #### C BC #### [facility] [address] [place] [address] Dr. Anish Johnson PLT 297 103/ul Normal 150-450 [facility] Comment on above: Performed By: #### C BC #### [facility] [address] [place] [address] Dr. Anish Johnson RBC 4.92 106/ul Normal 4.20-5.40 [facility] Comment on above: Performed By: #### C BC #### [facility] [address] [place] [address] Dr. Anish Johnson WBC 7.8 103/ul Normal 4.0-11.0 [facility] [place] Comment on above: Performed By: #### C BC #### [facility] [address] [address] [address] Anish Johnson GLUCOSE BLOODon 07-15-2022 Glucose [Mass/Vol] 133 mg/dL Critically high 74-106 [facility] Comment on above: Performed By: #### L IVER, GLUC, TSH, LIPID #### [facility] [address] [place] [address] Dr. Anish Johnson LIPID PROFILEon 07-15-2022 CHOL-HDL RATIO NORM SEE BELOW Normal [facility] Comment on above: Result Comment: 3.3 - 4.4 LOW RISK 4.4 - 7.1 AVERAGE RISK 7.1 - 11.0 MODERATE RISK >11.0 HIGH RISK Performed By: #### L IVER, GLUC, TSH, LIPID #### [facility] [address] [address] [address] Anish Johnson Cholesterol [Mass/Vol] 135 mg/dL Normal <=200 [facility] Comment on above: Performed By: #### L IVER, GLUC, TSH, LIPID #### [facility] [address] [place] [address] Dr. Anish Johnson Cholesterol in HDL [Mass/Vol] 58 mg/dL Normal 40-60 [facility] Comment on above: Performed By: #### L IVER, GLUC, TSH, LIPID #### [facility] [address] [address] [address] Anish Johnson Cholesterol in LDL [Mass/Vol] 54.2 mg/dL Normal [facility] Comment on above: Performed By: #### L IVER, GLUC, TSH, LIPID #### [facility] [address] [place] [address] Dr. Anish Johnson Cholesterol.total/Cho lesterol in HDL [Mass ratio] 2.3 {ratio} Normal [facility] Comment on above: Performed By: #### L IVER, GLUC, TSH, LIPID #### [facility] [address] [place] [address] Dr. Anish Johnson HDL NORMAL > or = 60 mg/dl - LOW CARDIOVASCULAR RISK <40 mg/dl - HIGH CARDIOVASCULAR RISK Normal [facility] Comment on above: Performed By: #### L IVER, GLUC, TSH, LIPID #### [facility] [address] [address] [address] Anish Johnson LDL CALC NORMAL SEE BELOW Normal [facility] Comment on above: Result Comment: <100 mg/dl OPTIMAL 100 - 129 mg/dl NEAR OR ABOVE OPTIMAL 130 - 159 mg/dl BORDERLINE HIGH 160 - 189 mg/dl HIGH >190 mg/dl VERY HIGH Performed By: #### L IVER, GLUC, TSH, LIPID #### [facility] [address] [address] [address] Anish Johnson Triglyceride [Mass/Vol] 114 mg/dL Normal <=150 [facility] Comment on above: Performed By: #### L IVER, GLUC, TSH, LIPID #### [facility] [address] [address] [address] Anish Johnson VLDL CALC 22.8 mg/dL Normal [facility] Comment on above: Performed By: #### L IVER, GLUC, TSH, LIPID #### [facility] [address] [address] [address] Anish Johnson LIVER PROFILEon 07-15-2022 Albumin [Mass/Vol] 4.3 g/dL Normal 3.4-5.0 [facility] Comment on above: Performed By: #### L IVER, GLUC, TSH, LIPID #### [facility] [address] [address] [address] Anish Johnson Albumin/Globulin [Mass ratio] 1.0 {ratio} Normal [facility] Comment on above: Performed By: #### L IVER, GLUC, TSH, LIPID #### [facility] [address] [address] [address] Anish Johnson ALP [Catalytic activity/Vol] 108 U/L Normal 46-116 [facility] Comment on above: Performed By: #### L IVER, GLUC, TSH, LIPID #### [facility] [address] [address] [address] Anish Johnson ALT [Catalytic activity/Vol] 26 U/L Normal 14-59 [facility] Comment on above: Performed By: #### L IVER, GLUC, TSH, LIPID #### [facility] [address] [place] [address] Dr. Anish Johnson AST [Catalytic activity/Vol] 21 U/L Normal 15-37 [facility] Comment on above: Performed By: #### L IVER, GLUC, TSH, LIPID #### [facility] [address] [place] [address] Dr. Anish Johnson BILI, CONJUGATED 0.1 mg/dL Normal 0.0-0.2 [facility] Comment on above: Performed By: #### L IVER, GLUC, TSH, LIPID #### [facility] [address] [place] [address] Dr. Anish Johnson Bilirubin [Mass/Vol] 0.5 mg/dL Normal 0.2-1.0 [facility] Comment on above: Performed By: #### L IVER, GLUC, TSH, LIPID #### [facility] [address] [place] [address] Dr. Anish Johnson Globulin (S) [Mass/Vol] 4.3 g/dL Normal [facility] Comment on above: Performed By: #### L IVER, GLUC, TSH, LIPID #### [facility] [address] [place] [address] Dr. Anish Johnson Protein [Mass/Vol] 8.6 g/dL Critically high 6.4-8.2 [facility] Comment on above: Performed By: #### L IVER, GLUC, TSH, LIPID #### [facility] [address] [place] [address] Dr. Anish Johnson TSHon 07-15-2022 TSH 1.692 uIU/mL Normal 0.358-3.740 [facility] Comment on above: Performed By: #### L IVER, GLUC, TSH, LIPID #### [facility] [address] [place] [address] Dr. Anish Johnson Vital Signs Date Time Vital Sign Value Performing Clinician Faci lity 01-03-2024 15:19-0500 Body height 157.5 cm Juliannejulio c Rodriguezhholz TITLE ONE TEACHER Work Phone: [facility] 01-03-2024 15:19-0500 Body mass index (BMI) [Ratio] 34.02 kg/m2 Julianne Aichholz TITLE ONE TEACHER Work Phone: [facility] 01-03-2024 15:19-0500 Body temperature 97.5 [degF] Julianne Aichholz TITLE ONE TEACHER Work Phone: [facility] 01-03-2024 15:19-0500 Body weight 84.37 kg Julianne Aichholz TITLE ONE TEACHER Work Phone: [facility] 01-03-2024 15:19-0500 Diastolic blood pressure 82 mm[Hg] Julianne Aichholz TITLE ONE TEACHER Work Phone: [facility] 01-03-2024 15:19-0500 Heart rate 87 /min Julianne Aichholz TITLE ONE TEACHER Work Phone: [facility] 01-03-2024 15:19-0500 Respiratory rate 17 /min Julianne Aichholz TITLE ONE TEACHER Work Phone: [facility] 01-03-2024 15:19-0500 SaO2% (BldA) [Mass fraction] 97 % Julianne Aichholz TITLE ONE TEACHER Work Phone: [facility] 01-03-2024 15:19-0500 Systolic blood pressure 128 mm[Hg] Julianne Aichholz TITLE ONE TEACHER Work Phone: [facility] Encounters Encounter Date Encounter Type Care Provider Facility Start: 07-25-2024 End: 07-25-2024 ambulatory SHANDA STANTON Not Available Start: 07-24-2024 ambulatory Chris Chapa acility:[facility] Start: 07-23-2024 End: 07-23-2024 ambulatory JULIANNE AICHHOLZ Not Available Start: 07-12-2024 End: 07-12-2024 ambulatory JULIANNE AICHHOLZ Not Available Start: 05-14-2024 End: 05-14-2024 ambulatory JULIANNE AICHHOLZ Not Available Start: 04-19-2024 End: 04-19-2024 ambulatory JULIANNE AICHHOLZ Not Available Start: 04-05-2024 End: 04-05-2024 ambulatory JULIANNE AICHHOLZ Not Available Start: 02-22-2024 End: 02-22-2024 ambulatory JULIANNE AICHHOLZ Not Available Start: 01-24-2024 End: 01-24-2024 ambulatory JULIANNE AICHHOLZ Not Available Start: 01-10-2024 Refill Julianne Aichholz TITLE ONE TEACHER Work Phone: [facility] Start: 01-03-2024 End: 01-03-2024 Office outpatient visit 25 minutes Julianne Aichholz TITLE ONE TEACHER Work Phone: [facility] Comment on above: Essential (primary) hypertension (CMS/HCC) (Primary Dx); BMI 34.0-34.9,adult; Bipolar affective disorder, remission status unspecified (CMS/HCC); Tobacco user; Vertigo; Anxiety Start: 01-03-2024 End: 01-03-2024 ambulatory JULIANNE AICHHOLZ Not Available Start: 09-08-2022 End: 09-09-2022 ambulatory PATRICK HESTERMichael Facility:[facility] Start: 07-15-2022 End: 07-16-2022 ambulatory PATRICK HESTERMichael Facility:[facility] Start: 09-09-2021 ambulatory FORGING DIE FINISHER JULIANNE AICHHOLZ Facil ity:[facility] Procedures Date Procedure Procedure Detail Performing Clinician Start: 01-03-2024 Mammography Julianne Aicjose juanh olz TITLE ONE TEACHER Work Phone: Plan of Treatment Date Care Activity Detail Author Start: 01-03-2025 Screening for malign ant neoplasm of breast Mammogram [facility] Start: 01-03-2025 Screening for malign ant neoplasm of colon Colorectal Cancer Screening [facility] Comment on above: Postponed from 10/05 (Patient Refused) Start: 01-24-2024 End: 01-24-2024 Patient encounter procedure 01/24/2024 9:00 AM EST Office Visit [facility] [address] [place] [address] Julianne Lord, JUANITA [address] [place] [address] [facility] Start: 1989 Screening for malign ant neoplasm of cervix HPV/Cotest [facility] Start: 1980 Screening for malign ant neoplasm of cervix Pap Smear [facility] Start: 1959 Screening for malign ant neoplasm of colon [facility] Payers Date Payer Category Payer Medicaid [facility] [employer] [place] [id number] 2023-Present [address] [place] [address] [id number] 2023 Self-pay 2013 Medicaid [id number] 1959 Unknown [id number] 1959 Unknown [id number] 1959 Unknown [id number] [id number] 1959 Unknown [id number] [id number] 1959 Unknown [id number] [id number] 1959 Unknown [id number] [id number] 1959 Unknown [id number] [id number] 1959 Unknown [id number] [id number] 1959 Unknown [id number] [id number] 1959 Unknown [id number] [id number] 1959 Unknown [id number] [id number] 1959 Unknown [id number] [id number] 1959 Unknown [id number] Social History Date Type Detail Facility Start: [...] t illness Narrative Associated Problem(s): Bipolar disorder ([facility]) Continue with psych Associated Problem(s): [...] pital DATE CREATED AUTHOR AUTHOR'S ORGANIZ ATION 07/27/2024 [facility] EPIC DATE CREATED AUTHOR AUTHOR'S ORGANIZ ATION 08/04/2024 [facility] Care Teams (unrecognized sec tion and content) Gas Station Manager Relationship Specialty Start Date End Date Zhen Christiansen MD [address] [place] [id number] PCP - General Family Medicine 12/27/23 Julianne Lord NP [address] [place] [phone] Nurse Practitioner Family Medicine 11/28/22 Gas Station Manager Relationship Specialty Start Date End Date Zhen Christiansen MD [address] [id number] PCP - General Family Medicine 12/27/23 Julianne Lord NP [address] [place] [id number] Nurse Practitioner Family Medicine 11/28/22 FOR RECORDS [...] BE BASED ON THE PRIMARY CLINICAL RECORDS. [facility]. provides no warranty or guarantee of the accuracy or completeness of information in this document.
[2024-08-07 09:27] LABS: Basophils Percent Auto 0.4 % (0.2-2.0); Eosinophils Absolute Auto 0.2 10^3/uL (0.0-0.7); Eosinophils Percent Auto 1.7 % (0.9-7.0); Hematocrit 31.7 % (36.0-48.0); Hemoglobin 9.9 g/dL (12.0-16.0); Immature Granulocytes Abs Auto 0.03 10^3/uL (0.00-0.03); Immature Granulocytes Pct Auto 0.3 % (0.0-0.5); Lymphocytes Absolute Auto 1.3 10^3/uL (1.2-3.8); Lymphocytes Percent Auto 11.8 % (20.5-60.0); Mean Corpuscular HGB Conc 31.2 g/dL (29.9-35.2); Mean Corpuscular Hemoglobin 27.3 pg (26.7-34.0); Mean Corpuscular Volume 87.3 fL (81.0-99.0); Monocytes Absolute Auto 0.6 10^3/uL (0.3-0.8); Monocytes Percent Auto 5.4 % (1.7-12.0); Neutrophils Absolute Auto 9.2 10^3/uL (1.4-6.5); Neutrophils Percent Auto 80.4 % (43.0-75.0); Platelet Count 342 10^3/uL (150-450); Red Blood Count 3.63 10^6/uL (4.20-5.40); Red Cell Distribution Width 16.3 % (11.0-15.0); White Blood Count 11.4 10^3/uL (4.0-11.0)
[2024-08-07 10:17] LABS: Alanine Aminotransferase 14 U/L (14-59); Albumin Globulin Ratio 0.8; Albumin Level 3.5 g/dL (3.4-5.0); Alkaline Phosphatase 105 U/L (46-116); Aspartate Amino Transferase 13 U/L (15-37); Bilirubin Direct 0.1 mg/dL (0.0-0.2); Bilirubin Total 0.3 mg/dL (0.2-1.0); Globulin 4.4 g/dL; Thyroid Stimulating Hormone 2.019 uIU/mL (0.358-3.740); Total Protein 7.9 g/dL (6.4-8.2)
[2024-08-08 07:09] LABS: Carbamazepine(Tegretol),S 6.1 ug/mL (4.0-12.0)
== END 2024-08-07 08:54 | disposition home or self-care (01) ==
LOC: LAB 08:54
PROVIDERS: PCP Nurse Practitioner; Visit Provider Psychiatry & Neurology Psychiatry
DX: F31.9 Bipolar disorder, unspecified (principal); Z79.899 Other long term (current) drug therapy
CPT/HCPCS: 36415; 80076; 80156; 84443; 85025

== ENCOUNTER 2024-09-03 13:46 | Outpatient (OUT) | payer OTHER, SELFPAY | END 2024-09-03 13:47 | disposition home or self-care (01) | LOC: PST 13:46 | PROVIDERS: PCP Nurse Practitioner; Visit Provider Surgery | DX: Z01.818 Encounter for other preprocedural examination (principal) ==

== ENCOUNTER 2025-02-06 08:55 | Outpatient (OUT) | payer MEDICARE, SELFPAY ==
[2025-02-06 09:12] LABS: Basophils Percent Auto 0.3 % (0.2-2.0); Eosinophils Percent Auto 0.5 % (0.9-7.0); Hematocrit 38.2 % (36.0-48.0); Hemoglobin 11.7 g/dL (12.0-16.0); Immature Granulocytes Abs Auto 0.01 10^3/uL (0.00-0.03); Immature Granulocytes Pct Auto 0.2 % (0.0-0.5); Lymphocytes Absolute Auto 1.6 10^3/uL (1.2-3.8); Lymphocytes Percent Auto 26.1 % (20.5-60.0); Mean Corpuscular HGB Conc 30.6 g/dL (29.9-35.2); Mean Corpuscular Hemoglobin 24.8 pg (26.7-34.0); Mean Corpuscular Volume 80.9 fL (81.0-99.0); Mean Platelet Volume 9.2 fL (9.5-13.5); Monocytes Absolute Auto 0.5 10^3/uL (0.3-0.8); Neutrophils Absolute Auto 3.9 10^3/uL (1.4-6.5); Neutrophils Percent Auto 63.9 % (43.0-75.0); Platelet Count 269 10^3/uL (150-450); Red Blood Count 4.72 10^6/uL (4.20-5.40); Red Cell Distribution Width 16.5 % (11.0-15.0)
--- OUTSIDE RECORDS SUMMARY | 2025-02-06 09:17 | XMS_ITS | CCD ---
Author Organization [facility] Care Team Providers Care Director Of Compliance Name Role Phone PATRICK DAO Admitting Unavailable PATRICK DAO Attending Unavailable AICHHOLZ, MATIAS JULIANNE Primary Care Unavailable PATRICK DAO Consulting Unavailable PATRICK DAO Admitting Unavailable PATRICK DAO Attending Unavailable AICHHOLZ, DIRECTOR OF RESTAURANT OPERATIONS JULIANNE Primary Care Unavailable PATRICK DAO Consulting Unavailable AICHHOLZ, DIRECTOR OF RESTAURANT OPERATIONS JULIANNE Admitting Unavailable AICHHOLZ, DIRECTOR OF RESTAURANT OPERATIONS JULIANNE Attending Unavailable AICHHOLZ, DIRECTOR OF RESTAURANT OPERATIONS JULIANNE Primary Care Unavailable Aichholz PBX REPAIRER, Julianne Unavailable Zhen Christiansen MD Primary Care Provider [phone] Aichholz PBX REPAIRER, Julianne Unavailable Aichholz PBX REPAIRER, Julianne Unavailable AICHHOLZ, JULIANNE Attending Unavailable AICHHOLZ, JULIANNE Attending Unavailable AICHHOLZ, JULIANNE Attending Unavailable AICHHOLZ, JULIANNE Attending Unavailable AICHHOLZ, JULIANNE Attending Unavailable AICHHOLZ, JULIANNE Attending Unavailable AICHHOLZ, JULIANNE Attending Unavailable AICHHOLZ, JULIANNE Attending Unavailable SHANDA CELAYA Attending Unavailable AICHHOLZ, JULIANNE Attending Unavailable AICHHOLZ, JULIANNE Attending Unavailable Chris Caruso Attending Unavailab Chris Felton Admitting Unavailab dread NO FAMILY, PHYSICIAN Primary Care Unavailable Medications Current Medications Medication Drug Class(es) Dates Sig (Normalized) Sig (Original) ALPRAZolam 1 mg oral tablet (20 sources) Benzodiazepine Start: 11-19-2023 take 1 tablet by mouth twice daily as needed, then take 1 tablet by mouth in the morning as needed, then take 1 tablet by mouth once daily in the evening as needed ALPRAZolam (Xanax) 1 MG tablet Take 1 tablet by mouth 2 (two) times a day as needed Pt has been taking 1 tab in morning and 1 tab in the evening daily 11/19/2023 Active aspirin 81 mg delayed release oral tablet (20 sources) Platelet Aggregation Inhibitor, Nonsteroidal Anti-inflammatory Drug Start: 07-09-2024 End: 02-12-2025 take 1 tablet by mouth once daily aspirin (Aspirin Low Dose) 81 MG EC tablet Indications: Essential (primary) hypertension (CMS/HCC) , Mixed hyperlipidemia (CMS/HCC) Take 1 tablet (81 mg) by mouth Daily Take 81 mg by mouth Daily 90 tablet 1 11/14/2024 02/12/2025 Active atorvastatin 40 mg oral tablet (20 sources) HMG-CoA Reductase Inhibitor Start: 05-14-2024 End: 02-12-2025 take 1 tablet by mouth at bedtime atorvastatin (Lipitor) 40 MG tablet Indications: Mixed hyperlipidemia (CMS/HCC) Take 1 tablet (40 mg) by mouth at bedtime 30 tablet 5 07/23/2024 Active Start: 11-16-2023 take 1 tablet by richard th in the morning atorvastatin (Lipitor) 40 MG tablet Take 1 tablet by mouth in the morning. 0 11/16/2023 Active bisacodyl 5 mg delayed release oral tablet (13 sources) Stimulant Laxative Start: 07-25-2024 End: 11-14-2024 take 1 tablet by mouth once Bisacodyl EC 5 MG EC tablet Take 1 tablet (5 (FIVE) mg) by mouth 1 time for 1 dose Do not crush, chew, or split. Take as detailed on clinic hand out for colonoscopy prep 07/25/2024 11/14/2024 Discontinued (Therapy completed) 24 hr buPROPion hydrochloride 300 mg extended release oral tablet (20 sources) Aminoketone Start: 11-16-2023 take 1 tablet by mouth every twenty-four hours in the morning buPROPion XL (Wellbutrin XL) 300 MG 24 hr tablet Take 1 tablet by mouth in the morning. Pt has been taking at night ontop of 150mg. 11/16/2023 Active Start: 11-16-2023 End: 01-03-2024 take 1 tablet by mouth every twenty-four hours in the morning buPROPion XL (Wellbutrin XL) 150 MG 24 hr tablet Take 1 tablet by mouth in the morning and 1 tablet before bedtime. 0 11/16/2023 01/03/2024 Discontinued buPROPion XL (We llbutrin XL) 150 MG 24 hr tablet Take 150 mg by mouth Daily Do not crush, chew, or split. Pt has been taking at night along with 300 mg Active busPIRone hydrochloride 30 mg oral tablet (20 sources) Start: 11-16-2023 take 1 tablet by mouth in the morning busPIRone (Buspar) 30 MG tablet Take 1 tablet by mouth in the morning and 1 tablet before bedtime. 11/16/2023 Active carBAMazepine 200 mg oral tablet (20 sources) Mood Stabilizer Start: 11-16-2023 carBAMazepine (TEGretol) 200 MG tablet Take 1 tablet by mouth in the morning and 1 tablet before bedtime. 1 tablet in the am, and 2 tablets at night: pt is currently taking 1 tab in am and 1 tab night. 11/16/2023 Active carvedilol 25 mg oral tablet (20 sources) alpha-Adrenergic Howard, beta-Adrenergic Howard Start: 05-14-2024 End: 02-12-2025 take 1 tablet by mouth in the morning carvedilol (Coreg) 25 MG tablet Indications: Essential (primary) hypertension (CMS/HCC) Take 1 tablet (25 mg) by mouth in the morning and 1 tablet (25 mg) in the evening. Take with meals. 60 tablet 2 07/23/2024 Active Start: 11-16-2023 take 1 tablet by richard th in the morning carvedilol (Coreg) 6.25 MG [...] mouth in the morning. 0 11/19/2023 Active losartan potassium 100 mg oral tablet (20 sources) Angiotensin 2 Receptor Howard Start: 11-14-2024 End: 02-12-2025 take 1 tablet by mouth once daily losartan (Cozaar) 100 MG tablet Indications: Essential (primary) hypertension (CMS/HCC) Take 1 tablet (100 mg) by mouth Daily 90 tablet 1 11/14/2024 02/12/2025 Active Start: 05-15-2024 End: 11-14-2024 take 1 tablet by mouth once daily losartan (Cozaar) 50 MG tablet Indications: Essential (primary) hypertension (CMS/HCC) Take 1 tablet (50 mg) by mouth Daily 90 tablet 1 05/15/2024 11/14/2024 Discontinued (Ineffective) lumateperone 42 mg oral capsule (20 sources) take 1 capsule by mouth in the morning Lumateperone Tosylate (Caplyta) 42 MG capsule Indications: Depressive Phase Bipolar Mood Disorder Take 1 capsule by mouth in the morning. Active meclizine hydrochloride 12.5 mg oral tablet (13 sources) Antiemetic Start: 09-21-2024 End: 10-21-2024 take 1 tablet by mouth three times daily as needed for dizziness meclizine (Antivert) 12.5 MG tablet Indications: Vertigo Take 1 tablet (12.5 mg) by mouth 3 (three) times a day as needed for dizziness 90 tablet 1 09/21/2024 10/21/2024 Active Start: 07-12-2024 End: 08-11-2024 take 1 tablet by mouth three times daily as needed for dizziness meclizine (Antivert) 12.5 MG tablet Indications: Vertigo Take 1 tablet (12.5 mg) by mouth 3 (three) times a day as needed for dizziness 90 tablet 1 07/12/2024 08/11/2024 Active Start: 10-18-2023 take 1 tablet by richard th three times daily as needed Travel-Ease 25 MG tablet Take 1 tablet by mouth 3 (three) times a day as needed 0 10/18/2023 Active meloxicam 7.5 mg oral tablet (3 sources) Nonsteroidal Anti-inflammatory Drug Start: 11-16-2023 take 1 tablet by mouth in the morning meloxicam (Mobic) 7.5 MG tablet Take 1 tablet by mouth in the morning. 0 11/16/2023 Active polyethylene glycol 3350 42666 mg powder for oral solution (13 sources) Osmotic Laxative Start: 07-25-2024 End: 11-14-2024 take 17 g by mouth once Polyethylene Glycol 3350 (PEG 3350) 17 GM/SCOOP powder mix and TAKE 238 grams BY MOUTH for a 1 time dose 07/25/2024 11/14/2024 Discontinued (Therapy completed) Start: 07-25-2024 End: 07-25-2024 take 17 g by mouth once polyethylene glycol, PEG, 33 50 (Glycolax) 17 GM/SCOOP powder Indications: Colonoscopy Take 238 g by mouth 1 (one) time for 1 dose Take as detailed from clinic hand out for colonoscopy prep 238 g 07/25/2024 07/25/2024 Active potassium chloride 20 meq extended release oral tablet (7 sources) Start: 09-26-2024 End: 10-26-2024 take 1 tablet by mouth in the morning potassium chloride CR (K-Tab) 20 MEQ ER tablet Indications: Hypokalemia Take 1 tablet (20 mEq) by mouth in the morning and 1 tablet (20 mEq) in the evening. Take before meals. 60 tablet 1 09/26/2024 10/26/2024 Active Start: 08-16-2024 End: 09-15-2024 take 1 tablet by mouth in the morning potassium chloride CR (K-Tab) 20 MEQ ER tablet Indications: Hypokalemia Take 1 tablet (20 mEq) by mouth in the morning and 1 tablet (20 mEq) in the evening. Take before meals. Do not crush, chew, or split.. 60 tablet 1 08/16/2024 09/15/2024 Active traZODone hydrochloride 50 mg oral tablet (3 sources) Serotonin Reuptake Inhibitor Start: 11-06-2024 take 1 tablet by mouth at bedtime traZODone (Desyrel) 50 MG tablet Take 50 mg by mouth at bedtime 11/06/2024 Active Completed/Discontinued Medications Medication Drug Class(es) Dates Sig (Normalized) Sig (Original) alendronic acid 35 mg oral tablet (6 sources) Bisphosphonate Start: 04-17-2024 End: 07-23-2024 alendronate (Fosamax) 35 MG tablet Indications: Other specified disorders of bone density and structure, unspecified site Take 1 tablet (35 mg) by mouth every 7 (seven) days for 28 days 4 tablet 5 04/17/2024 07/23/2024 Discontinued (Therapy completed) Start: 11-16-2023 alendronate (F osamax) 35 MG tablet Take 1 tablet by mouth every 7 (seven) days 0 11/16/2023 Active ARIPiprazole 30 mg oral tablet (20 sources) Atypical Antipsychotic Start: 05-21-2023 End: 01-03-2024 take 1 tablet by mouth in the morning ARIPiprazole (Abilify) 30 MG tablet Take 1 tablet by mouth in the morning. 0 05/21/2023 01/03/2024 Discontinued (Therapy completed) take 1 tablet by mouth in the mo rning ARIPiprazole (Abilify) 15 MG tablet Indications: Mixed Bipolar Affective Disorder Take 15 mg by mouth in the morning. Active Problems Active Problems Problem Classification Problem Date Documented Date Episodic/Chronic Anxiety disorders (20 sources) Anxiety; Translations: [Anxiety disorder, unspecified] Onset: 01-03-2024 01-03-2024 Chronic Conditions associated with dizziness or vertigo (20 sources) Vertigo; Translations: [Dizziness and giddiness] Onset: 01-03-2024 Resolved: 11-14-2024 01-03-2024 Episodic Delirium, dementia, and amnestic and other cognitive disorders (20 sources) Dementia associated with another disease; Translations: [Dementia in other diseases classified elsewhere, unspecified severity, with other behavioral disturbance] Onset: 07-03-2024 07-12-2024 Chronic Disorders of lipid metabolism (20 sources) Hyperlipidemia; Translations: [Hyperlipidemia, unspecified] Onset: 01-19-2024 01-19-2024 Chronic Essential hypertension (20 sources) Essential hypertension; Translations: [Essential (primary) hypertension] Onset: 11-16-2023 01-03-2024 Chronic Heart valve disorders (19 sources) Tricuspid valve regurgitation; Translations: [Rheumatic tricuspid insufficiency] Onset: 01-24-2024 01-24-2024 Chronic Immunizations and screening for infectious disease (4 sources) Needs influenza immunization; Translations: [Encounter for immunization] Onset: 11-14-2024 11-14-2024 Episodic Malaise and fatigue (19 sources) Fatigue; Translations: [Chronic fatigue, unspecified] Onset: 07-12-2024 07-12-2024 Chronic Mood disorders (20 sources) Bipolar disorder, unspecified; Translations: [Bipolar disorder] Onset: 07-15-2022 Resolved: 01-24-2024 Chronic Nutritional deficiencies (20 sources) Deficiency of macronutrients; Translations: [Unspecified severe protein-calorie malnutrition] Onset: 07-03-2024 07-23-2024 Chronic Other aftercare (1 source) Other skilled nursing (current) drug therapy; Translations: [OTH GROUP HOME CURRENT DRUG THERAPY] Onset: 07-16-2022 Episodic Other nutritional; endocrine; and metabolic disorders (20 sources) Body mass index 30+ - obesity; Translations: [Body mass index (BMI) 34.0-34.9, adult] Onset: 01-03-2024 Resolved: 04-05-2024 01-03-2024 Chronic Other nutritional; endocrine; and metabolic disorders (19 sources) Hypocalcemia; Translations: [Hypocalcemia] Onset: 07-03-2024 07-12-2024 Chronic Other screening for suspected conditions (not mental disorders or infectious disease) (20 sources) Cardiovascular stress test abnormal; Translations: [Abnormal result of other cardiovascular function study] Onset: 01-24-2024 01-24-2024 Episodic Other upper respiratory disease (19 sources) Seasonal allergy; Translations: [Other seasonal allergic rhinitis] Onset: 01-19-2024 01-19-2024 Chronic Residual codes; unclassified (4 sources) Memory impairment; Translations: [Other amnesia] Onset: 11-14-2024 11-14-2024 Episodic Screening and history of mental health and substance abuse codes (20 sources) Personal history of nicotine dependence; Translations: [Personal history of tobacco use] Onset: 01-24-2024 Resolved: 01-24-2024 01-24-2024 Episodic Past or Other Problems Problem Classification Problem Date Documented Da te Episodic/Chronic Abdominal pain (20 sources) Right upper quadrant pain; Translations: [Right upper quadrant pain] Onset: 01-24-2024 Resolved: 01-24-2024 01-24-2024 Episodic Biliary tract disease (19 sources) Cholelithiasis without obstruction; Translations: [Calculus of gallbladder without cholecystitis without obstruction] Onset: 01-24-2024 01-24-2024 Episodic Deficiency and other anemia (19 sources) Anemia; Translations: [Anemia, unspecified] Onset: 01-24-2024 01-24-2024 Episodic Deficiency and other anemia (20 sources) Iron deficiency anemia; Translations: [Iron deficiency anemia, unspecified] Onset: 07-03-2024 07-12-2024 Episodic Diabetes mellitus without complication (19 sources) Increased glucose level; Translations: [Other abnormal glucose] Onset: 02-22-2024 02-22-2024 Episodic Fluid and electrolyte disorders (15 sources) Hypokalemia; Translations: [Hypokalemia] Onset: 08-16-2024 08-16-2024 Episodic Gastrointestinal hemorrhage (2 sources) Rectal hemorrhage; Translations: [Hemorrhage of anus and rectum] 07-25-2024 Episodic Nonspecific chest pain (19 sources) Chest pain; Translations: [Chest pain, unspecified] Onset: 01-24-2024 Resolved: 11-14-2024 01-24-2024 Episodic Other bone disease and musculoskeletal deformities (19 sources) Osteopenia; Translations: [Other specified disorders of bone density and structure, unspecified site] Onset: 01-24-2024 02-22-2024 Episodic Other connective tissue disease (20 sources) Muscle weakness; Translations: [Muscle weakness (generalized)] Onset: 07-03-2024 07-12-2024 Episodic Other gastrointestinal disorders (20 sources) Occult blood in stools; Translations: [Other fecal abnormalities] Onset: 07-23-2024 07-23-2024 Episodic Other nervous system disorders (19 sources) Finding related to ability to move; Translations: [Other abnormalities of gait and mobility] Onset: 07-03-2024 07-12-2024 Episodic Other non-traumatic joint disorders (19 sources) Pain in right knee; Translations: [Pain in joint, lower leg] Onset: 01-19-2024 01-19-2024 Episodic Other upper respiratory disease (19 sources) Bleeding from nose; Translations: [Epistaxis] Onset: 05-14-2024 05-14-2024 Episodic Residual codes; unclassified (20 sources) Tobacco user; Translations: [Tobacco use] Onset: 01-03-2024 Resolved: 01-24-2024 01-03-2024 Episodic Residual codes; unclassified (19 sources) Postmenopausal state; Translations: [Asymptomatic menopausal state] Onset: 02-22-2024 02-22-2024 Episodic Septicemia (except in labor) (19 sources) Sepsis; Translations: [Sepsis, unspecified organism] Onset: 07-03-2024 Resolved: 11-05-2024 07-12-2024 Episodic Urinary tract infections (20 sources) Acute urinary tract infection; Translations: [Urinary tract infection, site not specified] Onset: 07-23-2024 Resolved: 11-05-2024 07-23-2024 Episodic Results Test Name Value Interpretation Reference Range Facility ALL CBC WITH AUTO DIFFon BASOPHILS ABSOLUTE AUTO 0.0 [facility] Basophils/100 WBC (Bld) 0.4 % 0.2 - 2.0 % [facility] Eosinophils/100 WBC (Bld) 1.7 % 0.9 - 7.0 % [facility] Erythrocyte distribution width (RBC) [Ratio] 16.3 % High 11.0 - 15.0 % [facility] Hematocrit (Bld) [Volume fraction] 31.7 % Low 36.0 - 48.0 % [facility] Hemoglobin (Bld) [Mass/Vol] 9.9 g/dL Low 12.0 - 16.0 g/dL [facility] IMMATURE GRANULOCYTES ABS AUTO 0.03 [facility] Immature granulocytes/100 WBC (Bld) 0.3 % 0.0 - 0.5 % [facility] Interpretation and review of laboratory results Abnormal [facility] LYMPHOCYTES ABSOLUTE AUTO 1.3 [facility] Lymphocytes/100 WBC (Bld) 11.8 % Low 20.5 - 60.0 % [facility] MCH (RBC) [Entitic mass] 27.3 pg 26.7 - 34.0 pg [facility] MCHC (RBC) [Mass/Vol] 31.2 g/dL 29.9 - 35.2 g/dL [facility] MCV (RBC) [Entitic vol] 87.3 fL 81.0 - 99.0 fL [facility] MONOCYTES ABSOLUTE AUTO 0.6 [facility] Monocytes/100 WBC (Bld) 5.4 % 1.7 - 12.0 % [facility] NEUTROPHILS ABSOLUTE AUTO 9.2 High [facility] Neutrophils/100 WBC (Bld) 80.4 % High 43.0 - 75.0 % [facility] Platelet mean volume (Bld) [Entitic vol] 9.0 fL Low 9.5 - 13.5 [facility]L [facility] PLT 342 [facility] RBC 3.63 Low [facility] WBC 11.4 High [facility] CBC AUTO DIFFon 09-08-2022 BASO # 0.1 103/ul Normal 0.0-0.1 [facility] Comment on above: Performed By: #### C BC #### [facility] [address] [place] [address] Dr. Anish Johnson Basophils/100 WBC (Bld) 1.1 % Normal 0.2-2.0 [facility] Comment on above: Performed By: #### C BC #### [facility] [address] [place] [address] Dr. Anish Johnson EO # 0.3 103/ul Normal 0.0-0.7 [facility] Comment on above: Performed By: #### C BC #### [facility] [address] [place] [address] Dr. Anish Johnson Eosinophils/100 WBC (Bld) 4.1 % Normal 0.9-7.0 [facility] Comment on above: Performed By: #### C BC #### [facility] [address] [place] [address] Dr. Anish Johnson Erythrocyte distribution width (RBC) [Ratio] 15.1 % Critically high 11.0-15.0 [facility] Comment on above: Performed By: #### C BC #### [facility] [address] [place] [address] Dr. Anish Johnson Hematocrit (Bld) [Volume fraction] 40.6 % Normal 36.0-48.0 [facility] Comment on above: Performed By: #### C BC #### [facility] [address] [place] [address] Dr. Anish Johnson Hemoglobin (Bld) [Mass/Vol] 12.4 g/dL Normal 12.0-16.0 [facility] Comment on above: Performed By: #### C BC #### [facility] [address] [place] [address] Dr. Anish Johnson IG # 0.02 10e3/ul Normal 0.00-0.03 [facility] Comment on above: Performed By: #### C BC #### [facility] [address] [place] [address] Dr. Anish Johnson IG % 0.3 % Normal 0.0-0.5 [facility] Comment on above: Performed By: #### C BC #### [facility] [address] [place] [address] Dr. Anish Johnson LYMPH # 1.3 103/ul Normal 1.2-3.8 [facility] Comment on above: Performed By: #### C BC #### [facility] [address] [place] [address] Dr. Anish Johnson Lymphocytes/100 WBC (Bld) 19.7 % Critically low 20.5-60.0 [facility] Comment on above: Performed By: #### C BC #### [facility] [address] [place] [address] Dr. Anish Johnson MANUAL DIFF REQ NO Normal [facility] Comment on above: Performed By: #### C BC #### [facility] [address] [place] [address] Dr. Anish Johnson MCH (RBC) [Entitic mass] 25.5 pg Critically low 26.7-34.0 [facility] Comment on above: Performed By: #### C BC #### [facility] [address] [place] [address] Dr. Anish Johnson MCHC (RBC) [Mass/Vol] 30.5 g/dL Normal 29.9-35.2 [facility] Comment on above: Performed By: #### C BC #### [facility] [address] [place] [address] Dr. Anish Johnson MCV (RBC) [Entitic vol] 83.4 fL Normal 81.0-99.0 [facility] Comment on above: Performed By: #### C BC #### [facility] [address] [place] [address] Dr. Anish Johnson MONO # 0.5 103/ul Normal 0.3-0.8 [facility] Comment on above: Performed By: #### C BC #### [facility] [address] [address] [address] Anish Johnson Monocytes/100 WBC (Bld) 7.0 % Normal 1.7-12.0 [facility] Comment on above: Performed By: #### C BC #### [facility] [address] [address] [address] Anish Johnson NEUT # 4.5 103/ul Normal 1.4-6.5 [facility] Comment on above: Performed By: #### C BC #### [facility] [address] [place] [address] Dr. Anish Johnson Neutrophils/100 WBC (Bld) 67.8 % Normal 43.0-75.0 [facility] Comment on above: Performed By: #### C BC #### [facility] [address] [place] [address] Dr. Anish Johnson Platelet mean volume (Bld) [Entitic vol] 10.5 fL Normal 9.5-13.5 [facility] Comment on above: Performed By: #### C BC #### [facility] [address] [place] [address] Dr. Anish Johnson PLT 297 103/ul Normal 150-450 [facility] Comment on above: Performed By: #### C BC #### [facility] [address] [place] [address] Dr. Anish Johnson RBC 4.87 106/ul Normal 4.20-5.40 [facility] Comment on above: Performed By: #### C BC #### [facility] [address] [place] [address] Dr. Anish Johnson WBC 6.6 103/ul Normal 4.0-11.0 [facility] Comment on above: Performed By: #### C BC #### [facility] [address] [place] [address] Dr. Anish Johnson CARBAMAZEPINEon 07-16-2022 Carbamezapine 5.4 ug/mL Normal 4.0-12.0 [facility] Comment on above: Result Comment: In c onjunction with other antiepileptic drugs Therapeutic 4.0 - 8.0 Toxicity 9.0 - 12.0 . Carbamazepine alone Therapeutic 8.0 - 12.0 . Detection Limit = 2.0 <2.0 indicated None Detected Performed By: #### C ARBLC #### [facility] [address] [place] [address] Dr. Anish Johnson CBC AUTO DIFFon 07-15-2022 BASO # 0.0 103/ul Normal 0.0-0.1 [facility] Comment on above: Performed By: #### C BC #### [facility] [address] [place] [address] Dr. Anish Johnson Basophils/100 WBC (Bld) 0.5 % Normal 0.2-2.0 [facility] Comment on above: Performed By: #### C BC #### [facility] [address] [place] [address] Dr. Anish Johnson EO # 0.2 103/ul Normal 0.0-0.7 [facility] Comment on above: Performed By: #### C BC #### [facility] [address] [place] [address] Dr. Anish Johnson Eosinophils/100 WBC (Bld) 2.9 % Normal 0.9-7.0 [facility] Comment on above: Performed By: #### C BC #### [facility] [address] [place] [address] Dr. Anish Johnson Erythrocyte distribution width (RBC) [Ratio] 15.7 % Critically high 11.0-15.0 [facility] Comment on above: Performed By: #### C BC #### [facility] [address] [place] [address] Dr. Anish Johnson Hematocrit (Bld) [Volume fraction] 40.2 % Normal 36.0-48.0 [facility] Comment on above: Performed By: #### C BC #### [facility] [address] [place] [address] Dr. Anish Johnson Hemoglobin (Bld) [Mass/Vol] 12.5 g/dL Normal 12.0-16.0 [facility] Comment on above: Performed By: #### C BC #### [facility] [address] [place] [address] Dr. Anish Johnson IG # 0.02 10e3/ul Normal 0.00-0.03 [facility] Comment on above: Performed By: #### C BC #### [facility] [address] [place] [address] Dr. Anish Johnson IG % 0.3 % Normal 0.0-0.5 [facility] Comment on above: Performed By: #### C BC #### [facility] [address] [place] [address] Dr. Anish Johnson LYMPH # 1.5 103/ul Normal 1.2-3.8 [facility] Comment on above: Performed By: #### C BC #### [facility] [address] [place] [address] Dr. Anish Johnson Lymphocytes/100 WBC (Bld) 18.7 % Critically low 20.5-60.0 [facility] Comment on above: Performed By: #### C BC #### [facility] [address] [place] [address] Dr. Anish Johnson MANUAL DIFF REQ NO Normal [facility] Comment on above: Performed By: #### C BC #### [facility] [address] [place] [address] Dr. Anish Johnson MCH (RBC) [Entitic mass] 25.4 pg Critically low 26.7-34.0 [facility] Comment on above: Performed By: #### C BC #### [facility] [address] [place] [address] Dr. Anish Johnson MCHC (RBC) [Mass/Vol] 31.1 g/dL Normal 29.9-35.2 [facility] Comment on above: Performed By: #### C BC #### [facility] [address] [place] [address] Dr. Anish Johnson MCV (RBC) [Entitic vol] 81.7 fL Normal 81.0-99.0 [facility] Comment on above: Performed By: #### C BC #### [facility] [address] [place] [address] Dr. Anish Johnson MONO # 0.7 103/ul Normal 0.3-0.8 [facility] Comment on above: Performed By: #### C BC #### [facility] [address] [place] [address] Dr. Anish Johnson Monocytes/100 WBC (Bld) 8.3 % Normal 1.7-12.0 [facility] Comment on above: Performed By: #### C BC #### [facility] [address] [place] [address] Dr. Anish Johnson NEUT # 5.4 103/ul Normal 1.4-6.5 [facility] Comment on above: Performed By: #### C BC #### [facility] [address] [place] [address] Dr. Anish Johnson Neutrophils/100 WBC (Bld) 69.3 % Normal 43.0-75.0 [facility] Comment on above: Performed By: #### C BC #### [facility] [address] [place] [address] Dr. Anish Johnson Platelet mean volume (Bld) [Entitic vol] 10.6 fL Normal 9.5-13.5 [facility] Comment on above: Performed By: #### C BC #### [facility] [address] [place] [address] Dr. Anish Johnson PLT 297 103/ul Normal 150-450 [facility] Comment on above: Performed By: #### C BC #### [facility] [address] [place] [address] Dr. Anish Johnson RBC 4.92 106/ul Normal 4.20-5.40 [facility] Comment on above: Performed By: #### C BC #### [facility] [address] [place] [address] Dr. Anish Johnson WBC 7.8 103/ul Normal 4.0-11.0 [facility] Comment on above: Performed By: #### C BC #### [facility] [address] [place] [address] Dr. Anish Johnson GLUCOSE BLOODon 07-15-2022 Glucose [Mass/Vol] 133 mg/dL Critically high 74-106 T [facility] Comment on above: Performed By: #### L IVER, GLUC, TSH, LIPID #### [facility] [address] [place] [address] Dr. Anish Johnson LIPID PROFILEon 07-15-2022 CHOL-HDL RATIO NORM SEE BELOW Normal [facility] Comment on above: Result Comment: 3.3 - 4.4 LOW RISK 4.4 - 7.1 AVERAGE RISK 7.1 - 11.0 MODERATE RISK >11.0 HIGH RISK Performed By: #### L IVER, GLUC, TSH, LIPID #### [facility] [address] [place] [address] Dr. Anish Johnson Cholesterol [Mass/Vol] 135 mg/dL Normal <=200 [facility] Comment on above: Performed By: #### L IVER, GLUC, TSH, LIPID #### [facility] [address] [place] [address] Dr. Anish Johnson Cholesterol in HDL [Mass/Vol] 58 mg/dL Normal 40-60 [facility] Comment on above: Performed By: #### L IVER, GLUC, TSH, LIPID #### [facility] [address] [address] [address] Anish Johnson Cholesterol in LDL [Mass/Vol] 54.2 mg/dL Normal [facility] Comment on above: Performed By: #### L IVER, GLUC, TSH, LIPID #### [facility] [address] [address] [address] Anish Johnson Cholesterol.total/Cho lesterol in HDL [Mass ratio] 2.3 {ratio} Normal [facility] Comment on above: Performed By: #### L IVER, GLUC, TSH, LIPID #### [facility] [address] [address] [address] Anish Johnson HDL NORMAL > or = 60 mg/dl - LOW CARDIOVASCULAR RISK <40 mg/dl - HIGH CARDIOVASCULAR RISK Normal [facility] Comment on above: Performed By: #### L IVER, GLUC, TSH, LIPID #### [facility] [address] [address] [address] Anish Johnson LDL CALC NORMAL SEE BELOW Normal [facility] Comment on above: Result Comment: <100 mg/dl OPTIMAL 100 - 129 mg/dl NEAR OR ABOVE OPTIMAL 130 - 159 mg/dl BORDERLINE HIGH 160 - 189 mg/dl HIGH >190 mg/dl VERY HIGH Performed By: #### L IVER, GLUC, TSH, LIPID #### [facility] [address] [address] [address] Anish Johnson Triglyceride [Mass/Vol] 114 mg/dL Normal <=150 [facility] Comment on above: Performed By: #### L IVER, GLUC, TSH, LIPID #### [facility] [address] [place] [address] Dr. Anish Johnson VLDL CALC 22.8 mg/dL Normal [facility] Comment on above: Performed By: #### L IVER, GLUC, TSH, LIPID #### [facility] [address] [place] [address] Dr. Anish Johnson LIVER PROFILEon 07-15-2022 Albumin [Mass/Vol] 4.3 g/dL Normal 3.4-5.0 [facility] Comment on above: Performed By: #### L IVER, GLUC, TSH, LIPID #### [facility] [address] [place] [address] Dr. Anish Johnson Albumin/Globulin [Mass ratio] 1.0 {ratio} Normal [facility] Comment on above: Performed By: #### L IVER, GLUC, TSH, LIPID #### [facility] [address] [place] [address] Dr. Anish Johnson ALP [Catalytic activity/Vol] 108 U/L Normal 46-116 [facility] Comment on above: Performed By: #### L IVER, GLUC, TSH, LIPID #### [facility] [address] [place] [address] Dr. Anish Johnson ALT [Catalytic activity/Vol] 26 U/L Normal 14-59 [facility] Comment on above: Performed By: #### L IVER, GLUC, TSH, LIPID #### [facility] [address] [address] [address] Anish Johnson AST [Catalytic activity/Vol] 21 U/L Normal 15-37 [facility] Comment on above: Performed By: #### L IVER, GLUC, TSH, LIPID #### [facility] [address] [place] [address] Dr. Anish Johnson BILI, CONJUGATED 0.1 mg/dL Normal 0.0-0.2 [facility] Comment on above: Performed By: #### L IVER, GLUC, TSH, LIPID #### [facility] [address] [place] [address] Dr. Anish Johnson Bilirubin [Mass/Vol] 0.5 mg/dL Normal 0.2-1.0 [facility] Comment on above: Performed By: #### L IVER, GLUC, TSH, LIPID #### [facility] [address] [place] [address] Dr. Anish Johnson Globulin (S) [Mass/Vol] 4.3 g/dL Normal [facility] Comment on above: Performed By: #### L IVER, GLUC, TSH, LIPID #### [facility] [address] [place] [address] Dr. Anish Johnson Protein [Mass/Vol] 8.6 g/dL Critically high 6.4-8.2 [facility] Comment on above: Performed By: #### L IVER, GLUC, TSH, LIPID #### [facility] [address] [place] [address] Dr. Anish Johnson TSHon 07-15-2022 TSH 1.692 uIU/mL Normal 0.358-3.740 [facility] Comment on above: Performed By: #### L IVER, GLUC, TSH, LIPID #### [facility] [address] [place] [address] Dr. Anish Johnson Vital Signs Date Time Vital Sign Value Performing Clinician April cheng 11-14-2024 10:54-0500 Body height 157.5 cm Julianne Lord PBX REPAIRER Work Phone: [facility] 11-14-2024 10:54-0500 Body mass index (BMI) [Ratio] 32.45 kg/m2 Julianne Lord PBX REPAIRER Work Phone: [facility] 11-14-2024 10:54-0500 Body temperature 98.49 [degF] Julianne Stephensz PBX REPAIRER Work Phone: [facility] 11-14-2024 10:54-0500 Body weight 80.47 kg Julianne Stephensz PBX REPAIRER Work Phone: [facility] 11-14-2024 10:54-0500 Diastolic blood pressure 90 mm[Hg] Julianne Stephensz PBX REPAIRER Work Phone: [facility] 11-14-2024 10:54-0500 Heart rate 82 /min Julianne Stephensz PBX REPAIRER Work Phone: [facility] 11-14-2024 10:54-0500 Respiratory rate 20 /min Julianne Stephensz PBX REPAIRER Work Phone: [facility] 11-14-2024 10:54-0500 SaO2% (BldA) [Mass fraction] 99 % Julianne Stephensz PBX REPAIRER Work Phone: [facility] 11-14-2024 10:54-0500 Systolic blood pressure 140 mm[Hg] Julianne Stephensz PBX REPAIRER Work Phone: [facility] 08-27-2024 13:08-0400 Body height 157.5 cm Julianne Stephensz PBX REPAIRER Work Phone: [facility] 08-27-2024 13:08-0400 Body mass index (BMI) [Ratio] 30.8 kg/m2 Juliannejulio c Stephensz PBX REPAIRER Work Phone: [facility] 08-27-2024 13:08-0400 Body temperature 97.81 [degF] Julianne Stephensz PBX REPAIRER Work Phone: [facility] 08-27-2024 13:08-0400 Body weight 76.39 kg Juliannejulio c Stephensz PBX REPAIRER Work Phone: [facility] 08-27-2024 13:08-0400 Diastolic blood pressure 88 mm[Hg] Julianne Lord PBX REPAIRER Work Phone: [facility] 08-27-2024 13:08-0400 Heart rate 79 /min Julianne Lord PBX REPAIRER Work Phone: [facility] 08-27-2024 13:08-0400 Respiratory rate 20 /min Julianne Stephensz PBX REPAIRER Work Phone: [facility] 08-27-2024 13:08-0400 SaO2% (BldA) [Mass fraction] 98 % Julianne Lord PBX REPAIRER Work Phone: [facility] 08-27-2024 13:08-0400 Systolic blood pressure 120 mm[Hg] Julianne Lord PBX REPAIRER Work Phone: [facility] 07-25-2024 10:23-0400 Body height 157.5 cm Shanda Wandera DO Work Phone: [facility] 07-25-2024 10:23-0400 Body mass index (BMI) [Ratio] 32.37 kg/m2 Shanda Belia DO Work Phone: [facility] 07-25-2024 10:23-0400 Body weight 80.29 kg Shanda Belia DO Work Phone: [facility] 07-25-2024 10:23-0400 Diastolic blood pressure 84 mm[Hg] Shanda Belia DO Work Phone: [facility] 07-25-2024 10:23-0400 Heart rate 67 /min Shanda Belia DO Work Phone: [facility] 07-25-2024 10:23-0400 Respiratory rate 18 /min Shanda Belia DO Work Phone: [facility] 07-25-2024 10:23-0400 SaO2% (BldA) [Mass fraction] 98 % Shanda Wandera DO Work Phone: [facility] 07-25-2024 10:23-0400 Systolic blood pressure 138 mm[Hg] Shanda Celaya DO Work Phone: [facility] 07-23-2024 09:50-0400 Body mass index (BMI) [Ratio] 32.01 kg/m2 Julianne Pop PBX REPAIRER Work Phone: [facility] 07-23-2024 09:50-0400 Body temperature 97.3 [degF] Julianne Katz PBX REPAIRER Work Phone: [facility] 07-23-2024 09:50-0400 Body weight 79.38 kg Julianne Jenniferjose juanholz PBX REPAIRER Work Phone: [facility] 07-23-2024 09:50-0400 Diastolic blood pressure 78 mm[Hg] Julianne Katz PBX REPAIRER Work Phone: [facility] 07-23-2024 09:50-0400 Heart rate 82 /min Julianne Katz PBX REPAIRER Work Phone: [facility] 07-23-2024 09:50-0400 SaO2% (BldA) [Mass fraction] 97 % Julianne Emilholz PBX REPAIRER Work Phone: [facility] 07-23-2024 09:50-0400 Systolic blood pressure 110 mm[Hg] Julianne Katz PBX REPAIRER Work Phone: [facility] 01-03-2024 15:19-0500 Body height 157.5 cm Julianne Katz PBX REPAIRER Work Phone: [facility] 01-03-2024 15:19-0500 Body mass index (BMI) [Ratio] 34.02 kg/m2 Julianne Jenniferhholz PBX REPAIRER Work Phone: [facility] 01-03-2024 15:19-0500 Body temperature 97.5 [degF] Julianne Emilholz PBX REPAIRER Work Phone: [facility] 01-03-2024 15:19-0500 Body weight 84.37 kg Julianne Emilholz PBX REPAIRER Work Phone: [facility] 01-03-2024 15:19-0500 Diastolic blood pressure 82 mm[Hg] Julianne Aichholz PBX REPAIRER Work Phone: [facility] 01-03-2024 15:19-0500 Heart rate 87 /min Julianen Aichholz PBX REPAIRER Work Phone: [facility] 01-03-2024 15:19-0500 Respiratory rate 17 /min Julianne Aichholz PBX REPAIRER Work Phone: [facility] 01-03-2024 15:19-0500 SaO2% (BldA) [Mass fraction] 97 % Julianne Aichholz PBX REPAIRER Work Phone: [facility] 01-03-2024 15:19-0500 Systolic blood pressure 128 mm[Hg] Julianne Aichholz PBX REPAIRER Work Phone: [facility] Healthcare Encounters Encounter Date Encounter Type Care Provider Facility Start: 01-21-2025 ambulatory Chris Chapa acility:[facility] Start: 11-14-2024 End: 11-14-2024 Bamboo flowsheet Julianne Aichholz PBX REPAIRER Work Phone: [facility] Start: 11-14-2024 End: 11-14-2024 Bamboo flowsheet Julianne Aichholz PBX REPAIRER Work Phone: [facility] Start: 11-14-2024 End: 11-14-2024 Office outpatient visit 25 minutes Julianne Katz PBX REPAIRER Work Phone: [facility] Comment on above: Essential (primary) hypertension (CMS/HCC) (Primary Dx); Obesity (BMI 30-39.9); Bipolar affective disorder, remission status unspecified (CMS/HCC); Anxiety; Mixed hyperlipidemia (CMS/HCC); Needs flu shot; Vertigo; Former smoker; Memory impairment Start: 11-14-2024 End: 11-14-2024 ambulatory JULIANNE AICHHOLZ Not Available Start: 10-25-2024 End: 10-25-2024 Refill Julianne Aichholz PBX REPAIRER Work Phone: [facility] Comment on above: Essential (primary) hypertension (CMS/HCC) Start: 09-26-2024 End: 09-26-2024 Refill Julianne Pop PBX REPAIRER Work Phone: [facility] Comment on above: Hypokalemia Start: 09-20-2024 End: 09-21-2024 Refill Julianne Katz PBX REPAIRER Work Phone: [facility] Comment on above: Vertigo Start: 08-27-2024 End: 08-27-2024 Bamboo flowsheet Julianne Pop PBX REPAIRER Work Phone: [facility] Start: 08-27-2024 End: 08-27-2024 Bamboo flowsheet Julianne Pop PBX REPAIRER Work Phone: [facility] Start: 08-27-2024 End: 08-27-2024 Office outpatient visit 25 minutes Julianne Lord PBX REPAIRER Work Phone: [facility] Comment on above: Essential (primary) hypertension (CMS/HCC) (Primary Dx); Iron deficiency anemia, unspecified iron deficiency anemia type; Muscle weakness (generalized); Obesity (BMI 30-39.9); Bipolar affective disorder, remission status unspecified (CMS/HCC); Hypokalemia Start: 08-27-2024 End: 08-27-2024 ambulatory JULIANNE POP Not Available Start: 08-16-2024 End: 08-16-2024 Refill Julianne Katz PBX REPAIRER Work Phone: [facility] Comment on above: Hypokalemia (Primary Dx) Start: 08-07-2024 End: 08-07-2024 Clinisync Result Encounter Generic External Data Provider [facility] External Department Unsolicited Start: 08-07-2024 End: 08-07-2024 Clinisync Result Encounter Generic External Data Provider [facility] External Department Unsolicited Start: 07-26-2024 End: 07-26-2024 Telephone encounter Julianne Lord PBX REPAIRER Work Phone: [facility] Start: 07-25-2024 End: 07-25-2024 Bamboo flowsheet Shanda Belia DO Work Phone: [facility] Start: 07-25-2024 End: 07-25-2024 Bamboo flowsheet Shanda Belia DO Work Phone: [facility] Start: 07-25-2024 End: 07-25-2024 Office outpatient new 30 minutes Shanda Belia DO Work Phone: [facility] Comment on above: Blood per rectum (Pr imary Dx) Start: 07-25-2024 End: 07-25-2024 ambulatory SHANDA BELIA Not Available Start: 07-23-2024 End: 07-23-2024 Bamboo flowsheet Juliannejulio c Lord PBX REPAIRER Work Phone: [facility] Start: 07-23-2024 End: 07-23-2024 Bamboo flowsheet Julianne Pop PBX REPAIRER Work Phone: [facility] Start: 07-23-2024 End: 07-23-2024 Office outpatient visit 25 minutes Julianne Pop PBX REPAIRER Work Phone: [facility] Comment on above: Essential (primary) hypertension (CMS/HCC) (Primary Dx); Unspecified severe protein-calorie malnutrition (CMS/HCC); Dementia in other diseases classified elsewhere, unspecified severity, with other behavioral disturbance (CMS/HCC); Iron deficiency anemia, unspecified iron deficiency anemia type; Acute UTI (urinary tract infection); Occult blood positive stool; Bipolar affective disorder, remission status unspecified (CMS/HCC); Dizziness; Vertigo; Muscle weakness (generalized); Mixed hyperlipidemia (CMS/HCC) Start: 07-23-2024 End: 07-23-2024 ambulatory JULIANNE AICHHOLZ [...] Not Available Start: 01-10-2024 Refill Julianne Aichholz PBX REPAIRER Work Phone: [facility] Start: 01-03-2024 End: 01-03-2024 Office outpatient visit 25 minutes Julianne Aichholz PBX REPAIRER Work Phone: [facility] Comment on above: Essential (primary) hypertension (CMS/HCC) (Primary Dx); BMI 34.0-34.9,adult; Bipolar affective disorder, remission status unspecified (CMS/HCC); Tobacco user; Vertigo; Anxiety Start: 01-03-2024 End: 01-03-2024 ambulatory JULIANNE AICHHOLZ Not Available Start: 09-08-2022 End: 09-09-2022 ambulatory PATRICK DAO Facility:[facility] Start: 07-15-2022 End: 07-16-2022 ambulatory PATRICK DAO Facility:[facility] Start: 09-09-2021 ambulatory DIRECTOR [employer] JULIANNE AICJoes JuanHOLZ Facil ity:[facility] Procedures Date Procedure Procedure Detail Performing Clinician Start: 08-07-2024 ALL CBC WITH AUTO DIFF Generic External Data Provider Start: 01-03-2024 Mammography Julianne Mick quintana PBX REPAIRER Work Phone: Plan of Treatment Date Care Activity Detail Author Start: 01-03-2025 Screening for malign ant neoplasm of breast Mammogram [facility] Start: 01-03-2025 Screening for malign ant neoplasm of colon Colorectal Cancer Screening [facility] Comment on above: Postponed from 10/05 (Patient Refused) Start: 12-20-2024 End: 12-20-2024 Patient encounter procedure 12/20/2024 10:00 AM EST Office Visit [facility] [address] [place] [address] Julianne Lord, JUANITA [address] [place] [phone] [facility] Start: 11-14-2024 End: 11-14-2024 Patient encounter procedure 11/14/2024 11:00 AM EST Office Visit [facility] [address] [place] [phone] Julianne Lord, PBX REPAIRER [address] [place] [phone] Essential (primary) hypertension (CMS/HCC) (Primary Dx); Obesity (BMI 30-39.9); Bipolar affective disorder, remission status unspecified (CMS/HCC); Anxiety; Mixed hyperlipidemia (CMS/HCC) [facility] Comment on above: Essential (primary) hypertension (CMS/HCC) (Primary Dx); Obesity (BMI 30-39.9); Bipolar affective disorder, remission status unspecified (CMS/HCC); Anxiety; Mixed hyperlipidemia (CMS/HCC) Start: 11-05-2024 End: 11-05-2024 Patient encounter procedure 11/05/2024 2:40 PM EST Office Visit [facility] [address] [place] [address] Julianne Lord, PBX REPAIRER [address] [place] [phone] [facility] Start: 10-22-2024 Influenza vaccination Influenza Vacc ine (#1) [facility] Comment on above: Postponed from 07/29 (Patient Refused) Start: 10-11-2024 End: 10-11-2024 Patient encounter procedure 10/11/2024 1:20 PM EST Office Visit [facility] [address] [place] [address] Julianne Lord, PBX REPAIRER [address] [place] [phone] [facility] Start: 09-11-2024 End: 09-11-2024 Patient encounter procedure 09/11/2024 8:00 AM EDT Procedure Visit [facility] Shanda Celaya DO [address] [place] [address] [facility] Start: 08-27-2024 End: 08-27-2025 CBC W Auto Differential panel - Blood CBC and differential Lab Routine Iron deficiency anemia, unspecified iron deficiency anemia type Expected: 08/27/2024 (Approximate), Expires: 08/27/2025 [facility] Work Phone: Comment on above: Expected: 08/27/2024 (Approximate), Expires: 08/27/2025 Start: 08-27-2024 End: 08-27-2025 Erythrocyte sedimentation rate Sedimentation rate, automated Lab Routine Iron deficiency anemia, unspecified iron deficiency anemia type Expected: 08/27/2024 (Approximate), Expires: 08/27/2025 [facility] Comment on above: Expected: 08/27/2024 (Approximate), Expires: 08/27/2025 Start: 08-27-2024 End: 08-27-2025 Iron + transferrin + TIBC Iron + transferrin + TIBC Lab Routine Iron deficiency anemia, unspecified iron deficiency anemia type Expected: 08/27/2024 (Approximate), Expires: 08/27/2025 [facility] Comment on above: Expected: 08/27/2024 (Approximate), Expires: 08/27/2025 Start: 08-27-2024 End: 08-27-2024 Patient encounter procedure [facility] Comment on above: Iron deficiency anem ia, unspecified iron deficiency anemia type (Primary Dx) Start: 08-16-2024 End: 08-16-2024 Patient encounter procedure 08/16/2024 10:30 AM EDT Office Visit [facility] [address] [place] [phone] Julianne Lord NP [address] [place] [address] [facility] Start: 08-14-2024 End: 08-14-2024 Patient encounter procedure 08/14/2024 9:00 AM EDT Office Visit [facility] [address] [place] [address] Jackie Collins NP [address] [place] [phone] [facility] Start: 08-13-2024 End: 08-13-2024 Patient encounter procedure 08/13/2024 9:20 AM EDT Office Visit [facility] [address] [place] [address] Julianne Lord NP [address] [place] [phone] [facility] Start: 08-06-2024 End: 08-06-2024 Patient encounter procedure 08/06/2024 10:20 AM EDT Office Visit [facility] [address] [place] [address], [place] [address] Jackie Collins NP [address] [place] [phone] [facility] Start: 07-29-2024 Influenza vaccination Influenza Vacc ine (#1) [facility] Start: 07-25-2024 End: 07-25-2024 Patient encounter procedure [facility] Comment on above: Arrived Start: 07-23-2024 End: 07-23-2025 Bacteria identified in Urine by Culture Urine culture (clean catch) Microbiology Routine Acute UTI (urinary tract infection) Expected: 07/23/2024 (Approximate), Expires: 07/23/2025 [facility] Comment on above: Expected: 07/23/2024 (Approximate), Expires: 07/23/2025 Start: 07-23-2024 End: 07-23-2025 Basic metabolic 1998 panel - Serum or Plasma Basic metabolic panel Lab Routine Iron deficiency anemia, unspecified iron deficiency anemia type Acute UTI (urinary tract infection) Expected: 07/23/2024 (Approximate), Expires: 07/23/2025 [facility] Comment on above: Expected: 07/23/2024 (Approximate), Expires: 07/23/2025 Start: 07-23-2024 End: 07-23-2025 CBC W Auto Differential panel - Blood CBC and differential Lab Routine Iron deficiency anemia, unspecified iron deficiency anemia type Expected: 07/23/2024 (Approximate), Expires: 07/23/2025 [facility] Work Phone: Comment on above: Expected: 07/23/2024 (Approximate), Expires: 07/23/2025 Start: 07-23-2024 End: 07-23-2025 Comprehensive metabolic 2000 panel - Serum or Plasma Comprehensive metabolic panel Lab Routine Unspecified severe protein-calorie malnutrition (CMS/HCC) Expected: 07/23/2024 (Approximate), Expires: 07/23/2025 [facility] Comment on above: Expected: 07/23/2024 (Approximate), Expires: 07/23/2025 Start: 07-23-2024 End: 07-23-2025 Urinalysis complete panel - Urine Urinalysis with reflex microscopic (clean catch) Lab Routine Acute UTI (urinary tract infection) Expected: 07/23/2024 (Approximate), Expires: 07/23/2025 [facility] Comment on above: Expected: 07/23/2024 (Approximate), Expires: 07/23/2025 Start: 07-23-2024 End: 07-23-2024 Patient encounter procedure 07/23/2024 10:00 AM EDT Office Visit [facility] [address] [place] [phone] Julianne Lord NP [address] [place] [phone] Iron deficiency anemia, unspecified iron deficiency anemia type (Primary Dx); Unspecified severe protein-calorie malnutrition (CMS/HCC); Dementia in other diseases classified elsewhere, unspecified severity, with other behavioral disturbance (CMS/HCC) [facility] Comment on above: Iron deficiency anem ia, unspecified iron deficiency anemia type (Primary Dx); Unspecified severe protein-calorie malnutrition (CMS/HCC); Dementia in other diseases classified elsewhere, unspecified severity, with other behavioral disturbance (CMS/HCC) Start: 01-24-2024 End: 01-24-2024 Patient encounter procedure 01/24/2024 9:00 AM EST Office Visit [facility] [address] [place] [phone] Julianne Lord NP [address] [place] [phone] [facility] Start: 1989 Screening for malign ant neoplasm of cervix HPV/Cotest [facility] Start: 1980 Screening for malign ant neoplasm of cervix Pap Smear [facility] Start: 1965 Pneumococcal Vaccine : 65+ Years (1 of 2 - PCV) Pneumococcal Vaccine: 65+ Years (1 of 2 - PCV) [facility] Start: 1959 Screening for malign ant neoplasm of colon [facility] Immunizations Immunization Date Immunization Notes Care Provider [facility] 11-14-2024 Influenza, injectabl e, Madin Jonna Canine Kidney, preservative free, quadrivalent Julianne Aichholz PBX REPAIRER Work Phone: [facility] 09-02-2023 influenza, injectabl e, quadrivalent, preservative free Julianne Aichholz PBX REPAIRER Work Phone: [facility] 09-02-2023 influenza virus vacc ine, unspecified formulation Julianne Aichholz PBX REPAIRER Work Phone: [facility] 08-25-2022 influenza, injectabl e, quadrivalent, preservative free Julianne Aichholz PBX REPAIRER Work Phone: [facility] 11-12-2021 Influenza, injectabl e, Madin Jonna Canine Kidney, preservative free, quadrivalent Julianne Aichholz PBX REPAIRER Work Phone: [facility] Payers Date Payer Category Payer Medicare (Managed Care) [employer] [id number] 2024 Medicare [id number] 2023 Self-pay 2013 Medicaid [id number] 2013 Private Health Insurance [facility] MEDICAID [id number] 2013 Medicaid [id number] 1959 Unknown [id number] 1959 Unknown [id number] [id number]. 593 1959 Unknown [id number] 2.16.840.1.795981.3.579.2. 593 1959 Unknown [id number] 2.16.840.1.668196.3.579.2. 593 1959 Unknown [id number] 2.16.840.1.685114.3.579.2. 1259 1959 Unknown [id number] 2.16.840.1.435742.3.579.2. 9 1959 Unknown [id number] 2.16.840.1.083774.3.579.2. 1259 1959 Unknown [id number] 2.16.840.1.363647.3.579.2. 9 1959 Unknown [id number] 2.16.840.1.204362.3.579.2. 1259 1959 Unknown [id number] 2.16.840.1.587815.3.579.2. 1258 1959 Unknown [id number] 2.16.840.1.367950.3.579.2. 9 1959 Unknown [id number] 2.16.840.1.113542.3.579.2. 1258 1959 Unknown [id number] 2.16.840.1.732372.3.579.2. 125 1959 Unknown [id number] 2.16.840.1.795873.3.579.2. 9 1959 Unknown [id number] [id number]. 1259 Social History Date Type Detail Facility Start: 12-28-2023 Tobacco smoking status [facility] Smokes t obacco daily [facility] History of tobacco use Cigarette Smoker N [facility] Start: 12-28-2023 End: 05-14-2024 Cigarettes smoked current (pack per day) - Reported 1 [facility] Start: 01-03-2024 End: 05-14-2024 Tobacco use panel [facility] Start: 1960 Sex Assigned At Not on file N [facility] Clinical Notes 01-03-2024 to 11-14-2024 Julianne Lord NP - 11/14/2024 11:59 AM Emma Lord NP - 11/14/2024 11:25 AM Emma Lord NP - 11/14/2024 11:00 AM Emma Lord NP - 11/14/2024 7:11 AM ESTPatient Instructions Note Date & Type Note Facility 11-14-2024 History of Presen t illness Narrative Associated Problem(s): Memory impairment MOCA testing Will refer to neuropsych Associated Problem(s): Former smoker Former smoker, for approx 20 years 1 pack per week Quit not sure how long ago Images from the original note were not included. Sahra Taveras is a 64 y.o. female presents with chief complaint of Hypertension HPI: Hypertension This is a chronic problem. The current episode started more than 1 year ago. The problem is unchanged. The problem is uncontrolled. Associated symptoms include anxiety. Pertinent negatives include no chest pain, headaches, malaise/fatigue, palpitations, peripheral edema or shortness of breath. There are no associated agents to hypertension. Risk factors for coronary artery disease include dyslipidemia, obesity and sedentary lifestyle. Past treatments include beta blockers and angiotensin blockers. Compliance problems include psychosocial issues. There is no history of kidney disease, CAD/NE, heart failure or left ventricular hypertrophy. SUBJECTIVE: MEDICATIONS: Current Outpatient Medications Medication Instructions ALPRAZolam (Xanax) 1 MG tablet 1 tablet, 2 times daily PRN ARIPiprazole (ABILIFY) 15 mg, Daily aspirin (ASPIRIN LOW DOSE) 81 mg, Oral, Daily, Take 81 mg by mouth Daily atorvastatin (LIPITOR) 40 mg, Oral, Nightly buPROPion XL (Wellbutrin XL) 300 MG 24 hr tablet 1 tablet, Every morning buPROPion XL (WELLBUTRIN XL) 150 mg, Daily busPIRone (Buspar) 30 MG tablet 1 tablet, 2 times daily carBAMazepine (TEGretol) 200 MG tablet 1 tablet, 2 times daily carvedilol (COREG) 25 mg, Oral, 2 times daily with meals losartan (COZAAR) 100 mg, Oral, Daily Lumateperone Tosylate (Caplyta) 42 MG capsule 1 capsule, Daily traZODone (DESYREL) 50 mg, Nightly ALLERGIES: No Known Allergies REVIEW OF SYMPTOMS: Review of Systems Constitutional: Negative for appetite change, chills, fever and malaise/fatigue. HENT: Negative for congestion, ear pain and sore throat. Eyes: Negative for pain, discharge, redness and visual disturbance. Respiratory: Negative for cough, shortness of breath and wheezing. Cardiovascular: Negative for chest pain, palpitations and leg swelling. Gastrointestinal: Negative for abdominal pain, blood in stool, constipation, diarrhea, nausea and vomiting. Genitourinary: Negative for difficulty urinating, dysuria and frequency. Musculoskeletal: Negative for arthralgias, back pain, joint swelling and myalgias. Skin: Negative for rash and wound. Neurological: Negative for dizziness, tremors, seizures, syncope and headaches. Psychiatric/Behavioral: Positive for behavioral problems. Negative for self-injury and suicidal ideas. The patient is nervous/anxious. Depression Hematological: Does not bruise/bleed easily. Endocrine: Negative for polydipsia, polyphagia and polyuria. Allergic/Immunologic: Negative for environmental allergies and food allergies. PAST MEDICAL HISTORY Past Medical History: Diagnosis Date Abnormal stress test 01/24/2024 Anemia 01/24/2024 Anxiety Bilateral knee pain 01/19/2024 Bipolar depression ([facility]) 01/24/2024 Bipolar disorder ([facility]) 01/03/2024 Chest pain 01/24/2024 Cholelithiasis without obstruction 01/24/2024 Depression ([facility]) 01/24/2024 History of nicotine dependence 01/24/2024 HLD (hyperlipidemia) ([facility]) 01/19/2024 Hypertension ([facility]) Left groin pain 01/24/2024 Occult blood in stools Osteopenia 01/24/2024 Post-menopausal 02/22/2024 RUQ pain 01/24/2024 Seasonal allergies 01/19/2024 Tobacco user 01/03/2024 Tricuspid regurgitation 01/24/2024 mild Past Surgical History: Procedure Laterality Date SECTION, LOW TRANSVERSE x 1 HYSTERECTOMY Partial - not due to cancer family history includes Alcohol abuse in her father; Breast cancer in an other family member. OBJECTIVE: Visit Vitals BP 140/90 (BP Location: Left arm, Patient Position: Sitting, BP Cuff Size: Adult long) Pulse 82 Temp 98.5 F (Temporal) Resp 20 Ht 5' 2 Wt 177 lb 6.4 oz SpO2 99% BMI 32.45 kg/m Smoking Status Every Day BSA 1.88 m Physical Exam Vitals and nursing note reviewed. Constitutional: General: She is not in acute distress. Appearance: Normal appearance. She is obese. HENT: Head: Normocephalic and atraumatic. Right Ear: Tympanic membrane, ear canal and external ear normal. Left Ear: Tympanic membrane, ear canal and external ear normal. Nose: Nose normal. No congestion or rhinorrhea. Mouth/Throat: Mouth: Mucous membranes are moist. Pharynx: No oropharyngeal exudate or posterior oropharyngeal erythema. Eyes: Extraocular Movements: Extraocular movements intact. Conjunctiva/sclera: [...] Normal range of motion and neck supple. Right lower leg: No edema. Left lower leg: No edema. Lymphadenopathy: Cervical: No cervical adenopathy. Skin: General: Skin is warm and dry. Capillary Refill: Capillary refill takes 2 to 3 seconds. Findings: No rash. Neurological: General: No focal deficit present. Mental Status: She is alert and oriented to person, place, and time. Psychiatric: Mood and Affect: Mood normal. Behavior: Behavior normal. Thought Content: Thought content normal. Judgment: Judgment normal. ASSESSMENT AND PLAN: Follow up in about 4 weeks (around 12/12/2024) for Recheck. Problem List Items Addressed This Visit Essential (primary) hypertension (CMS/HCC) - Primary Please check blood pressure daily and record DASH diet Limit caffeine Take medication as directed Contact office if chest pain, pressure, dizziness, shortness of breath, swelling legs Recommend slow position changes Current meds: carvedilol, and losartan Getting correspondence from psych she is having elevated blood pressures in office as well, we will increase losartan to 100mg daily Fu in 4 weeks for recheck Relevant Medications aspirin (Aspirin Low Dose) 81 MG EC tablet carvedilol (Coreg) 25 MG tablet losartan (Cozaar) 100 MG tablet Bipolar disorder (CMS/HCC) Continue with psych provider Vertigo Anxiety Continue with psych provider HLD (hyperlipidemia) (CMS/HCC) Continue statin Check labs yearly and prn dose changes Relevant Medications aspirin (Aspirin Low Dose) 81 MG EC tablet atorvastatin (Lipitor) 40 MG tablet Obesity (BMI 30-39.9) Discussed with patient their BMI (actual, verses recommended). We have also discussed lifestyle modifications: attempts to perform physical activity as chronic conditions allow, also to monitor dietary intake: increasing protein/fruits/veggies and lowering carb intake (unless contraindicated). Limit sodas, juices, and sugary drinks. Needs flu shot Relevant Orders Flu vaccine, MDCK, quadrivalent, PF (VLH309) (Flucelvax single dose syringe) (Completed) Former smoker Former smoker, for approx 20 years 1 pack per week Quit not sure how long ago Memory impairment MOCA testing Will refer to neuropsych Associated Problem(s): HLD (hyperlipidemia) (CMS/HCC) Continue statin Check labs yearly and prn dose changes Associated Problem(s): Anxiety Continue with psych provider Associated Problem(s): Bipolar disorder (CMS/HCC) Continue with psych provider Associated Problem(s): Obesity (BMI 30-39.9) Discussed with patient their BMI (actual, verses recommended). We have also discussed lifestyle modifications: attempts to perform physical activity as chronic conditions allow, also to monitor dietary intake: increasing protein/fruits/veggies and lowering carb intake (unless contraindicated). Limit sodas, juices, and sugary drinks. Associated Problem(s): Essential (primary) hypertension (CMS/HCC) Please check blood pressure daily and record DASH diet Limit caffeine Take medication as directed Contact office if chest pain, pressure, dizziness, shortness of breath, swelling legs Recommend slow position changes Current meds: carvedilol, and losartan Getting correspondence from psych she is having elevated blood pressures in office as well, we will increase losartan to 100mg daily Fu in 4 weeks for recheck documented in this encounter [facility] 11-14-2024 Instructions Julianne Lord NP - 11/14/2024 11:00 AM EST We are going to change losartan from 50mg daily, up to 100mg daily Come back in 4 weeks for appointment to check your blood pressure Memory issues: will be sending you to a specialist Dr Payne to get some testing as to what is going on, they will call you documented in this encounter [facility] 08-27-2024 History of Presen t illness Narrative Images from the original note were not included. Sahra Taveras is a 63 y.o. female presents with chief complaint of No chief complaint on file. HPI: Here for a recheck. She is still in need of her colonoscopy, I have provided surgery clearance for this. She is compliant with her meds, she is in the exam room alone today She denies any compliants of at this time SUBJECTIVE: MEDICATIONS: Current Outpatient Medications Medication Instructions ALPRAZolam (Xanax) 1 MG tablet 1 tablet, Oral, 2 times daily PRN, Pt has been taking 1 tab in morning and 1 tab in the evening daily ARIPiprazole (ABILIFY) 15 mg, Oral, Daily Aspirin Low Dose 81 mg, Oral, Daily atorvastatin (LIPITOR) 40 mg, Oral, Nightly Bisacodyl EC 5 MG EC tablet Take 1 tablet (5 (FIVE) mg) by mouth 1 time for 1 dose Do not crush, chew, or split. Take as detailed on clinic hand out for colonoscopy prep buPROPion XL (Wellbutrin XL) 300 MG 24 hr tablet 1 tablet, Oral, Every morning, Pt has been taking at night ontop of 150mg buPROPion XL (WELLBUTRIN XL) 150 mg, Oral, Daily, Do not crush, chew, or split. Pt has been taking at night along with 300 mg busPIRone (Buspar) 30 MG tablet 1 tablet, Oral, 2 times daily carBAMazepine (TEGretol) 200 MG tablet 1 tablet, Oral, 2 times daily, 1 tablet in the am, and 2 tablets at night: pt is currently taking 1 tab in am and 1 tab night carvedilol (COREG) 25 mg, Oral, 2 times daily with meals losartan (COZAAR) 50 mg, Oral, Daily Lumateperone Tosylate (Caplyta) 42 MG capsule 1 capsule, Oral, Daily Polyethylene Glycol 3350 (PEG 3350) 17 GM/SCOOP powder mix and TAKE 238 grams BY MOUTH for a 1 time dose potassium chloride CR (K-Tab) 20 MEQ ER tablet 20 mEq, Oral, 2 times daily before meals, Do not crush, chew, or split. ALLERGIES: No Known Allergies REVIEW OF SYMPTOMS: Review of Systems Constitutional: Negative for appetite change, chills and fever. HENT: Negative for congestion, ear pain and sore throat. Eyes: Negative for pain, discharge, redness and visual disturbance. Respiratory: Negative for cough, shortness of breath and wheezing. Cardiovascular: Negative for chest pain, palpitations and leg swelling. Gastrointestinal: Negative for abdominal pain, blood in stool, constipation, diarrhea, nausea and vomiting. Genitourinary: Negative for difficulty urinating, dysuria and frequency. Musculoskeletal: Negative for arthralgias, back pain, joint swelling and myalgias. Skin: Negative for rash and wound. Neurological: Positive for dizziness and weakness. Negative for tremors, seizures, syncope and headaches. Psychiatric/Behavioral: Negative for behavioral problems, self-injury and suicidal ideas. The patient is nervous/anxious. Depression Hematological: Does not bruise/bleed easily. Endocrine: Negative for polydipsia, polyphagia and polyuria. Allergic/Immunologic: Negative for environmental allergies and food allergies. PAST MEDICAL HISTORY Past Medical History: Diagnosis Date Abnormal stress test 01/24/2024 Anemia 01/24/2024 Anxiety Bilateral knee pain 01/19/2024 Bipolar depression ([facility]) 01/24/2024 Bipolar disorder ([facility]) 01/03/2024 Chest pain 01/24/2024 Cholelithiasis without obstruction 01/24/2024 Depression ([facility]) 01/24/2024 History of nicotine dependence 01/24/2024 HLD (hyperlipidemia) ([facility]) 01/19/2024 Hypertension ([facility]) Left groin pain 01/24/2024 Occult blood in stools Osteopenia 01/24/2024 Post-menopausal 02/22/2024 RUQ pain 01/24/2024 Seasonal allergies 01/19/2024 Tobacco user 01/03/2024 Tricuspid regurgitation 01/24/2024 mild Past Surgical History: Procedure Laterality Date SECTION, LOW TRANSVERSE x 1 HYSTERECTOMY Partial - not due to cancer family history includes Alcohol abuse in her father; Breast cancer in an other family member. OBJECTIVE: Visit Vitals BP 120/88 (BP Location: Left arm, Patient Position: Sitting, BP Cuff Size: Adult long) Pulse 79 Temp 97.8 F (Temporal) Resp 20 Ht 5' 2 Wt 168 lb 6.4 oz SpO2 98% BMI 30.80 kg/m Smoking Status Every Day BSA 1.83 m Physical Exam Vitals and nursing note reviewed. Constitutional: General: She is not in acute distress. Appearance: Normal appearance. HENT: Head: Normocephalic and atraumatic. Right Ear: External ear normal. Left Ear: External ear normal. Nose: Nose normal. Mouth/Throat: Mouth: Mucous membranes are moist. Eyes: Extraocular Movements: Extraocular movements intact. Conjunctiva/sclera: Conjunctivae normal. Cardiovascular: Rate and Rhythm: Normal rate and [...] Normal range of motion and neck supple. Right lower leg: No edema. Left lower leg: No edema. Lymphadenopathy: Cervical: No cervical adenopathy. Skin: General: Skin is warm and dry. Capillary Refill: Capillary refill takes 2 to 3 seconds. Findings: No rash. Neurological: General: No focal deficit present. Mental Status: She is alert and oriented to person, place, and time. Cranial Nerves: No cranial nerve deficit. Comments: Neg romberg, neg ulnar drift Psychiatric: Mood and Affect: Mood normal. Behavior: Behavior normal. Thought Content: Thought content normal. Judgment: Judgment normal. ASSESSMENT AND PLAN: Follow up in about 6 weeks (around 10/08/2024). Problem List Items Addressed This Visit Essential (primary) hypertension (CMS/HCC) - Primary Stable on current meds No dose changes Check labs Bipolar disorder (CMS/HCC) Continue with Psych for med mgmt Obesity (BMI 30-39.9) Iron deficiency anemia Check labs Has scope scheduled Relevant Orders CBC and differential Sedimentation rate, automated Iron + transferrin + TIBC Muscle weakness (generalized) Home Health never came to pt's house She drove herself to today's appt She has not gone to Neurology as directed Hypokalemia Recheck potassium Associated Problem(s): Hypokalemia Recheck potassium Associated Problem(s): Bipolar disorder (CMS/HCC) Continue with Psych for med mgmt Associated Problem(s): Iron deficiency anemia Check labs Has scope scheduled Associated Problem(s): Muscle weakness (generalized) Home Health never came to pt's house She drove herself to today's appt She has not gone to Neurology as directed Associated Problem(s): Essential (primary) hypertension (CMS/HCC) Stable on current meds No dose changes Check labs documented in this encounter [facility] 08-27-2024 Instructions Julianne Lord NP - 08/27/2024 1:20 PM EDT Please call Neurology office [facility], it is VERY IMPORTANT to see them so we can get down to the reason for your dizziness: [facility]: [phone] documented in this encounter [facility] 08-16-2024 Telephone encount er Note ----- Message from Yaneli Colon sent at 08/14/2024 8:32 AM EDT ----- Regarding: Potassium pills Son called in saying his mom did not get her potassium pills called in. I didn't see them on her chart, so not sure what they are called. Sorry! MARIANA [facility] 08-16-2024 Miscellaneous Notes Formattin g of this note might be different from the original. ----- Message from Yaneli Colon sent at 08/14/2024 8:32 AM EDT ----- Regarding: Potassium pills Son called in saying his mom did not get her potassium pills called in. I didn't see them on her chart, so not sure what they are called. Sorry! MARIANA documented in this encounter [facility] 07-26-2024 Telephone encount er Note Please let the pt know that her her insurance will not cover the chronic care mgmt from [facility] like we talked about, we will still continue with Home Health order so they should be contacting her. Please contact pt about Neurology: Appt is [facility] [place] office on TuesdayAug 06 at 10:20am. This will be with Dr Hunter's PBX REPAIRER Nallely and him If they cannot make that appt they need to call to reschedule [place] [facility] 07-26-2024 Miscellaneous Notes Formattin g of this note might be different from the original. Please let the pt know that her her insurance will not cover the chronic care mgmt from [facility] like we talked about, we will still continue with Home Health order so they should be contacting her. Please contact pt about Neurology: Appt is [facility] [place] office on TuesdayAug 06 at 10:20am. This will be with Dr Hunter's PBX REPAIRER Nallely and him If they cannot make that appt they need to call to reschedule [place] documented in this encounter [facility] 07-25-2024 History of Presen t illness Narrative General Surgery H&P Sahra Taveras 1960 Sahra Taveras is a 63 y.o. female presents with chief complaint of Colonoscopy (Pt presents today for a colonoscopy consult. Pt denies having a colonoscopy before. Her son is with her today and has been caring for her. He states that she was in there ER and they saw she was having rectal bleeding. Denies abdominal pain. Denies family hx of colon cancer. + blood per rectum that has gotten better but was present a few weeks ago. Denies changes in bowel habits. Denies changes in caliber of stools. Denies hx of unplanned weight loss. Denies fevers, chills, or sweats. Denies nausea or vomiting. Last colonoscopy was never. Will need medical clearance. SUBJECTIVE: MEDICATIONS: ALLERGIES Current Outpatient Medications Medication Instructions ALPRAZolam (Xanax) 1 MG tablet 1 tablet, Oral, 2 times daily PRN, Pt has been taking 1 tab in morning and 1 tab in the evening daily ARIPiprazole (ABILIFY) 15 mg, Oral, Daily Aspirin Low Dose 81 mg, Oral, Daily atorvastatin (LIPITOR) 40 mg, Oral, Nightly bisacodyl (DULCOLAX) 5 mg, Oral, Once, Do not crush, chew, or split. Take as detailed on clinic hand out for colonoscopy prep buPROPion XL (Wellbutrin XL) 300 MG 24 hr tablet 1 tablet, Oral, Every morning, Pt has been taking at night ontop of 150mg buPROPion XL (WELLBUTRIN XL) 150 mg, Oral, Daily, Do not crush, chew, or split. Pt has been taking at night along with 300 mg busPIRone (Buspar) 30 MG tablet 1 tablet, Oral, 2 times daily carBAMazepine (TEGretol) 200 MG tablet 1 tablet, Oral, 2 times daily, 1 tablet in the am, and 2 tablets at night: pt is currently taking 1 tab in am and 1 tab night carvedilol (COREG) 25 mg, Oral, 2 times daily with meals losartan (COZAAR) 50 mg, Oral, Daily Lumateperone Tosylate (Caplyta) 42 MG capsule 1 capsule, Oral, Daily meclizine (ANTIVERT) 12.5 mg, Oral, 3 times daily PRN polyethylene glycol (PEG) 3350 (GLYCOLAX) 238 g, Oral, Once, Take as detailed from clinic hand out for colonoscopy prep No Known Allergies PAST MEDICAL HISTORY: SOCIAL HISTORY SURGICAL HISTORY: Past Medical History: Diagnosis Date Abnormal stress test 01/24/2024 Anemia 01/24/2024 Bilateral knee pain 01/19/2024 Bipolar depression ([facility]) 01/24/2024 Bipolar disorder ([facility]) 01/03/2024 Chest pain 01/24/2024 Cholelithiasis without obstruction 01/24/2024 Depression ([facility]/HCC) 01/24/2024 History of nicotine dependence 01/24/2024 HLD (hyperlipidemia) ([facility]) 01/19/2024 Left groin pain 01/24/2024 Osteopenia 01/24/2024 Post-menopausal 02/22/2024 RUQ pain 01/24/2024 Seasonal allergies 01/19/2024 Tobacco user 01/03/2024 Tricuspid regurgitation 01/24/2024 mild Social History Tobacco Use Smoking status: Every Day Current packs/day: 1.00 Types: Cigarettes Vaping Use Vaping status: Never Used Substance Use Topics Drug use: Never Past Surgical History: Procedure Laterality Date SECTION, LOW TRANSVERSE x 1 HYSTERECTOMY Partial - not due to cancer Family History Problem Relation Name Age of Onset Alcohol abuse Father Breast cancer Other family history No Known Allergies Past Surgical History: Procedure Laterality Date SECTION, LOW TRANSVERSE x 1 HYSTERECTOMY Partial - not due to cancer Tobacco Use: High Risk (07/25/2024) Patient History Smoking Tobacco Use: Every Day Smokeless Tobacco Use: Unknown Passive Exposure: Not on file Alcohol Use: Not on file Depression: Not at risk (05/14/2024) PHQ-2 PHQ-2 Score: 2 Physical Activity: Not on file REVIEW OF SYMPTOMS: Review of Systems All other systems reviewed and are negative. 10 systems were reviewed. Positives noted above. Remainder are negative per CMS guidelines. OBJECTIVE: Visit Vitals BP 138/84 Pulse 67 Resp 18 Ht 5' 2 Wt 177 lb SpO2 98% BMI 32.37 kg/m Smoking Status Every Day BSA 1.87 m Physical Exam Vitals reviewed. General: AAOx3, NAD Head: atraumatic normocephalic Neck: trachea midline. No masses or lymphadenopathy Heart: Regular rate and rhythm Lungs: equal chest rise and fall, non labored breathing Abdomen: soft, nontender, and non distended Ext: motor 5/5 all extremities with no gross deformities Psych: alert and oriented, behavior appropriate ASSESSMENT AND PLAN: Assessment/Plan Diagnoses and all orders for this visit: Blood per rectum - bisacodyl (Dulcolax) 5 MG EC tablet; Take 1 tablet (5 mg) by mouth 1 time for 1 dose Do not crush, chew, or split. Take as detailed on clinic hand out for colonoscopy prep - polyethylene glycol, PEG, 3350 (Glycolax) 17 GM/SCOOP powder; Take 238 g by mouth 1 (one) time for 1 dose Take as detailed from clinic hand out for colonoscopy prep Plan: Patient is increased risk for colon cancer. Colonoscopy can be scheduled electively. Patient informed of the risks of procedure which include but not limited to bleeding, perforation, and risks of anesthesia. Patient understood risks and signed informed consent for the procedure under monitored anesthesia care. Handout for bowel prep provided in clinic. Patient was informed of the need for a ride home from the hospital and the need for someone to be with them for the following 24 hrs post procedure. 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 Wants to change her medications b/c she is too sleepy during the day Images from the original note were not included. Sahra Taveras is a 63 y.o. female presents with chief complaint of No chief complaint on file. HPI: Here for recheck. No significant changes in her symptoms since seen last CBC was improved , +stool for Occult Blood Had another UTI, just finished atb, no current active symptoms Also using rolator, which helps with balance Will need help with HH SUBJECTIVE: MEDICATIONS: Current Outpatient Medications Medication Instructions ALPRAZolam (Xanax) 1 MG tablet 1 tablet, Oral, 2 times daily PRN, Pt has been taking 1 tab in morning and 1 tab in the evening daily ARIPiprazole (ABILIFY) 15 mg, Oral, Daily Aspirin Low Dose 81 mg, Oral, Daily atorvastatin (LIPITOR) 40 mg, Oral, Nightly buPROPion XL (Wellbutrin XL) 300 MG 24 hr tablet 1 tablet, Oral, Every morning, Pt has been taking at night ontop of 150mg buPROPion XL (WELLBUTRIN XL) 150 mg, Oral, Daily, Do not crush, chew, or split. Pt has been taking at night along with 300 mg busPIRone (Buspar) 30 MG tablet 1 tablet, Oral, 2 times daily carBAMazepine (TEGretol) 200 MG tablet 1 tablet, Oral, 2 times daily, 1 tablet in the am, and 2 tablets at night: pt is currently taking 1 tab in am and 1 tab night carvedilol (COREG) 25 mg, Oral, 2 times daily with meals losartan (COZAAR) 50 mg, Oral, Daily Lumateperone Tosylate (Caplyta) 42 MG capsule 1 capsule, Oral, Daily meclizine (ANTIVERT) 12.5 mg, Oral, 3 times daily PRN ALLERGIES: No Known Allergies REVIEW OF SYMPTOMS: Review of Systems Constitutional: Positive for fatigue. Negative for appetite change, chills and fever. HENT: Negative for congestion, ear pain and sore throat. Eyes: Negative for pain, discharge, redness and visual disturbance. Respiratory: Negative for cough, shortness of breath and wheezing. Cardiovascular: Negative for chest pain, palpitations and leg swelling. Gastrointestinal: Negative for abdominal pain, blood in stool, constipation, diarrhea, nausea and vomiting. Genitourinary: Negative for difficulty urinating, dysuria and frequency. Musculoskeletal: Negative for arthralgias, back pain, joint swelling and myalgias. Skin: Negative for rash and wound. Neurological: Positive for dizziness and weakness. Negative for tremors, seizures, syncope and headaches. Psychiatric/Behavioral: Negative for behavioral problems, self-injury and suicidal ideas. The patient is nervous/anxious. Depression Hematological: Does not bruise/bleed easily. Endocrine: Negative for polydipsia, polyphagia and polyuria. Allergic/Immunologic: Negative for environmental allergies and food allergies. PAST MEDICAL HISTORY Past Medical History: Diagnosis Date Abnormal stress test 01/24/2024 Anemia 01/24/2024 Bilateral knee pain 01/19/2024 Bipolar depression ([facility]) 01/24/2024 Bipolar disorder ([facility]) 01/03/2024 Chest pain 01/24/2024 Cholelithiasis without obstruction 01/24/2024 Depression ([facility]) 01/24/2024 History of nicotine dependence 01/24/2024 HLD (hyperlipidemia) ([facility]) 01/19/2024 Left groin pain 01/24/2024 Osteopenia 01/24/2024 Post-menopausal 02/22/2024 RUQ pain 01/24/2024 Seasonal allergies 01/19/2024 Tobacco user 01/03/2024 Tricuspid regurgitation 01/24/2024 mild Past Surgical History: Procedure Laterality Date SECTION, LOW TRANSVERSE x 1 HYSTERECTOMY Partial - not due to cancer family history includes Alcohol abuse in her father; Breast cancer in an other family member. OBJECTIVE: Visit Vitals BP 110/78 Pulse 82 Temp 97.3 F (Temporal) Wt 175 lb SpO2 97% BMI 32.01 kg/m Smoking Status Every Day BSA 1.86 m Physical Exam Vitals and nursing note reviewed. Constitutional: General: She is not in acute distress. Appearance: Normal appearance. She is obese. She is not ill-appearing or toxic-appearing. HENT: Head: Normocephalic and atraumatic. Right Ear: External ear normal. Left Ear: External ear normal. Nose: Nose normal. Mouth/Throat: Mouth: Mucous membranes are moist. Eyes: Extraocular Movements: Extraocular movements intact. Conjunctiva/sclera: Conjunctivae normal. Cardiovascular: Rate and Rhythm: Normal rate and [...] Normal range of motion and neck supple. Lymphadenopathy: Cervical: No cervical adenopathy. Skin: General: Skin is warm and dry. Capillary Refill: Capillary refill takes 2 to 3 seconds. Findings: No rash. Neurological: General: No focal deficit present. Mental Status: She is alert and oriented to person, place, and time. Psychiatric: Mood and Affect: Mood normal. Behavior: Behavior normal. Thought Content: Thought content normal. Judgment: Judgment normal. Comments: Answers questions appropriately, however seems somewhat drowsy ASSESSMENT AND PLAN: No follow-ups on file. Problem List Items Addressed This Visit Essential (primary) hypertension (CMS/HCC) Stable on current meds Relevant Medications carvedilol (Coreg) 25 MG tablet Bipolar disorder (CMS/HCC) Uncertain what cause of her mental status changes, possible related to psych meds, or other neurological issues We will reach out to Neurology Vertigo HLD (hyperlipidemia) (CMS/HCC) Relevant Medications atorvastatin (Lipitor) 40 MG tablet Dizziness Unspecified severe protein-calorie malnutrition (CMS/HCC) Relevant Orders Comprehensive metabolic panel Iron deficiency anemia - Primary Relevant Orders CBC and differential CBC and differential Basic metabolic panel Ambulatory referral to General Surgery Muscle weakness (generalized) Dementia in other diseases classified elsewhere, unspecified severity, with other behavioral disturbance (CMS/HCC) Unclear if this is true diagnosis or not Will need help from Neurology for this Acute UTI (urinary tract infection) No acute symptoms at this time, will re culture urine Relevant Orders Basic metabolic panel Urinalysis with reflex microscopic (clean catch) Urine culture (clean catch) Occult blood positive stool Relevant Orders Ambulatory referral to General Surgery Associated Problem(s): Dementia in other diseases classified elsewhere, unspecified severity, with other behavioral disturbance (CMS/HCC) Unclear if this is true diagnosis or not Will need help from Neurology for this documented in this encounter [facility] 01-03-2024 History of Presen t illness Narrative [...] in this encounter [facility] Evaluation note Diagnosis Essential (primary) hypertension (CMS/HCC)- Primary Unspecified essential hypertension BMI 34.0-34.9,adult Bipolar affective disorder, remission status unspecified ([facility]/HCC) Tobacco user Tobacco use disorder Vertigo Dizziness and giddiness Anxiety Anxiety state, unspecified [facility]* Diagnosis Essential (primary) hypertension ([facility]/HCC)- Primary Unspecified essential hypertension BMI 34.0-34.9,adult Bipolar affective disorder, remission status unspecified ([facility]) Tobacco user Tobacco use disorder Vertigo Dizziness and giddiness Anxiety Anxiety state, unspecified Essential (primary) hypertension ([facility]/HCC)- Primary Unspecified essential hypertension BMI 34.0-34.9,adult Tobacco user Tobacco use disorder Tricuspid valve insufficiency, unspecified etiology Dizziness Dizziness and giddiness Elevated glucose level- Primary BMI 34.0-34.9,adult Essential (primary) hypertension ([facility]/HCC) Unspecified essential hypertension Bipolar affective disorder, remission status unspecified ([facility]) Mixed hyperlipidemia ([facility]/HCC) Mixed hyperlipidemia Localized edema Edema Essential (primary) hypertension ([facility]/HCC)- Primary Unspecified essential hypertension Mixed hyperlipidemia ([facility]) Mixed hyperlipidemia Localized edema Edema Seasonal allergies Allergic rhinitis, cause unspecified Pain in both knees, unspecified chronicity Obesity (BMI 30-39.9) Dizziness Dizziness and giddiness Essential (primary) hypertension ([facility]/HCC)- Primary Unspecified essential hypertension Obesity (BMI 30-39.9) Essential (primary) hypertension ([facility]/HCC)- Primary Unspecified essential hypertension Obesity (BMI 30-39.9) Dizziness Dizziness and giddiness Anxiety Anxiety state, unspecified Bipolar affective disorder, remission status unspecified ([facility]) Epistaxis Iron deficiency anemia, unspecified iron deficiency anemia type- Primary Vertigo Dizziness and giddiness Muscle weakness (generalized) Chronic fatigue Other malaise and fatigue Essential (primary) hypertension ([facility]/HCC) Unspecified essential hypertension Obesity (BMI 30-39.9) Dizziness Dizziness and giddiness Sepsis with acute renal failure, due to unspecified organism, unspecified acute renal failure type, unspecified whether septic shock present ([facility]) Essential (primary) hypertension ([facility]/HCC)- Primary Unspecified essential hypertension Unspecified severe protein-calorie malnutrition ([facility]) Dementia in other diseases classified elsewhere, unspecified severity, with other behavioral disturbance ([facility]) Iron deficiency anemia, unspecified iron deficiency anemia type Acute UTI (urinary tract infection) Occult blood positive stool Nonspecific abnormal finding in stool contents Bipolar affective disorder, remission status unspecified (CMS/HCC) Dizziness Dizziness and giddiness Vertigo Dizziness and giddiness Muscle weakness (generalized) Mixed hyperlipidemia (CMS/HCC) Mixed hyperlipidemia Essential (primary) hypertension (CMS/HCC)- Primary Unspecified essential hypertension Iron deficiency anemia, unspecified iron deficiency anemia type Muscle weakness (generalized) Obesity (BMI 30-39.9) Bipolar affective disorder, remission status unspecified (CMS/HCC) Hypokalemia Hypopotassemia Vertigo Dizziness and giddiness [facility] Diagnosis Essential (primary) hypertension (CMS/HCC)- Primary Unspecified essential hypertension BMI 34.0-34.9,adult Bipolar affective disorder, remission status unspecified (CMS/HCC) Tobacco user Tobacco use disorder Vertigo Dizziness and giddiness Anxiety Anxiety state, unspecified Essential (primary) hypertension (CMS/HCC)- Primary Unspecified essential hypertension BMI 34.0-34.9,adult Tobacco user Tobacco use disorder Tricuspid valve insufficiency, unspecified etiology Dizziness Dizziness and giddiness Elevated glucose level- Primary BMI 34.0-34.9,adult Essential (primary) hypertension (CMS/HCC) Unspecified essential hypertension Bipolar affective disorder, remission status unspecified (CMS/HCC) Mixed hyperlipidemia (CMS/HCC) Mixed hyperlipidemia Localized edema Edema Essential (primary) hypertension (CMS/HCC)- Primary Unspecified essential hypertension Mixed hyperlipidemia (CMS/HCC) Mixed hyperlipidemia Localized edema Edema Seasonal allergies Allergic rhinitis, cause unspecified Pain in both knees, unspecified chronicity Obesity (BMI 30-39.9) Dizziness Dizziness and giddiness Essential (primary) hypertension (CMS/HCC)- Primary Unspecified essential hypertension Obesity (BMI 30-39.9) Essential (primary) hypertension (CMS/HCC)- Primary Unspecified essential hypertension Obesity (BMI 30-39.9) Dizziness Dizziness and giddiness Anxiety Anxiety state, unspecified Bipolar affective disorder, remission status unspecified (CMS/HCC) Epistaxis Iron deficiency anemia, unspecified iron deficiency anemia type- Primary Vertigo Dizziness and giddiness Muscle weakness (generalized) Chronic fatigue Other malaise and fatigue Essential (primary) hypertension (CMS/HCC) Unspecified essential hypertension Obesity (BMI 30-39.9) Dizziness Dizziness and giddiness Sepsis with acute renal failure, due to unspecified organism, unspecified acute renal failure type, unspecified whether septic shock present ([facility]) Essential (primary) hypertension ([facility])- Primary Unspecified essential hypertension Unspecified severe protein-calorie malnutrition ([facility]) Dementia in other diseases classified elsewhere, unspecified severity, with other behavioral disturbance ([facility]) Iron deficiency anemia, unspecified iron deficiency anemia type Acute UTI (urinary tract infection) Occult blood positive stool Nonspecific abnormal finding in stool contents Bipolar affective disorder, remission status unspecified ([facility]) Dizziness Dizziness and giddiness Vertigo Dizziness and giddiness Muscle weakness (generalized) Mixed hyperlipidemia (CMS/HCC) Mixed hyperlipidemia Essential (primary) hypertension ([facility])- Primary Unspecified essential hypertension Iron deficiency anemia, unspecified iron deficiency anemia type Muscle weakness (generalized) Obesity (BMI 30-39.9) Bipolar affective disorder, remission status unspecified ([facility]) Hypokalemia Hypopotassemia Hypokalemia Hypopotassemia documented [facility]* Diagnosis Essential (primary) hypertension ([facility])- Primary Unspecified essential hypertension BMI 34.0-34.9,adult Bipolar affective disorder, remission status unspecified ([facility]) Tobacco user Tobacco use disorder Vertigo Dizziness and giddiness Anxiety Anxiety state, unspecified Essential (primary) hypertension ([facility])- Primary Unspecified essential hypertension BMI 34.0-34.9,adult Tobacco user Tobacco use disorder Tricuspid valve insufficiency, unspecified etiology Dizziness Dizziness and giddiness Elevated glucose level- Primary BMI 34.0-34.9,adult Essential (primary) hypertension ([facility]) Unspecified essential hypertension Bipolar affective disorder, remission status unspecified ([facility]) Mixed hyperlipidemia ([facility]) Mixed hyperlipidemia Localized edema Edema Essential (primary) hypertension (CMS/HCC)- Primary Unspecified essential hypertension Mixed hyperlipidemia ([facility]) Mixed hyperlipidemia Localized edema Edema Seasonal allergies Allergic rhinitis, cause unspecified Pain in both knees, unspecified chronicity Obesity (BMI 30-39.9) Dizziness Dizziness and giddiness Essential (primary) hypertension ([facility]/HCC)- Primary Unspecified essential hypertension Obesity (BMI 30-39.9) Essential (primary) hypertension ([facility])- Primary Unspecified essential hypertension Obesity (BMI 30-39.9) Dizziness Dizziness and giddiness Anxiety Anxiety state, unspecified Bipolar affective disorder, remission status unspecified ([facility]) Epistaxis Iron deficiency anemia, unspecified iron deficiency anemia type- Primary Vertigo Dizziness and giddiness Muscle weakness (generalized) Chronic fatigue Other malaise and fatigue Essential (primary) hypertension ([facility]/HCC) Unspecified essential hypertension Obesity (BMI 30-39.9) Dizziness Dizziness and giddiness Sepsis with acute renal failure, due to unspecified organism, unspecified acute renal failure type, unspecified whether septic shock present ([facility]) Essential (primary) hypertension ([facility]/HCC)- Primary Unspecified essential hypertension Unspecified severe protein-calorie malnutrition ([facility]) Dementia in other diseases classified elsewhere, unspecified severity, with other behavioral disturbance ([facility]) Iron deficiency anemia, unspecified iron deficiency anemia type Acute UTI (urinary tract infection) Occult blood positive stool Nonspecific abnormal finding in stool contents Bipolar affective disorder, remission status unspecified ([facility]) Dizziness Dizziness and giddiness Vertigo Dizziness and giddiness Muscle weakness (generalized) Mixed hyperlipidemia ([facility]) Mixed hyperlipidemia Essential (primary) hypertension ([facility])- Primary Unspecified essential hypertension Iron deficiency anemia, unspecified iron deficiency anemia type Muscle weakness (generalized) Obesity (BMI 30-39.9) Bipolar affective disorder, remission status unspecified ([facility]) Hypokalemia Hypopotassemia Essential (primary) hypertension ([facility]) Unspecified essential hypertension [facility] Diagnosis Blood per rectum- Primary Hemorrhage of rectum and anus documented [facility]* Diagnosis Essential (primary) hypertension ([facility])- Primary Unspecified essential hypertension Unspecified severe protein-calorie malnutrition ([facility]) Dementia in other diseases classified elsewhere, unspecified severity, with other behavioral disturbance ([facility]) Iron deficiency anemia, unspecified iron deficiency anemia type Acute UTI (urinary tract infection) Occult blood positive stool Nonspecific abnormal finding in stool contents Bipolar affective disorder, remission status unspecified ([facility]) Dizziness Dizziness and giddiness Vertigo Dizziness and giddiness Muscle weakness (generalized) Mixed hyperlipidemia ([facility]) Mixed hyperlipidemia [facility]* Diagnosis Essential (primary) hypertension ([facility])- Primary Unspecified essential hypertension BMI 34.0-34.9,adult Bipolar affective disorder, remission status unspecified ([facility]) Tobacco user Tobacco use disorder Vertigo Dizziness and giddiness Anxiety Anxiety state, unspecified Essential (primary) hypertension ([facility])- Primary Unspecified essential hypertension BMI 34.0-34.9,adult Tobacco user Tobacco use disorder Tricuspid valve insufficiency, unspecified etiology Dizziness Dizziness and giddiness Elevated glucose level- Primary BMI 34.0-34.9,adult Essential (primary) hypertension (CMS/HCC) Unspecified essential hypertension Bipolar affective disorder, remission status unspecified ([facility]) Mixed hyperlipidemia (CMS/HCC) Mixed hyperlipidemia Localized edema Edema Essential (primary) hypertension (CMS/HCC)- Primary Unspecified essential hypertension Mixed hyperlipidemia (CMS/HCC) Mixed hyperlipidemia Localized edema Edema Seasonal allergies Allergic rhinitis, cause unspecified Pain in both knees, unspecified chronicity Obesity (BMI 30-39.9) Dizziness Dizziness and giddiness Essential (primary) hypertension (CMS/HCC)- Primary Unspecified essential hypertension Obesity (BMI 30-39.9) Essential (primary) hypertension ([facility]/HCC)- Primary Unspecified essential hypertension Obesity (BMI 30-39.9) Dizziness Dizziness and giddiness Anxiety Anxiety state, unspecified Bipolar affective disorder, remission status unspecified ([facility]) Epistaxis Iron deficiency anemia, unspecified iron deficiency anemia type- Primary Vertigo Dizziness and giddiness Muscle weakness (generalized) Chronic fatigue Other malaise and fatigue Essential (primary) hypertension ([facility]) Unspecified essential hypertension Obesity (BMI 30-39.9) Dizziness Dizziness and giddiness Sepsis with acute renal failure, due to unspecified organism, unspecified acute renal failure type, unspecified whether septic shock present ([facility]) Essential (primary) hypertension ([facility])- Primary Unspecified essential hypertension Unspecified severe protein-calorie malnutrition ([facility]) Dementia in other diseases classified elsewhere, unspecified severity, with other behavioral disturbance ([facility]) Iron deficiency anemia, unspecified iron deficiency anemia type Acute UTI (urinary tract infection) Occult blood positive stool Nonspecific abnormal finding in stool contents Bipolar affective disorder, remission status unspecified ([facility]) Dizziness Dizziness and giddiness Vertigo Dizziness and giddiness Muscle weakness (generalized) Mixed hyperlipidemia ([facility]/HCC) Mixed hyperlipidemia Essential (primary) hypertension ([facility])- Primary Unspecified essential hypertension Iron deficiency anemia, unspecified iron deficiency anemia type Muscle weakness (generalized) Obesity (BMI 30-39.9) Bipolar affective disorder, remission status unspecified ([facility]/HCC) Hypokalemia Hypopotassemia Essential (primary) hypertension (CMS/HCC)- Primary Unspecified essential hypertension Obesity (BMI 30-39.9) Bipolar affective disorder, remission status unspecified (CMS/HCC) Anxiety Anxiety state, unspecified Mixed hyperlipidemia (CMS/HCC) Mixed hyperlipidemia Needs flu shot Need for prophylactic vaccination and inoculation against influenza Vertigo Dizziness and giddiness Former smoker Personal history of tobacco use, presenting hazards to health Memory impairment Memory loss [facility] Diagnosis Hypokalemia- Primary Hypopotassemia documented in this [facility]* Diagnosis Essential (primary) hypertension (CMS/HCC)- Primary Unspecified essential hypertension Iron deficiency anemia, unspecified iron deficiency anemia type Muscle weakness (generalized) Obesity (BMI 30-39.9) Bipolar affective disorder, remission status unspecified (CMS/HCC) Hypokalemia Hypopotassemia documented [facility]ative[facility] Consultation (Routine) - Closed Specialty Diagnoses / Procedures Referred By Sudhakar vivar Referred To Contact General Surgery Diagnoses Iron deficiency anemia, unspecified iron deficiency anemia type Occult blood positive stool Procedures MT OFFICE/OUTPATIENT [facility] HIGH MDM 60 MINUTES Julianne Lord NP [address] [place] [address] Shanda Celaya DO [address] [facility] [address] [place] [address] Referral ID Status Reason Start Date Expiration Date V isits Requested Visits Authorized [id number] Closed Specialty Services Required 07/23/2024 01/19/2025 1 1 [facility] Summary Purpose Family History No Family History Records FoundNo Family History Records FoundNo Family History Records Found Advance Directives No Advanced Directives Records FoundNo Advanced Directives Records FoundNo Advanced Directives Records Found Additional Source Comments INFORMATION SOURCE (unrecogn ized section and content) DATE CREATED AUTHOR 09/09/2022 [facility] DATE CREATED AUTHOR AUTHOR'S ORGANIZ ATION 11/17/2024 [facility] DATE CREATED AUTHOR AUTHOR'S ORGANIZ ATION 01/29/2025 [facility] Care Teams (unrecognized sec tion and content) Director Of Compliance Relationship Specialty Start Date End Date Zhen Christiansen MD [address] [place] [phone] PCP - General Family Medicine 12/27/23 Julianne Lord NP [address] [place] [address] Nurse Practitioner Family Medicine 11/28/22 Director Of Compliance Relationship Specialty Start Date End Date Zhen Christiansen MD [address] [place] [phone] PCP - General Family Medicine 12/27/23 Julianne Lord NP [address] [place] [phone] Nurse Practitioner Family Medicine 11/28/22 Director Of Compliance Relationship Specialty Start Date End Date Zhen Christiansen MD [address] [place] [phone] PCP - General Family Medicine 12/27/23 Julianne Lord NP [address] [place] [phone] Nurse Practitioner Family Medicine 11/28/22 Director Of Compliance Relationship Specialty Start Date End Date Zhen Christiansen MD [address] [place] [phone] PCP - General Family Medicine 12/27/23 Julianne Lord NP [address] [place] [phone] Nurse Practitioner Family Medicine 11/28/22 Director Of Compliance Relationship Specialty Start Date End Date Zhen Christiansen MD [address] [place] [phone] PCP - General Family Medicine 12/27/23 Julianne Lord NP [address] [place] [phone] PCP [facility] 08/28/24 Julianne Lord NP [address] [place] [phone] Nurse Practitioner Family Medicine 11/28/22 Director Of Compliance Relationship Specialty Start Date End Date Zhen Christiansen MD [address] [place] [phone] PCP - General Family Medicine 12/27/23 Julianne Lord NP [address] [place] [address] Nurse Practitioner Family Medicine 11/28/22 Director Of Compliance Relationship Specialty Start Date End Date Zhen Christiansen MD [address] [place] [phone] PCP - General Family Medicine 12/27/23 Julianne Lord NP [address] [place] [address] Nurse Practitioner Family Medicine 11/28/22 Director Of Compliance Relationship Specialty Start Date End Date Zhen Christiansen MD [address] [place] [phone] PCP - General Family Medicine 12/27/23 Julianne Lord NP [address] [place] [phone] Nurse Practitioner Family Medicine 11/28/22 Director Of Compliance Relationship Specialty Start Date End Date Zhen Christiansen MD [address] [place] [phone] PCP - General Family Medicine 12/27/23 Julianne Lord NP [address] [place] [phone] PCP - [facility] 08/28/24 Julianne Lord NP [address] [place] [address] Nurse Practitioner Family Medicine 11/28/22 Director Of Compliance Relationship Specialty Start Date End Date Zhen Christiansen MD [address] [place] [phone] PCP - General Family Medicine 12/27/23 Julianne Lord NP [address] [place] [phone] Nurse Practitioner Family Medicine 11/28/22 Director Of Compliance Relationship Specialty Start Date End Date Zhen Christiansen MD [address] [place] [address] PCP - General Family Medicine 12/27/23 Julianne Lord NP [address] [place] [address] Nurse Practitioner Family Medicine 11/28/22 Director Of Compliance Relationship Specialty Start Date End Date Zhen Christiansen MD [address] [place] [phone] PCP - General Family Medicine 12/27/23 Julianne Lord NP [address] [place] [address] PCP - [facility] 08/28/24 Julianne Lord NP [address] [place] [address] Nurse Practitioner Family Medicine 11/28/22 Director Of Compliance Relationship Specialty Start Date End Date Zhen Christiansen MD [address] [place] [phone] PCP - General Family Medicine 12/27/23 Julianne Lord NP [address] [place] [address] Nurse Practitioner Family Medicine 11/28/22 Director Of Compliance Relationship Specialty Start Date End Date Zhen Christiansen MD [address] [place] [phone] PCP - General Family Medicine 12/27/23 Julianne Lord NP [address] [place] [phone] Nurse Practitioner Family Medicine 11/28/22 Director Of Compliance Relationship Specialty Start Date End Date Zhen Christiansen MD [address] [place] [phone] PCP - General Family Medicine 12/27/23 Julianne Lord NP [address] [place] [phone] Nurse Practitioner Family Medicine 11/28/22 Reason for Visit (unrecogniz ed section and content) Reason Comments Med Refill Reason Comments Colonoscopy Pt presents today fo r a colonoscopy consult. Pt denies having a colonoscopy before. Her son is with her today and has been caring for her. He states that she was in there ER and they saw she was having rectal bleeding. Julianne Jenniferjose juanmanuelcorin recommended that she has a colonoscopy to make sure there is no bleeding inside. Reason Comments Hypertension FOR RECORDS PERTAINING TO PATIENTS WHO ARE [...] BE BASED ON THE PRIMARY CLINICAL RECORDS. [employer] provides no warranty or guarantee of the accuracy or completeness of information in this document.
[2025-02-06 10:19] LABS: Alanine Aminotransferase 23 U/L (14-59); Albumin Globulin Ratio 0.9; Albumin Level 3.6 g/dL (3.4-5.0); Alkaline Phosphatase 115 U/L (46-116); Aspartate Amino Transferase 14 U/L (15-37); Bilirubin Direct 0.1 mg/dL (0.0-0.2); Bilirubin Total 0.2 mg/dL (0.2-1.0); Globulin 4.2 g/dL; Thyroid Stimulating Hormone 1.593 uIU/mL (0.358-3.740); Total Protein 7.8 g/dL (6.4-8.2)
[2025-02-07 04:07] LABS: Carbamazepine(Tegretol),S 7.8 ug/mL (4.0-12.0)
== END 2025-02-06 08:56 | disposition home or self-care (01) ==
LOC: LAB 08:57
PROVIDERS: PCP Nurse Practitioner; Visit Provider Psychiatry & Neurology Psychiatry
DX: Z79.899 Other long term (current) drug therapy (principal)
CPT/HCPCS: 36415; 80076; 80156; 84443; 85025

== ENCOUNTER 2025-02-06 09:07 | Outpatient (OUT) | payer MEDICARE, SELFPAY ==
--- NOTE | 2025-02-06 09:10 | MM_ITS ---
Patient Name: ALBERTA COURTNEY MR#: [id number] : 1960 Exam Date: 02/06/2025 Ordering Doctor: MATIAS Lord CNP RADIOLOGY REPORT PROCEDURE: MM TOMOSYNTHESIS SCREENING BI COMPARISON: MG MAMM SCREEN TANIA W CAD, 07/30/2020. MG MAMM SCREEN TANIA W CAD, 06/13/2019. MG MAMM SCREEN TANIA W CAD, 05/16/2018. MG MAMM TANIA SCRN W CAD DIG, 10/11/2014. INDICATIONS: Screening Calculator Name NCI Breast Cancer Risk Assessment Tool 5 Year Breast Cancer Risk 1.50% Lifetime Breast Cancer Risk 5.60% Personal Breast Cancer No Personal Ovarian Cancer No Treatments None Family Cancers None LOCATION: [facility] BREAST COMPOSITION: The breasts are heterogeneously dense,which may obscure small masses. FINDINGS: DIAGNOSTIC CATEGORY 0--INCOMPLETE: NEED ADDITIONAL IMAGING EVALUATION. RIGHT BREAST: No significant suspicious finding. LEFT BREAST: Developing loosely grouped suspicious microcalcifications involving the central outer aspect of left breast, middle depth. RECOMMENDATIONS: ADDITIONAL MAMMOGRAPHIC VIEWS REQUIRED: LEFT BREAST - spot magnification views. True lateral view are recommended. PLEASE NOTE: A NORMAL MAMMOGRAM DOES NOT EXCLUDE THE POSSIBILITY OF BREAST CANCER. A CLINICALLY SUSPICIOUS PALPABLE LUMP SHOULD BE BIOPSIED. Dictated by: Rafael Brown DO on 02/07/2025 at 09:50 Approved by: Rafael Brown DO on 02/07/2025 at 09:55
--- OUTSIDE RECORDS SUMMARY | 2025-02-06 09:24 | XMS_ITS | CCD ---
Author Organization [facility] Care Team Providers Care Mid Level Practitioner Name Role Phone PATRICK DAO Admitting Unavailable PATRICK DAO Attending Unavailable AICHHOLZ, MATIAS JULIANNE Primary Care Unavailable PATRICK DAO Consulting Unavailable PATRICK DAO Admitting Unavailable PATRICK DAO Attending Unavailable AICHHOLZ, CISCO UNIFIED COMMUNICATIONS ENGINEER JULIANNE Primary Care Unavailable PATRICK DAO Consulting Unavailable AICHHOLZ, CISCO UNIFIED COMMUNICATIONS ENGINEER JULIANNE Admitting Unavailable AICHHOLZ, CISCO UNIFIED COMMUNICATIONS ENGINEER JULIANNE Attending Unavailable AICHHOLZ, CISCO UNIFIED COMMUNICATIONS ENGINEER JULIANNE Primary Care Unavailable Aichholz CUSTOMER RESOLUTION SPECIALIST, Julianne Unavailable Zhen Christiansen MD Primary Care Provider Aichholz CUSTOMER RESOLUTION SPECIALIST, Julianne Unavailable Aichholz CUSTOMER RESOLUTION SPECIALIST, Julianne Unavailable AICHHOLZ, JULIANNE Attending Unavailable AICHHOLZ, [...] morning. 0 11/16/2023 Active polyethylene glycol 3350 61867 mg powder for oral solution (13 sources) [...] 07-23-2024 Chronic Other aftercare (1 source) Other long-term (current) drug therapy; Translations: [OTH RETIREMENT CURRENT DRUG THERAPY] Onset: 07-16-2022 Episodic Other [...] WITH AUTO DIFFon BASOPHILS ABSOLUTE AUTO 0.0 [facility] Basophils/100 WBC (Bld) 0.4 % 0.2 - 2.0 % [facility] Eosinophils/100 WBC (Bld) 1.7 % 0.9 - 7.0 % [facility] Erythrocyte distribution width (RBC) [Ratio] 16.3 % High 11.0 - 15.0 % [facility] Hematocrit (Bld) [Volume fraction] 31.7 % Low 36.0 - 48.0 % [facility] e Hemoglobin (Bld) [Mass/Vol] 9.9 g/dL Low 12.0 - 16.0 g/dL [facility] IMMATURE GRANULOCYTES ABS AUTO 0.03 [facility] Immature granulocytes/100 WBC (Bld) 0.3 % 0.0 - 0.5 % [facility] Interpretation and review of laboratory results Abnormal [facility] LYMPHOCYTES ABSOLUTE AUTO 1.3 [facility] Lymphocytes/100 WBC (Bld) 11.8 % Low 20.5 - 60.0 % [facility] MCH (RBC) [Entitic mass] 27.3 pg 26.7 - 34.[address] [facility] MCHC (RBC) [Mass/Vol] 31.2 g/dL 29.9 - 35.2 g/dL [facility] MCV (RBC) [Entitic vol] 87.3 fL 81.0 - 99.[address] [facility] MONOCYTES ABSOLUTE AUTO 0.6 [facility] Monocytes/100 WBC (Bld) 5.4 % 1.7 - 12.0 % [facility] NEUTROPHILS ABSOLUTE AUTO 9.[address] [facility] Neutrophils/100 WBC (Bld) 80.4 % High 43.0 - 75.0 % [facility] Platelet mean volume (Bld) [Entitic vol] 9.0 fL Low 9.5 - 13.[address] [facility] # [facility]2 [facility] PLT 342 [facility] RBC 3.63 Low [facility] WBC 11.4 High [facility] CBC AUTO DIFFon 09-08-2022 BASO # 0.1 103/ul Normal 0.0-0.1 [facility] Comment on above: Performed By: #### C BC #### [facility] [address] [place] [address] Dr. Anish Johnson Basophils/100 WBC (Bld) 1.1 % Normal 0.2-2.0 [facility] Comment on above: Performed By: #### C BC #### [facility] [address] [place] [address] Dr. Anish Johnson EO # 0.3 103/ul Normal 0.0-0.7 [facility] Comment on above: Performed By: #### C BC #### [facility] [address] [place] [address] Dr. Anish Johnson Eosinophils/100 WBC (Bld) 4.1 % Normal 0.9-7.0 [facility] Comment on above: Performed By: #### C BC #### [facility] [address] [place] [address] Dr. Anish Johnson Erythrocyte distribution width (RBC) [Ratio] 15.1 % Critically high 11.0-15.0 [facility] Comment on above: Performed By: #### C BC #### [facility] [address] [place] [address] Dr. Anish Johnson Hematocrit (Bld) [Volume fraction] 40.6 % Normal 36.0-48.0 [facility] Comment on above: Performed By: #### C BC #### [facility] [address] [place] [address] Dr. Anish Johnson Hemoglobin (Bld) [Mass/Vol] 12.4 g/dL Normal 12.0-16.0 [facility] Comment on above: Performed By: #### C BC #### [facility] [address] [place] [address] Dr. Anish Johnson IG # 0.02 10e3/ul Normal 0.00-0.03 [facility] Comment on above: Performed By: #### C BC #### [facility] [address] [place] [address] Dr. Anish Johnson IG % 0.3 % Normal 0.0-0.5 [facility] Comment on above: Performed By: #### C BC #### [facility] [address] [place] [address] Dr. Anish Johnson LYMPH # 1.3 103/ul Normal 1.2-3.8 [facility] Comment on above: Performed By: #### C BC #### [facility] [address] [place] [address] Dr. Anish Johnson Lymphocytes/100 WBC (Bld) 19.7 % Critically low 20.5-60.0 [facility] Comment on above: Performed By: #### C BC #### [facility] [address] [place] [address] Dr. Anish Johnson MANUAL DIFF REQ NO Normal [facility] Comment on above: Performed By: #### C BC #### [facility] [address] [place] [address] Dr. Anish Johnson MCH (RBC) [Entitic mass] 25.5 pg Critically low 26.7-34.0 [facility] Comment on above: Performed By: #### C BC #### [facility] [address] [place] [address] Dr. Anish Johnson MCHC (RBC) [Mass/Vol] 30.5 g/dL Normal 29.9-35.2 [facility] Comment on above: Performed By: #### C BC #### [facility] [address] [place] [address] Dr. Anish Johnson MCV (RBC) [Entitic vol] 83.4 fL Normal 81.0-99.0 [facility] Comment on above: Performed By: #### C BC #### [facility] [address] [place] [address] Dr. Anish Johnson MONO # 0.5 103/ul Normal 0.3-0.8 [facility] Comment on above: Performed By: #### C BC #### [facility] [address] [address] [address] Anish Johnson Monocytes/100 WBC (Bld) 7.0 % Normal 1.7-12.0 [facility] Comment on above: Performed By: #### C BC #### [facility] [address] [address] [address] Anish Johnson NEUT # 4.5 103/ul Normal 1.4-6.5 [facility] Comment on above: Performed By: #### C BC #### [facility] [address] [place] [address] Dr. Anish Johnson Neutrophils/100 WBC (Bld) 67.8 % Normal 43.0-75.0 [facility] Comment on above: Performed By: #### C BC #### [facility] [address] [place] [address] Dr. Anish Johnson Platelet mean volume (Bld) [Entitic vol] 10.5 fL Normal 9.5-13.5 [facility] Comment on above: Performed By: #### C BC #### [facility] [address] [place] [address] Dr. Anish Johnson PLT 297 103/ul Normal 150-450 [facility] Comment on above: Performed By: #### C BC #### [facility] [address] [place] [address] Dr. Anish Johnson RBC 4.87 106/ul Normal 4.20-5.40 [facility] Comment on above: Performed By: #### C BC #### [facility] [address] [place] [address] Dr. Anish Johnson WBC 6.6 103/ul Normal 4.0-11.0 [facility] Comment on above: Performed By: #### C BC #### [facility] [address] [place] [address] Dr. Anish Johnson CARBAMAZEPINEon 07-16-2022 Carbamezapine 5.4 ug/mL Normal 4.0-12.0 [facility] Comment on above: Result Comment: In c onjunction with other antiepileptic drugs Therapeutic 4.0 - 8.0 Toxicity 9.0 - 12.0 . Carbamazepine alone Therapeutic 8.0 - 12.0 . Detection Limit = 2.0 <2.0 indicated None Detected Performed By: #### C ARBLC #### [facility] [address] [place] [address] Dr. Anish Johnson CBC AUTO DIFFon 07-15-2022 BASO # 0.0 103/ul Normal 0.0-0.1 [facility] Comment on above: Performed By: #### C BC #### [facility] [address] [place] [address] Dr. Anish Johnson Basophils/100 WBC (Bld) 0.5 % Normal 0.2-2.0 [facility] Comment on above: Performed By: #### C BC #### [facility] [address] [place] [address] Dr. Anish Johnson EO # 0.2 103/ul Normal 0.0-0.7 [facility] Comment on above: Performed By: #### C BC #### [facility] [address] [place] [address] Dr. Anish Johnson Eosinophils/100 WBC (Bld) 2.9 % Normal 0.9-7.0 [facility] Comment on above: Performed By: #### C BC #### [facility] [address] [place] [address] Dr. Anish Johnson Erythrocyte distribution width (RBC) [Ratio] 15.7 % Critically high 11.0-15.0 [facility] Comment on above: Performed By: #### C BC #### [facility] [address] [place] [address] Dr. Anish Johnson Hematocrit (Bld) [Volume fraction] 40.2 % Normal 36.0-48.0 [facility] Comment on above: Performed By: #### C BC #### [facility] [address] [place] [address] Dr. Anish Johnson Hemoglobin (Bld) [Mass/Vol] 12.5 g/dL Normal 12.0-16.0 [facility] Comment on above: Performed By: #### C BC #### [facility] [address] [place] [address] Dr. Anish Johnson IG # 0.02 10e3/ul Normal 0.00-0.03 [facility] Comment on above: Performed By: #### C BC #### [facility] [address] [place] [address] Dr. Anish Johnson IG % 0.3 % Normal 0.0-0.5 [facility] Comment on above: Performed By: #### C BC #### [facility] [address] [place] [address] Dr. Anish Johnson LYMPH # 1.5 103/ul Normal 1.2-3.8 [facility] Comment on above: Performed By: #### C BC #### [facility] [address] [place] [address] Dr. Anish Johnson Lymphocytes/100 WBC (Bld) 18.7 % Critically low 20.5-60.0 [facility] Comment on above: Performed By: #### C BC #### [facility] [address] [place] [address] Dr. Anish Johnson MANUAL DIFF REQ NO Normal [facility] Comment on above: Performed By: #### C BC #### [facility] [address] [place] [address] Dr. Anish Johnson MCH (RBC) [Entitic mass] 25.4 pg Critically low 26.7-34.0 [facility] Comment on above: Performed By: #### C BC #### [facility] [address] [place] [address] Dr. Anish Johnson MCHC (RBC) [Mass/Vol] 31.1 g/dL Normal 29.9-35.2 [facility] Comment on above: Performed By: #### C BC #### [facility] [address] [place] [address] Dr. Anish Johnson MCV (RBC) [Entitic vol] 81.7 fL Normal 81.0-99.0 [facility] Comment on above: Performed By: #### C BC #### [facility] [address] [place] [address] Dr. Anish Johnson MONO # 0.7 103/ul Normal 0.3-0.8 [facility] Comment on above: Performed By: #### C BC #### [facility] [address] [place] [address] Dr. Anish Johnson Monocytes/100 WBC (Bld) 8.3 % Normal 1.7-12.0 [facility] Comment on above: Performed By: #### C BC #### [facility] [address] [place] [address] Dr. Anish Johnson NEUT # 5.4 103/ul Normal 1.4-6.5 [facility] Comment on above: Performed By: #### C BC #### [facility] [address] [place] [address] Dr. Anish Johnson Neutrophils/100 WBC (Bld) 69.3 % Normal 43.0-75.0 [facility] Comment on above: Performed By: #### C BC #### [facility] [address] [place] [address] Dr. Anish Johnson Platelet mean volume (Bld) [Entitic vol] 10.6 fL Normal 9.5-13.5 [facility] Comment on above: Performed By: #### C BC #### [facility] [address] [place] [address] Dr. Anish Johnson PLT 297 103/ul Normal 150-450 [facility] Comment on above: Performed By: #### C BC #### [facility] [address] [place] [address] Dr. Anish Johnson RBC 4.92 106/ul Normal 4.20-5.40 [facility] Comment on above: Performed By: #### C BC #### [facility] [address] [place] [address] Dr. Anish Johnson WBC 7.8 103/ul Normal 4.0-11.0 [facility] Comment on above: Performed By: #### C BC #### [facility] [address] [place] [address] Dr. Anish Johnson GLUCOSE BLOODon 07-15-2022 Glucose [Mass/Vol] 133 mg/dL Critically high 74-106 [facility] Comment on above: Performed By: #### L IVER, GLUC, TSH, LIPID #### [facility] [address] [place] [address] Dr. Anish Johnson LIPID PROFILEon 07-15-2022 CHOL-HDL RATIO NORM SEE BELOW Normal [facility] Comment on above: Result Comment: 3.3 - 4.4 LOW RISK 4.4 - 7.1 AVERAGE RISK 7.1 - 11.0 MODERATE RISK >11.0 HIGH RISK Performed By: #### L IVER, GLUC, TSH, LIPID #### [facility] [address] [place] [address] Dr. Anish Johnson Cholesterol [Mass/Vol] 135 mg/dL Normal <=200 [facility] Comment on above: Performed By: #### L IVER, GLUC, TSH, LIPID #### [facility] [address] [place] [address] Dr. Anish Johnson Cholesterol in HDL [Mass/Vol] 58 mg/dL Normal 40-60 [facility] Comment on above: Performed By: #### L IVER, GLUC, TSH, LIPID #### [facility] [address] [address] [address] Anish Johnson Cholesterol in LDL [Mass/Vol] 54.2 mg/dL Normal [facility] Comment on above: Performed By: #### L IVER, GLUC, TSH, LIPID #### [facility] [address] [address] [address] Anish Johnson Cholesterol.total/Cho lesterol in HDL [Mass ratio] 2.3 {ratio} Normal [facility] Comment on above: Performed By: #### L IVER, GLUC, TSH, LIPID #### [facility] [address] [address] [address] Anish Johnson HDL NORMAL > or = 60 mg/dl - LOW CARDIOVASCULAR RISK <40 mg/dl - HIGH CARDIOVASCULAR RISK Normal [facility] Comment on above: Performed By: #### L IVER, GLUC, TSH, LIPID #### [facility] [address] [address] [address] Anish Johnson LDL CALC NORMAL SEE BELOW Normal [facility] Comment on above: Result Comment: <100 mg/dl OPTIMAL 100 - 129 mg/dl NEAR OR ABOVE OPTIMAL 130 - 159 mg/dl BORDERLINE HIGH 160 - 189 mg/dl HIGH >190 mg/dl VERY HIGH Performed By: #### L IVER, GLUC, TSH, LIPID #### [facility] [address] [address] [address] Anish Johnson Triglyceride [Mass/Vol] 114 mg/dL Normal <=150 [facility] Comment on above: Performed By: #### L IVER, GLUC, TSH, LIPID #### [facility] [address] [place] [address] Dr. Anish Johnson VLDL CALC 22.8 mg/dL Normal [facility] Comment on above: Performed By: #### L IVER, GLUC, TSH, LIPID #### [facility] [address] [place] [address] Dr. Anish Johnson LIVER PROFILEon 07-15-2022 Albumin [Mass/Vol] 4.3 g/dL Normal 3.4-5.0 [facility] Comment on above: Performed By: #### L IVER, GLUC, TSH, LIPID #### [facility] [address] [place] [address] Dr. Anish Johnson Albumin/Globulin [Mass ratio] 1.0 {ratio} Normal [facility] Comment on above: Performed By: #### L IVER, GLUC, TSH, LIPID #### [facility] [address] [place] [address] Dr. Anish Johnson ALP [Catalytic activity/Vol] 108 U/L Normal 46-116 [facility] Comment on above: Performed By: #### L IVER, GLUC, TSH, LIPID #### [facility] [address] [place] [address] Dr. Anish Johnson ALT [Catalytic activity/Vol] 26 U/L Normal 14-59 [facility] Comment on above: Performed By: #### L IVER, GLUC, TSH, LIPID #### [facility] [address] [address] [address] Anish Johnson AST [Catalytic activity/Vol] 21 U/L Normal 15-37 [facility] Comment on above: Performed By: #### L IVER, GLUC, TSH, LIPID #### [facility] [address] [place] [address] Dr. Anish Johnson BILI, CONJUGATED 0.1 mg/dL Normal 0.0-0.2 [facility] Comment on above: Performed By: #### L IVER, GLUC, TSH, LIPID #### [facility] [address] [place] [address] Dr. Anish Johnson Bilirubin [Mass/Vol] 0.5 mg/dL Normal 0.2-1.0 [facility] Comment on above: Performed By: #### L IVER, GLUC, TSH, LIPID #### [facility] [address] [place] [address] Dr. Anish Johnson Globulin (S) [Mass/Vol] 4.3 g/dL Normal [facility] Comment on above: Performed By: #### L IVER, GLUC, TSH, LIPID #### [facility] [address] [place] [address] Dr. Anish Johnson Protein [Mass/Vol] 8.6 g/dL Critically high 6.4-8.2 [facility] Comment on above: Performed By: #### L IVER, GLUC, TSH, LIPID #### [facility] [address] [place] [address] Dr. Anish Johnson TSHon 07-15-2022 TSH 1.692 uIU/mL Normal 0.358-3.740 [facility] Comment on above: Performed By: #### L IVER, GLUC, TSH, LIPID #### [facility] [address] [place] [address] Dr. Anish Johnson Vital Signs Date Time Vital Sign Value Performing Clinician April cheng 11-14-2024 10:54-0500 Body height 157.5 cm Julianne Lord CUSTOMER RESOLUTION SPECIALIST Work Phone: [facility] 11-14-2024 10:54-0500 Body mass index (BMI) [Ratio] 32.45 kg/m2 Julianne Lord CUSTOMER RESOLUTION SPECIALIST Work Phone: [facility] 11-14-2024 10:54-0500 Body temperature 98.49 [degF] Julianne Stephensz CUSTOMER RESOLUTION SPECIALIST Work Phone: [facility] 11-14-2024 10:54-0500 Body weight 80.47 kg Julianne Stephensz CUSTOMER RESOLUTION SPECIALIST Work Phone: [facility] 11-14-2024 10:54-0500 Diastolic blood pressure 90 mm[Hg] Julianne Stephensz CUSTOMER RESOLUTION SPECIALIST Work Phone: [facility] 11-14-2024 10:54-0500 Heart rate 82 /min Julianne Stephensz CUSTOMER RESOLUTION SPECIALIST Work Phone: [facility] 11-14-2024 10:54-0500 Respiratory rate 20 /min Julianne Stephensz CUSTOMER RESOLUTION SPECIALIST Work Phone: [facility] 11-14-2024 10:54-0500 SaO2% (BldA) [Mass fraction] 99 % Julianne Stephensz CUSTOMER RESOLUTION SPECIALIST Work Phone: [facility] 11-14-2024 10:54-0500 Systolic blood pressure 140 mm[Hg] Julianne Stephensz CUSTOMER RESOLUTION SPECIALIST Work Phone: [facility] 08-27-2024 13:08-0400 Body height 157.5 cm Julianne Stephensz CUSTOMER RESOLUTION SPECIALIST Work Phone: [facility] 08-27-2024 13:08-0400 Body mass index (BMI) [Ratio] 30.8 kg/m2 Juliannejulio c Stephensz CUSTOMER RESOLUTION SPECIALIST Work Phone: [facility] 08-27-2024 13:08-0400 Body temperature 97.81 [degF] Julianne Stephensz CUSTOMER RESOLUTION SPECIALIST Work Phone: [facility] 08-27-2024 13:08-0400 Body weight 76.39 kg Juliannejulio c Stephensz CUSTOMER RESOLUTION SPECIALIST Work Phone: [facility] 08-27-2024 13:08-0400 Diastolic blood pressure 88 mm[Hg] Julianne Lord CUSTOMER RESOLUTION SPECIALIST Work Phone: [facility] 08-27-2024 13:08-0400 Heart rate 79 /min Julianne Lord CUSTOMER RESOLUTION SPECIALIST Work Phone: [facility] 08-27-2024 13:08-0400 Respiratory rate 20 /min Julianne Stephensz CUSTOMER RESOLUTION SPECIALIST Work Phone: [facility] 08-27-2024 13:08-0400 SaO2% (BldA) [Mass fraction] 98 % Julianne Lord CUSTOMER RESOLUTION SPECIALIST Work Phone: [facility] 08-27-2024 13:08-0400 Systolic blood pressure 120 mm[Hg] Julianne Lord CUSTOMER RESOLUTION SPECIALIST Work Phone: [facility] 07-25-2024 10:23-0400 Body height 157.5 cm Shanda Canvace DO Work Phone: [facility] 07-25-2024 10:23-0400 Body mass index (BMI) [Ratio] 32.37 kg/m2 Shanda Belia DO Work Phone: [facility] 07-25-2024 10:23-0400 Body weight 80.29 kg Shanda Belia DO Work Phone: [facility] 07-25-2024 10:23-0400 Diastolic blood pressure 84 mm[Hg] Shanda Belia DO Work Phone: [facility] 07-25-2024 10:23-0400 Heart rate 67 /min Shanda Belia DO Work Phone: [facility] 07-25-2024 10:23-0400 Respiratory rate 18 /min Shanda Belia DO Work Phone: [facility] 07-25-2024 10:23-0400 SaO2% (BldA) [Mass fraction] 98 % Shanda Canvace DO Work Phone: [facility] 07-25-2024 10:23-0400 Systolic blood pressure 138 mm[Hg] Shanda Celaya DO Work Phone: [facility] 07-23-2024 09:50-0400 Body mass index (BMI) [Ratio] 32.01 kg/m2 Julianne Pop CUSTOMER RESOLUTION SPECIALIST Work Phone: [facility] 07-23-2024 09:50-0400 Body temperature 97.3 [degF] Julianne Katz CUSTOMER RESOLUTION SPECIALIST Work Phone: [facility] 07-23-2024 09:50-0400 Body weight 79.38 kg Julianne Jenniferjose juanholz CUSTOMER RESOLUTION SPECIALIST Work Phone: [facility] 07-23-2024 09:50-0400 Diastolic blood pressure 78 mm[Hg] Julianne Katz CUSTOMER RESOLUTION SPECIALIST Work Phone: [facility] 07-23-2024 09:50-0400 Heart rate 82 /min Julianne Katz CUSTOMER RESOLUTION SPECIALIST Work Phone: [facility] 07-23-2024 09:50-0400 SaO2% (BldA) [Mass fraction] 97 % Julianne Emilholz CUSTOMER RESOLUTION SPECIALIST Work Phone: [facility] 07-23-2024 09:50-0400 Systolic blood pressure 110 mm[Hg] Julianne Katz CUSTOMER RESOLUTION SPECIALIST Work Phone: [facility] 01-03-2024 15:19-0500 Body height 157.5 cm Julianne Katz CUSTOMER RESOLUTION SPECIALIST Work Phone: [facility] 01-03-2024 15:19-0500 Body mass index (BMI) [Ratio] 34.02 kg/m2 Julianne Jenniferhholz CUSTOMER RESOLUTION SPECIALIST Work Phone: [facility] 01-03-2024 15:19-0500 Body temperature 97.5 [degF] Julianne Emilholz CUSTOMER RESOLUTION SPECIALIST Work Phone: [facility] 01-03-2024 15:19-0500 Body weight 84.37 kg Julianne Emilholz CUSTOMER RESOLUTION SPECIALIST Work Phone: [facility] 01-03-2024 15:19-0500 Diastolic blood pressure 82 mm[Hg] Julianne Aichholz CUSTOMER RESOLUTION SPECIALIST Work Phone: [facility] 01-03-2024 15:19-0500 Heart rate 87 /min Julianne Aichholz CUSTOMER RESOLUTION SPECIALIST Work Phone: [facility] 01-03-2024 15:19-0500 Respiratory rate 17 /min Julianne Aichholz CUSTOMER RESOLUTION SPECIALIST Work Phone: [facility] 01-03-2024 15:19-0500 SaO2% (BldA) [Mass fraction] 97 % Julianne Aichholz CUSTOMER RESOLUTION SPECIALIST Work Phone: [facility] 01-03-2024 15:19-0500 Systolic blood pressure 128 mm[Hg] Julianne Aichholz CUSTOMER RESOLUTION SPECIALIST Work Phone: [facility] Encounters Encounter Date Encounter Type Care Provider Facility Start: 01-21-2025 ambulatory Chris Chapa acility:[facility] Start: 11-14-2024 End: 11-14-2024 Bamboo flowsheet Julianne Aichholz CUSTOMER RESOLUTION SPECIALIST Work Phone: [facility] Start: 11-14-2024 End: 11-14-2024 Bamboo flowsheet Julianne Aichholz CUSTOMER RESOLUTION SPECIALIST Work Phone: [facility] Start: 11-14-2024 End: 11-14-2024 Office outpatient visit 25 minutes Julianne Katz CUSTOMER RESOLUTION SPECIALIST Work Phone: [facility] Comment on above: Essential (primary) hypertension (CMS/HCC) (Primary Dx); Obesity (BMI 30-39.9); Bipolar affective disorder, remission status unspecified (CMS/HCC); Anxiety; Mixed hyperlipidemia (CMS/HCC); Needs flu shot; Vertigo; Former smoker; Memory impairment Start: 11-14-2024 End: 11-14-2024 ambulatory JULIANNE AICHHOLZ Not Available Start: 10-25-2024 End: 10-25-2024 Refill Julianne Aichholz CUSTOMER RESOLUTION SPECIALIST Work Phone: [facility] Comment on above: Essential (primary) hypertension (CMS/HCC) Start: 09-26-2024 End: 09-26-2024 Refill Julianne Pop CUSTOMER RESOLUTION SPECIALIST Work Phone: [facility] Comment on above: Hypokalemia Start: 09-20-2024 End: 09-21-2024 Refill Julianne Katz CUSTOMER RESOLUTION SPECIALIST Work Phone: [facility] Comment on above: Vertigo Start: 08-27-2024 End: 08-27-2024 Bamboo flowsheet Julianne Pop CUSTOMER RESOLUTION SPECIALIST Work Phone: [facility] Start: 08-27-2024 End: 08-27-2024 Bamboo flowsheet Julianne Pop CUSTOMER RESOLUTION SPECIALIST Work Phone: [facility] Start: 08-27-2024 End: 08-27-2024 Office outpatient visit 25 minutes Julianne Lord CUSTOMER RESOLUTION SPECIALIST Work Phone: [facility] Comment on above: Essential (primary) hypertension (CMS/HCC) (Primary Dx); Iron deficiency anemia, unspecified iron deficiency anemia type; Muscle weakness (generalized); Obesity (BMI 30-39.9); Bipolar affective disorder, remission status unspecified (CMS/HCC); Hypokalemia Start: 08-27-2024 End: 08-27-2024 ambulatory JULIANNE POP Not Available Start: 08-16-2024 End: 08-16-2024 Refill Julianne Katz CUSTOMER RESOLUTION SPECIALIST Work Phone: [facility] Comment on above: Hypokalemia (Primary Dx) Start: 08-07-2024 End: 08-07-2024 Clinisync Result Encounter Generic External Data Provider [facility] External Department Unsolicited Start: 08-07-2024 End: 08-07-2024 Clinisync Result Encounter Generic External Data Provider [facility] External Department Unsolicited Start: 07-26-2024 End: 07-26-2024 Telephone encounter Julianne Lord CUSTOMER RESOLUTION SPECIALIST Work Phone: [facility] Start: 07-25-2024 [...] End: 07-23-2024 Bamboo flowsheet Juliannejulio c Lord CUSTOMER RESOLUTION SPECIALIST Work Phone: [facility] Start: 07-23-2024 End: 07-23-2024 Bamboo flowsheet Julianne Pop CUSTOMER RESOLUTION SPECIALIST Work Phone: [facility] Start: 07-23-2024 End: 07-23-2024 Office outpatient visit 25 minutes Julianne Pop CUSTOMER RESOLUTION SPECIALIST Work Phone: [facility] Comment on [...] Not Available Start: 01-10-2024 Refill Julianne Aichholz CUSTOMER RESOLUTION SPECIALIST Work Phone: [facility] Start: 01-03-2024 End: 01-03-2024 Office outpatient visit 25 minutes Julianne Aichholz CUSTOMER RESOLUTION SPECIALIST Work Phone: [facility] Comment on above: Essential (primary) hypertension (CMS/HCC) (Primary Dx); BMI 34.0-34.9,adult; Bipolar affective disorder, remission status unspecified (CMS/HCC); Tobacco user; Vertigo; Anxiety Start: 01-03-2024 End: 01-03-2024 ambulatory JULIANNE AICHHOLZ Not Available Start: 09-08-2022 End: 09-09-2022 ambulatory PATRICK DAO Facility:[facility] Start: 07-15-2022 End: 07-16-2022 ambulatory PATRICK DAO Facility:[facility] Start: 09-09-2021 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 Comment on above: Postponed from 10/05 (Patient Refused) Start: 12-20-2024 End: 12-20-2024 Patient encounter procedure 12/20/2024 10:00 AM EST Office Visit [facility] [address] [place] [address] Julianne Lord, JUANITA [address] [place] [phone] [facility] Start: 11-14-2024 End: 11-14-2024 Patient encounter procedure 11/14/2024 11:00 AM EST Office Visit [facility] [address] [place] [id number] Julianne Lord, CUSTOMER RESOLUTION SPECIALIST [address] [place] [phone] Essential (primary) hypertension (CMS/HCC) (Primary Dx); Obesity (BMI 30-39.9); Bipolar affective disorder, remission status unspecified (CMS/HCC); Anxiety; Mixed hyperlipidemia (CMS/HCC) [facility] Comment on above: Essential (primary) hypertension (CMS/HCC) (Primary Dx); Obesity (BMI 30-39.9); Bipolar affective disorder, remission status unspecified (CMS/HCC); Anxiety; Mixed hyperlipidemia (CMS/HCC) Start: 11-05-2024 End: 11-05-2024 Patient encounter procedure 11/05/2024 2:40 PM EST Office Visit [facility] [address] [place] [address] Julianne Lord, CUSTOMER RESOLUTION SPECIALIST [address] [place] [phone] [facility] Start: 10-22-2024 Influenza vaccination Influenza Vacc ine (#1) [facility] Comment on above: Postponed from 07/29 (Patient Refused) Start: 10-11-2024 End: 10-11-2024 Patient encounter procedure 10/11/2024 1:20 PM EST Office Visit [facility] [address] [place] [address] Julianne Lord, CUSTOMER RESOLUTION SPECIALIST [address] [place] [phone] [facility] Start: 09-11-2024 End: 09-11-2024 Patient encounter procedure 09/11/2024 8:00 AM EDT Procedure Visit [facility] Shanda Celaya DO [address] [place] [address] [facility] Start: 08-27-2024 End: 08-27-2025 CBC W Auto Differential panel - Blood CBC and differential Lab Routine Iron deficiency anemia, unspecified iron deficiency anemia type Expected: 08/27/2024 (Approximate), Expires: 08/27/2025 [facility] Work Phone: Comment on above: Expected: 08/27/2024 (Approximate), Expires: 08/27/2025 Start: 08-27-2024 End: 08-27-2025 Erythrocyte sedimentation rate Sedimentation rate, automated Lab Routine Iron deficiency anemia, unspecified iron deficiency anemia type Expected: 08/27/2024 (Approximate), Expires: 08/27/2025 [facility] Comment on above: Expected: 08/27/2024 (Approximate), Expires: 08/27/2025 Start: 08-27-2024 End: 08-27-2025 Iron + transferrin + TIBC Iron + transferrin + TIBC Lab Routine Iron deficiency anemia, unspecified iron deficiency anemia type Expected: 08/27/2024 (Approximate), Expires: 08/27/2025 [facility] Comment on above: Expected: 08/27/2024 (Approximate), Expires: 08/27/2025 Start: 08-27-2024 End: 08-27-2024 Patient encounter procedure [facility] Comment on above: Iron deficiency anem ia, unspecified iron deficiency anemia type (Primary Dx) Start: 08-16-2024 End: 08-16-2024 Patient encounter procedure 08/16/2024 10:30 AM EDT Office Visit [facility] [address] [place] [address] Julianne Lord NP [address] [place] [address] [facility] Start: 08-14-2024 End: 08-14-2024 Patient encounter procedure 08/14/2024 9:00 AM EDT Office Visit [facility] [address] [place] [address] Jackie Collins NP [address] [place] [phone] [facility] Start: 08-13-2024 End: 08-13-2024 Patient encounter procedure 08/13/2024 9:20 AM EDT Office Visit [facility] [address] [place] [address] Julianne Lord NP [address] [place] [phone] [facility] Start: 08-06-2024 End: 08-06-2024 Patient encounter procedure 08/06/2024 10:20 AM EDT Office Visit [facility] [address] [place] [address], [place] [address] Jackie Collins NP [address] [place] [phone] [facility] Start: 07-29-2024 Influenza vaccination Influenza Vacc ine (#1) [facility] Start: 07-25-2024 End: 07-25-2024 Patient encounter procedure [facility] Comment on above: Arrived Start: 07-23-2024 End: 07-23-2025 Bacteria identified in Urine by Culture Urine culture (clean catch) Microbiology Routine Acute UTI (urinary tract infection) Expected: 07/23/2024 (Approximate), Expires: 07/23/2025 [facility] Comment on above: Expected: 07/23/2024 (Approximate), Expires: 07/23/2025 Start: 07-23-2024 End: 07-23-2025 Basic metabolic 1998 panel - Serum or Plasma Basic metabolic panel Lab Routine Iron deficiency anemia, unspecified iron deficiency anemia type Acute UTI (urinary tract infection) Expected: 07/23/2024 (Approximate), Expires: 07/23/2025 [facility] Comment on above: Expected: 07/23/2024 (Approximate), Expires: 07/23/2025 Start: 07-23-2024 End: 07-23-2025 CBC W Auto Differential panel - Blood CBC and differential Lab Routine Iron deficiency anemia, unspecified iron deficiency anemia type Expected: 07/23/2024 (Approximate), Expires: 07/23/2025 [facility] Work Phone: Comment on above: Expected: 07/23/2024 (Approximate), Expires: 07/23/2025 Start: 07-23-2024 End: 07-23-2025 Comprehensive metabolic 2000 panel - Serum or Plasma Comprehensive metabolic panel Lab Routine Unspecified severe protein-calorie malnutrition (CMS/HCC) Expected: 07/23/2024 (Approximate), Expires: 07/23/2025 [facility] Comment on above: Expected: 07/23/2024 (Approximate), Expires: 07/23/2025 Start: 07-23-2024 End: 07-23-2025 Urinalysis complete panel - Urine Urinalysis with reflex microscopic (clean catch) Lab Routine Acute UTI (urinary tract infection) Expected: 07/23/2024 (Approximate), Expires: 07/23/2025 [facility] Comment on above: Expected: 07/23/2024 (Approximate), Expires: 07/23/2025 Start: 07-23-2024 End: 07-23-2024 Patient encounter procedure 07/23/2024 10:00 AM EDT Office Visit [facility] [address] [place] [phone] Julianne Lord NP [address] [place] [address] Iron deficiency anemia, unspecified iron deficiency anemia type (Primary Dx); Unspecified severe protein-calorie malnutrition (CMS/HCC); Dementia in other diseases classified elsewhere, unspecified severity, with other behavioral disturbance (CMS/HCC) [facility] Comment on above: Iron deficiency anem ia, unspecified iron deficiency anemia type (Primary Dx); Unspecified severe protein-calorie malnutrition (CMS/HCC); Dementia in other diseases classified elsewhere, unspecified severity, with other behavioral disturbance (CMS/HCC) Start: 01-24-2024 End: 01-24-2024 Patient encounter procedure 01/24/2024 9:00 AM EST Office Visit [facility] [address] [place] [phone] Julianne Lord NP [address] [place] [phone] [facility] Start: 1989 Screening for malign ant neoplasm of cervix HPV/Cotest [facility] Start: 1980 Screening for malign ant neoplasm of cervix Pap Smear [facility] Start: 1965 Pneumococcal Vaccine : 65+ Years (1 of 2 - PCV) Pneumococcal Vaccine: 65+ Years (1 of 2 - PCV) [facility] Start: 1959 Screening for malign ant neoplasm of colon [facility] Immunizations Immunization Date Immunization Notes Care Provider [facility] 11-14-2024 Influenza, injectabl e, Madin Jonna Canine Kidney, preservative free, quadrivalent Julianne Aichholz CUSTOMER RESOLUTION SPECIALIST Work Phone: [facility] 09-02-2023 influenza, injectabl e, quadrivalent, preservative free Julianne Aichholz CUSTOMER RESOLUTION SPECIALIST Work Phone: [facility] 09-02-2023 influenza virus vacc ine, unspecified formulation Julianne Aichholz CUSTOMER RESOLUTION SPECIALIST Work Phone: [facility] 08-25-2022 influenza, injectabl e, quadrivalent, preservative free Julianne Aichholz CUSTOMER RESOLUTION SPECIALIST Work Phone: [facility] 11-12-2021 Influenza, injectabl e, Madin Jonna Canine Kidney, preservative free, quadrivalent Julianne Aichholz CUSTOMER RESOLUTION SPECIALIST Work Phone: [facility] Payers Date Payer Category Payer Medicare (Managed Care) [employer] [id number] 2024 Medicare [id number] 2023 Self-pay 2013 Medicaid [id number] 2013 Private Health Insurance [facility] MEDICAID [id number] 2013 Medicaid [id number] 1959 Unknown [id number] 1959 Unknown [id number] 2.16.840.1.411293.3.579.2. 593 1959 Unknown [id number] 2.16.840.1.652517.3.579.2. 593 1959 Unknown [id number] 2.16.840.1.114203.3.579.2. 593 1959 Unknown [id number] 2.16.840.1.517940.3.579.2. 1259 1959 Unknown [id number] 2.16.840.1.470154.3.579.2. 9 1959 Unknown [id number] 2.16.840.1.497382.3.579.2. 1259 1959 Unknown [id number] 2.16.840.1.906953.3.579.2. 9 1959 Unknown [id number] 2.16.840.1.638793.3.579.2. 1259 1959 Unknown [id number] 2.16.840.1.357059.3.579.2. 1258 1959 Unknown [id number] 2.16.840.1.351289.3.579.2. 9 1959 Unknown [id number] 2.16.840.1.435155.3.579.2. 1258 1959 Unknown [id number] 2.16.840.1.866395.3.579.2. 125 1959 Unknown [id number] 2.16.840.1.366856.3.579.2. 9 1959 Unknown [id number] 2.16.840.1.611024.3.579.2. 1259 Social History Date Type Detail Facility Start: 12-28-2023 Tobacco smoking status KYIS Smokes t obacco daily [facility] History of tobacco use Cigarette Smoker N [facility] Start: 12-28-2023 End: 05-14-2024 Cigarettes smoked current (pack per day) - Reported 1 [facility] Start: 01-03-2024 End: 05-14-2024 Tobacco use panel [facility] Start: 1960 Sex Assigned At Not on file N [facility] Clinical Notes 01-03-2024 to 11-14-2024 Julianne [...] There is no history of kidney disease, CAD/MD, heart failure or left ventricular hypertrophy. SUBJECTIVE: [...] Anxiety Bilateral knee pain 01/19/2024 Bipolar depression ([facility]) 01/24/2024 Bipolar disorder ([facility]) 01/03/2024 Chest pain 01/24/2024 Cholelithiasis without obstruction 01/24/2024 Depression ([facility]) 01/24/2024 History of nicotine dependence 01/24/2024 HLD (hyperlipidemia) ([facility]) 01/19/2024 Hypertension ([facility]) Left groin pain 01/24/2024 Occult blood in [...] Relevant Orders Flu vaccine, MDCK, quadrivalent, PF ([id number]) (Flucelvax single dose syringe) (Completed) Former smoker [...] weeks for recheck documented in this encounter [facility] 11-14-2024 Instructions Julianne Lord NP - 11/14/2024 [...] will call you documented in this encounter [facility] 08-27-2024 History of Presen t illness Narrative [...] Anxiety Bilateral knee pain 01/19/2024 Bipolar depression ([facility]) 01/24/2024 Bipolar disorder ([facility]) 01/03/2024 Chest pain 01/24/2024 Cholelithiasis without obstruction 01/24/2024 Depression ([facility]) 01/24/2024 History of nicotine dependence 01/24/2024 HLD (hyperlipidemia) ([facility]) 01/19/2024 Hypertension ([facility]) Left groin pain 01/24/2024 Occult blood in [...] changes Check labs documented in this encounter [facility] 08-27-2024 Instructions Julianne Lord NP - 08/27/2024 1:20 PM EDT Please call Neurology office [facility], it is VERY IMPORTANT to see them so we can get down to the reason for your dizziness: [facility]: [phone] documented in this encounter [facility] 08-16-2024 Telephone encount er Note ----- Message from Yaneli Colon sent at 08/14/2024 8:32 AM EDT ----- Regarding: Potassium pills Son called in saying his mom did not get her potassium pills called in. I didn't see them on her chart, so not sure what they are called. Sorry! MARIANA [facility] 08-16-2024 Miscellaneous Notes Formattin g of this note might be different from the original. ----- Message from Yaneli Colon sent at 08/14/2024 8:32 AM EDT ----- Regarding: Potassium pills Son called in saying his mom did not get her potassium pills called in. I didn't see them on her chart, so not sure what they are called. Sorry! MARIANA documented in this encounter [facility] 07-26-2024 Telephone encount er Note Please let the pt know that her her insurance will not cover the chronic care mgmt from [facility] like we talked about, we will still continue with Home Health order so they should be contacting her. Please contact pt about Neurology: Appt is [facility] [place] office on TuesdayAug 06 at 10:20am. This will be with Dr Hunter's CUSTOMER RESOLUTION SPECIALIST Nallely and him If they cannot make that appt they need to call to reschedule [place] [facility] 07-26-2024 Miscellaneous Notes Formattin g of this note might be different from the original. Please let the pt know that her her insurance will not cover the chronic care mgmt from [facility] like we talked about, we will still continue with Home Health order so they should be contacting her. Please contact pt about Neurology: Appt is [facility] [place] office on TuesdayAug 06 at 10:20am. This will be with Dr Hunter's CUSTOMER RESOLUTION SPECIALIST Nallely and him If they cannot make that appt they need to call to reschedule [place] documented in this encounter [facility] 07-25-2024 History of Presen t illness Narrative [...] 01/24/2024 Bilateral knee pain 01/19/2024 Bipolar depression ([facility]) 01/24/2024 Bipolar disorder ([facility]) 01/03/2024 Chest pain 01/24/2024 Cholelithiasis without obstruction 01/24/2024 Depression ([facility]) 01/24/2024 History of nicotine dependence 01/24/2024 HLD (hyperlipidemia) ([facility]) 01/19/2024 Left groin pain 01/24/2024 Osteopenia 01/24/2024 [...] Marnie Celaya DO documented in this encounter 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 Wants to change her medications b/c [...] 01/24/2024 Bilateral knee pain 01/19/2024 Bipolar depression ([place]) 01/24/2024 Bipolar disorder ([facility]) 01/03/2024 Chest pain 01/24/2024 Cholelithiasis without obstruction 01/24/2024 Depression ([facility]) 01/24/2024 History of nicotine dependence 01/24/2024 HLD (hyperlipidemia) ([facility]) 01/19/2024 Left groin pain 01/24/2024 Osteopenia 01/24/2024 [...] Neurology for this documented in this encounter [facility] 01-03-2024 History of Presen t illness Narrative [...] 34.0-34.9,adult Bipolar affective disorder, remission status unspecified ([facility]) Tobacco user Tobacco use disorder Vertigo Dizziness and giddiness Anxiety Anxiety state, unspecified documented in this encounter [facility] Diagnosis Essential (primary) hypertension ([facility])- Primary Unspecified essential hypertension BMI 34.0-34.9,adult Bipolar affective disorder, remission status unspecified ([facility]) Tobacco user Tobacco use disorder Vertigo Dizziness and giddiness Anxiety Anxiety state, unspecified Essential (primary) hypertension ([facility])- Primary Unspecified essential hypertension BMI 34.0-34.9,adult Tobacco user Tobacco use disorder Tricuspid valve insufficiency, unspecified etiology Dizziness Dizziness and giddiness Elevated glucose level- Primary BMI 34.0-34.9,adult Essential (primary) hypertension ([facility]) Unspecified essential hypertension Bipolar affective disorder, remission status unspecified ([facility]) Mixed hyperlipidemia ([facility]) Mixed hyperlipidemia Localized edema Edema Essential (primary) hypertension ([facility])- Primary Unspecified essential hypertension Mixed hyperlipidemia ([facility]) Mixed hyperlipidemia Localized edema Edema Seasonal allergies Allergic rhinitis, cause unspecified Pain in both knees, unspecified chronicity Obesity (BMI 30-39.9) Dizziness Dizziness and giddiness Essential (primary) hypertension ([facility])- Primary Unspecified essential hypertension Obesity (BMI 30-39.9) Essential (primary) hypertension ([facility])- Primary Unspecified essential hypertension Obesity (BMI 30-39.9) Dizziness Dizziness and giddiness Anxiety Anxiety state, unspecified Bipolar affective disorder, remission status unspecified ([facility]) Epistaxis Iron deficiency anemia, unspecified iron deficiency anemia type- Primary Vertigo Dizziness and giddiness Muscle weakness (generalized) Chronic fatigue Other malaise and fatigue Essential (primary) hypertension ([facility]) Unspecified essential hypertension Obesity (BMI 30-39.9) Dizziness Dizziness and giddiness Sepsis with acute renal failure, due to unspecified organism, unspecified acute renal failure type, unspecified whether septic shock present ([facility]) Essential (primary) hypertension ([facility])- Primary Unspecified essential hypertension Unspecified severe protein-calorie malnutrition ([facility]) Dementia in other diseases classified elsewhere, unspecified severity, with other behavioral disturbance ([facility]) Iron deficiency anemia, unspecified iron deficiency anemia [...] failure type, unspecified whether septic shock present ([facility]) Essential (primary) hypertension ([facility])- Primary Unspecified essential hypertension Unspecified severe protein-calorie malnutrition ([facility]) Dementia in other diseases classified elsewhere, unspecified severity, with other behavioral disturbance ([facility]) Iron deficiency anemia, unspecified iron deficiency anemia type Acute UTI (urinary tract infection) Occult blood positive stool Nonspecific abnormal finding in stool contents Bipolar affective disorder, remission status unspecified ([facility]) Dizziness Dizziness and giddiness Vertigo Dizziness and giddiness Muscle weakness (generalized) Mixed hyperlipidemia (CMS/HCC) Mixed hyperlipidemia Essential (primary) hypertension ([facility])- Primary Unspecified essential hypertension Iron deficiency anemia, unspecified iron deficiency anemia type Muscle weakness (generalized) Obesity (BMI 30-39.9) Bipolar affective disorder, remission status unspecified ([facility]) Hypokalemia Hypopotassemia Hypokalemia Hypopotassemia documented in [facility] encounter [facility] Diagnosis Essential (primary) hypertension ([facility])- Primary Unspecified essential hypertension BMI 34.0-34.9,adult Bipolar affective disorder, remission status unspecified ([facility]) Tobacco user Tobacco use disorder Vertigo Dizziness and giddiness Anxiety Anxiety state, unspecified Essential (primary) hypertension ([facility])- Primary Unspecified essential hypertension BMI 34.0-34.9,adult Tobacco user Tobacco use disorder Tricuspid valve insufficiency, unspecified etiology Dizziness Dizziness and giddiness Elevated glucose level- Primary BMI 34.0-34.9,adult Essential (primary) hypertension ([facility]) Unspecified essential hypertension Bipolar affective disorder, remission status unspecified ([facility]) Mixed hyperlipidemia ([facility]) Mixed hyperlipidemia Localized edema Edema Essential (primary) hypertension (CMS/HCC)- Primary Unspecified essential hypertension Mixed hyperlipidemia ([facility]) Mixed hyperlipidemia Localized edema Edema Seasonal allergies Allergic rhinitis, cause unspecified Pain in both knees, unspecified chronicity Obesity (BMI 30-39.9) Dizziness Dizziness and giddiness Essential (primary) hypertension ([facility]/HCC)- Primary Unspecified essential hypertension Obesity (BMI 30-39.9) Essential (primary) hypertension ([facility]/HCC)- Primary Unspecified essential hypertension Obesity (BMI 30-39.9) Dizziness Dizziness and giddiness Anxiety Anxiety state, unspecified Bipolar affective disorder, remission status unspecified ([facility]) Epistaxis Iron deficiency anemia, unspecified iron deficiency anemia type- Primary Vertigo Dizziness and giddiness Muscle weakness (generalized) Chronic fatigue Other malaise and fatigue Essential (primary) hypertension ([facility]/HCC) Unspecified essential hypertension Obesity (BMI 30-39.9) Dizziness Dizziness and giddiness Sepsis with acute renal failure, due to unspecified organism, unspecified acute renal failure type, unspecified whether septic shock present ([facility]) Essential (primary) hypertension ([facility]/HCC)- Primary Unspecified essential hypertension Unspecified severe protein-calorie malnutrition ([facility]) Dementia in other diseases classified elsewhere, unspecified severity, with other behavioral disturbance ([facility]) Iron deficiency anemia, unspecified iron deficiency anemia type Acute UTI (urinary tract infection) Occult blood positive stool Nonspecific abnormal finding in stool contents Bipolar affective disorder, remission status unspecified ([facility]) Dizziness Dizziness and giddiness Vertigo Dizziness and giddiness Muscle weakness (generalized) Mixed hyperlipidemia ([facility]) Mixed hyperlipidemia Essential (primary) hypertension ([facility])- Primary Unspecified essential hypertension Iron deficiency anemia, unspecified iron deficiency anemia type Muscle weakness (generalized) Obesity (BMI 30-39.9) Bipolar affective disorder, remission status unspecified ([facility]) Hypokalemia Hypopotassemia Essential (primary) hypertension ([facility]) Unspecified essential hypertension documented in this encounter [facility]* Diagnosis Blood per rectum- Primary Hemorrhage of rectum and anus documented in this encounter [facility]* Diagnosis Essential (primary) hypertension ([facility]CC)- Primary Unspecified essential hypertension Unspecified severe protein-calorie malnutrition ([facility]) Dementia in other diseases classified elsewhere, unspecified severity, with other behavioral disturbance ([facility]) Iron deficiency anemia, unspecified iron deficiency anemia type Acute UTI (urinary tract infection) Occult blood positive stool Nonspecific abnormal finding in stool contents Bipolar affective disorder, remission status unspecified ([facility]) Dizziness Dizziness and giddiness Vertigo Dizziness and giddiness Muscle weakness (generalized) Mixed hyperlipidemia ([facility]) Mixed hyperlipidemia documented in this encounter [facility]* Diagnosis Essential (primary) hypertension ([facility]/HCC)- Primary Unspecified essential hypertension BMI 34.0-34.9,adult Bipolar affective disorder, remission status unspecified ([facility]) Tobacco user Tobacco use disorder Vertigo Dizziness and giddiness Anxiety Anxiety state, unspecified Essential (primary) hypertension ([facility]/HCC)- Primary Unspecified essential hypertension BMI 34.0-34.9,adult Tobacco user Tobacco use disorder Tricuspid valve insufficiency, unspecified etiology Dizziness Dizziness and giddiness Elevated glucose level- Primary BMI 34.0-34.9,adult Essential (primary) hypertension (CMS/HCC) Unspecified essential hypertension Bipolar affective disorder, remission status unspecified ([facility]) Mixed hyperlipidemia (CMS/HCC) Mixed hyperlipidemia Localized edema Edema Essential (primary) hypertension (CMS/HCC)- Primary Unspecified essential hypertension Mixed hyperlipidemia (CMS/HCC) Mixed hyperlipidemia Localized edema Edema Seasonal allergies Allergic rhinitis, cause unspecified Pain in both knees, unspecified chronicity Obesity (BMI 30-39.9) Dizziness Dizziness and giddiness Essential (primary) hypertension (CMS/HCC)- Primary Unspecified essential hypertension Obesity (BMI 30-39.9) Essential (primary) hypertension ([facility]CC)- Primary Unspecified essential hypertension Obesity (BMI 30-39.9) Dizziness Dizziness and giddiness Anxiety Anxiety state, unspecified Bipolar affective disorder, remission status unspecified ([facility]) Epistaxis Iron deficiency anemia, unspecified iron deficiency anemia type- Primary Vertigo Dizziness and giddiness Muscle weakness (generalized) Chronic fatigue Other malaise and fatigue Essential (primary) hypertension ([facility]) Unspecified essential hypertension Obesity (BMI 30-39.9) Dizziness Dizziness and giddiness Sepsis with acute renal failure, due to unspecified organism, unspecified acute renal failure type, unspecified whether septic shock present ([facility]) Essential (primary) hypertension ([facility])- Primary Unspecified essential hypertension Unspecified severe protein-calorie malnutrition ([facility]) Dementia in other diseases classified elsewhere, unspecified severity, with other behavioral disturbance ([facility]) Iron deficiency anemia, unspecified iron deficiency anemia type Acute UTI (urinary tract infection) Occult blood positive stool Nonspecific abnormal finding in stool contents Bipolar affective disorder, remission status unspecified ([facility]) Dizziness Dizziness and giddiness Vertigo Dizziness and giddiness Muscle weakness (generalized) Mixed hyperlipidemia ([facility]CC) Mixed hyperlipidemia Essential (primary) hypertension ([facility])- Primary Unspecified essential hypertension Iron deficiency anemia, unspecified iron deficiency anemia type Muscle weakness (generalized) Obesity (BMI 30-39.9) Bipolar affective disorder, remission status unspecified ([facility]CC) Hypokalemia Hypopotassemia Essential (primary) hypertension (CMS/HCC)- Primary [...] anemia type Occult blood positive stool Procedures PA OFFICE/OUTPATIENT [facility] HIGH MDM 60 MINUTES Julianne Lord NP [address] [place] [address] Shanda Celaya DO [address] [facility] [address] [place] [address] Referral ID Status Reason Start Date Expiration Date V isits Requested Visits Authorized [id number] Closed Specialty Services Required 07/23/2024 01/19/2025 1 [...] DATE CREATED AUTHOR AUTHOR'S ORGANIZ ATION [facility]/17/2024 [facility] DATE CREATED AUTHOR AUTHOR'S ORGANIZ ATION 01/29/2025 [facility] Care Teams (unrecognized sec tion and content) Mid Level Practitioner Relationship Specialty Start Date End Date Zhen Christiansen MD [address] [place] [address] PCP - General Family Medicine 12/27/23 Julianne Lord NP [address] [place] [address] Nurse Practitioner Family Medicine 11/28/22 Mid Level Practitioner Relationship Specialty Start Date End Date Zhen Christiansen MD [address] [place] [address] PCP - General Family Medicine 12/27/23 Julianne Lord NP [address] [place] [address] Nurse Practitioner Family Medicine 11/28/22 Mid Level Practitioner Relationship Specialty Start Date End Date Zhen Christiansen MD [address] [place] [address] PCP - General Family Medicine 12/27/23 Julianne Lord NP [address] [place] [address] Nurse Practitioner Family Medicine 11/28/22 Mid Level Practitioner Relationship Specialty Start Date End Date Zhen Christiansen MD [address] [place] [address] PCP - General Family Medicine 12/27/23 Julianne Lord NP [address] [place] [address] Nurse Practitioner Family Medicine 11/28/22 Mid Level Practitioner Relationship Specialty Start Date End Date Zhen Christiansen MD [address] [place] [address] PCP - General Family Medicine 12/27/23 Julianne Lord NP [address] [place] [address] PCP [facility] 08/28/24 Julianne Lord NP [address] [place] [address] Nurse Practitioner Family Medicine 11/28/22 Mid Level Practitioner Relationship Specialty Start Date End Date Zhen Christiansen MD [address] [place] [address] PCP - General Family Medicine 12/27/23 Julianne Lord NP [address] [place] [address] Nurse Practitioner Family Medicine 11/28/22 Mid Level Practitioner Relationship Specialty Start Date End Date Zhen Christiansen MD [address] [place] [address] PCP - General Family Medicine 12/27/23 Julianne Lord NP [address] [place] [address] Nurse Practitioner Family Medicine 11/28/22 Mid Level Practitioner Relationship Specialty Start Date End Date Zhen Christiansen MD [address] [place] [address] PCP - General Family Medicine 12/27/23 Julianne Lord NP [address] [place] [address] Nurse Practitioner Family Medicine 11/28/22 Mid Level Practitioner Relationship Specialty Start Date End Date Zhen Christiansen MD [address] [place] [address] PCP - General Family Medicine 12/27/23 Julianne Lord NP [address] [place] [address] PCP - [facility] 08/28/24 Julianne Lord NP [address] [place] [address] Nurse Practitioner Family Medicine 11/28/22 Mid Level Practitioner Relationship Specialty Start Date End Date Zhen Christiansen MD [address] [place] [address] PCP - General Family Medicine 12/27/23 Julianne Lord NP [address] [place] [address] Nurse Practitioner Family Medicine 11/28/22 Mid Level Practitioner Relationship Specialty Start Date End Date Zhen Christiansen MD [address] [place] [address] PCP - General Family Medicine 12/27/23 Julianne Lord NP [address] [place] [address] Nurse Practitioner Family Medicine 11/28/22 Mid Level Practitioner Relationship Specialty Start Date End Date Zhen Christiansen MD [address] [place] [address] PCP - General Family Medicine 12/27/23 Julianne Lord NP [address] [place] [address] PCP - [facility] 08/28/24 Julianne Lord NP [address] [place] [address] Nurse Practitioner Family Medicine 11/28/22 Mid Level Practitioner Relationship Specialty Start Date End Date Zhen Christiansen MD [address] [place] [address] PCP - General Family Medicine 12/27/23 Julianne Lord NP [address] [place] [address] Nurse Practitioner Family Medicine 11/28/22 Mid Level Practitioner Relationship Specialty Start Date End Date Zhen Christiansen MD [address] [place] [address] PCP - General Family Medicine 12/27/23 Julianne Lord NP [address] [place] [address] Nurse Practitioner Family Medicine 11/28/22 Mid Level Practitioner Relationship Specialty Start Date End Date Zhen Christiansen MD [address] [place] [address] PCP - General Family Medicine 12/27/23 Julianne Lord NP [address] [place] [address] Nurse Practitioner Family Medicine 11/28/22 Reason for [...] BE BASED ON THE PRIMARY CLINICAL RECORDS. [email or web address] provides no warranty or guarantee of the accuracy or completeness of information in this document.
== END 2025-02-06 09:08 | disposition home or self-care (01) ==
LOC: MAMMO 09:07
PROVIDERS: PCP Nurse Practitioner; Visit Provider Nurse Practitioner
DX: Z12.31 Encounter for screening mammogram for malignant neoplasm of breast (principal); M85.80 Other specified disorders of bone density and structure, unspecified site; Z78.0 Asymptomatic menopausal state; Z79.899 Other long term (current) drug therapy; R92.8 Other abnormal and inconclusive findings on diagnostic imaging of breast
CPT/HCPCS: 36415; 77063; 77067; 77080; 80076; 80156; 84443; 85025

== ENCOUNTER 2025-11-26 11:48 | Outpatient (OUT) | payer MEDICARE, SELFPAY ==
--- OUTSIDE RECORDS SUMMARY | 2025-11-26 11:53 | XMS_ITS | Patient Health Record ---
Author Organization [facility] in [facility] Address [address] [place] [address] Care Team Providers Care Storage Battery Inspector And Tester Name Role Phone Julianne Lord CNP Primary Care Provider Unavail able Reason For Referral No Information Problems Problem Type SNOMED Code ICD Code Onset Dates Problem Status W/U Status Risk Notes Problem Hypertension (79805516) Hypertension (I10 ) ActiveconfirmedProblemIron deficiency anemia (10066977)Anemia, iron deficiency (D50.9)ActiveconfirmedProblemRecurrent falls (033212684)Recurrent falls (R29.6) ActiveconfirmedProblemAltered mental status (315589487)Altered mental status (R41.82)ActiveconfirmedProblemSevere protein calorie malnutrition (810403968) Severe protein-calorie malnutrition (E43)Activeconfirmed Plan Of Treatment No Information Insurance Providers Payer Name Payer Address Payer Phone Subscriber Number Group Number Insured Name Patient Relationship to Insured Coverage Start Date Coverage End Date [employer] [place] [employer] [address] [place] [address] [id number] [facility] Sahra Taveras Self - patient is the insured 3
--- OUTSIDE RECORDS SUMMARY | 2025-11-26 11:53 | XMS_ITS | Patient Health Record ---
Author Organization [facility] vices Address [address] [place], [place] [address] Care Team Providers Care On Call Name Role Phone Walter Solis Primary Care Provider Reason For Referral No Information Immunizations Vaccine Route Administration Date Status Comme nts *Influenza, quad (aIIV4), ad jv, 0.5 IM-VFC Unknown 09/02/2023 Administered Social History Sex Assigned At : Social History Observation Description Sex Assigned At Female Plan Of Treatment No Information Insurance Providers Payer Name Payer Address Payer Phone Subscriber Number Group Number Insured Name Patient Relationship to Insured Coverage Start Date Coverage End Date [employer] [facility] [address] [place] [address] [id number] Sahra Taveras (Deni)Self - patient is the [id number] DMedicaid ABD after CaresourceDentaquest[address] [place], [place] [id number], Raugna (Deni)Self - patient is the [id number]/[id number]/[id number] 01/27/1753
--- OUTSIDE RECORDS SUMMARY | 2025-11-26 11:53 | XMS_ITS | Patient Health Record ---
Author Organization [facility] es Address [address] [place] [address] Care Team Providers Care Cementer Machine Name Role Phone Elena Chavez Primary Care Provider Reason For Referral No Information Plan Of Treatment No Information Insurance Providers Payer Name Payer Address Payer Phone Subscriber Number Group Number Insured Name Patient Relationship to Insured Coverage Start Date Coverage End Date [employer] [place] [address] [place] [address] [id number] RESHMA COURTNEYSUSAN Self - patient is the insured 3 [employer] ABD CareSourcePO [address] [place] [phone] [id number] YIMIelf - patient is the [id number] 2022
--- OUTSIDE RECORDS SUMMARY | 2025-11-26 11:53 | XMS_ITS | Clinical Summary ---
Author Organization [facility] Address [id number] [address] [place] [address] Care Team Providers Care Financial Services Rep Name Role Phone Unavailable Primary Care Provider Unavailabl e Active Problems ProblemNoted DateDiagnosed DateSepsis, unspecified miixvtqu40/06/2024Urinary tract infection without ewmwdwkyb28/06/2024ellulitis of abdominal wall 07/03/2024ementia in other diseases classified elsewhere, unspecified severity, with other behavioral cacumaoewlg65/06/2024Hypertension, pivqxuagl67/06/2024 Acute kidney failure, aosieqnyzzi27/06/2024Muscle weakness (generalized) 07/03/2024Other abnormalities of gait and smqajvdc40/06/2024ipolar disorder 07/03/2024ermatitis, lpzaioajaai79/06/2024Other drzucvcmkxvlog52/06/2024Severe protein-calorie gasrijmlzytw53/06/2024Iron deficiency mupzui7107/03/2024 Cprkvjjykwbt90/06/2024Generalized anxiety luqwwwia91/06/2024 Family History Medical HistoryRelationNameCommentsCirrhosisFatherDue to alcoholCirrhosisMother Due to alcoholCirrhosisSisterDue to alcoholRelationNameStatusCommentsFather DeceasedMotherDeceasedSisterDeceased Social History Tobacco UseTypesPacks/DayYears UsedDateSmoking Tobacco: Every DayCigarettes Tobacco Cessation:Ready to Q uit: Not Asked; Counseling Given: Not Answered Comments:She was unable to tell me how long she has been smoking Alcohol UseStandard Drinks/WeekCommentsNot Currently0 (1 standard drink = 0.6 oz pure alcohol)ChildcareAnswerDate XtwhyxxhHkqodqoufRaxvccl56/11/2019Employment AnswerDate BeudafewHtlmhgobepLhepzop65/11/2019CommentsUnknownSex and Gender InformationValueDate RecordedSex Assigned at BirthNot on fileLegal Sex Xryhdm6207/01/2015 9:37 PM EDTGender IdentityNot on fileSexual OrientationNot on fileOccupationIndustryJob Start DateJob End Datefactory workerNot on fileNot on fileNot on file Last Filed Vital Signs Vital SignReadingTime TakenCommentsBlood Qfsynpvw669/98007/03/2024 11:01 PM EDT Bzttt978307/03/2024 11:01 PM CQOOwgzjqfllnh04.4 ??C (97.5 ??F)07/03/2024 11:01 PM EDTRespiratory Mwca002607/03/2024 11:01 PM EDTOxygen Sdqjgxohgu00%07/03/2024 11:01 PM EDTInhaled Oxygen Concentration--Cesbkd98.8 kg (160 lb 6.4 oz)07/03/2024 11:01 PM EDTHeight--Body Mass Index-- Plan of Treatment Health MaintenanceDue DateLast DoneCommentsDepression Gnxsxfoet66/08/1971Tobacco Kairphwad50/08/1971Adult BMI Ehskcxtop35/08/1977DTaP,Tdap and Td Vaccines (1 - Tdap)1978Zoster (Shingles) Vaccine (1 of 2)2009Fall Risk Screening 2024Influenza Mdlgtqf8007/29/2025RSV ( or age 60+ yrs) (1 - 1-dose 75+ series)2034 Medical Devices Not on file
--- OUTSIDE RECORDS SUMMARY | 2025-11-26 11:53 | XMS_ITS | Clinical Summary ---
Author Organization [facility] Address [address] [place] [address] Care Team Providers Care Dumpcart Driver Name Role Phone Julianne Lord NP Unavailable [phone] Zhen Christiansen MD Primary Care Provider [phone] Julianne Lord STUDENT RECORDS COORDINATOR Unavailable [phone] Allergies No known active allergies Medications MedicationSigDispense QuantityRefillsLast FilledStart DateEnd DateStatus ALPRAZolam (Xanax) 1 MG tablet Take 1 tablet by mouth 2 (two) times a day as needed Pt has been taking 1 tab in morning and 1 tab in the evening daily11/19/2023ctive buPROPion XL (Wellbutrin XL) 300 MG 24 hr tablet Take 1 tablet by mouth in the morning. Pt has been taking at night ontop of 150mg.11/16/2023ctive busPIRone (Buspar) 30 MG tablet Take 1 tablet by mouth in the morning and 1 tablet before bedtime.11/16/2023 Active carBAMazepine (TEGretol) 200 MG tablet Take 1 tablet by mouth in the morning and 1 tablet before bedtime. 1 tablet in the am, and 2 tablets at night: pt is currently taking 1 tab in am and 1 tab night.11/16/2023ctive ARIPiprazole (Abilify) 15 MG tablet Indications:Mixed Bipolar Affective DisorderTake 15 mg by mouth in the morning. Active buPROPion XL (Wellbutrin XL) 150 MG 24 hr tablet Take 150 mg by mouth Daily Do not crush, chew, or split. Pt has been taking at night along with 300mgActive Lumateperone Tosylate (Caplyta) 42 MG capsule Indications:Depressive Phase Bipolar Mood DisorderTake 1 capsule by mouth in the morning.Active traZODone (Desyrel) 50 MG tablet Take 50 mg by mouth at cvlumbe57/10/2024Active carvedilol (Coreg) 25 MG tablet Indications:Essential (primary) hypertensionTake 1 tablet (25 mg) by mouth in the morning and 1 tablet (25 mg) in the evening. Take with meals. 180 tablet 5Active losartan (Cozaar) 100 MG tablet Indications:Essential (primary) hypertensionTake 1 tablet (100 mg) by mouth Daily 90 tablet 5Active atorvastatin (Lipitor) 40 MG tablet Indications:Mixed hyperlipidemiaTake 1 tablet (40 mg) by mouth at bedtime 90 tablet 5Active loratadine (Claritin) 10 MG tablet Indications:Seasonal allergiesTake 1 tablet (10 mg) by mouth Daily 30 tablet 505Active Active Problems ProblemNoted DateDiagnosed DateBilateral flank pain04/25/2025 Assessment & Plan (04/25/2025 1:22 PM EDT): Urine negative no blood protein or ketones Lumbar back pain04/25/2025 Assessment & Plan (04/25/2025 1:24 PM EDT): I suspect more muscle related back pain and not kidney stone No blood in urine, also has had stone in the past and it does not feel like this Hand out on stretching exercises No NSAIDS d/t BP , and no MR d/t psych meds Fu if not better Colon cancer screening ovubvhyz83/30/2025bnormality of left breast on screening /14/2025 Assessment & Plan (04/25/2025 1:22 PM EDT): Non compliant with fu additional views Stressed the importance of getting this completed Assessment & Plan (03/27/2025 11:40 AM EDT): Had screening mamm, left breast needs additional views Will do this at [facility] Explained why this done there As of 03/27/25 no report as of yet, she stated no call from therm Refaxed order Assessment & Plan (02/26/2025 5:06 PM EDT): Had screening mamm, left breast needs additional views Will do this at [facility] Explained why this done there Encounter for initial annual wellness visit (AWV) in Medicare igrgbol1112/20/2024 Assessment & Plan (02/26/2025 7:31 AM EDT): Reviewed Ht/Wt/BMI Recommend eye exam yearly Recommend dental exams twice a year Balance work/leisure activities Exercises is recommended most days of the week (appropriate as chronic conditions allow) Follow up yearly and prn Needs flu shot11/14/2024Former fefbgv2211/14/2024 Assessment & Plan (11/14/2024 11:25 AM EST): Former smoker, for approx 20 years 1 pack per week Quit not sure how long ago Memory dnfmrysist14/18/2024 Assessment & Plan (11/14/2024 11:59 AM EST): MOCA testing Will refer to neuropsych Encounter for screening mammogram for malignant neoplasm of vugfxv9111/05/2024 Qdklbqydimb47/19/2024 Assessment & Plan (08/27/2024 1:19 PM EDT): Recheck potassium Occult blood positive stool07/23/2024hronic emrntiv9207/12/2024 Assessment & Plan (07/12/2024 5:54 PM EDT): Check labs Other abnormalities of gait and akfmweis05/06/2024Iron deficiency anemia 07/03/2024 Assessment & Plan (08/27/2024 1:31 PM EDT): Check labs Has scope scheduled Assessment & Plan (07/12/2024 5:53 PM EDT): Was anemic upon hospital discharge, we will check labs to see if this also is contributing to her dizziness and fatigue Rxumormxkzam68/06/2024Muscle weakness (generalized)07/03/2024 Assessment & Plan (08/27/2024 1:29 PM EDT): Home Health never came to pt's house She drove herself to today's appt She has not gone to Neurology as directed Assessment & Plan (07/12/2024 5:58 PM EDT): Order for walker and home health 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 We have also discussed lifestyle modifications: attempts to perform physical activity as chronic conditions allow, also to monitor dietary intake: increasing protein/fruits/veggies and lowering carb intake (unless contraindicated). Limit sodas, juices, and sugary drinks. Assessment & Plan (03/27/2025 6:33 AM EDT): Discussed with patient their BMI (actual, verses recommended). We have also discussed lifestyle modifications: attempts to perform physical activity as chronic conditions allow, also to monitor dietary intake: increasing protein/fruits/veggies and lowering carb intake (unless contraindicated). Limit sodas, juices, and sugary drinks. Assessment & Plan (02/26/2025 7:29 AM EDT): Discussed with patient their BMI (actual, verses recommended). We have also discussed lifestyle modifications: attempts to perform physical activity as chronic conditions allow, also to monitor dietary intake: increasing protein/fruits/veggies and lowering carb intake (unless contraindicated). Limit sodas, juices, and sugary drinks. Assessment & Plan (11/14/2024 7:09 AM EST): Discussed with patient their BMI (actual, verses recommended). We have also discussed lifestyle modifications: attempts to perform physical activity as chronic conditions allow, also to monitor dietary intake: increasing protein/fruits/veggies and lowering carb intake (unless contraindicated). Limit sodas, juices, and sugary drinks. Post-fmoiyxyhpb43/27/2024Elevated glucose level02/22/2024Tricuspid regurgitation 01/24/2024 Overview (01/24/2024): mild Abnormal stress test01/24/2024holelithiasis without doltxbgmsep16/27/2024 Qmykggrenj15/27/2024HLD (hyperlipidemia)01/19/2024 Assessment & Plan (02/26/2025 5:06 PM EDT): On statin therapy Assessment & Plan (11/14/2024 7:11 AM EST): Continue statin Check labs yearly and prn dose changes Assessment & Plan (02/22/2024 9:47 AM EDT): Continue current meds Reviewed labs from 02/20/24 Bilateral knee pain01/19/2024 Assessment & Plan (03/27/2025 11:39 AM EDT): Recommend OTC Tylenol ES 2 pills every 8 hours as needed for pain No NSAIDS d/t blood pressure Assessment & Plan (04/05/2024 10:02 AM EDT): Takes low dose meloxicam Seasonal /22/2024 Assessment & Plan (03/27/2025 10:29 AM EDT): Add loratadine Bipolar /06/2024 Assessment & Plan (02/26/2025 7:30 AM EDT): Continue with psych provider Assessment & Plan (11/14/2024 7:09 AM EST): Continue with psych provider Assessment & Plan (08/27/2024 1:19 PM EDT): Continue with Psych for med mgmt Assessment & Plan (07/23/2024 1:04 PM EDT): Uncertain what cause of her mental status changes, possible related to psych meds, or other neurological issues We will reach out to Neurology Assessment & Plan (07/12/2024 5:54 PM EDT): I have advised pt and her son to reach out to dr dao about her med doses on caplyta as well as abilify Assessment & Plan (05/14/2024 11:45 AM EDT): Continue with psych Assessment & Plan (02/22/2024 9:40 AM EDT): Continue with psych Assessment & Plan (01/03/2024 3:59 PM EST): Continue with psych Rtzxddi1701/03/2024 Assessment & Plan (04/25/2025 1:21 PM EDT): Continues with intermittent episodes Has been instructed to fu with neurology for this Does not have a car at this time to get to appt either Will give a refill, but again stressed need to call neurology Assessment & Plan (01/03/2024 3:58 PM EST): Has resolved No need for antivert Tnpipwm7801/03/2024 Assessment & Plan (02/26/2025 7:30 AM EDT): Continue with psych provider Assessment & Plan (11/14/2024 7:09 AM EST): Continue with psych provider Assessment & Plan (05/14/2024 11:46 AM EDT): Continue with dr dao, recommend she talk with her about counseling She does report taking her xanax daily Possible related to BP and anxiety as well Assessment & Plan (01/03/2024 3:59 PM EST): Continue with dr dao, recommend she talk with her about counseling As this may be part of her elevated blood pressure Essential (primary) vkdsflaxovva41/20/2023 Assessment & Plan (04/25/2025 6:42 AM EDT): Please check blood pressure daily and record DASH diet Limit caffeine Take medication as directed Contact office if chest pain, pressure, dizziness, shortness of breath, swelling legs Recommend slow position changes Current meds: carvedilol, and losartan Assessment & Plan (03/27/2025 6:33 AM EDT): Please check blood pressure daily and record DASH diet Limit caffeine Take medication as directed Contact office if chest pain, pressure, dizziness, shortness of breath, swelling legs Recommend slow position changes Current meds: carvedilol, and losartan Assessment & Plan (02/26/2025 7:28 AM EDT): Please check blood pressure daily and record DASH diet Limit caffeine Take medication as directed Contact office if chest pain, pressure, dizziness, shortness of breath, swelling legs Recommend slow position changes Current meds: carvedilol, and losartan Assessment & Plan (11/14/2024 11:33 AM EST): Please check blood pressure daily and record DASH diet Limit caffeine Take medication as directed Contact office if chest pain, pressure, dizziness, shortness of breath, swelling legs Recommend slow position changes Current meds: carvedilol, and losartan Getting correspondence from psych she is having elevated blood pressures in office as well, we willincrease losartan to 100mg daily Fu in 4 weeks for recheck Assessment & Plan (08/27/2024 1:18 PM EDT): Stable on current meds No dose changes Check labs Assessment & Plan (07/23/2024 1:07 PM EDT): Stable on current meds Assessment & Plan (07/12/2024 5:52 PM EDT): Will hold hydrochlorothiazide at this time See what happens with blood pressure and if dizziness improves Will also check labs Assessment & Plan (05/14/2024 11:45 AM EDT): Clinically is doing better with addition of losartan, some very rare intermittent dizziness, resolves w lying down. Was not compliant with fu with neurology for this, however also reports this has improved significantly since initially diagnosed Was referred to Cardiology, reports no call from them for an appt, we gave her phone number so she could call to schedule No further med changes, will fu in this office in 4 weeks Assessment & Plan (04/19/2024 12:14 PM EDT): Approx 40 point improvement with SBP w bump up of carvedilol to 25mg BID Will add losartan 50mg daily, cont 25mg hydrochlorothiazide Fu in 2 weeks Assessment & Plan (04/05/2024 10:02 AM EDT): No acute symptoms of severe hypertension, however I rechecked reads: left arm 220/126 right arm 180/110 I will send to [facility] ER I am going to increase her carvedilol to 25mg BID (previous 12.5mg BID) and hydrochlorothiazide to 25mg (previous 12.5mg daily). Insurance denied ECHO, I am going to send her to see Cardiology for evaluation- consult [facility] Also I would like her to talk to Dr Dao as I do suspicion that her mental health and life stressors are playing a role in her blood pressure to Fu in 1 week for a recheck Assessment & Plan (02/22/2024 9:46 AM EDT): BP better with change in med dose Insurance denied ECHO Will continue current meds Fu in 6 weeks Assessment & Plan (01/24/2024 9:30 AM EST): Pt was seen in [facility] Er last Tuesday, was instructed to increase her carvedilol to 12.5mg twice a day,she did not do so, she wanted to check with me first I will send in new order for 12.5mg BID, check blood pressures twice daily and record, and fu here in 2 weeks Also check ECHO- also has been having ongoing dizziness, will r.o cardiac as cause Limit caffiene and sodium Assessment & Plan (01/03/2024 3:57 PM EST): No changes in meds at this time Script for blood pressure cuff Fu in 3 weeks record BP twice a day Resolved Problems ProblemNoted DateDiagnosed DateResolved DateColon cancer prxskypvk36/30/2025 03/27/20253496Kemkgimgwf11/01/202505/ Assessment & Plan (03/27/2025 10:28 AM EDT): Seen approx 1 month ago for cough/bronchitis, was prescribed atb 80% better, still w some cough I believe could be allergy related Assessment & Plan (02/26/2025 5:05 PM EDT): Atb, fu in 3 weeks for recheck, if not better consider cxr etc Acute UTI (urinary tract infection)/07/2024 Assessment & Plan (07/23/2024 1:14 PM EDT): No acute symptoms at this time, will re culture urine Sepsis, unspecified pcrihmws26/07/2024Unspecified severe protein- calorie malnutrition ([facility])Epistaxis Assessment & Plan (05/14/2024 11:47 AM EDT): This only happens if aggressively blowing her nose I do see a scab in the left nares Recommend OTC saline nasal spray or saline gel to apply in the nose Fu if not better Recommend avoid blowing nose RUQ pain01/24/Left groin pain01/24/nemia01/24/2024 04/25/2025History of nicotine nzwpbrcrdu09epression01/24/2024 01/24/2024hest pain01/24/20231129/ipolar xgylfbhtfo52/27/202401/ Fhenwdssg94/27/20231129/ Assessment & Plan (07/12/2024 5:55 PM EDT): Check labs Consider MRI if not done while in hospital Assessment & Plan (05/14/2024 11:45 AM EDT): Very intermittent and less severe Assessment & Plan (04/05/2024 10:03 AM EDT): Wants a refill for her antivert, I suspicion her elevated blood pressure also is the root of this issue as well BMI 34.0-34.9,adult/07/2024Tobacco user/ Immunizations ImmunizationAdministration DatesNext DueInfluenza, injectable, MDCK, preservative free, rlevhteycbsk05/18/2024,11/12/2021Influenza, injectable, quadrivalent, preservative free09/02/2023,08/25/2022 Family History Medical HistoryRelationNameCommentsAlcohol abuseFatherBreast cancerOtherfamily historyRelationNameStatusCommentsFatherOtherfamily history Social History Tobacco UseTypesPacks/DayYears UsedDateSmoking Tobacco: Every DayCigarettes Tobacco Cessation:Ready to Q uit: Not Asked; Counseling Given: Not Answered PHQ-2AnswerDate RecordedPatient Health Questionnaire-2 Reuzk651 CommentsUnknownSex and Gender InformationValueDate RecordedSex Assigned at Not on fileLegal CdyIincab27/15/2023 7:40 PM EDTGender IdentityNot on fileSexual OrientationNot on file Last Filed Vital Signs Vital SignReadingTime TakenCommentsBlood Asilrxdn388/90004/25/2025 11:33 AM EDT Peyvb446404/25/2025 11:33 AM NQYJieqjvdijwr23.4 ??C (97.5 ??F)04/25/2025 11:33 AM EDTRespiratory Ztow869404/25/2025 11:33 AM EDTOxygen Serssnxgca20%04/25/2025 11:33 AM EDTInhaled Oxygen Concentration--Vlibux58.3 kg (166 lb)04/25/2025 11:33 AM ABSOvqhnc162 cm (5' 3 )04/25/2025 11:33 AM EDTBody Mass Index29.41004/25/2025 11:33 AM EDT Plan of Treatment Health MaintenanceDue DateLast DoneCommentsCT Fifcoxqfscek1959Colonoscopy 1960FIT-DNA1959FIT1960FOBT1960 4833Swjnepxstkser1960 Pneumococcal Vaccine: 65+ Years (1 of 2 - PCV)1978Influenza Vaccine (#1) /, 09/02/2023, 08/25/2022, Additional history existsMammogram 603/, 01/03/2024 (Patient Refused)Colorectal Cancer Screening 03/27/2026Postponed from 1959 (Patient Refused) Procedures Procedure NamePriorityDate/TimeAssociated DiagnosisCommentsMM TOMOSYNTHESIS SCREENING BI02/07/2025 9:55 AM EDT from Last 3 Months or Most Recently Relevant to Health Maintenance Results * MM TOMOSYNTHESIS SCREENING BI (02/07/2025 9:55 AM EDT)Anatomical Region LateralityModalityOtherSpecimen (Source)Anatomical Location / Laterality Collection Method / VolumeCollection TimeReceived Time02/07/2025 9:55 AM EDT Narrative 02/07/2025 9:[address] [facility] ?[address] ? [place] [address] ? Mammography Report ? Signed ? Patient: REFFITT,RAUGNA ?MR#: [id number] ?? : 1960 ?Acct:[id number] ?? Age/Sex: 64 / F ?ADM Date: 03/12/25 ?? Loc: MAMMO ? Attending Dr: Julianne J Aichholz STUDENT RECORDS COORDINATOR ? Ordering Physician: Aichholz,Julianne STUDENT RECORDS COORDINATOR ?Results: ? Date of Service: 02/06/25 ?Follow Up: ? Procedure(s): MM tomosynthesis screening BI ?? Accession Number(s): [id number] ? cc: Julianne Lord STUDENT RECORDS COORDINATOR ? Patient Name: ? RAUGNA REFFITT ? MR#: [id number] ? : 1960 ? Exam Date: 02/06/2025 ?? Ordering Doctor: MATIAS Lord CNP ? RADIOLOGY REPORT ? PROCEDURE: ? MM TOMOSYNTHESIS SCREENING BI ? COMPARISON: ? MG MAMM SCREEN TANIA W CAD, 07/30/2020. ??MG MAMM SCREEN TANIA W ?? CAD, 06/13/2019. ??MG MAMM SCREEN TANIA W CAD, 05/16/2018. ??MG MAMM TANIA SCRN W CAD ?? DIG, 10/11/2014. ? INDICATIONS: ? Screening ? Calculator Name ? NCI Breast Cancer Risk Assessment Tool ?? 5 Year Breast Cancer Risk ? 1.50% ?? Lifetime Breast Cancer Risk ? 5.60% ?? Personal Breast Cancer ?No ?? Personal Ovarian Cancer ? No ?? Treatments ? None ?? Family Cancers ? None ? LOCATION: ? [facility] ? BREAST COMPOSITION: ? The breasts are heterogeneously dense,which may ?? obscure small masses. ? FINDINGS: ? DIAGNOSTIC CATEGORY 0--INCOMPLETE: NEED ADDITIONAL IMAGING EVALUATION. ? RIGHT BREAST: ??No significant suspicious finding. ? LEFT BREAST: ??Developing loosely grouped suspicious microcalcifications ?? involving the central outer aspect of left breast, middle depth. ? RECOMMENDATIONS: ? ADDITIONAL MAMMOGRAPHIC VIEWS REQUIRED: LEFT BREAST - spot magnification ?? views. ??True lateral view are recommended. ? PLEASE NOTE: ??A NORMAL MAMMOGRAM DOES NOT EXCLUDE THE POSSIBILITY OF BREAST ?? CANCER. ??A CLINICALLY SUSPICIOUS PALPABLE LUMP SHOULD BE BIOPSIED. ? Dictated by: Rafael Brown DO on 02/07/2025 at 09:50 ? Approved by: Rafael Brown DO on 02/07/2025 at 09:55 ? Dictated By: ?Rafael Brown M.D. ? Signed By: ?02/07/25 0956 ? DD/ 0955 ? TD/TT: ? Special Effects Artist: Procedure Note Radiology, Radiologist, MD - 02/07/2025 [place] [address] Mammography Report Signed Patient: NICCI COURTNEYR#: [id number] : 1960cct:[id number] Age/Sex: 64 / FADM Date: 02/06/25 Loc: MAMMO Attending Dr: Julianne Lord STUDENT RECORDS COORDINATOR Ordering Physician: Julianne Lordesults: Date of Service: 02/06/25Follow Up: Procedure(s): MM tomosynthesis screening BI Accession Number(s): [id number] cc: Julianne Lord NP Patient Name: ALBERTA COURTNEY MR#: [id number] : 1960 Exam Date: 02/06/2025 Ordering Doctor: MATIAS Lord OPTICAL INSTRUMENT ASSEMBLY SUPERVISOR RADIOLOGY REPORT PROCEDURE: MM TOMOSYNTHESIS SCREENING BI COMPARISON: MG MAMM SCREEN TANIA W CAD, 07/30/2020. MG MAMM SCREEN TANIA W CAD, 06/13/2019. MG MAMM SCREEN TANIA W CAD, 05/16/2018. MG MAMM TANIA SCRN WCAD DIG, 10/11/2014. INDICATIONS: Screening Calculator Name NCI Breast Cancer Risk Assessment Tool 5 Year Breast Cancer Risk 1.50% Lifetime Breast Cancer Risk 5.60% Personal Breast Cancer No Personal Ovarian Cancer No Treatments None Family Cancers None LOCATION: [facility] BREAST COMPOSITION: The breasts are heterogeneously dense,which may obscure small masses. FINDINGS: DIAGNOSTIC CATEGORY 0--INCOMPLETE: NEED ADDITIONAL IMAGING EVALUATION. RIGHT BREAST: No significant suspicious finding. LEFT BREAST: Developing loosely grouped suspicious microcalcifications involving the central outer aspect of left breast, middle depth. RECOMMENDATIONS: ADDITIONAL MAMMOGRAPHIC VIEWS REQUIRED: LEFT BREAST - spot magnification views. True lateral view are recommended. PLEASE NOTE: A NORMAL MAMMOGRAM DOES NOT EXCLUDE THE POSSIBILITY OFBREAST CANCER. A CLINICALLY SUSPICIOUS PALPABLE LUMP SHOULD BE BIOPSIED. Dictated by: Rafael Brown DO on 02/07/2025 at 09:50 Approved by: Rafael Brown DO on 02/07/2025 at 09:55 Dictated By: Rafael Brown M.D. Signed By:02/07/25955 DD/ 4 TD/TT: Special Effects Artist: Authorizing ProviderResult TypeResult StatusLisa Aichholz NPCLINISYNC IMAGING Final Result from Last 3 Months or Most Recently Relevant to Health Maintenance Insurance Care Teams Team MemberRelationshipSpecialtyStart DateEnd Date Zhen Christiansen MD PCP - [facility]12/27/23 Julianne Lord NP [address] [place] [address] PCP - [facility]08/28/24 Julianne Lord NP [facility]11/28/22
[2025-11-26 12:05] LABS: Hematocrit 42.7 % (36.0-48.0); Hemoglobin 14.5 g/dL (12.0-16.0); Immature Granulocytes Abs Auto 0.03 10^3/uL (0.00-0.03); Immature Granulocytes Pct Auto 0.4 % (0.0-0.5); Lymphocytes Absolute Auto 1.4 10^3/uL (1.2-3.8); Mean Corpuscular HGB Conc 34.0 g/dL (29.9-35.2); Mean Corpuscular Hemoglobin 28.8 pg (26.7-34.0); Mean Corpuscular Volume 84.7 fL (81.0-99.0); Platelet Count 247 10^3/uL (150-450); Red Blood Count 5.04 10^6/uL (4.20-5.40); White Blood Count 7.9 10^3/uL (4.0-11.0)
[2025-11-26 13:03] LABS: Alanine Aminotransferase 24 U/L (14-59); Albumin Globulin Ratio 1.0; Albumin Level 4.0 g/dL (3.4-5.0); Alkaline Phosphatase 113 U/L (46-116); Aspartate Amino Transferase 18 U/L (15-37); Cholesterol 196 mg/dL (<=200); Globulin 4.2 g/dL; Glucose 102 mg/dL (74-106); HDL Cholesterol 53 mg/dL (40-60); Thyroid Stimulating Hormone 1.709 uIU/mL (0.358-3.740); Total Protein 8.2 g/dL (6.4-8.2); Triglycerides 123 mg/dL (<=150); VLDL CHOLESTEROL 24.6 mg/dL
[2025-11-27 08:08] LABS: Carbamazepine(Tegretol),S 6.7 ug/mL (4.0-12.0)
== END 2025-11-26 11:49 | disposition home or self-care (01) ==
LOC: LAB 11:50
PROVIDERS: PCP Nurse Practitioner; Visit Provider Psychiatry & Neurology Psychiatry
DX: F31.9 Bipolar disorder, unspecified (principal); Z79.899 Other long term (current) drug therapy
CPT/HCPCS: 36415; 80061; 80076; 80156; 82947; 83036; 84443; 85025